=== PATIENT | female | born 1960 | race Caucasian/White ===

== ENCOUNTER → 2018-01-10 | Day surgery (SDC) | payer MEDICARE ==
[2018-01-08 11:10] LABS: BASOPHILS # (AUTO) 0.1 (0.0-0.1); BASOPHILS % 0.6 % (0.0-1.0); EOSINOPHILS # (AUTO) 0.2 (0.0-0.4); EOSINOPHILS % 1.5 % (0.0-6.0); HEMATOCRIT 50.3 % (34.2-44.1); LYMPHOCYTES # (AUTO) 2.3 (1.0-3.2); LYMPHOCYTES % 19.8 % (18.0-39.1); MEAN CORPUSCULAR HEMOGLOBIN 30.9 pg (28-32); MEAN CORPUSCULAR HGB CONC 33.8 g/dL (31-35); MEAN CORPUSCULAR VOLUME 91.5 fL (81-99); MONOCYTES # (AUTO) 0.8 (0.2-0.8); MONOCYTES % 7.2 % (4.4-11.3); NEUTROPHILS # (AUTO) 8.2 (2.1-6.9); NEUTROPHILS % 70.7 % (38.7-80.0); PLATELET COUNT 272 x10e3/uL (140-360); RED CELL DISTRIBUTION WIDTH 14.4 % (11.7-14.4)
[2018-01-08 11:30] LABS: ANION GAP 17.5 mmol/L (8-16); BLOOD UREA NITROGEN 10 mg/dL (7-26); BUN/CREATININE RATIO 13 (6-25); CALCIUM 9.8 mg/dL (8.4-10.2); CARBON DIOXIDE 25 mmol/L (22-29); CHLORIDE 98 mmol/L (98-107); CREATININE, SERUM 0.76 mg/dL (0.57-1.11); EST GLOMERULAR FILTRATION RATE > 60 ML/MIN (60-); GLUCOSE 105 mg/dL (74-118); POTASSIUM 4.5 mmol/L (3.5-5.1); SODIUM 136 mmol/L (136-145)
[~2018-01-10] MED LIST: AMITRIPTYLINE H10 MG PO; AMITRIPTYLINE H50 MG PO; AMLODIPINE BESYL5 MG PO; ASPIRIN81 MG PO; ATENOLOL50 MG PO; CYMBALTA20 MG PO; CYMBALTA30 MG; DEXAMETHASONE SOD PHOS INJ 4 MG/ML VIAL ONE; EPHEDRINE SULFATE INJ 50 MG/10 ML SYR ONE; ESCITALOPRAM OX20 MG PO; FENTANYL CITRATE/PF 100MCG/2 ML INJ ONE; FLOMAX0.4 MG PO; IOPAMIDOL 300MG/ML 50ML INFUS..BTL IV ONE; LEVOFLOXACIN 500MG/D5W 100ML 100 ML IV ONE; LEXAPRO10 MG PO; LIDOCAINE HCL 2% LOCAL INJ 5 ML SDV VIAL INJ ONE; MELOXICAM7.5 MG PO; MIDAZOLAM HCL 2 MG/2 ML VIAL ONE; MORPHINE SULFAT30 M2 PO; MYRBETRIQ25 MG; NEXIUM40 MG PO; NORCO 10-325 T1 EACH; ONDANSETRON HCL INJ 2 MG/ML VIAL ONE; PROPOFOL IV EMULSION 10 MG/ML 20 ML VIAL ONE; SEVOFLURANE INHAL SOLN 250 ML PEN BTL ONE; STOOL SOFTENER50 MG; TIZANIDINE HCL4 MG PO
[2018-01-10 13:45] VITALS: BP 125/72
--- NOTE | 2018-01-14 12:18 | Diagnostic Imaging Report ---
PROCEDURE:X-RAY ABDOMEN - KUB COMPARISON:None. INDICATIONS:PREOPERATIVE XRAY FOR KIDNEY STONE SURGERY FINDINGS: Bowel gas partially obscures visualization of the kidneys. There is an 8 mm calcification overlying the left mid kidney. There are no calcifications projected over the expected course of the ureters or bladder. There is a non-obstructed bowel-gas pattern. There is abundant stool in the colon. Status post cholecystectomy. There are no acute osseous abnormalities. Degenerative changes are present in the lower lumbar spine. The lung bases are clear. CONCLUSION: Calcification measuring 8 mm overlying the left mid kidney, likely representing stone. No calcifications overlying the expected locations of the ureters or bladder. Dictated by: SALMA RODRIGUEZ M.D. on 01/10/2018 at 10:25 Electronically approved by: SALMA RODRIGUEZ M.D. on 01/10/2018 at 10:25
--- NOTE | 2018-01-14 12:18 | Diagnostic Imaging Report ---
PROCEDURE: Frontal and lateral views of the chest. COMPARISON: Chest radiograph 10/05/17. INDICATIONS: PREOPERATIVE CHEST XRAY FOR KIDNEY STONE SURGERY FINDINGS: Lines/tubes: None. Lungs: The lungs are moderate inflated. There is no evidence of pneumonia or pulmonary edema. Pleura: There is no pleural effusion or pneumothorax. Heart and mediastinum: The cardiomediastinal silhouette is unremarkable. Bones: No acute bony abnormality. IMPRESSION: No evidence of acute intrathoracic abnormality. Dictated by: SALMA RODRIGUEZ M.D. on 01/10/2018 at 10:20 Electronically approved by: SALMA RODRIGUEZ M.D. on 01/10/2018 at 10:20
--- OUTSIDE RECORDS SUMMARY | 2018-01-30 07:55 | XMS REPORT | Clinical Summary ---
Author Author [facility] Address Unknown Phone Unavailable Care Team Providers Care Improvement Lead Name Role Phone Enrike Rivera MD PCP Allergies Active Allergy Reactions Severity Noted Date Comments Azithromycin Anaphylaxis High 12/04/2016 Penicillins 12/04/2016 Tcsiwxs-Hnl-Apv Reductase 12/04/2016 Inhibitors Current Medications Prescription Sig. Disp. Refills Start End Date Status Date atenolol (TENORMIN) 50 MG Take 50 mg by mouth Active tablet nightly. tiZANidine (ZANAFLEX) 4 Take 4 mg by mouth every Active MG tablet 6 (six) hours as needed for muscle spasms. morPHINE (MS CONTIN) 15 Take 15 mg by mouth 2 Active MG 12 hr tablet (two) times a day. amitriptyline (ELAVIL) 50 Take 50 mg by mouth Active MG tablet nightly. escitalopram (LEXAPRO) 20 Take 20 mg by mouth Active MG tablet nightly. amLODIPine (NORVASC) 10 Take 10 mg by mouth Active mg tablet nightly. HYDROcodone-acetaminophen Take 1 tablet by mouth Active (NORCO) 10-325 mg per every 12 (twelve) hours tablet as needed for moderate pain. gabapentin (NEURONTIN) Take 600 mg by mouth 4 Active 600 mg tablet (four) times a day. fluticasone-vilanterol Inhale 1 inhalations Active (BREO ELLIPTA) 100-25 nightly. mcg/dose blister with device powder for inhalation diazePAM (VALIUM) 10 MG Take 10 mg by mouth every Active tablet 6 (six) hours as needed for anxiety. esomeprazole (NexIUM) 20 Take 40 mg by mouth daily Active MG capsule before breakfast. aspirin (CHILD ASPIRIN) Chew 81 mg nightly. Active 81 mg chewable tablet acetaminophen (TYLENOL Take 2 tablets (1,000 mg 20 tablet 0 11/30/19 12/10/19 EXTRA STRENGTH) 500 MG total) by mouth every 6 18 18 tablet (six) hours as needed for moderate pain for up to 10 days. phenazopyridine Take 1 tablet (200 mg 6 tablet 0 11/30/19 12/03/19 (PYRIDIUM) 200 MG tablet total) by mouth 3 (three) 18 18 times a day for 3 days. ciprofloxacin (CIPRO) 500 Take 1 tablet (500 mg 14 tablet 0 12/01/19 12/08/19 MG tablet total) by mouth 2 (two) 18 18 times a day for 7 days. fluconazole (DIFLUCAN) Take 1 tablet (200 mg 1 tablet 0 12/01/1908/16 200 MG tablet total) by mouth once for 18 18 1 dose. Active Problems Problem Noted Date COPD exacerbation (HCC) 12/04/2016 Encounters Date Type Specialty Care Team Description 11/29/2017 Emergency Emergency Medicine Carlos Quigley, [employer] Paula catheter problem, - Aidan Dennis MD initial encounter 11/30/2017 (Primary Dx); Acute lower UTI; Candidal vaginitis after 01/09/2017 Social History Tobacco Use Types Packs/Day Years Used Date Current Every Day Smoker Cigarettes 1 Alcohol Use Drinks/Week oz/Week Comments Yes quit Sex Assigned at Date Recorded Not on file Last Filed Vital Signs Vital Sign Reading Time Taken Blood Pressure 137/66 11/30/2017 1:50 AM CDT Pulse 67 11/30/2017 7:14 AM CDT Temperature 36.6 C (97.8 F) 11/30/2017 7:14 AM CDT Respiratory Rate 16 11/30/2017 7:14 AM CDT Oxygen Saturation 97% 11/30/2017 7:14 AM CDT Inhaled Oxygen - - Concentration Weight 98.4 kg (217 lb) 11/29/2017 11:40 PM CDT Height 154.9 cm (5' 1") 11/29/2017 11:40 PM CDT Body Mass Index 41 11/29/2017 11:40 PM CDT Plan of Treatment Health Maintenance Due Date Last Done Comments CERVICAL CANCER SCREENING 1982 BREAST CANCER SCREENING 09/11/2011 COLON CANCER SCREENING 09/11/2011 SHINGRIX VACCINE (#1) 09/11/2011 INFLUENZA VACCINE 11/27/2017 Procedures Procedure Name Priority Date/Time Associated Diagnosis Comments URINALYSIS SCREEN AND Routine 11/30/2017 Results for this MICROSCOPY, WITH REFLEX 12:30 AM CDT procedure are in the TO CULTURE results section. GRAM STAIN Routine 11/30/2017 Results for this 12:30 AM CDT procedure are in the results section. URINE CULTURE Routine 11/30/2017 Results for this 12:30 AM CDT procedure are in the results section. after 01/09/2017 Results * Urinalysis screen and microscopy, with reflex to culture (11/30/2017 12:30 AM) Specimen site Clean catch [facility] DEPARTMENT OF PATHOLOGY AND GENOMIC MEDICINE Color, UA Yellow [facility] DEPARTMENT OF PATHOLOGY AND GENOMIC MEDICINE Appearance, UA Cloudy [facility] DEPARTMENT OF PATHOLOGY AND GENOMIC MEDICINE Specific gravity, UA 1.014 1.001 - 1.035 [facility] DEPARTMENT OF PATHOLOGY AND GENOMIC MEDICINE pH, UA 5.0 5.0 - 8.5 [facility] DEPARTMENT OF PATHOLOGY AND GENOMIC MEDICINE Protein, UA Negative Negative [facility] DEPARTMENT OF PATHOLOGY AND GENOMIC MEDICINE Glucose, UA 3+ (A) Negative [facility] DEPARTMENT OF PATHOLOGY AND GENOMIC MEDICINE Ketones, UA Negative Negative [facility] DEPARTMENT OF PATHOLOGY AND GENOMIC MEDICINE Bilirubin, UA Negative Negative [facility] DEPARTMENT OF PATHOLOGY AND GENOMIC MEDICINE Blood, UA Large (A) Negative [facility] DEPARTMENT OF PATHOLOGY AND GENOMIC MEDICINE Nitrite, UA Negative Negative [facility] DEPARTMENT OF PATHOLOGY AND GENOMIC MEDICINE Urobilinogen, UA <2.0 <2.0 [facility] DEPARTMENT OF PATHOLOGY AND GENOMIC MEDICINE Leukocyte esterase, UA Trace (A) Negative [facility] DEPARTMENT OF PATHOLOGY AND GENOMIC MEDICINE WBC, UA 11-20 (H) 0 - 4 /HPF [facility] DEPARTMENT OF PATHOLOGY AND GENOMIC MEDICINE RBC, UA 61-80 (H) 0 - 5 /HPF [facility] DEPARTMENT OF PATHOLOGY AND GENOMIC MEDICINE Bacteria, UA trace None seen [facility] DEPARTMENT OF PATHOLOGY AND GENOMIC MEDICINE Yeast, UA None seen [facility] DEPARTMENT OF PATHOLOGY AND GENOMIC MEDICINE Yeast with pseudohyphae, None seen [facility] DEPARTMENT [facility] PATHOLOGY AND GENOMIC MEDICINE Specimen Urine Performing Organization Address City/State/Zipcode Phone Number [facility] [address] [place] [address] PATHOLOGY AND GENOMIC MEDICINE * Gram stain (11/30/2017 12:30 AM) Gram stain result No WBC's or organisms seen. [facility] DEPARTMENT OF Comment: PATHOLOGY AND Specimen Information GENOMIC MEDICINE Specimen Source: Urine Specimen Site: Clean catch Specimen Urine Performing Organization Address City/[facility]/Zipcode Phone Number [facility] DEPARTMENT OF [address] [place] [phone] PATHOLOGY AND GENOMIC MEDICINE * Urine culture (11/30/2017 12:30 AM) Urine culture isolate No growth after 2 days. [facility]PARTMENT OF Comment: PATHOLOGY AND Specimen Information GENOMIC MEDICINE Specimen Source: Urine Specimen Site: Clean catch Specimen Urine Performing Organization Address City/[facility]/[place] Phone Number [facility] DEPARTMENT OF [address] [place] [address] PATHOLOGY AND GENOMIC MEDICINE after 01/09/2017 Insurance Payer Benefit Subscriber ID Type Phone Address Plan / Group MEDICARE MEDICARE xxxxxxxxxx Medicare [place], [place] PART A AND B [id number] [place] [address]
--- OUTSIDE RECORDS SUMMARY | 2018-01-30 07:56 | XMS REPORT | Continuity of Care Document ---
Author Author Interface Organization Interface Address Unknown Phone Unavailable Problems Problem Status Onset Date Classification Date Reported Comments Source M79.645 Active 12/06/2017 [facility] CATHETER CHECK Active 2017 [facility] UNABLE TO URINATE Active 05/2017 [facility] Other spondylosis with radiculopathy, lumbar region 07/11/2017 10/11/2017 [facility] Encounter for screening mammogram for malignant neoplasm of breast 06/18/2017 09/18/2017 [facility] M47.816 M54.16 (PT HAS AORTIC ANEURYSM Active 04/19/2017 [facility] Z12.31 Active 04/19/2017 [facility] I71.4 Active 11/01/2016 [facility] LUMBAR SPONDYLOSIS RADICULOPATHY Active 11/21/2015 [facility] COPD EXAC Active 02/18/2015 [facility] Discharge Diagnosis: Kidney stone 04/17/2014 04/20/2014 [facility] Discharge Diagnosis: Hematuria 04/17/2014 04/20/2014 [facility] BLOODY URINE Active 2013 [facility] CHEST PAIN Active 04/03/2014 [facility] AMS, ABDORMAN CT HEAD Active 04/01/2014 [facility] ALTERED MENTAL STATUS Active 04/01/2014 [facility] Discharge Diagnosis: Right sided sciatica 02/20/201410/2013 [facility] COPD EXACERBATION, HYPOXIA, DEHYDRATION, Active 02/20/2014 [facility] LEG PAIN Active 02/20/2014 [facility] Discharge Diagnosis: Sciatica 02/19/2014 02/22/2014 [facility] LEG / BACK PAIN Active 2013 [facility] SCREENING MAMMO Active 2013 [facility] AAA (<span ID="[id number]">Confirmed</span>) Res[facility] Problem [facility] Heart valve disorder Resolved Problem 11/01/2017 [facility] Herniated disc Resolved Problem 11/01/2017 [facility] HTN (<span ID="[id number]">Confirmed</span>) Active Problem 11/01/2017 [facility] Idiopathic chronic neuropathy Resolved Problem 2017 [facility] Morbid obesity Active Problem 11/01/2017 [facility] PNA (<span ID="[id number]">Confirmed</span>) Resolved Problem 11/01/2017 [facility] UTI , uncomplicated(<span ID="[id number]">Confirmed</span>) Active Problem 11/01/2017 [facility] UTI - Urinary tract infection Resolved Problem 2017 [facility] Spondylosis without myelopathy or radiculopathy, lumbar region 09/18/2017 [facility] Other intervertebral disc displacement, lumbar region 09/18/2017 [facility] Abdominal aortic aneurysm, without rupture 10/11/2017 [facility] Spinal stenosis, lumbosacral region 10/11/2017 [facility] Other intervertebral disc displacement, lumbosacral region 10/11/2017 [facility] Spondylosis without myelopathy or radiculopathy, lumbosacral region 10/11/2017 [facility] CHR AIRWAY OBSTRUCT NEC Active [facility] AMS Active [facility] CHEST PAIN NOS Active [facility] CHRONIC OBSTRUCTIVE PULMONARY DISEASE W Active [facility] UNK Active [facility] ABDOMINAL AORTIC ANEURYSM, WITHOUT RUPTU Active [facility] SPONDYLOSIS W/O MYELOPATHY OR RADICULOPA Active [facility] RADICULOPATHY, LUMBAR REGION Active [facility] ENCNTR SCREEN MAMMOGRAM FOR MALIGNANT NE Active [facility] PAIN IN LEFT FINGER(S) Active [facility] Medications Medication Details Route Status Patient Instructions Ordering Provider Order Date Source Breo Ellipta 100 mcg-25 mcg inhalation powder 1 puff, INHALATION, Daily, 0 Refill(s) Active 07/05/2017 [facility] amitriptyline 50 mg oral tablet 50 mg=1 tab, PO, Bedtime, 0 Refill(s) Active 12/2017 [facility] diphenhydrAMINE 25 mg oral tablet 25 mg=1 tab, PO, TID , 0 Refill(s) Active 2017 [facility] Omnipaque 350 100 mL, Route: IV, Drug Form: SOLN, ONCE , Start date: 11/14/16 10:06:00 CDT, Stop date: 11/14/16 10:06:00 CDTNotes: ( same as:Omnipaque 350). WASTE: F/P - Black; E - [employer]ash [employer] Inactive 11/14/2016 [facility] predniSONE 20 mg oral tablet See Special Instructions , PO, Daily, 12 day regimen: Days 1-4 - 40 mg (2 tabs) daily Days 5-8 - 20 mg (1 tab) daily Days 9-12 - 10 mg (1/2 tab) daily, X 12 day, # 12 tab, 0 Refill(s ) Active 02/21/2015 [facility] Albuterol 0.833 MG/ML / Ipratropium [place] 0.167 MG/ML Inhalant Solution [ DuoNeb] 3 ml, INHALATION, QID, # 30 ea, 0 Refill(s) Active 02/21/2015 [facility] amLODIPine 5 mg oral tablet 5 mg=1 tab, PO, Daily, # 30 tab, 0 Refill(s) Active [facility] Acetylcysteine 200 MG/ML Inhalant Solution 400 mg=2 mL , NEB, RBID, # 30 mL, 0 Refill(s) Active 02/21/2015 [facility] Solu-Medrol 40 mg, 1 mL, Route: IVP, Drug form: INJ, Q12H, Dosing Weight 101.136, kg, Start date: 02/20/15 21:00:00, Duration: 30 day , Stop date: 03/22/15 9:00:00Notes: (Same as:Solu-MEDROL, A-Methapred) No Longer Active 02/21/2015 [facility] Acetylcysteine 200 MG/ML Inhalant Solution 400 mg, 2 mL, Route: NEB, Drug Form: SOLN, Dosing Weight 101.136, kg, RBID, Start date: 16:44:00, Stop date: 03/22/15 7:00:00 No Longer Active 02/20/2015 [facility] Norvasc 5 mg, 1 tab, Route: PO, Drug form: TAB, Daily , Dosing Weight 101.136, kg, Start date: 02/20/15 16:41:00, Duration: 30 day, Stop date: 03/22/15 9:00:00Notes: (Same as: Norvasc) No Longer Active 02/20/2015 [facility] Nicotine 21 mg, 1 patch, Route: TOP, Drug form: ERFILM , Daily, Dosing Weight 101.136, kg, Start date: 02/20/15 9:00:00, Duration: 30 day, Stop date: 03/21/15 9:00:00Notes: (Same as: Habitrol) "Remove old patch before application of new patch" No Longer Active 02/20/2015 [facility] gabapentin 600 MG Oral Tablet 1,200 mg, 3 cap, Route: PO, Drug form: CAP, BID, Dosing Weight 101.136, kg, Start date: 02/19/15 20:00: 00, Duration: 30 day, Stop date: 03/21/15 9:00:00Notes: (Same as: Neurontin) No Longer Active 02/20/2015 [facility] Ambien 10 mg, 1 tab, Route: PO, Drug form: TAB, Bedtime, Dosing Weight 101.136, kg, PRN as needed for sleep, Start date: 16:51:00, Duration: 30 day, Stop date: 03/21/15 16:50:00Notes: (Same As: Ambien) No Longer Active 2014 [facility] tizanidine 4 mg, 1 tab, Route: PO, Drug form: TAB, Q8H , Dosing Weight 101.136, kg, Start date: 02/19/15 16:00:00, Duration: 30 day, Stop date: 03/21/15 8:00:00Notes: (Same As: Zanaflex) No Longer Active 02/19/2015 [facility] Levalbuterol 0.63 mg, 3 mL, Route: NEB, Drug form: SOLN, PRN, Dosing Weight 101.136, kg, PRN Respiratory Protocol, Start date: 15:49:00, Duration: 30 day, Stop date: 03/21/15 14:48:00, Substitute Allowed NoNotes: SEE RT DOCUMENTATION (Same as:Xopenex) Non-Formulary No Longer Active 02/19/2015 [facility] Neurontin 600 mg, 2 cap, Route: PO, Drug form: CAP, ONCE, Start date: 02/19/15 11:14:00, Stop date: 02/19/15 11:14:00Notes: (Same as : Neurontin) Inactive 2014 [facility] gabapentin 600 MG Oral Tablet See Instructions, 1 tab PO BID, 0 Refill(s), 2 capsof 600mgs total of 1200 po BID Active 02/19/2015 [facility] tizanidine 4 mg oral tablet 4 mg=1 tab, PO, Q8H, 0 Refill(s) Active 02/19/2015 [facility] Aspirin Enteric Coated 81 mg oral delayed release tablet 81 mg=1 tab, PO, Daily, 0 Refill(s) Active 02/19/2015 [facility] tizanidine 4 mg oral tablet 8 mg=2 tab, PO, Q8H, 0 Refill(s) Inactive 02/19/2015 [facility] gabapentin 600 MG Oral Tablet 600 mg=1 tab, PO, TID, 0 Refill(s) Inactive 2014 [facility] Omeprazole 20 mg, Route: PO, Daily, Dosing Weight 101.136, kg, Start date: 02/19/15 9:00:00, Duration: 30 day, Stop date: 9:00:00 No Longer Active [facility] Escitalopram 20 mg, 1 tab, Route: PO, Drug form: TAB, Daily, Dosing Weight 101.136, kg, Start date: 02/19/15 9:00:00, Duration: 30 day , Stop date: 03/20/15 9:00:00Notes: (Same as: Lexapro) No Longer Active 02/19/2015 [facility] Atenolol 50 mg, 1 tab, Route: PO, Drug form: TAB, Daily, Dosing Weight 101.136, kg, Start date: 02/19/15 9:00:00, Duration: 30 day , Stop date: 03/20/15 9:00:00Notes: (Same As:Tenormin) No Longer Active 02/19/2015 [facility] influenza virus vaccine, inactivated 0.5 mL, Route: IM , Drug Form: SUSP, Daily, Start date: 02/19/15 9:00:00, Duration: 1 doses or times, Stop date: 02/19/15 9:00:00Notes: (Same as: Fluzone Quadrivalent) For 3 years of age and older (0.5 mL IM) Shake well before use Inactive 02/19/2015 [facility] Morphine 15 mg, 1 tab, Route: PO, Drug form: ERTAB, Q12H, Dosing Weight 101.136, kg, Start date: 02/18/15 21:00:00, Duration: 30 day , Stop date: 03/20/15 9:00:00Notes: Do not crush (Same as:Oramorph SR, MS Contin ) No Longer Active 02/19/2015 [facility] gabapentin 600 MG Oral Tablet 600 mg, 2 cap, Route: PO , Drug form: CAP, BID, Dosing Weight 101.136, kg, Start date: 02/18/15 20:00:00 , Duration: 30 day, Stop date: 03/20/15 9:00:00Notes: (Same as: Neurontin) No Longer Active 02/19/2015 [facility] Symbicort 80/4.5 inhalation aerosol with adapter 2 inhalation, Route: INHALATION, Drug Form: AERO/A, Dosing Weight 101.136, kg, BID , Start date: 02/18/15 17:00:00, Duration: 30 day, Stop date: 03/20/15 9:00: 00Notes: (Same as: Symbicort) No Longer Active 02/18/2015 [facility] Protonix 40 mg, 1 tab, Route: PO, Drug form: ECTAB, Before Dinner, Start date: 02/18/15 16:30:00, Duration: 30 day, Stop date: 03/19 16:30:00Notes: Tablet should not be chewed or crushed. (Same as: Protonix) No Longer Active 02/18/2015 [facility] tizanidine 8 mg, 2 tab, Route: PO, Drug form: TAB, Q8H , Dosing Weight 101.136, kg, Start date: 02/18/15 16:00:00, Duration: 30 day, Stop date: 03/20/15 8:00:00Notes: (Same As: Zanaflex) No Longer Active 02/18/2015 [facility] Solu-Medrol 40 mg, 1 mL, Route: IVP, Drug form: INJ, Q8H, Dosing Weight 101.136, kg, Start date: 02/18/15 16:00:00, Duration: 30 day , Stop date: 03/20/15 8:00:00Notes: (Same as:Solu-MEDROL, A-Methapred) No Longer Active 02/18/2015 [facility] Albuterol 0.833 MG/ML / Ipratropium [place] 0.167 MG/ML Inhalant Solution [ DuoNeb] 3 mL, Route: INHALATION, Drug Form: SOLN, Dosing Weight 85.909, kg, RQ4H, Start date: 02/18/15 15:00:00, Duration: 30 day , Stop date: 03/20/15 11:00:00Notes: (Same as: Duoneb) No Longer Active 02/18/2015 [facility] Enoxaparin 40 mg, 0.4 mL, Route: SUB-Q, Drug form: INJ , [id number], Dosing Weight 101.136, kg, Consider for obese patients, Start date: 02/18/15 14:00:00, Duration: 30 day, Stop date: 03/20/15 2:00:00Notes: (Same as : Lovenox) No Longer Active [facility] Levaquin 500 mg, 100 mL, Route: IVPB, Drug form: SOLN , [id number], Dosing Weight 85.909, kg, Start date: 02/18/15 12:00:00, Duration: 30 day, Stop date: 03/19/15 12:00:00Notes: (Same as:Levaquin) No Longer Active 02/18/2015 [facility] ProAir HFA 1 - 2 puffs, PO, Q4H, PRN Wheezing / cough / shortness of breath, # 1 ea, 0 Refill(s) Active 02/18/2015 [facility] Aspirin 81 mg, PO, Daily, 0 Refill(s) No Longer Active 02/18/2015 [facility] tizanidine 4 mg oral tablet 8 mg=2 tab, PO, Q8H, # 180 tab, 0 Refill(s) No Longer Active 02/18/2015 [facility] levofloxacin 500 mg oral tablet 500 mg=1 tab, PO, Daily, this is day 7, # 10 tab, 0 Refill(s) Active 02/18/2015 [facility] Symbicort 80/4.5 inhalation aerosol with adapter 2 puff, INHALATION, BID, # 6.9 gm, 0 Refill(s) Active 02/18/2015 [facility] Acetaminophen 325 MG / Hydrocodone Bitartrate 10 MG Oral Tablet 1 tab, PO, Q12H, PRN Pain Score 1-5, 0 Refill(s) Active 02/18/2015 [facility] Atenolol 50 mg, PO, Daily, 0 Refill(s) Active 02/18/2015 [facility] Morphine 15 mg, PO, Q12H, 0 Refill(s) Active 02/18/2015 [facility] gabapentin 600 MG Oral Tablet 2 tabs, PO, BID, 0 Refill(s) No Longer Active [facility] Omeprazole 20 mg, PO, Daily, 0 Refill(s) Active 02/18/2015 [facility] escitalopram 20 mg oral tablet 20 mg=1 tab, PO, Daily , # 30 tab, 0 Refill(s) Active 02/18/2015 [facility] Acetaminophen 325 MG / Hydrocodone Bitartrate 5 MG Oral Tablet 2 tab, Route: PO, Drug Form: TAB, Dosing Weight 85.909, kg, Q4H, PRN Pain Score 7-10, Start date: 02/18/15 10:19:00, Duration: 30 day, Stop date: 10:18:00Notes: (Same as: [address]/5) Do not exceed 4gm/day of acetaminophen. No Longer Active 02/18/2015 [facility] Ondansetron 4 mg, 2 mL, Route: IVP, Drug form: INJ, Q6H, Dosing Weight 85.909, kg, PRN Nausea & Vomiting, Start date: 02/18/15 10:19 :00, Duration: 30 day, Stop date: 03/20/15 10:18:00Notes: (Same as: Purvi) * MEDICATION WASTE Product Size: 4 mg Product Wasted: ___ mg No Longer Active 02/18/2015 [facility] Levaquin 500 mg, 100 mL, Route: IVPB, Drug form: SOLN , [id number], Dosing Weight 85.909, kg, Start date: 02/18/15 10:00:00, Duration: 30 day, Stop date: 03/19/15 10:00:00Notes: (Same as:Levaquin) Inactive 02/18/2015 [facility] Tylenol 650 mg, 2 tab, Route: PO, Drug form: TAB, Q6H , Dosing Weight 85.909, kg, PRN For Temp > 100.4 F, Start date: 02/18/15 9:39:00 , Duration: 30 day, Stop date: 03/20/15 9:38:00Notes: Do not exceed 4 gm/day. ( Same as: Tylenol) No Longer Active 02/18/2015 [facility] Albuterol 0.833 MG/ML / Ipratropium [place] 0.167 MG/ML Inhalant Solution [ DuoNeb] 3 mL, Route: INHALATION, Drug Form: SOLN, Dosing Weight 85.909, kg, Q2H, PRN as needed for shortness of breath or wheezing , Start date: 02/18/15 9:38:00, Duration: 30 day, Stop date: 03/20/15 9:37: 00Notes: (Same as: Duoneb) No Longer Active 02/18/2015 [facility] busPIRone 30 mg oral tablet 30 mg, PO, BID, # 30 tab, 0 Refill(s) Active 04/14/2014 [facility] Levofloxacin 500 MG Oral Tablet [Levaquin] 500 mg=1 tab, PO, Q24H, # 4 tab, 0 Refill(s) Active 04/14/2014 [facility] cyclobenzaprine 5 mg oral tablet 5 mg=1 tab, PO, TID, as needed for muscle spasm, # 21 tab, 0 Refill(s) Active 04/14/2014 [facility] Acetaminophen 300 MG / Codeine Phosphate 30 MG Oral Tablet [Tylenol with Codeine #3] 1 tab, PO, Q4H, for pain, # 30 tab, 0 Refill(s) Inactive 04/14/2014 [facility] Protonix 40 mg, 1 tab, Route: PO, Drug form: ECTAB, Before Dinner, Start date: 04/09/14 16:30:00, Duration: 30 day, Stop date: 05/08 16:30:00Notes: Tablet should not be chewed or crushed. (Same as: Protonix) No Longer Active 04/09/2014 [facility] Pyridium 200 mg, 1 tab, Route: PO, Drug form: TAB, TID -After Meals, Dosing Weight 86.875, kg, Start date: 04/09/14 12:30:00, Duration : 2 day, Stop date: 04/11/14 8:30:00Notes: Give with meals. (Same as: Pyridium) No Longer Active 04/09/2014 [facility] Levofloxacin 750 MG Oral Tablet [Levaquin] 750 mg=1 tab, PO, Q24H, # 7 tab, 0 Refill(s) Inactive 04/08/2014 [facility] Acetaminophen 300 MG / Codeine Phosphate 30 MG Oral Tablet [Tylenol with Codeine #3] 2 tab, PO, Q6H, for pain, # 30 tab, 0 Refill(s) Inactive 04/08/2014 [facility] Atenolol 25 MG Oral Tablet 25 mg, 1 tab, Route: PO, Drug form: TAB, Daily, Dosing Weight 86.875, kg, Priority: NOW, Start date: 12/10 14:27:00, Duration: 30 day, Stop date: 05/05/14 9:00:00Notes: (Same As: Tenormin) No Longer Active 11/2013 [facility] Lactulose 40 gm, 60 mL, Route: PO, Drug Form: SYRP, Dosing Weight 86.875, kg, BID, Start date: 04/05/14 13:18:00, Duration: 30 day, Stop date: 05/05/14 9:00:00Notes: (Same as:Chronulac) No Longer Active 04/05/2014 [facility] Morphine 15 mg, 1 tab, Route: PO, Drug form: TAB, Q4H , Dosing Weight 86.875, kg, PRN Pain Score 4-6, Start date: 04/05/14 8:55:00, Duration: 30 day, Stop date: 05/05/14 8:54:00Notes: (Same as:MORPhine Sulfate) No Longer Active 04/05/2014 [facility] Protonix 40 mg, 1 tab, Route: PO, Drug form: ECTAB, Before Dinner, Start date: 04/04/14 16:30:00, Duration: 30 day, Stop date: 05/03 16:30:00Notes: Tablet should not be chewed or crushed. (Same as: Protonix) No Longer Active 04/04/2014 [facility] Ativan 1 mg, 0.5 mL, Route: IVP, Drug form: INJ, Q8H, Dosing Weight 86.875, kg, PRN Anxiety, Start date: 04/04/14 10:31:00, Duration: 30 day, Stop date: 05/04/14 10:30:00Notes: (Same as: Ativan) No Longer Active 04/04/2014 [facility] Ativan 1 mg, 0.5 mL, Route: IVP, Drug form: INJ, ONCE , Dosing Weight 86.875, kg, PRN Anxiety, Start date: 04/04/14 10:30:00Notes: ( Same as: Ativan) Inactive 04/04 [facility] Lidocaine Hydrochloride 0.05 MG/MG Transdermal Patch 1 patch, Route: TOP, Q12H, Drug form: FILM, Start date: 04/04/14 9:00:00, Duration: 30 day, Stop date: 05/03/14 21:00:00Notes: Apply only once for up to 12 hours in a 24-hour period (12 hours on and 12 hours off). (Same as: Lidoderm ) "Remove old patch before application of new patch" No Longer Active 04/04/2014 [facility] Hydrochlorothiazide 12.5 MG Oral Capsule 12.5 mg, 1 cap, Route: PO, Drug form: CAP, Daily, Dosing Weight 86.875, kg, Start date: 11/09 9:00:00, Duration: 30 day, Stop date: 05/03/14 9:00:00Notes: (Same as: Microzide) With food. No Longer Active 04/04/2014 [facility] Diltiazem 120 mg, 2 cap, Route: PO, Drug form: ERCAP, BID, Dosing Weight 86.875, kg, Start date: 04/04/14 9:00:00, Duration: 30 day, Stop date: 05/03/14 21:00:00Notes: (Same as: Cardizem SR) Before meals. DO NOT CRUSH. Give twice daily. No Longer Active 04/04/2014 [facility] Aspirin 81 MG Enteric Coated Tablet 81 mg, 1 tab, Route: PO, Drug form: ECTAB, Q24H, Dosing Weight 86.875, kg, Start date: 9:00:00, Duration: 30 day, Stop date: 05/03/14 9:00:00Notes: Do not crush or chew. (Same As: Ecotrin) No Longer Active 04/04/2014 [facility] Omeprazole 20 mg, Route: PO, Drug form: DRC, Daily, Dosing Weight 86.875, kg, Start date: 04/04/14 9:00:00, Duration: 30 day, Stop date: 05/03/14 9:00:00 No Longer Active 04/04/2014 [facility] Levofloxacin 500 mg, 2 tab, Route: PO, Drug form: TAB , Q24H, Dosing Weight 86.875, kg, Start date: 04/04/14 0:00:00, Duration: 30 day , Stop date: 05/03/14 0:00:00Notes: Do not give w/antacids, dairy pdt & minerals Take 1 hr before or 2 hr after dairy pdt (Same as:Levaquin) No Longer Active 04/04/2014 [facility] heparin, porcine 5,000 unit, 1 mL, Route: SUB-Q, Drug form: INJ, Q8H, Dosing Weight 86.875, kg, Start date: 04/04/14 0:00:00, Duration : 30 day, Stop date: 05/03/14 16:00:00Notes: porcine heparin No Longer Active 04/04/2014 [facility] Nitroglycerin 0.4 mg, 1 tab, Route: SL, Drug form: TAB , Q5Min, Dosing Weight 86.875, kg, PRN Chest Pain, Start date: 04/03/14 23:16:00 , Duration: 30 day, Stop date: 05/03/14 23:15:00Notes: (Same as:Nitroquick, Nitrostat) "Do Not Crush" Sublingual tablet No Longer Active 04/04/2014 [facility] Acetaminophen 325 MG / Oxycodone Hydrochloride 5 MG Oral Tablet [Percocet 5/325 ] 1 tab, Route: PO, Drug Form: TAB, Dosing Weight 86.875, kg, Q6H, PRN Pain Score 4-6, Start date: 04/03/14 23:15:00, Duration: 30 day, Stop date: 05/03/14 23:14:00Notes: Do not exceed 4gm/day of acetaminophen. (Same as: Percocet-5/325) No Longer Active 04/04/2014 [facility] Tylenol 650 mg, 2 tab, Route: PO, Drug form: TAB, Q6H , Dosing Weight 86.875, kg, PRN Pain Score 1-3, Start date: 04/03/14 23:15:00, Duration: 30 day, Stop date: 05/03/14 23:14:00Notes: Do not exceed 4 gm/day. ( Same as: Tylenol) No Longer Active 04/04/2014 [facility] Morphine 4 mg, 2 mL, Route: IVP, Drug form: INJ, Q4H, Dosing Weight 86.875, kg, PRN Pain Score 7-10, Start date: 04/03/14 23:14:00, Duration: 30 day, Stop date: 05/03/14 23:13:00Notes: (Same as:MORPhine Sulfate) No Longer Active 04/04/2014 [facility] cyclobenzaprine 5 mg, 0.5 tab, Route: PO, Drug form: TAB, TID, Dosing Weight 86.875, kg, PRN Spasm, Start date: 04/03/14 23:13:00, Stop date: 05/03/14 23:12:00Notes: (Same As: Flexeril) No Longer Active 04/04/2014 [facility] Morphine 4 mg, 2 mL, Route: IV, Drug form: INJ, ONCE, Dosing Weight 86.875, kg, Start date: 04/03/14 22:00:00, Stop date: 04/03/14 22: 00:00Notes: (Same as:MORPhine Sulfate) Inactive 04/04/2014 [facility] Saline Flush 0.9% 10 ml, Route: IVP, Drug Form: INJ, Dosing Weight 89.545, kg, Q12H, Start date: 04/03/14 21:00:00, Duration: 30 day , Stop date: 05/03/14 9:00:00Notes: (Same as: BD Posiflush) No Longer Active 04/04/2014 [facility] Atropine 0.5 mg, 5 mL, Route: IVP, Drug form: INJ, PRN , Dosing Weight 89.545, kg, PRN Bradycardia, Start date: 04/03/14 20:44:00, Duration: 30 day, Stop date: 05/03/14 20:43:00, HR No Longer Active 04/04/2014 [facility] Nitroglycerin 0.4 mg, Route: SL, Drug form: TAB, Q5Min , Dosing Weight 89.545, kg, PRN, Start date: 04/03/14 20:44:00, Duration: 30 day , Stop date: 05/03/14 20:43:00, Chest Pain X3 Inactive 04/04/2014 [facility] Saline Flush 0.9% 10 ml, Route: IVP, Drug Form: INJ, Dosing Weight 89.545, kg, PRN, PRN Line Flush, Start date: 04/03/14 20:40:00, Duration: 30 day, Stop date: 05/03/14 20:39:00Notes: (Same as: BD Posiflush) No Longer Active 04/04/2014 [facility] Ondansetron 4 mg, 1 tab, Route: PO, Drug form: TAB, Q8H, Dosing Weight 89.545, kg, PRN Nausea & Vomiting, Start date: 04/03/14 20:40 :00, Duration: 30 day, Stop date: 05/03/14 20:39:00Notes: (Same as: Zofran) No Longer Active 04/04/2014 [facility] Nitroglycerin 0.4 mg, 1 tab, Route: SL, Drug form: TAB , Q5Min, Dosing Weight 89.545, kg, PRN Chest Pain, Start date: 04/03/14 20:40:00 , Duration: 3 doses or times, Stop date: Limited # of timesNotes: (Same as: Nitroquick, Nitrostat) "Do Not Crush" Sublingual tablet Inactive 04/04/2014 [facility] aspirin 325 mg tablet 325 mg, 1 tab, Route: PO, Drug form: TAB, ONCE, Dosing Weight 89.545, kg, Start date: 04/03/14 20:40:00, Stop date: 04/03/14 20:40:00Notes: Take with food. Inactive 04/04/2014 [facility] Lopressor 5 mg, Route: IVP, Drug form: INJ, ONCE, Dosing Weight 89.545, kg, Priority: STAT, Start date: 04/03/14 20:19:00, Stop date: 04/03/14 20:19:00 Inactive 04/04/2014 [facility] Morphine 2 mg, Route: IVP, ONCE, Dosing Weight 89.545 , kg, Start date: 04/03/14 20:18:00, Stop date: 04/03/14 20:18:00 Inactive 04/04/2014 [facility] Nitroglycerin 0.02 MG/MG Topical Ointment 1 inch, Route: TOP, Drug Form: OINT, Dosing Weight 89.545, kg, ONCE, STAT, Start date: 04/03/14 20:17:00, Stop date: 04/03/14 20:17:00 Inactive 04/04/2014 [facility] Ondansetron 4 mg, Route: IVP, ONCE, Dosing Weight 89.545, kg, Priority: STAT, Start date: 04/03/14 18:22:00, Stop date: 04/03/14 18:22:00 Inactive 04/04/2014 [facility] Morphine 2 mg, Route: IVP, ONCE, Dosing Weight 89.545 , kg, Priority: STAT, Start date: 04/03/14 18:22:00, Stop date: 04/03/14 18:22: 00 Inactive 04/04/2014 [facility] Saline Flush 0.9% 10 mL, Route: IVP, Drug Form: INJ, Dosing Weight 89.545, kg, PRN, PRN Line Flush, Start date: 04/03/14 18:22:00, Duration: 30 day, Stop date: 05/03/14 18:21:00Notes: (Same as: Posiflush) Inactive 04/04/2014 [facility] Sodium Chloride 0.154 MEQ/ML Injectable Solution 500 mL, Infuse Over: 1 hr, Route: IV, ONCE, Priority: STAT, Dosing Weight 89.545 kg , Start date: 04/03/14 18:22:00, Duration: 1 doses or times, Stop date: 18:22:00 Inactive 2013 [facility] remove patch 1 patch, Route: TOP, Bedtime, Drug form: ERFILM, Start date: 04/02/14 21:00:00, Duration: 30 day, Stop date: 05/01/14 21: 00:00Notes: Remove patch 12 hours after application each day. Inactive 04/03/2014 [facility] Protonix 40 mg, 1 tab, Route: PO, Drug form: ECTAB, Before Dinner, Start date: 04/02/14 16:30:00, Duration: 30 day, Stop date: 05/01 16:30:00Notes: Tablet should not be chewed or crushed. (Same as: Protonix) Inactive 04/02/2014 [facility] Levaquin 500 mg, 2 tab, Route: PO, Drug form: TAB, ONCE, Dosing Weight 89.545, kg, Start date: 04/02/14 12:10:00, Stop date: 12:10:00Notes: Do not give w/antacids, dairy pdt & minerals Take 1 hr before or 2 hr after dairy pdt (Same as:Levaquin) Inactive 04/02/2014 [facility] levofloxacin 500 mg oral tablet 500 mg=1 tab, PO, Q24H , # 7 tab, 0 Refill(s) On Hold 04/02/2014 [facility] 24 HR Nicotine 0.292 MG/HR Transdermal Patch [Nicoderm C-Q] =1 patch, TOP, Daily, # 30 patch, 0 Refill(s) No Longer Active 04/02/2014 [facility] Levaquin 500 mg, 1 tab, Route: PO, Drug form: TAB, ONCE, Dosing Weight 89.545, kg, Start date: 04/02/14 11:25:00, Stop date: 11:25:00 Inactive 2013 [facility] Prednisone 40 mg, 2 tab, Route: PO, Drug form: TAB, Daily, Dosing Weight 81.818, kg, Start date: 04/02/14 9:00:00, Duration: 30 day , Stop date: 05/01/14 9:00:00Notes: Take with food. Inactive 04/02/2014 [facility] Omeprazole 20 mg, Route: PO, Drug form: DRC, Daily, Dosing Weight 81.818, kg, Start date: 04/02/14 9:00:00, Duration: 30 day, Stop date: 05/01/14 9:00:00 No Longer Active 04/02/2014 [facility] Hydrochlorothiazide 12.5 MG Oral Capsule 12.5 mg, 1 cap, Route: PO, Drug form: CAP, Daily, Dosing Weight 81.818, kg, Start date: 09/09 9:00:00, Duration: 30 day, Stop date: 05/01/14 9:00:00Notes: (Same as: Microzide) With food. Inactive 04/02/2014 [facility] gabapentin 300 MG Oral Capsule 600 mg, 2 cap, Route: PO, Drug form: CAP, TID, Dosing Weight 81.818, kg, Start date: 04/02/14 9:00:00 , Duration: 30 day, Stop date: 05/01/14 17:00:00Notes: (Same as: Neurontin) Inactive 04/02/2014 [facility] Aspirin 81 MG Enteric Coated Tablet 81 mg, 1 tab, Route: PO, Drug form: ECTAB, Daily, Dosing Weight 81.818, kg, Start date: 9:00:00, Duration: 30 day, Stop date: 05/01/14 9:00:00Notes: Do not crush or chew. (Same As: Ecotrin) Inactive 04/02/2014 [facility] Nicotine 7 mg, 1 patch, Route: TOP, Drug form: ERFILM , Daily, Dosing Weight 81.818, kg, Start date: 04/02/14 9:00:00, Duration: 30 day, Stop date: 05/01/14 9:00:00Notes: (Same as: Habitrol) "Remove old patch before application of new patch" Inactive 04/02/2014 [facility] Lidocaine Hydrochloride 0.05 MG/MG Transdermal Patch 1 patch, Route: TOP, Daily, Drug form: FILM, Start date: 04/01/14 21:00:00, Duration: 30 day, Stop date: 04/30/14 21:00:00Notes: Apply only once for up to 12 hours in a 24-hour period (12 hours on and 12 hours off). (Same as: Lidoderm ) "Remove old patch before application of new patch" No Longer Active 04/02/2014 [facility] Diltiazem 120 mg, 1 tab, Route: PO, Drug form: TAB, BID, Dosing Weight 81.818, kg, Start date: 04/01/14 21:00:00, Duration: 30 day, Stop date: 05/01/14 9:00:00Notes: (Same as: Cardizem) Before meals No Longer Active 04/02/2014 [facility] nitroglycerin 0.4 mg sublingual tablet 0.4 mg, 1 tab, Route: SL, Drug form: TAB, Q5Min, PRN Chest Pain, Start date: 04/01/14 19:23:00 , Duration: 30 day, Stop date: 05/01/14 19:22:00Notes: (Same as:Nitroquick, Nitrostat) "Do Not Crush" Sublingual tablet No Longer Active 04/02/2014 [facility] atropine 0.5 mg, 5 mL, Route: IVP, Drug form: INJ, PRN , PRN Bradycardia, Start date: 04/01/14 19:23:00, Duration: 30 day, Stop date: 05/01/14 19:22:00 No Longer Active 04/02/2014 [facility] Ondansetron 4 mg, 2 mL, Route: IVP, Drug form: INJ, Q8H, Dosing Weight 81.818, kg, PRN Nausea & Vomiting, Start date: 04/01/14 17:09 :00, Duration: 30 day, Stop date: 05/01/14 17:08:00Notes: (Same as: Zofran) No Longer Active 04/01/2014 [facility] Acetaminophen 650 mg, 2 tab, Route: PO, Drug form: TAB , Q4H, Dosing Weight 81.818, kg, PRN Pain 1-3/Temp > 100.4 F, Start date: 17:09:00, Duration: 30 day, Stop date: 05/01/14 17:08:00Notes: Do not exceed 4 gm/day. (Same as: Tylenol) No Longer Active 04/01/2014 [facility] Acetaminophen 325 MG / Hydrocodone Bitartrate 10 MG Oral Tablet [[address] 10/325] 1 tab, Route: PO, Drug Form: TAB, Dosing Weight 81.818 , kg, Q6H, PRN Breakthrough Pain, Start date: 04/01/14 17:06:00, Duration: 30 day, Stop date: 05/01/14 17:05:00Notes: Do not exceed 4gm/day of acetaminophen. (Same as: [address]/10) No Longer Active 04/01/2014 [facility] Miralax 17 gm, 1 pkt, Route: PO, Drug form: PWDR, Daily, Dosing Weight 81.818, kg, PRN Constipation, Start date: 04/01/14 17:04:00 , Stop date: 05/01/14 17:03:00Notes: Dissolve in 8 oz of water or juice. (Same as: Miralax) No Longer Active 04/01/2014 [facility] Lorazepam 0.5 mg, 1 tab, Route: PO, Drug form: TAB, Q6H, Dosing Weight 81.818, kg, PRN as needed for anxiety, Start date: 04/01/14 17:04:00, Stop date: 05/01/14 17:03:00Notes: (Same as: Ativan) No Longer Active 04/01/2014 [facility] Docusate Sodium 100 MG Oral Capsule [Colace] 100 mg, 1 cap, Route: PO, Drug form: CAP, BID, Dosing Weight 81.818, kg, PRN as needed for constipation, Start date: 04/01/14 17:03:00, Stop date: 05/01/14 17:02: 00Notes: (Same as: Colace) (Do Not Crush) No Longer Active 04/01/2014 [facility] cyclobenzaprine 5 mg, 0.5 tab, Route: PO, Drug form: TAB, TID, Dosing Weight 81.818, kg, PRN as needed for muscle spasm, Start date: 04/01/14 17:03:00, Stop date: 05/01/14 17:02:00Notes: (Same As: Flexeril) No Longer Active 04/01/2014 [facility] Aspirin 81 MG Enteric Coated Tablet 81 mg=1 tab, PO, Daily On Hold 04/01/2014 [facility] omeprazole 20 mg oral delayed release capsule 20 mg=1 cap, PO, Daily On Hold 2013 [facility] Hydrochlorothiazide 12.5 MG Oral Capsule 12.5 mg=1 cap , PO, Daily On Hold 04/01/2014 [facility] cyclobenzaprine 5 mg oral tablet 5 mg=1 tab, PO, TID, as needed for muscle spasm On Hold 04/01/2014 [facility] Acetaminophen 325 MG / Oxycodone Hydrochloride 10 MG Oral Tablet [Percocet 10/ 325] 1 tab, PO, Q4H, as needed for pain No Longer Active 04/01/2014 [facility] 24 HR Nicotine 0.583 MG/HR Transdermal Patch =1 patch , TOP, Daily No Longer Active 04/01/2014 [facility] POLYETHYLENE GLYCOL 3350 142 MG/ML Oral Solution [Miralax] 17 gm, PO, Daily, Constipation On Hold 04/01/2014 [facility] predniSONE 20 mg oral tablet 40 mg=2 tab, PO, Daily No Longer Active 04/01/2014 [facility] gabapentin 300 MG Oral Capsule 600 mg=2 cap, PO, TID On Hold 04/01/2014 [facility] fentaNYL 25 mcg/hr transdermal film, extended release 1 patch, TOP, Q72H No Longer Active 04/01/2014 [facility] Ciprofloxacin 500 mg, Route: PO, ONCE, Dosing Weight 81.818, kg, Priority: STAT, Start date: 04/01/14 15:51:00, Stop date: 04/01/14 15:51:00 Inactive 04/01/2014 [facility] aspirin 325 mg, Route: PO, Drug form: TAB, ONCE, Dosing Weight 81.818, kg, Priority: STAT, Start date: 04/01/14 13:59:00, Stop date: 04/01/14 13:59:00 Inactive 04/01/2014 [facility] Ondansetron 4 mg, Route: IVP, ONCE, Dosing Weight 81.818, kg, Priority: STAT, Start date: 04/01/14 11:45:00, Stop date: 04/01/14 11:45:00 Inactive 04/01/2014 [facility] Saline Flush 0.9% 10 mL, Route: IVP, Drug Form: INJ, Dosing Weight 81.818, kg, PRN, PRN Line Flush, Start date: 04/01/14 11:45:00, Duration: 30 day, Stop date: 05/01/14 11:44:00Notes: Same as: BD Posiflush Sterile Inactive 04/01/2014 [facility] Sodium Chloride 0.154 MEQ/ML Injectable Solution 1, 000 mL, Rate: 150 ml/hr, Infuse over: 6.7 hr, Route: IV, Dosing Weight 81.818 kg , Total Volume: 1,000, Start date: 04/01/14 11:45:00, Duration: 30 day, Stop date: 05/01/14 11:44:00 Inactive 04/01/2014 [facility] fentaNYL 25 mcg/hr transdermal film, extended release 1 patch, TOP, Q72H, # 10 patch, 0 Refill(s), given to patient Active 03/03/2014 [facility] Acetaminophen 325 MG / Oxycodone Hydrochloride 10 MG Oral Tablet [Percocet 10/ 325] 1 tab, PO, Q4H, for pain, # 90 tab, 0 Refill(s), given to patient Active 2013 [facility] 72 HR Fentanyl 0.025 MG/HR Transdermal Patch 1 patch, Route: TOP, Drug Form: ERFILM, Dosing Weight 88.636, kg, Q72H, Start date: 03/02 12:00:00, Duration: 30 day, Stop date: 03/29/14 12:00:00Notes: (Same as: Duragesic) Check for product integrity. Apply to intact skin "Remove old patch before application of new patch" No Longer Active 03/02/2014 [facility] Acetaminophen 325 MG / Oxycodone Hydrochloride 10 MG Oral Tablet [Percocet 10/ 325] 1 tab, Route: PO, Drug Form: TAB, Dosing Weight 88.636, kg, Q4H, PRN Pain Score 4-6, Start date: 03/01/14 16:39:00, Duration: 30 day, Stop date: 03/31/14 16:38:00Notes: Do not exceed 4gm/day of acetaminophen. (Same as: Percocet-10/325) No Longer Active 03/01/2014 [facility] Zoloft 75 mg, 1.5 tab, Route: PO, Drug form: TAB, Daily, Dosing Weight 88.636, kg, Start date: 02/27/14 9:00:00, Duration: 30 day , Stop date: 03/28/14 9:00:00Notes: (Same as: Zoloft) No Longer Active 02/27/2014 [facility] Protonix 40 mg, 1 tab, Route: PO, Drug form: ECTAB, Before Dinner, Dosing Weight 88.636, kg, Start date: 02/26/14 16:30:00, Duration : 30 day, Stop date: 03/27/14 16:30:00Notes: Tablet should not be chewed or crushed. (Same as: Protonix) No Longer Active 02/26/2014 [facility] Sertraline 50 MG Oral Tablet [Zoloft] 75 mg, PO, Daily , # 100 tab, 0 Refill(s) Active 02/26/2014 [facility] Docusate Sodium 100 MG Oral Capsule [Colace] 100 mg, 1 cap, Route: PO, Drug form: CAP, BID, Dosing Weight 88.636, kg, Start date: 9:00:00, Duration: 30 day, Stop date: 03/27/14 17:00:00Notes: (Same as: Colace) (Do Not Crush) No Longer Active 02/26/2014 [facility] gabapentin 300 MG Oral Capsule 300 mg, 1 cap, Route: PO, Drug form: CAP, TID, Dosing Weight 88.636, kg, Start date: 02/26/14 9:00:00 , Duration: 30 day, Stop date: 03/27/14 17:00:00Notes: (Same as: Neurontin) No Longer Active 02/26/2014 [facility] Miralax 17 gm, 1 pkt, Route: PO, Drug form: PWDR, BID , Dosing Weight 88.636, kg, Start date: 02/26/14 9:00:00, Duration: 30 day, Stop date: 03/27/14 17:00:00Notes: Dissolve in 8 oz of water or juice. (Same as : Miralax) No Longer Active [facility] Docusate Sodium 100 MG Oral Capsule [Colace] 100 mg=1 cap, PO, BID, 0 Refill(s) Active 02/26/2014 [facility] LORazepam 0.5 mg oral tablet 0.5 mg=1 tab, PO, TID, as needed for anxiety, 0 Refill(s) Active 02/26/2014 [facility] Nicotine 14 mg=1 patch, TOP, Daily, 0 Refill(s) Active 02/26/2014 [facility] Lidocaine Hydrochloride 0.05 MG/MG Transdermal Patch 1 patch, TOP, Daily, 0 Refill(s) Active 02/26/2014 [facility] Protonix 40 mg, 1 tab, Route: PO, Drug form: ECTAB, ONCE, Dosing Weight 88.636, kg, Start date: 02/25/14 19:45:00, Stop date: 19:45:00Notes: Tablet should not be chewed or crushed. (Same as: Protonix) Inactive 02/26/2014 [facility] Pneumovax 23 0.5 ml, Route: IM, Drug Form: INJ, Daily , Start date: 02/24/14 9:00:00, Duration: 1 doses or times, Stop date: 02/24/14 9:00:00Notes: (Same as: Pneumovax 23) Refrigerate Inactive 02/24/2014 [facility] Fluzone Quadrivalent [id number] 0.5 ml, Route: IM, Drug Form: SUSP, Daily, Start date: 02/24/14 9:00:00, Duration: 1 doses or times , Stop date: 02/24/14 9:00:00Notes: (Same as: Fluzone Quadrivalent) Inactive 02/24/2014 [facility] Metoprolol 1 mg, 1 mL, Route: IV, Drug form: INJ, Q5Min, Dosing Weight 88.636, kg, PRN Tachycardia, Start date: 02/23/14 16:42:00 , Duration: 30 day, Stop date: 03/25/14 15:41:00Notes: (Same as: Lopressor) Push over 2 minutes No Longer Active 02/23/2014 [facility] Ofirmev 1,000 mg, 100 mL, Route: IV, Drug form: INJ, ONCE, Dosing Weight 88.636, kg, PRN Pain, for > or=50 kg, Start date: 02/23/14 15:53:00Notes: Infuse over 15 minutes Do not exceed 4gm/day of acetaminophen No Longer Active 02/23/2014 [facility] Acetaminophen 325 MG / Hydrocodone Bitartrate 10 MG Oral Tablet [[address] 10/325] 1 tab, Route: PO, Drug Form: TAB, Dosing Weight 88.636 , kg, Q6H, PRN Pain, Start date: 02/23/14 15:53:00, Duration: 30 day, Stop date : 03/25/14 15:52:00Notes: Do not exceed 4gm/day of acetaminophen. (Same as: [address]/10) No Longer Active 02/23/2014 [facility] Naloxone 0.04 mg, 0.1 mL, Route: IVP, Drug form: INJ, Q2MIN, Dosing Weight 88.636, kg, PRN Narcotic Reversal, Start date: 02/23/14 15: 53:00, Duration: 8 doses or times, Stop date: Limited # of timesNotes: Same as Narcan No Longer Active 2013 [facility] Flumazenil 0.2 mg, 2 mL, Route: IVP, Drug form: INJ, PRN, Dosing Weight 88.636, kg, PRN Benzodiazepine Reversal, Initial dose, Start date: 02/23/14 15:53:00, Duration: 30 day, Stop date: 03/25/14 14:52:00Notes: ( Same as: Romazicon) No Longer Active 02/23/2014 [facility] Ketorolac 30 mg, Route: IVP, ONCE, Dosing Weight 88.636, kg, Start date: 02/23/14 15:53:00, Duration: 1 doses or times, Stop date : 02/23/14 15:53:00 Inactive [facility] Morphine 2 mg, 1 mL, Route: IVP, Drug form: INJ, Q5Min , Dosing Weight 88.636, kg, PRN Pain Score 4-6, Start date: 02/23/14 15:53:00, Duration: 5 doses or times, Stop date: Limited # of timesNotes: (Same as: MORPhine Sulfate) No Longer Active 02/23/2014 [facility] Hydromorphone 0.5 mg, 0.5 mL, Route: IVP, Drug form: INJ, Q5Min, Dosing Weight 88.636, kg, PRN Pain Score 7-10, Start date: 02/23/14 15:53:00, Duration: 4 doses or times, Stop date: Limited # of times No Longer Active 02/23/2014 [facility] Fentanyl 50 microgram, 1 mL, Route: IVP, Drug form: INJ, Q5Min, Dosing Weight 88.636, kg, PRN Pain Score 7-10, Start date: 02/23/14 15:53:00, Duration: 2 doses or times, Stop date: Limited # of timesNotes: (Same as: Sublimaze) Preservative free. No Longer Active 02/23/2014 [facility] Ondansetron 4 mg, 2 mL, Route: IVP, Drug form: INJ, ONCE, Dosing Weight 88.636, kg, PRN Nausea & Vomiting, Start date: 02/23/14 15: 53:00Notes: (Same as: Zofran) No Longer Active 02/23/2014 [facility] Clindamycin 600 mg, 4 mL, Route: IVPB, ONCE, Dosing Weight 88.636, kg, Start date: 02/23/14 11:45:00, Stop date: 02/23/14 11:45: 00Notes: (clindamycin 150 mg/1 ml (600 mg/4 ml VL) INJ) (Same As: Cleocin) Inactive 02/23/2014 [facility] Calcium Chloride 0.0014 MEQ/ML / Potassium Chloride 0.004 MEQ/ML / Sodium Chloride 0.103 MEQ/ML / Sodium Lactate 0.028 MEQ/ML Injectable Solution 1,000 mL, Rate: 25 ml/hr, Infuse over: 40 hr, Route: IV, Dosing Weight 88.636 kg, Total Volume: 1,000, Start date: 02/23/14 10:38:00, Duration: 30 day, Stop date: 03/25/14 10:37:00 No Longer Active 02/23/2014 [facility] remove patch 1 patch, Route: TOP, Drug form: ERFILM, Daily, Start date: 02/23/14 9:00:00, Duration: 30 day, Stop date: 03/23/14 21:00 :00Notes: Remove old patch before application of new patch. No Longer Active 02/23/2014 [facility] remove patch 1 patch, Route: TOP, Bedtime, Drug form: ERFILM, Start date: 02/22/14 21:00:00, Duration: 30 day, Stop date: 03/23/14 21: 00:00Notes: Remove patch 12 hours after application each day. No Longer Active 02/23/2014 [facility] Isosorbide Dinitrate 10 mg, 1 tab, Route: PO, Drug form: TAB, TID, Dosing Weight 88.636, kg, Start date: 02/22/14 20:00:00, Duration: 30 day, Stop date: 03/24/14 17:00:00Notes: (Same as:Isordil) Take on empty stomach/ full glass of water No Longer Active 02/23/2014 [facility] Ativan 0.5 mg, 1 tab, Route: PO, Drug form: TAB, TID, Dosing Weight 88.636, kg, PRN as needed for anxiety, Start date: 02/22/14 15:03: 00, Duration: 30 day, Stop date: 03/24/14 15:02:00Notes: (Same as: Ativan) No Longer Active 02/22/2014 [facility] Nicotine 14 mg, 1 patch, Route: TOP, Drug form: ERFILM , Daily, Dosing Weight 88.636, kg, Start date: 02/22/14 15:00:00, Duration: 30 day, Stop date: 03/24/14 9:00:00Notes: (Same as: Habitrol) "Remove old patch before application of new patch" No Longer Active 02/22/2014 [facility] meloxicam 15 mg, 2 tab, Route: PO, Drug form: TAB, Daily, Dosing Weight 88.636, kg, Start date: 02/22/14 9:00:00, Duration: 30 day , Stop date: 03/23/14 9:00:00Notes: (Same as: Mobic) No Longer Active 02/22/2014 [facility] Prednisone 40 mg, 2 tab, Route: PO, Drug form: TAB, Daily, Dosing Weight 88.636, kg, Start date: 02/22/14 9:00:00, Duration: 30 day , Stop date: 03/23/14 9:00:00Notes: Take with food. No Longer Active 02/22/2014 [facility] Lidocaine Hydrochloride 0.05 MG/MG Transdermal Patch 1 patch, Route: TOP, Daily, Drug form: FILM, Start date: 02/22/14 9:00:00, Duration: 30 day, Stop date: 03/23/14 9:00:00Notes: Apply only once for up to 12 hours in a 24-hour period (12 hours on and 12 hours off). (Same as: Lidoderm ) "Remove old patch before application of new patch" No Longer Active 02/22/2014 [facility] pneumococcal capsular polysaccharide type 1 vaccine / pneumococcal capsular polysaccharide type 10A vaccine / pneumococcal capsular polysaccharide type 11A vaccine / pneumococcal capsular polysaccharide type 12F vaccine / pneumococcal capsular polysacchar 0.5 ml, Route: IM, Drug Form: INJ , Daily, Start date: 02/22/14 9:00:00, Duration: 1 doses or times, Stop date: 9:00:00Notes: (Same as: Pneumovax 23) Refrigerate Inactive 02/22/2014 [facility] Influenza Virus Vaccine, Inactivated [id number] (H3N2)-like virus (A- [id number] [facility] [place] X-175C) strain / Influenza Virus Vaccine, Inactivated A- [id number], IVR-148 (H1N1) strain / Influenza Virus Vaccine, Inactivated, [id number] 0.5 ml, Route: IM, Drug Form: SUSP , Daily, Start date: 02/22/14 9:00:00, Duration: 1 doses or times, Stop date: 9:00:00Notes: (Same as: Fluzone Quadrivalent) Inactive 02/22/2014 [facility] Lovenox 40 mg, 0.4 mL, Route: SUB-Q, Drug form: INJ, [id number], Dosing Weight 88.636, kg, Start date: 02/21/14 19:00:00, Duration: 30 day, Stop date: 03/22/14 19:00:00Notes: (Same as: Lovenox) No Longer Active 02/22/2014 [facility] Enoxaparin 40 mg, Route: SUB-Q, Drug form: INJ, [id number], Dosing Weight 88.636, kg, Start date: 02/21/14 19:00:00, Duration: 30 day, Stop date: 03/22/14 19:00:00 Inactive 02/22/2014 [facility] Diltiazem 60mg tab===pt own med Diltiazem 60mg tab=== pt own med, 2 tab, Drug form: MISC, Route: PO, BID, Priority: Routine, 02/21/14 18:00:00, Duration: 30 day, Stop date: 03/23/14 17:00:00 No Longer Active 02/21/2014 [facility] Diltiazem 120 mg, 1 tab, Route: PO, Drug form: TAB, BID, Dosing Weight 88.636, kg, Start date: 02/21/14 17:00:00, Duration: 30 day, Stop date: 03/23/14 9:00:00Notes: (Same as: Cardizem) Before meals No Longer Active 02/21/2014 [facility] gabapentin 300 MG Oral Capsule 300 mg, 1 cap, Route: PO, Drug form: CAP, BID, Dosing Weight 88.636, kg, Start date: 02/21/14 17:00:00 , Duration: 30 day, Stop date: 03/23/14 9:00:00Notes: (Same as: Neurontin) No Longer Active 02/21/2014 [facility] Dilaudid 0.5 mg, 0.5 mL, Route: IV, Drug form: INJ, Q3H, Dosing Weight 88.636, kg, PRN Pain Score 7-10, Start date: 02/21/14 16:34: 00, Stop date: 03/23/14 16:33:00 No Longer Active 02/21/2014 [facility] Aspirin 81 MG Chewable Tablet 81 mg, 1 tab, Route: PO , Drug form: CHEWTAB, Daily, Dosing Weight 88.636, kg, Start date: 02/21/14 15: 00:00, Duration: 30 day, Stop date: 03/23/14 9:00:00Notes: Take with food. Inactive 02/21/2014 [facility] Albuterol 0.833 MG/ML / Ipratropium [place] 0.167 MG/ML Inhalant Solution [ DuoNeb] 3 mL, Route: INHALATION, Drug Form: SOLN, Dosing Weight 88.636, kg, RQ4H, Start date: 02/21/14 15:00:00, Duration: 30 day , Stop date: 03/23/14 11:00:00Notes: (Same as: Duoneb) No Longer Active 02/21/2014 [facility] Acetaminophen 325 MG / Hydrocodone Bitartrate 10 MG Oral Tablet [[address] 10/325] 1 tab, Route: PO, Drug Form: TAB, Dosing Weight 88.636 , kg, Q4H, PRN Pain Score 1-3, Start date: 02/21/14 14:02:00, Duration: 30 day, Stop date: 03/23/14 14:01:00Notes: Do not exceed 4gm/day of acetaminophen. ( Same as: [address] 325/10) No Longer Active 02/21/2014 [facility] Flexeril 5 mg, 0.5 tab, Route: PO, Drug form: TAB, BID , Dosing Weight 88.636, kg, PRN as needed for muscle spasm, Start date: 14:01:00, Stop date: 03/23/14 16:59:00Notes: (Same As: Flexeril) No Longer Active 02/21/2014 [facility] Albuterol 0.833 MG/ML / Ipratropium [place] 0.167 MG/ML Inhalant Solution 3 mL, Route: NEB, Drug Form: SOLN, Dosing Weight 88.636, kg , RQ6H, Start date: 02/21/14 14:00:00, Duration: 30 day, Stop date: 03/23/14 8: 00:00Notes: (Same as: Duoneb) Inactive 02/21/2014 [facility] Prilosec 20 mg, PO, Daily, 0 Refill(s) Active 02/21/2014 [facility] diltiazem 120 mg oral tablet 120 mg=1 tab, PO, BID, 0 Refill(s) Active 02/21/2014 [facility] Aspirin 81 MG Chewable Tablet 81 mg=1 tab, PO, Daily, tab, 0 Refill(s) Active 2013 [facility] Hydrochlorothiazide 0 Refill(s) No Longer Active 02/21/2014 [facility] Cyclobenzaprine hydrochloride 5 MG Oral Tablet [Flexeril] 5 mg=1 tab, PO, TID, 0 Refill(s) Active 02/21/2014 [facility] Acetaminophen 300 MG / Hydrocodone Bitartrate 5 MG Oral Tablet [Vicodin 5/300] 0 Refill(s) No Longer Active 02/21/2014 [facility] meloxicam 15 mg oral tablet 30 mg=2 tab, PO, Daily, 0 Refill(s) Active 02/21/2014 [facility] nitroglycerin 0.4 mg sublingual tablet 0.4 mg, 1 tab, Route: SL, Drug form: TAB, Q5Min, PRN Chest Pain, Start date: 02/21/14 10:03:00 , Duration: 30 day, Stop date: 03/23/14 9:02:00Notes: (Same as:Nitroquick, Nitrostat) "Do Not Crush" Sublingual tablet No Longer Active 02/21/2014 [facility] atropine 0.5 mg, 5 mL, Route: IVP, Drug form: INJ, PRN , PRN Bradycardia, Start date: 02/21/14 10:03:00, Duration: 30 day, Stop date: 03/23/14 9:02:00 No Longer Active 02/21/2014 [facility] NS 1,000 mL 1,000 mL, Rate: 100 ml/hr, Infuse over: 10 hr, Route: IV, Dosing Weight 88.636 kg, Total Volume: 1,000, Start date: 9:23:00, Duration: 30 day, Stop date: 03/23/14 9:22:00 No Longer Active 02/21/2014 [facility] Zofran 4 mg, 2 mL, Route: IVP, Drug form: INJ, ONCE, Dosing Weight 88.636, kg, PRN as needed for nausea/vomiting, Priority: STAT, Start date: 02/21/14 9:23:00Notes: (Same as: Zofran) No Longer Active 02/21/2014 [facility] Acetaminophen 325 MG / Hydrocodone Bitartrate 5 MG Oral Tablet [[address] 5/325] 1 tab, Route: PO, Drug Form: TAB, Dosing Weight 88.636, kg, Q6H, PRN Pain Score 1-3, STAT, Start date: 02/21/14 9:23:00, Duration: 30 day, Stop date: 03/23/14 9:22:00Notes: (Same as: [address] 325/5) Do not exceed 4gm /day of acetaminophen. No Longer Active 02/21/2014 [facility] Albuterol 0.83 MG/ML Inhalant Solution 2.49 mg, 3 mL, Route: NEB, Drug form: SOLN, RQ2H, Dosing Weight 88.636, kg, PRN Wheezing, Priority: Routine, Start date: 02/21/14 9:23:00, Duration: 30 day, Stop date: 9:22:00Notes: SEE RT DOCUMENTATION (Same as: Proventil) No Longer Active 02/21/2014 [facility] Morphine 2 mg, 1 mL, Route: IVP, Drug form: INJ, Q4H, Dosing Weight 88.636, kg, PRN Pain Score 4-6, Priority: STAT, Start date: 9:00:00, Duration: 30 day, Stop date: 03/23/14 8:59:00Notes: (Same as: MORPhine Sulfate) No Longer Active 02/21/2014 [facility] Solu-Medrol 125 mg, 2 mL, Route: IVP, Drug form: INJ, ONCE, Dosing Weight 88.636, kg, Priority: STAT, Start date: 02/21/14 8:38:00, Stop date: 02/21/14 8:38:00Notes: (Same as:Solu-MEDROL, A-Methapred) Inactive 02/21/2014 [facility] Albuterol 0.833 MG/ML / Ipratropium [place] 0.167 MG/ML Inhalant Solution 3 mL, Route: NEB, Drug Form: SOLN, Dosing Weight 88.636, kg , ONCE, STAT, Start date: 02/21/14 7:54:00, Stop date: 02/21/14 7:54:00Notes: ( Same as: Duoneb) Inactive 02/21 [facility] NS 1,000 mL 1,000 mL, Rate: 150 ml/hr, Infuse over: 6.7 hr, Route: IV, Dosing Weight 88.636 kg, Total Volume: 1,000, Start date: 7:54:00, Duration: 30 day, Stop date: 03/23/14 7:53:00 No Longer Active 02/21/2014 [facility] Levaquin 750 mg, 150 mL, Route: IVPB, Drug form: SOLN , ONCE, Dosing Weight 88.636, kg, Start date: 02/21/14 7:52:00, Stop date: 02/21 7:52:00Notes: (Same as:Levaquin) Inactive 02/21/2014 [facility] Albuterol 0.833 MG/ML / Ipratropium [place] 0.167 MG/ML Inhalant Solution 3 mL, Route: NEB, Dosing Weight 88.636, kg, ONCE, STAT, Start date: 02/21/14 5:46:00, Stop date: 02/21/14 5:46:00 Inactive 02/21/2014 [facility] Sodium Chloride 0.154 MEQ/ML Injectable Solution 1, 000 mL, 1,000 ml/hr, Infuse Over: 1 hr, Route: IV, 1,000, Drug form: INJ, ONCE, Priority: STAT, Dosing Weight 88.636 kg, Start date: 02/21/14 4:56:00, Duration : 1 doses or times, Stop date: 02/21/14 4:56:00 Inactive 02/21/2014 [facility] Sodium Chloride 0.154 MEQ/ML Injectable Solution 1, 000 mL, 1,000 ml/hr, Infuse Over: 1 hr, Route: IV, ONCE, Priority: STAT, Dosing Weight 88.636 kg, Start date: 02/21/14 4:41:00, Duration: 1 doses or times, Stop date: 02/21/14 4:41:00 Inactive 02/21/2014 [facility] Zofran 4 mg, Route: IVP, Drug form: INJ, ONCE, Dosing Weight 88.636, kg, Priority: STAT, Start date: 02/21/14 0:27:00, Stop date: 0:27:00 Inactive 2013 [facility] Valium 5 mg, Route: IVP, Drug form: INJ, ONCE, Dosing Weight 88.636, kg, Priority: STAT, Start date: 02/21/14 0:20:00, Stop date: 0:20:00 Inactive 2013 [facility] Dilaudid 2 mg, Route: IV, ONCE, Dosing Weight 88.636, kg, Start date: 02/21/14 0:20:00, Stop date: 02/21/14 0:20:00 Inactive 02/21/2014 [facility] Diazepam 5 MG Oral Tablet [Valium] 5 mg=1 tab, PO, QID , Muscle Spasms, # 12 tab, 0 Refill(s) No Longer Active 02/21/2014 [facility] {21 (Methylprednisolone 4 MG Oral Tablet [Medrol]) } Pack [Medrol Dosepak] As directed on package instructions, PO, Daily, Take with or without food, # 1 Pack, 0 Refill(s)Special Instructions: Take with or without food Active 02/21/2014 [facility] Acetaminophen 325 MG / Hydrocodone Bitartrate 10 MG Oral Tablet [[address] 10/325] 1-2 tab, PO, Q4-6H, Pain, # 15 tab, 0 Refill(s) No Longer Active 02/21/2014 [facility] Dilaudid 2 mg, 2 mL, Route: IM, Drug form: INJ, ONCE, Dosing Weight 88.636, kg, Priority: STAT, Start date: 02/20/14 21:53:00, Stop date: 02/20/14 21:53:00 Inactive 02/21/2014 [facility] Hydromorphone 2 mg, Route: IM, ONCE, Dosing Weight 88.636, kg, Start date: 02/20/14 20:00:00, Stop date: 02/20/14 20:00:00 Inactive 02/21/2014 [facility] Dexamethasone 10 mg, Route: IM, ONCE, Dosing Weight 89.091, kg, Priority: STAT, Start date: 02/19/14 7:59:00, Stop date: 02/19/14 7: 59:00 Inactive 02/19/2014 [facility] Valium 10 mg, Route: PO, ONCE, Dosing Weight 89.091, kg, Priority: STAT, Start date: 02/19/14 7:59:00, Stop date: 02/19/14 7:59:00 Inactive 02/19/2014 [facility] Allergies, Adverse Reactions, Alerts Substance Category Reaction Severity Reaction type Status Date Reported Comments Source azithromycin Assertion Drug allergy Active [facility] statins Assertion Drug allergy Active [facility] Keflex Assertion Drug allergy Active [facility] penicillins Assertion Drug allergy Active [facility] ashley Assertion Drug allergy Active [facility] Immunizations Immunization Date Given Site Status Last Updated Comments Source influenza virus vaccine, inactivated 02/19/2015 Left Deltoid completed Chilo [facility] influenza virus vaccine, inactivated 02/24/2014 Left deltoid completed Amber [facility] Results Order Name Results Value Reference Range Date Interpretation Comments Source Hand 3 views DX Hand 3 views DX Left hand 3 views: There is no fracture or dislocation. There are no other significant osseous, articular or soft tissue abnormalities. IMPRESSION: No acute radiographic abnormality of the left hand. [id number] 12/06/2017 - - Read by: Alexander Nolasco MD Dictated Date/time: 12/06/17 15:19 Electronically Signed by: Alexander Nolasco MD 12/06/17 15 :20 FINAL REPORT [facility] Chest 1view DX Chest 1view DX Clinical Indication: - sob Comparison: None FINDINGS: Single AP view of the chest is submitted for interpretation. There is mild pulmonary vascular congestion. The lungs are otherwise clear and there are no effusions. There is no visible pneumothorax. Cardiomediastinal contours are stable. No gross bony normalities are identified. IMPRESSION: 1. Mild pulmonary vascular congestion. SL: ANGÉLICA 11/29/2017 - - Read by: Ganga Samano MD Dictated Date/time: 11/29/17 15:29 Electronically Signed by: Ganga Samano MD 11/29/17 15 :29 FINAL REPORT [facility] Renal Stone CT Renal Stone CT Study: Renal Stone CT 11/28/2017 6:25 PM CDT Clinical Indication: - bilateral flank pain, unable to urinate, dark urine; Comparison: CT of 11/14/2016 TECHNIQUE: Noncontrasted helical imaging was performed from the kidneys through the symphysis as a renal stone protocol. Axial, sagittal and coronal reconstructions are available. IV contrast: None. CT imaging performed at this location utilizes radiation dose optimization techniques which include one or more of the following: -Automated exposure control -Adjustment of the mA and/or kV according to patient size -Use of iterative reconstruction technique CT radiation dose: WND=3811 mGy-cm FINDINGS: This examination is limited for the evaluation of solid organs and vascular structures due to withheld intravenous contrast -- the standard for urinary calculus assessment CT. LOWER CHEST: The lung bases are clear. SOLID ORGANS: Hepatic steatosis. Spleen and pancreas are within normal limits. Bilateral adrenal glands are normal. 8 mm left midpole intrarenal stone. There is no hydronephrosis or perinephric fat stranding bilaterally. No intraureteral stones. No stones within the urinary bladder. Cholecystectomy clips BOWEL: No bowel dilatation or bowel wall thickening. Sigmoid colon is unremarkable. Perirectal fat planes are within normal limits. Normal appearing appendix identified within right lower quadrant. PERITONEUM: No free intraperitoneal air or fluid. No stranding of the central mesentery. No peritoneal adenopathy by size criteria. RETROPERITONEUM: 3.3 cm infrarenal saccular abdominal aortic aneurysm is stable. No retroperitoneal adenopathy by size criteria. PELVIS: No pelvic mass. No pelvic free fluid. Urinary bladder is unremarkable. No pelvic adenopathy by size criteria. MUSCULOSKELETAL: No acute osseous abnormalities or destructive bony lesions. Vertebral body height are maintained. IMPRESSION: 1. Nonobstructing left nephrolithiasis 2. Stable 3.3 cm infrarenal saccular abdominal aortic aneurysm. SL: CARLOS 11/28/2017 - - Read by: Manish Gilliam MD Dictated Date/time: 11/28/17 20:02 Electronically Signed by: Manish Gilliam MD 11/28/17 20 :07 FINAL REPORT [facility] Spine lumbar wo contrast MRI Spine lumbar wo contrast MRI Patient Name: CAMILO AVENDANO : 1960; Age: 56 years y/o Female MR: [id number] Study: Spine lumbar wo contrast MRI 07/05/2017 9:01 AM [employer] Ordering Physician: Watson Noyola MD Clinical Indication: Severe low back pain since surgery 4 years back. Pain persists in bilateral legs and toes.; Comparison: None TECHNIQUE: Multiplanar T1, T2, STIR weighted noncontrast MRI of the lumbar spine is performed on the 3 Michelle magnet. FINDINGS: Transitional lumbosacral segment labeled as partially lumbarized S1 segment for the purposes of this dictation. The alignment is maintained. The vertebral bodies are normal in height. The disc heights are well-maintained. The marrow signal is unremarkable for age. The conus medullaris terminates normally at L1. Incidentally noted 3.1 cm infrarenal abdominal aortic aneurysm. Changes by levels: L5-S1: Moderate facet arthrosis and small disc bulge with moderate foraminal stenosis. No central canal or lateral recess stenosis. L4-L5: Small diffuse disc bulge and mild facet arthrosis without stenosis. L3-L4: There is no significant disc bulge or herniation. The facet joints are unremarkable. There is no stenosis. L2-L3, L1-L2 and T12-L1: Unremarkable. IMPRESSION: 1. Transitional lumbosacral segment labeled as partially lumbarized S1. 2. Moderate foraminal stenosis at L5-S1 due to facet arthrosis and a small disc bulge. There is mild mass effect on exiting nerve roots. 3. Mild degenerative changes at L4-5 without stenosis or nerve root impingement. 4. Incidentally noted 3 cm infrarenal abdominal aortic aneurysm. 07/05/2017 - - Read by: Tracee Johsnon Dictated Date/time: 07/05/17 11:26 Electronically Signed by: Tracee Johnson 07/05/17 11 :30 FINAL REPORT [facility] Breast Mammo Scrn [place] w [place] incl CAD [place] Breast Mammo Scrn [place] incl CAD [place] BILATERAL DIGITAL SCREENING MAMMOGRAM 3D/2D WITH CAD: 06/12/2017 CLINICAL: /Screen. Current study was evaluated with a Computer Aided Detection (CAD) system. COMPARISON:Comparison is made to exam dated: 11/29/2015 mammogram - [facility]. TECHNIQUE: Digital Breast Tomosynthesis was performed and utilized for Interpretation. DuXplore Version 1.3 was utilized for computer aided detection. FINDINGS: There are scattered fibroglandular densities in both breasts. There are benign calcifications in both breasts. No significant masses, calcifications, or other findings are seen in either breast. There has been no significant interval change. IMPRESSION: BENIGN RECOMMENDATION:There is no mammographic evidence of malignancy. A 1 year screening mammogram is recommended.(06/13/2018) This exam was interpreted at [id number] for [facility] [place]. Yoon Kern M.D. ap/penrad:06/13/2017 12:02:43 Job Service Consultant(s): Latanya Collins, [facility] letter sent: BI-RADS 1/2 Mammogram BI-RADS: 2 Benign 06/12/2017 - - Read by: Yoon Kern MD Dictated Date/time: 06/13/17 12:02 Electronically Signed by: Yoon Kern MD 06/13/17 12 :02 FINAL REPORT [facility] Spine lumbar wo contrast CT Spine lumbar wo contrast CT Patient Name: CAMILO AVENDANO : 1960; Age: 56 years y/o Female MR: [id number] Study: Spine lumbar wo contrast CT 06/12/2017 1:16 PM [employer]PERATOR Ordering Physician: Watson Noyola MD Clinical Indication: History of failed lumbar surgery scheduled to have another surgery.; Comparison: None TECHNIQUE: Sequential trans-axial images were obtained with a multi-detector helical CT. Coronal and sagittal reconstructions were obtained. CT Radiation Dose DLP 672 mGy-cm FINDINGS: There are 5 nonrib-bearing lumbar type vertebral bodies and a partially lumbarized S1 segment. There is a rudimentary disc at S1-S2. There is mild levoscoliosis with apex at L3. The disc heights are maintained. There is no acute fracture. The disc heights are well-maintained. Mild fusiform aneurysm of the inferior abdominal aorta is seen measuring 3.2 cm. Moderate atheromatous calcifications are seen in the aorta and its branches. L5-S1: Moderate to advanced facet arthrosis and small diffuse disc bulge. There is no spondylolisthesis. No central canal or lateral recess stenosis. There is [id number] bilateral foraminal stenosis due to facet arthrosis. L4-5: Moderate facet arthrosis and small diffuse disc bulge. No significant stenosis is seen. L3-L4: Small diffuse disc bulge and minimal facet arthrosis. No stenosis. L2-L3: mild facet arthrosis. Otherwise unremarkable. T12-L1: Unremarkable. T11-T12: Unremarkable. If there is further concern, CT myelogram or MRI of the lumbar spine may be performed for complete assessment. IMPRESSION: 1. Partially lumbarized S1 segment. 2. L5-S1: Moderate to advanced facet arthrosis without spondylolisthesis. Mild to moderate bilateral foraminal stenosis due to facet arthrosis. 3. L4-L5: Moderate facet arthrosis and small disc bulge without stenosis. 4. L3-L4 and L2-3: Mild facet arthrosis and small disc bulges without stenosis. 5. Incidentally noted 3.2 cm fusiform abdominal aortic aneurysm. SL: SUNSHINE 06/12/2017 - - Read by: Tracee Johnson Dictated Date/time: 06/13/17 07:53 Electronically Signed by: Tracee Johnson 06/13/17 07 :59 FINAL REPORT [facility] CHEM PANEL POC Creatinine 0.7 mg/dL 0.5 - 1.4 2016 [facility] CHEM PANEL eGFR 98 mL/min/ 1.73m2 11/14/2016 Result Comment: The eGFR is calculated using the CKD-EPI formula. In most young, healthy individuals the eGFR will be >90 mL/min/1.73m2. The eGFR declines with age. An eGFR of 60-89 may be normal in some populations, particularly the elderly, for whom the CKD- EPI formula has not been extensively validated. Use of the eGFR is not recommended in the following populations: Individuals with unstable creatinine concentrations, including patients and those with serious co-morbid conditions. Patients with extremes in muscle mass or diet. The data above are obtained from the National Kidney Disease Education Program ( NKDEP) which additionally recommends that when the eGFR is used in patients with extremes of body mass index for purposes of drug dosing, the eGFR should be multiplied by the estimated BMI. [facility] Abdomen/Pelvis CTA Abdomen/Pelvis CTA Patient Name: CAMILO AVENDANO : 1960; Age: 56 years y/o Female MR: [id number] Study: Abdomen/Pelvis CTA 11/14/2016 9:26 AM CDT Ordering Physician: Jonathan Bobo MD Clinical Indication: CJ - CT DLP - 2190; 100 cc omni \\T\\ 100 cc saline IV - AAA ; patient states she had an aneurysm that measured 3 cm 2 yrs ago and this is a follow up; Comparison: None CTA abdomen TECHNIQUE: Sequential trans-axial images were obtained with a multi-detector helical CT after administration of iodinated contrast for CT angiography. Coronal and sagittal reconstructions and were obtained, along with 3D post- processing imaging for exam interpretation. [100 cc of [<omnipaque ] contrast material was used for the exam. CT Radiation Dose DLP 2190 mGy-cm FINDINGS: ARTERIAL EVALUATION: Infrarenal abdominal aortic aneurysm with maximal diameter of 33 mm AP by 30 mm transverse. The infrarenal abdominal aorta above the aneurysm contains extensive eccentric atherosclerotic plaque, without significant aortic stenosis , however. The celiac artery, SMA, and ARVIND are widely patent. Bilateral renal arteries are widely patent without significant stenosis. There is mild atherosclerotic change at the aortic terminus, and within the common iliac arteries, without significant stenosis. Tortuous external iliac arteries without stenosis. Bilateral common femoral arteries are widely patent with only minimal eccentric plaque. LIMITED VENOUS EVALUATION: The mesenteric veins and portal vein are patent. The inferior vena cava and renal veins are unremarkable. ABDOMINAL SOLID ORGANS: Hepatic steatosis without focal lesion. Prior cholecystectomy. No pathologic biliary ductal dilatation. 8 mm nonobstructive left renal lower pole calyceal calculus. Spleen, pancreas, adrenal glands and kidneys are otherwise unremarkable. PERITONEUM AND RETROPERITONEUM: There is no retroperitoneal or abdominal lymphadenopathy. There is no abdominal ascites. STOMACH AND BOWEL: The noncontrast opacified stomach and loops of bowel in the abdomen are unremarkable. Normal appendix is seen. VISUALIZED LUNG BASES: Unremarkable. IMPRESSION: 3.0 x 3.3 cm infrarenal abdominal aortic aneurysm. Moderately severe diffuse infrarenal eccentric atherosclerotic plaque without significant stenosis. No significant visceral artery stenosis. Prior cholecystectomy without pathologic ductal dilatation. Hepatic steatosis. 8 mm nonobstructive left renal calculus. SL: [id number] 11/14/2016 - - Read by: Rober Martínez MD Dictated Date/time: 11/14/16 11:04 Electronically Signed by: Rober Martínez MD 11/14/16 11 :19 FINAL REPORT [facility] Digital Mammo Screening [place] Digital Mammo Screening [place] - DIGITAL MAMMO SCREENING [place] BILATERAL DIGITAL SCREENING MAMMOGRAM WITH CAD: 11/29/2015 CLINICAL: Routine. Current study was evaluated with a Computer Aided Detection (CAD) system. Comparison is made to exams dated: 07/07/2003 mammogram, 01/21/2002 mammogram, mammogram and 06/16/2013 mammogram - [facility]. Current study contains 6 films. The tissue of both breasts is almost entirely fat. There are benign calcifications in both breasts. There also is a 5 mm benign cyst with rim calcifications in the left breast in the middle depth in the upper outer quadrant. No significant masses, calcifications, or other findings are seen in either breast. IMPRESSION: BENIGN There is no mammographic evidence of malignancy. A 1 year screening mammogram is recommended. Errol Paris sns/penrad:11/30/2015 14:02:29 Job Service Consultant: Sofi Varghese, [facility] This exam was dictated and interpreted by [id number] for [facility]. letter sent: Bilateral Benign Mammogram BI-RADS: 2 Benign 11/29/2015 - - Read by: Errol Paris MD Dictated Date/time: 11/30/15 14:02 Electronically Signed by: Errol Paris MD 11/30/15 14 :02 FINAL REPORT [facility] Hip 2 views DX Hip 2 views DX RIGHT HIP RADIOGRAPH 2 VIEWS INDICATION: Chronic right hip pain COMPARISON: None FINDINGS: No fractures or dislocations are seen. The joint spaces are maintained. No osteolytic or sclerotic lesions are visualized. The regional soft tissues are unremarkable. IMPRESSION: Unremarkable radiographic appearance of the right hip. SL: 16 02/28/2015 - - Read by: Jose Dowling MD Dictated Date/time: 02/28/15 14:10 Electronically Signed by: Jose Dowling MD 02/28/15 14 :11 FINAL REPORT [facility] CHEM PANEL eGFR 64 mL/min/ 1.73m2 02/19/2015 Result Comment: The eGFR is calculated using the CKD-EPI formula. In most young, healthy individuals the eGFR will be >90 mL/min/1.73m2. The eGFR declines with age. An eGFR of 60-89 may be normal in some populations, particularly the elderly, for whom the CKD- EPI formula has not been extensively validated. Use of the eGFR is not recommended in the following populations: Individuals with unstable creatinine concentrations, including patients and those with serious co-morbid conditions. Patients with extremes in muscle mass or diet. The data above are obtained from the National Kidney Disease Education Program ( NKDEP) which additionally recommends that when the eGFR is used in patients with extremes of body mass index for purposes of drug dosing, the eGFR should be multiplied by the estimated BMI. [facility] CHEM PANEL Potassium Lvl 4.1 meq/L 3.5 - 5.1 02/19/2015 [facility] CHEM PANEL CO2 25 meq/L 24 - 32 02/19/2015 [facility] CHEM PANEL Chloride Lvl 102 meq/L 95 - 109 02/19/2015 [facility] CHEM PANEL Sodium Lvl 137 meq /L 135 - 145 02/19/2015 [facility] CHEM PANEL Creatinine Lvl 1.0 mg/dL 0.5 - 1.4 2014 [facility] CHEM PANEL Calcium Lvl 8.8 mg /dL 8.5 - 10.5 02/19/2015 [facility] CHEM PANEL AGAP 14.1 meq/L 10.0 - 20.0 02/19/2015 [facility] CHEM PANEL BUN 12 mg/dL 7 - 22 02/19/2015 [facility] CHEM PANEL Glucose Lvl 210 mg /dL 70 - 99 02/19/2015 [facility] HEMATOLOGY Monocytes # 0.2 K/ CMM 0.0 - 0.8 02/19/2015 [facility] HEMATOLOGY Lymphocytes # 1.1 K/CMM 1.0 - 5.5 02/19/2015 [facility] HEMATOLOGY Basophils 0.3 % 0.0 - 1.0 02/19/2015 [facility] HEMATOLOGY Segs-Bands # 12.1 K/CMM 1.5 - 8.1 02/19/2015 [facility] HEMATOLOGY Monocytes 1.2 % 2.0 - 12.0 02/19/2015 [facility] HEMATOLOGY Eosinophils 0.1 % 0.0 - 4.0 02/19/2015 [facility] HEMATOLOGY Lymphocytes 7.9 % 20.0 - 40.0 02/19/2015 [facility] HEMATOLOGY Segs 90.5 % 45.0 - 75.0 02/19/2015 [facility] HEMATOLOGY MPV 7.6 fL 7.4 - 10.4 02/19/2015 [facility] HEMATOLOGY RDW 14.4 % 11.5 - 14.5 02/19/2015 [facility] HEMATOLOGY Platelet 228 K/ CMM 133 - 450 02/19/2015 [facility] HEMATOLOGY MCHC 32.4 g/dL 32.0 - 36.0 02/19/2015 [facility] HEMATOLOGY WBC 13.4 K/CMM 3.7 - 10.4 02/19/2015 [facility] HEMATOLOGY Hgb 15.8 g/dL 12.0 - 16.0 02/19/2015 [facility] HEMATOLOGY MCH 31.2 pg 27.0 - 31.0 02/19/2015 [facility] HEMATOLOGY MCV 96.4 fL 80.0 - 98.0 02/19/2015 [facility] HEMATOLOGY Hct 48.7 % 36.0 - 48.0 02/19/2015 [facility] HEMATOLOGY RBC 5.05 M/CMM 4.20 - 5.40 02/19/2015 [facility] HEMATOLOGY PTT 24.3 s 22.9 - 35.8 02/18/2015 [facility] CHEM PANEL A/G Ratio 0.9 0.7 - 1.6 02/18/2015 [facility] CHEM PANEL Globulin 3.5 g/dL 2.0 - 4.0 02/18/2015 [facility] CHEM PANEL B/C Ratio 10 6 - 25 02/18/2015 [facility] CHEM PANEL AGAP 14.0 meq/L 10.0 - 20.0 02/18/2015 [facility] CHEM PANEL Chloride Lvl 104 meq/L 95 - 109 02/18/2015 [facility] CHEM PANEL Potassium Lvl 4.0 meq/L 3.5 - 5.1 02/18/2015 [facility] CHEM PANEL Sodium Lvl 142 meq /L 135 - 145 02/18/2015 [facility] CHEM PANEL eGFR 57 mL/min/ 1.73m2 02/18/2015 Result Comment: The eGFR is calculated using the CKD-EPI formula. In most young, healthy individuals the eGFR will be >90 mL/min/1.73m2. The eGFR declines with age. An eGFR of 60-89 may be normal in some populations, particularly the elderly, for whom the CKD- EPI formula has not been extensively validated. Use of the eGFR is not recommended in the following populations: Individuals with unstable creatinine concentrations, including patients and those with serious co-morbid conditions. Patients with extremes in muscle mass or diet. The data above are obtained from the National Kidney Disease Education Program ( NKDEP) which additionally recommends that when the eGFR is used in patients with extremes of body mass index for purposes of drug dosing, the eGFR should be multiplied by the estimated BMI. [facility] CHEM PANEL AST 15 unit/L 0 - 37 02/18/2015 [facility] CHEM PANEL Alk Phos 77 unit/ L 39 - 136 02/18/2015 [facility] CHEM PANEL ALT 34 unit/L 0 - 65 02/18/2015 [facility] CHEM PANEL Bili Total 0.5 mg/ dL 0.2 - 1.3 02/18/2015 [facility] CHEM PANEL Calcium Lvl 8.3 mg /dL 8.5 - 10.5 02/18/2015 [facility] CHEM PANEL Total Protein 6.7 g/dL 6.4 - 8.4 02/18/2015 [facility] CHEM PANEL Albumin Lvl 3.2 g/ dL 3.5 - 5.0 02/18/2015 [facility] CHEM PANEL Glucose Lvl 124 mg /dL 70 - 99 02/18/2015 [facility] CHEM PANEL BUN 11 mg/dL 7 - 22 02/18/2015 [facility] CHEM PANEL CO2 28 meq/L 24 - 32 02/18/2015 [facility] CHEM PANEL Creatinine Lvl 1.1 mg/dL 0.5 - 1.4 2014 [facility] HEMATOLOGY MCH 31.9 pg 27.0 - 31.0 02/18/2015 [facility] HEMATOLOGY MCHC 33.6 g/dL 32.0 - 36.0 02/18/2015 [facility] HEMATOLOGY Hct 48.7 % 36.0 - 48.0 02/18/2015 [facility] HEMATOLOGY Hgb 16.4 g/dL 12.0 - 16.0 02/18/2015 [facility] HEMATOLOGY MCV 94.9 fL 80.0 - 98.0 02/18/2015 [facility] HEMATOLOGY Platelet 234 K/ CMM 133 - 450 02/18/2015 [facility] HEMATOLOGY RDW 14.4 % 11.5 - 14.5 02/18/2015 [facility] MPV 7.6 fL 7.4 - 10.4 02/18/2015 [facility] HEMATOLOGY WBC 13.1 K/CMM 3.7 - 10.4 02/18/2015 [facility] HEMATOLOGY RBC 5.13 M/CMM 4.20 - 5.40 02/18/2015 [facility] HEMATOLOGY Basophils # 0.1 K/ CMM 0.0 - 0.2 02/18/2015 [facility] HEMATOLOGY Eosinophils # 0.2 K/CMM 0.0 - 0.5 02/18/2015 [facility] HEMATOLOGY Lymphocytes # 3.9 K/CMM 1.0 - 5.5 02/18/2015 [facility] Basophils 0.4 % 0.0 - 1.0 02/18/2015 [facility] Monocytes # 1.0 K/ CMM 0.0 - 0.8 02/18/2015 [facility] HEMATOLOGY Segs-Bands # 8.0 K /CMM 1.5 - 8.1 02/18/2015 [facility] Lymphocytes 30.0 % 20.0 - 40.0 02/18/2015 [facility] Monocytes 7.3 % 2.0 - 12.0 02/18/2015 [facility] HEMATOLOGY Segs 61.1 % 45.0 - 75.0 02/18/2015 [facility] Eosinophils 1.2 % 0.0 - 4.0 02/18/2015 [facility] Chest 2 views DX Chest 2 views DX Examination: Chest x-ray, 2 views History: Shortness of Breath Comparison: 04/03/2014 Findings: The lungs are clear and without focal consolidation. The cardiomediastinal silhouette is within normal limits. No pleural effusion or pneumothorax is seen. The osseous structures are without focal abnormality. IMPRESSION: No acute cardiopulmonary disease. SL: 16 02/18/2015 - - Read by: Colin Sutherland MD Dictated Date/time: 02/18/15 13:11 Electronically Signed by: Colin Sutherland MD 02/18/15 13 :11 FINAL REPORT [facility] URINE AND STOOL UA Sq Epi None Seen 04/17/2014 [facility] URINE AND STOOL UA Color Red 04/17/2014 [facility] URINE AND STOOL UA Urobilinogen <=1.0 mg/dL 0.1 - 1.0 [facility] URINE AND STOOL UA Spec Grav 1.029 <=1.030 04/17/2014 [facility] URINE AND STOOL UA Turbidity Marked *ABN* (04/17/14 2:41 AM) Clear [facility] URINE AND STOOL UA Munday Yeast Many /HPF None Seen /HPF [facility] URINE AND STOOL UA Mucus Few /LPF None Seen /LPF 2013 [facility] URINE AND STOOL UA RBC null 0 - 2 04/17/2014 [facility] URINE AND STOOL UA Nitrite Negative (04/17/14 2:41 AM) Negative 04/17/2014 [facility] URINE AND STOOL UA Blood Large *ABN* (04/17/14 2:41 AM) Negative 04/17/2014 [facility] URINE AND STOOL UA WBC 20 / HPF 0 - 5 04/17/2014 [facility] URINE AND STOOL UA Leuk Est Negative (04/17/14 2:41 AM) Negative 04/17/2014 [facility] URINE AND STOOL UA pH 5.0 5.0 - 8.0 04/17/2014 [facility] URINE AND STOOL UA Glucose Negative mg/dL Negative mg/dL 04/17/2014 [facility] URINE AND STOOL UA Protein 100 mg/dL Negative mg/dL [facility] URINE AND STOOL UA Bili Negative *NA* (04/17/14 2:41 AM) Negative 04/17/2014 [facility] URINE AND STOOL UA Ketones Trace mg/dL Negative mg/dL 04/17/2014 [facility] URINE CHEM U Preg Negative (04/17/14 2:41 AM) Negative 04/17/2014 [facility] Abdomen AP view Abdomen AP view Abdomen one view: Exam reason: Acute abdominal pain. 6 x 9 mm calculus is noted at the left kidney inferior pole similar to the previous exam, 04/08/2014. Surgical clips right upper quadrant status post cholecystectomy. Vascular calcification abdomen and pelvis. Retained fecal material is noted scattered throughout the colon. No small bowel dilatation is noted. SL:12 04/17/2014 - - Read by: Kevin Causey MD Dictated Date/time: 04/17/14 05:40 Electronically Signed by: Kevin Causey MD 04/17/14 05 :42 FINAL REPORT [facility] Platelet 279 K/ CMM 133 - 450 04/12/2014 [facility] MPV 7.4 fL 7.4 - 10.4 04/12/2014 [facility] MCHC 34.6 g/dL 32.0 - 36.0 04/12/2014 [facility] RDW 13.4 % 11.5 - 14.5 04/12/2014 [facility] HEMATOLOGY Hct 41.1 % 36.0 - 48.0 04/12/2014 [facility] Hgb 14.2 g/dL 12.0 - 16.0 04/12/2014 [facility] HEMATOLOGY MCV 93.4 fL 80.0 - 98.0 04/12/2014 [facility] MCH 32.3 pg 27.0 - 31.0 04/12/2014 [facility] RBC 4.40 M/CMM 4.20 - 5.40 04/12/2014 [facility] WBC 7.8 K/CMM 3.7 - 10.4 04/12/2014 [facility] HEMATOLOGY Eosinophils # 0.1 K/CMM 0.0 - 0.5 04/12/2014 [facility] HEMATOLOGY Lymphocytes 25.4 % 20.0 - 40.0 04/12/2014 [facility] HEMATOLOGY Segs 62.4 % 45.0 - 75.0 04/12/2014 [facility] Lymphocytes # 2.0 K/CMM 1.0 - 5.5 04/12/2014 [facility] HEMATOLOGY Monocytes # 0.8 K/ CMM 0.0 - 0.8 04/12/2014 [facility] HEMATOLOGY Monocytes 10.3 % 2.0 - 12.0 04/12/2014 [facility] HEMATOLOGY Eosinophils 1.5 % 0.0 - 4.0 04/12/2014 [facility] HEMATOLOGY Basophils 0.4 % 0.0 - 1.0 04/12/2014 [facility] HEMATOLOGY Segs-Bands # 4.8 K /CMM 1.5 - 8.1 04/12/2014 [facility] URINE AND STOOL UA Urobilinogen <=1.0 mg/dL 0.1 - 1.0 [facility] URINE AND STOOL UA Sq Epi Moderate /LPF Few /LPF 04/09 [facility] URINE AND STOOL UA WBC 3 / HPF 0 - 5 04/09/2014 [facility] URINE AND STOOL UA Mucus Few /LPF None Seen /LPF 2013 [facility] URINE AND STOOL UA RBC null 0 - 2 04/09/2014 [facility] URINE AND STOOL UA Ketones Negative mg/dL Negative mg/dL 04/09/2014 [facility] URINE AND STOOL UA Bili Negative *NA* (04/09/14 12:50 PM) Negative 04/09/2014 [facility] URINE AND STOOL UA Glucose Negative mg/dL Negative mg/dL 04/09/2014 [facility] URINE AND STOOL UA Blood Large *ABN* (04/09/14 12:50 PM) Negative 04/09/2014 [facility] URINE AND STOOL UA Nitrite Negative (04/09/14 12:50 PM) Negative 04/09/2014 [facility] URINE AND STOOL UA Leuk Est Negative (04/09/14 12:50 PM) Negative 04/09/2014 [facility] URINE AND STOOL UA Spec Grav 1.018 <=1.030 04/09/2014 [facility] URINE AND STOOL UA Color Yellow *NA* (04/09/14 12:50 PM) Yellow 04/09/2014 [facility] URINE AND STOOL UA Turbidity Marked *ABN* (04/09/14 12:50 PM) Clear 04/09/2014 [facility] URINE AND STOOL UA pH 6.0 5.0 - 8.0 04/09/2014 [facility] URINE AND STOOL UA Protein Negative mg/dL Negative mg/dL 04/09/2014 [facility] Retroperitoneal limited US Retroperitoneal limited US HISTORY: Kidney stones. Renal ultrasound exam. Comparison 04/01/2014 CT abdomen Right kidney 11.9 x 4.8 x 6.4 cm and left kidney 9.6 x 5.5 x 5.6 cm. Right kidney appears normal. Left kidney demonstrates a 7 mm nonobstructive calyceal calculus in the mid to upper pole region. No hydronephrosis. Visualized urinary bladder is not remarkable. IMPRESSION: Nonobstructive left renal 7 mm calculus. No acute findings otherwise. SL:13 04/08/2014 - - Read by: Rober Martínez MD Dictated Date/time: 04/09/14 07:48 Electronically Signed by: Rober Martínez MD 04/09/14 07 :49 FINAL REPORT [facility] Abdomen AP view Abdomen AP view KUB: The exam is slightly limited by motion. The small calculus in the upper pole the left kidney seen on the CT of 04/01/2014 is faintly visible. No other definite urinary tract calculus is seen. The abdominal gas pattern is within normal limits. There is no visible pneumoperitoneum. Surgical clips in the gallbladder region are noted. There are degenerative changes in the lower lumbar spine. SL:13 04/08/2014 - - Read by: Alexander Nolasco MD Dictated Date/time: 04/09/14 07:53 Electronically Signed by: Alexander Nolasco MD 04/09/14 07 :54 FINAL REPORT [facility] CHEM PANEL eGFR 74 mL/min/ 1.73m2 04/07/2014 1Result Comment: The eGFR is calculated using the CKD-EPI formula. In most young, healthy individuals the eGFR will be >90 mL/min/1.73m2. The eGFR declines with age. An eGFR of 60-89 may be normal in some populations, particularly the elderly, for whom the CKD- EPI formula has not been extensively validated. Use of the eGFR is not recommended in the following populations: Individuals with unstable creatinine concentrations, including patients and those with serious co-morbid conditions. Patients with extremes in muscle mass or diet. The data above are obtained from the National Kidney Disease Education Program ( NKDEP) which additionally recommends that when the eGFR is used in patients with extremes of body mass index for purposes of drug dosing, the eGFR should be multiplied by the estimated BMI. [facility] CHEM PANEL BUN 20 mg/dL 7 - 22 04/07/2014 [facility] CHEM PANEL Creatinine Lvl 0.9 mg/dL 0.5 - 1.4 2013 [facility] CHEM PANEL Glucose Lvl 97 mg/ dL 70 - 99 04/07/2014 3Interpretive Data: Adult reference range values reflect the clinical guidelines of the [employer]. [facility] CHEM PANEL Sodium Lvl 139 meq /L 135 - 145 04/07/2014 [facility] CHEM PANEL Chloride Lvl 101 meq/L 95 - 109 04/07/2014 [facility] CHEM PANEL Potassium Lvl 3.6 meq/L 3.5 - 5.1 04/07/2014 [facility] CHEM PANEL CO2 31 meq/L 24 - 32 04/07/2014 [facility] CHEM PANEL Calcium Lvl 8.9 mg /dL 8.5 - 10.5 04/07/2014 [facility] CHEM PANEL AGAP 10.6 meq/L 10.0 - 20.0 04/07/2014 [facility] HEMATOLOGY Eosinophils # 0.1 K/CMM 0.0 - 0.5 04/07/2014 [facility] HEMATOLOGY Monocytes # 0.8 K/ CMM 0.0 - 0.8 04/07/2014 [facility] HEMATOLOGY Segs 62.4 % 45.0 - 75.0 04/07/2014 [facility] HEMATOLOGY Lymphocytes 25.1 % 20.0 - 40.0 04/07/2014 [facility] HEMATOLOGY Monocytes 10.5 % 2.0 - 12.0 04/07/2014 [facility] HEMATOLOGY Basophils 0.4 % 0.0 - 1.0 04/07/2014 [facility] HEMATOLOGY Segs-Bands # 4.6 K /CMM 1.5 - 8.1 04/07/2014 [facility] HEMATOLOGY Eosinophils 1.6 % 0.0 - 4.0 04/07/2014 [facility] HEMATOLOGY Lymphocytes # 1.9 K/CMM 1.0 - 5.5 04/07/2014 [facility] HEMATOLOGY MCV 94.2 fL 80.0 - 98.0 04/07/2014 [facility] HEMATOLOGY Hct 41.0 % 36.0 - 48.0 04/07/2014 [facility] HEMATOLOGY RDW 13.9 % 11.5 - 14.5 04/07/2014 [facility] HEMATOLOGY WBC 7.4 K/CMM 3.7 - 10.4 04/07/2014 [facility] HEMATOLOGY Hgb 14.3 g/dL 12.0 - 16.0 04/07/2014 [facility] HEMATOLOGY RBC 4.36 M/CMM 4.20 - 5.40 04/07/2014 [facility] HEMATOLOGY MCH 32.8 pg 27.0 - 31.0 04/07/2014 [facility] HEMATOLOGY MCHC 34.8 g/dL 32.0 - 36.0 04/07/2014 [facility] HEMATOLOGY MPV 7.5 fL 7.4 - 10.4 04/07/2014 [facility] HEMATOLOGY Platelet 216 K/ CMM 133 - 450 04/07/2014 [facility] HEMATOLOGY MCH 32.7 pg 27.0 - 31.0 04/06/2014 [facility] HEMATOLOGY MCHC 34.7 g/dL 32.0 - 36.0 04/06/2014 [facility] HEMATOLOGY RDW 13.8 % 11.5 - 14.5 04/06/2014 [facility] HEMATOLOGY WBC 6.4 K/CMM 3.7 - 10.4 04/06/2014 [facility] HEMATOLOGY Hgb 14.4 g/dL 12.0 - 16.0 04/06/2014 [facility] HEMATOLOGY RBC 4.42 M/CMM 4.20 - 5.40 04/06/2014 [facility] HEMATOLOGY MPV 7.2 fL 7.4 - 10.4 04/06/2014 [facility] HEMATOLOGY Platelet 240 K/ CMM 133 - 450 04/06/2014 [facility] HEMATOLOGY MCV 94.0 fL 80.0 - 98.0 04/06/2014 [facility] HEMATOLOGY Hct 41.5 % 36.0 - 48.0 04/06/2014 [facility] HEMATOLOGY Monocytes # 0.6 K/ CMM 0.0 - 0.8 04/06/2014 [facility] HEMATOLOGY Lymphocytes # 1.5 K/CMM 1.0 - 5.5 04/06/2014 [facility] HEMATOLOGY Eosinophils # 0.1 K/CMM 0.0 - 0.5 04/06/2014 [facility] HEMATOLOGY Segs-Bands # 4.1 K /CMM 1.5 - 8.1 04/06/2014 [facility] HEMATOLOGY Basophils 0.8 % 0.0 - 1.0 04/06/2014 [facility] HEMATOLOGY Basophils # 0.1 K/ CMM 0.0 - 0.2 04/06/2014 [facility] HEMATOLOGY Lymphocytes 24.2 % 20.0 - 40.0 04/06/2014 [facility] Eosinophils 1.4 % 0.0 - 4.0 04/06/2014 [facility] HEMATOLOGY Segs 64.0 % 45.0 - 75.0 04/06/2014 [facility] Monocytes 9.6 % 2.0 - 12.0 04/06/2014 [facility] URINE AND STOOL UA Urobilinogen <=1.0 mg/dL 0.1 - 1.0 [facility] URINE AND STOOL UA Turbidity Marked *ABN* (04/06/14 11:20 AM) Clear [facility] URINE AND STOOL UA Protein 100 mg/dL Negative mg/dL 12/2013 [facility] URINE AND STOOL UA pH 6.0 5.0 - 8.0 04/06/2014 [facility] URINE AND STOOL UA Nitrite Negative (04/06/14 11:20 AM) Negative 04/06/2014 [facility] URINE AND STOOL UA Blood Large *ABN* (04/06/14 11:20 AM) Negative 04/06/2014 [facility] URINE AND STOOL UA Color Yellow *NA* (04/06/14 11:20 AM) Yellow 04/06/2014 [facility] URINE AND STOOL UA Spec Grav 1.026 <=1.030 04/06/2014 [facility] URINE AND STOOL UA Glucose Negative mg/dL Negative mg/dL 04/06/2014 [facility] URINE AND STOOL UA Bili Negative *NA* (04/06/14 11:20 AM) Negative 04/06/2014 [facility] URINE AND STOOL UA Ketones Negative mg/dL Negative mg/dL 04/06/2014 [facility] URINE AND STOOL UA Sq Epi Many /LPF Few /LPF 2013 [facility] URINE AND STOOL UA Leuk Est Negative (04/06/14 11:20 AM) Negative 04/06/2014 [facility] URINE AND STOOL UA Mucus Many /LPF None Seen /LPF 12/2013 [facility] URINE AND STOOL UA RBC 116 / HPF 0 - 2 04/06/2014 [facility] URINE AND STOOL UA Amorph Kika Few /HPF None Seen /HPF 04/06/2014 [facility] Cardiac SPECT multi studies NM Cardiac SPECT multi studies NM PROCEDURE: Stress MYOCARDIAL PERFUSION SCAN with Lexiscan INDICATION: Chest pain PROTOCOL: The patient underwent Lexiscan study using one day protocol. 0.5 mg of Lexiscan was injected over 1 minute. Please see cardiology report for EKG and physiologic response to the pharmacologic stress test. The patient received 10 mCi of 99mTc Sestamibi for the resting images, and 32 mCi of 99mTc Sestamibi for the stress images. Gated SPECT images were obtained after stress injection. FINDINGS: Images obtained after stress and rest injection of tracer show normal tracer distribution in the LV myocardium with no evidence of reversible ischemia. LV size appears normal. Gated images obtained at stress injection show normal LV wall motion and thickening. The QGS LVEF IS 65%. IMPRESSION: Normal perfusion study. Normal resting LV function. Reading Location: [facility] [place] 04/06/2014 - - Read by: Ynes Back MD Dictated Date/time: 04/06/14 13:54 Electronically Signed by: Ynes Back MD 04/06/14 13 :55 FINAL REPORT [facility] CARDIAC ENZYMES Total CK 24 unit/L 12 - 191 04/04/2014 [facility] CARDIAC ENZYMES Troponin-I null 0.00 - 0.40 04/04/2014 [facility] THYROID PANEL TSH 2.660 uIU/ mL 0.360 - 3.740 04/04/2014 [facility] CARDIAC ENZYMES Troponin-I null 0.00 - 0.40 04/04/2014 [facility] CARDIAC ENZYMES Total CK 24 unit/L 12 - 04/04/2014 [facility] CARDIAC ENZYMES Troponin-I null 0.00 - 0.40 04/03/2014 [facility] CARDIAC ENZYMES CK MB Index null 0.0 - 2.5 04/03/2014 [facility] CARDIAC ENZYMES CK MB null 0.5 - 3.6 04/03/2014 [facility] CARDIAC ENZYMES Total CK 37 unit/L 04/03/2014 [facility] ELECTROLYTES Chloride Lvl 103 meq/L 95 - 109 2013 [facility] ELECTROLYTES Calcium Lvl 9.8 mg/dL 8.5 - 10.5 04/03/2014 [facility] ELECTROLYTES Sodium Lvl 139 meq/L 135 - 145 04/03/2014 [facility] ELECTROLYTES Potassium Lvl 4.1 meq/L 3.5 - 5.1 2013 [facility] ELECTROLYTES eGFR 65 mL/min/ 1.73m2 04/03/2014 2Result Comment: The eGFR is calculated using the CKD-EPI formula. In most young, healthy individuals the eGFR will be >90 mL/min/1.73m2. The eGFR declines with age. An eGFR of 60-89 may be normal in some populations, particularly the elderly, for whom the CKD- EPI formula has not been extensively validated. Use of the eGFR is not recommended in the following populations: Individuals with unstable creatinine concentrations, including patients and those with serious co-morbid conditions. Patients with extremes in muscle mass or diet. The data above are obtained from the National Kidney Disease Education Program ( NKDEP) which additionally recommends that when the eGFR is used in patients with extremes of body mass index for purposes of drug dosing, the eGFR should be multiplied by the estimated BMI. [facility] ELECTROLYTES Bili Total 1.0 mg/dL 0.2 - 1.3 04/03/2014 [facility] ELECTROLYTES Alk Phos 64 unit /L 39 - 136 04/03/2014 [facility] ELECTROLYTES AST 15 unit/L 0 - 37 04/03/2014 [facility] ELECTROLYTES B/C Ratio 21 6 - 25 04/03/2014 [facility] ELECTROLYTES AGAP 11.1 meq/L 10.0 - 20.0 04/03/2014 [facility] ELECTROLYTES A/G Ratio 1.0 0.7 - 1.6 04/03/2014 [facility] ELECTROLYTES Globulin 3.8 g/ dL 2.0 - 4.0 04/03/2014 [facility] ELECTROLYTES BUN 21 mg/dL 7 - 22 04/03/2014 [facility] ELECTROLYTES Glucose Lvl 106 mg/dL 70 - 99 04/03/2014 4Interpretive Data: Adult reference range values reflect the clinical guidelines of the [employer]. [facility] ELECTROLYTES Creatinine Lvl 1.0 mg/dL 0.5 - 1.4 2013 [facility] ELECTROLYTES ALT 39 unit/L 0 - 65 04/03/2014 [facility] ELECTROLYTES Albumin Lvl 3.9 g/dL 3.5 - 5.0 04/03/2014 [facility] ELECTROLYTES Total Protein 7.7 g/dL 6.4 - 8.4 2013 [facility] ELECTROLYTES CO2 29 meq/L 24 - 32 04/03/2014 [facility] HEMATOLOGY PTT 25.8 s 22.9 - 35.8 04/03/2014 5Interpretive Data: Heparin Therapeutic Range: 57 - 92 Seconds [facility] Chest 1view Chest 1view PORTABLE CHEST 04/03/2014 AT 1740 HOURS. INDICATION: Chest pain. COMPARISON: Chest 04/01/2014. The cardiac silhouette is top normal in size. The lungs are well expanded and appear clear. No vascular congestion or pleural effusion is seen. IMPRESSION: No acute abnormality or change. SL: 12 04/03/2014 - - Read by: Raman Bailey MD Dictated Date/time: 04/03/14 17:51 Electronically Signed by: Raman Bailey MD 04/03/14 17 :51 FINAL REPORT [facility] CHEM PANEL Ammonia 22.0 umol/ L <=45.0 uMol/L 04/02/2014 [facility] THYROID PANEL T4 Free 1.32 ng /dL 0.76 - 1.46 04/02/2014 [facility] THYROID PANEL TSH 0.351 uIU/ mL 0.360 - 3.740 04/02/2014 [facility] CHEM PANEL Magnesium Lvl 2.2 mg/dL 1.8 - 2.4 04/02/2014 [facility] CHEM PANEL Phosphorus 3.8 mg/ dL 2.5 - 4.5 04/02/2014 [facility] ELECTROLYTES AGAP 12.9 meq/L 10.0 - 20.0 04/02/2014 [facility] ELECTROLYTES eGFR 74 mL/min/ 1.73m2 04/02/2014 1Result Comment: The eGFR is calculated using the CKD-EPI formula. In most young, healthy individuals the eGFR will be >90 mL/min/1.73m2. The eGFR declines with age. An eGFR of 60-89 may be normal in some populations, particularly the elderly, for whom the CKD- EPI formula has not been extensively validated. Use of the eGFR is not recommended in the following populations: Individuals with unstable creatinine concentrations, including patients and those with serious co-morbid conditions. Patients with extremes in muscle mass or diet. The data above are obtained from the National Kidney Disease Education Program ( NKDEP) which additionally recommends that when the eGFR is used in patients with extremes of body mass index for purposes of drug dosing, the eGFR should be multiplied by the estimated BMI. [facility] ELECTROLYTES Creatinine Lvl 0.9 mg/dL 0.5 - 1.4 2013 [facility] ELECTROLYTES BUN 14 mg/dL 7 - 22 04/02/2014 [facility] ELECTROLYTES Calcium Lvl 8.5 mg/dL 8.5 - 10.5 04/02/2014 [facility] ELECTROLYTES CO2 28 meq/L 24 - 32 04/02/2014 [facility] ELECTROLYTES Glucose Lvl 110 mg/dL 70 - 99 04/02/2014 3Interpretive Data: Adult reference range values reflect the clinical guidelines of the [employer]. [facility] ELECTROLYTES Potassium Lvl 3.9 meq/L 3.5 - 5.1 2013 [facility] ELECTROLYTES Sodium Lvl 141 meq/L 135 - 145 04/02/2014 [facility] ELECTROLYTES Chloride Lvl 104 meq/L 95 - 109 2013 [facility] HEMATOLOGY MPV 7.0 fL 7.4 - 10.4 04/02/2014 [facility] HEMATOLOGY Hct 45.9 % 36.0 - 48.0 04/02/2014 [facility] Hgb 15.7 g/dL 12.0 - 16.0 04/02/2014 [facility] RBC 4.87 M/CMM 4.20 - 5.40 04/02/2014 [facility] WBC 9.3 K/CMM 3.7 - 10.4 04/02/2014 [facility] MCV 94.1 fL 80.0 - 98.0 04/02/2014 [facility] MCH 32.2 pg 27.0 - 31.0 04/02/2014 [facility] Platelet 248 K/ CMM 133 - 450 04/02/2014 [facility] RDW 14.3 % 11.5 - 14.5 04/02/2014 [facility] MCHC 34.2 g/dL 32.0 - 36.0 04/02/2014 [facility] Monocytes # 0.8 K/ CMM 0.0 - 0.8 04/02/2014 [facility] Lymphocytes # 1.5 K/CMM 1.0 - 5.5 04/02/2014 [facility] Segs-Bands # 6.9 K /CMM 1.5 - 8.1 04/02/2014 [facility] Eosinophils 1.0 % 0.0 - 4.0 04/02/2014 [facility] Basophils 0.4 % 0.0 - 1.0 04/02/2014 [facility] Monocytes 8.7 % 2.0 - 12.0 04/02/2014 [facility] Eosinophils # 0.1 K/CMM 0.0 - 0.5 04/02/2014 [facility] Segs 74.2 % 45.0 - 75.0 04/02/2014 [facility] Lymphocytes 15.7 % 20.0 - 40.0 04/02/2014 [facility] Brain w/wo contrast MRI Brain w/wo contrast MRI EXAM: MRI BRAIN WITHOUT AND WITH CONTRAST DATE: Apr 02, 2014 04:10:00 AM INDICATION: Confusion TECHNIQUE: Multiplanar, multisequence MR imaging of the brain was obtained. COMPARISON: CT Brain dated 04/01/2014. DISCUSSION: No foci of abnormal enhancement, restricted diffusion are seen within the brain parenchyma or extra-axial spaces. Right frontal white matter focal encephalomalacia is seen. Periventricular white matter , pontine, and cerebral white matter T2 hyperintense foci represent chronic microangiopathic ischemic changes. There is no intracranial hemorrhage, extra-axial collection, or mass. The ventricular system is normal in size and configuration. The cortical sulci are within normal limits. The larger intracranial vascular flow voids are preserved. No abnormality of the skull base or calvarium is present. The visualized paranasal sinuses, mastoid air cells, and orbits are within normal limits. IMPRESSION: 1. No acute infarct. 2. No abnormal intracranial enhancement or enhancing masses seen. 3. Moderate chronic microangiopathic ischemic changes. 4. Focal cystic encephalomalacia in the right frontal lobe. SL: 14 04/02/2014 - - Read by: Effie Nolan MD Dictated Date/time: 04/02/14 04:50 Electronically Signed by: Effie Nolan MD 04/02/14 05 :01 FINAL REPORT [facility] CARDIAC ENZYMES CK MB Index null 0.0 - 2.5 04/01/2014 [facility] CARDIAC ENZYMES Total CK 35 unit/L 12 - 191 04/01/2014 [facility] CARDIAC ENZYMES Troponin-I null 0.00 - 0.40 04/01/2014 [facility] CARDIAC ENZYMES CK MB null 0.5 - 3.6 04/01/2014 [facility] CHEM PANEL eGFR 74 mL/min/ 1.73m2 04/01/2014 2Result Comment: The eGFR is calculated using the CKD-EPI formula. In most young, healthy individuals the eGFR will be >90 mL/min/1.73m2. The eGFR declines with age. An eGFR of 60-89 may be normal in some populations, particularly the elderly, for whom the CKD- EPI formula has not been extensively validated. Use of the eGFR is not recommended in the following populations: Individuals with unstable creatinine concentrations, including patients and those with serious co-morbid conditions. Patients with extremes in muscle mass or diet. The data above are obtained from the National Kidney Disease Education Program ( [employer]DEP) which additionally recommends that when the eGFR is used in patients with extremes of body mass index for purposes of drug dosing, the eGFR should be multiplied by the estimated BMI. [facility] CHEM PANEL CO2 29 meq/L 24 - 32 04/01/2014 [facility] CHEM PANEL Creatinine Lvl 0.9 mg/dL 0.5 - 1.4 2013 [facility] CHEM PANEL Glucose Lvl 107 mg /dL 70 - 99 04/01/2014 4Interpretive Data: Adult reference range values reflect the clinical guidelines of the [place] [employer]. [facility] CHEM PANEL BUN 14 mg/dL 7 - 22 04/01/2014 [facility] CHEM PANEL ALT 39 unit/L 0 - 65 04/01/2014 [facility] CHEM PANEL AST 14 unit/L 0 - 37 04/01/2014 [facility] CHEM PANEL Total Protein 7.1 g/dL 6.4 - 8.4 04/01/2014 [facility] CHEM PANEL Albumin Lvl 3.8 g/ dL 3.5 - 5.0 04/01/2014 [facility] CHEM PANEL Alk Phos 66 unit/ L 39 - 136 04/01/2014 [facility] CHEM PANEL Bili Total 0.9 mg/ dL 0.2 - 1.3 04/01/2014 [facility] CHEM PANEL Globulin 3.3 g/dL 2.0 - 4.0 04/01/2014 [facility] CHEM PANEL B/C Ratio 16 6 - 25 04/01/2014 [facility] CHEM PANEL AGAP 12.9 meq/L 10.0 - 20.0 04/01/2014 [facility] CHEM PANEL A/G Ratio 1.2 0.7 - 1.6 04/01/2014 [facility] CHEM PANEL Calcium Lvl 9.2 mg /dL 8.5 - 10.5 04/01/2014 [facility] CHEM PANEL Potassium Lvl 3.9 meq/L 3.5 - 5.1 04/01/2014 [facility] CHEM PANEL Chloride Lvl 100 meq/L 95 - 109 04/01/2014 [facility] CHEM PANEL Sodium Lvl 138 meq /L 135 - 145 04/01/2014 [facility] CHEM PANEL Ammonia 16.0 umol/ L <=45.0 uMol/L 04/01/2014 [facility] HEMATOLOGY Segs 73.5 % 45.0 - 75.0 04/01/2014 [facility] HEMATOLOGY Lymphocytes 16.4 % 20.0 - 40.0 04/01/2014 [facility] HEMATOLOGY Eosinophils 0.6 % 0.0 - 4.0 04/01/2014 [facility] HEMATOLOGY Basophils 0.6 % 0.0 - 1.0 04/01/2014 [facility] HEMATOLOGY Segs-Bands # 6.4 K /CMM 1.5 - 8.1 04/01/2014 [facility] HEMATOLOGY Lymphocytes # 1.4 K/CMM 1.0 - 5.5 04/01/2014 [facility] HEMATOLOGY Monocytes 8.9 % 2.0 - 12.0 04/01/2014 [facility] HEMATOLOGY Monocytes # 0.8 K/ CMM 0.0 - 0.8 04/01/2014 [facility] HEMATOLOGY Eosinophils # 0.1 K/CMM 0.0 - 0.5 04/01/2014 [facility] HEMATOLOGY MPV 7.0 fL 7.4 - 10.4 04/01/2014 [facility] Platelet 248 K/ CMM 133 - 450 04/01/2014 [facility] MCHC 33.7 g/dL 32.0 - 36.0 04/01/2014 [facility] RDW 14.2 % 11.5 - 14.5 04/01/2014 [facility] WBC 8.8 K/CMM 3.7 - 10.4 04/01/2014 [facility] RBC 4.88 M/CMM 4.20 - 5.40 04/01/2014 [facility] Hgb 15.5 g/dL 12.0 - 16.0 04/01/2014 [facility] Hct 46.0 % 36.0 - 48.0 04/01/2014 [facility] MCV 94.3 fL 80.0 - 98.0 04/01/2014 [facility] MCH 31.8 pg 27.0 - 31.0 04/01/2014 [facility] DRUG SCREEN U Cocaine Scr Negative *NA* (04/01/14 1:20 PM) Negative 04/01/2014 [facility] DRUG SCREEN U Benzodia Scr Negative *NA* (04/01/14 1:20 PM) Negative 04/01/2014 [facility] DRUG SCREEN U Samara Scr Negative *NA* (04/01/14 1:20 PM) Negative 04/01/2014 [facility] DRUG SCREEN U Amph Scr Negative *NA* (04/01/14 1:20 PM) Negative 04/01/2014 [facility] DRUG SCREEN U Opiate Scr Positive *ABN* (04/01/14 1:20 PM) Negative 04/01/2014 [facility] DRUG SCREEN U Cannab Scr Negative *NA* (04/01/14 1:20 PM) Negative 04/01/2014 [facility] DRUG SCREEN UDS Note See Note 5 (04/01/14 1:20 PM) 2013 5Interpretive Data: Drugs reported as positive have not been confirmed by a second method and should be used for medical purposes only. To order confirmation, contact laboratory. note: Below are cut-off concentrations for all urine drugs of abuse performed in the laboratory. Some drugs listed in the table may not be included in this panel. Description Cut-off concentration Amphetamine 1000 ng/mL Barbiturates 200 ng/mL Benzodiazepines 300 ng/mL Cocaine metabolites 300 ng/mL Opiates 300 ng/mL Phencyclidine 25 ng/mL Propoxyphene 300 ng/mL Marijuana metabolites 50 ng/mL Methadone 300 ng/mL Urine alcohol 20 mg/dL [facility] DRUG SCREEN U Phencyc Scr Negative *NA* (04/01/14 1:20 PM) Negative 04/01/2014 [facility] URINE AND STOOL UA Urobilinogen <=1.0 mg/dL 0.1 - 1.0 [facility] URINE AND STOOL UA Leuk Est Negative (04/01/14 1:20 PM) Negative 04/01/2014 [facility] URINE AND STOOL UA Nitrite Negative (04/01/14 1:20 PM) Negative 04/01/2014 [facility] URINE AND STOOL UA WBC 17 / HPF 0 - 5 04/01/2014 [facility] URINE AND STOOL UA Glucose Negative mg/dL Negative mg/dL 04/01/2014 [facility] URINE AND STOOL UA Blood Large *ABN* (04/01/14 1:20 PM) Negative 04/01/2014 [facility] URINE AND STOOL UA Bili Negative *NA* (04/01/14 1:20 PM) Negative 04/01/2014 [facility] URINE AND STOOL UA Protein 30 mg/dL Negative mg/dL 07/2013 [facility] URINE AND STOOL UA pH 7.0 5.0 - 8.0 04/01/2014 [facility] URINE AND STOOL UA Ketones Negative mg/dL Negative mg/dL 04/01/2014 [facility] URINE AND STOOL UA Sq Epi Moderate /LPF Few /LPF 04/01 [facility] URINE AND STOOL UA RBC null 0 - 2 04/01/2014 [facility] URINE AND STOOL UA Mucus Few /LPF None Seen /LPF 2013 [facility] URINE AND STOOL UA Turbidity Marked *ABN* (04/01/14 1:20 PM) Clear 07/2013 [facility] URINE AND STOOL UA Color Yellow *NA* (04/01/14 1:20 PM) Yellow [facility] URINE AND STOOL UA Spec Grav 1.023 <=1.030 04/01/2014 [facility] Abdomen/Pelvis wo IV contrast CT Abdomen/Pelvis wo IV contrast CT CT Abdomen without Contrast, CT Pelvis without Contrast: TECHNIQUE: Contiguous transaxial images of the abdomen and pelvis were performed from the lung bases to the superior pubic rami without IV or oral contrast. COMPARISON: 02/21/2014 CLINICAL HX: Abdomen pain CT ABDOMEN: Lower Chest: The lung bases are clear. GI Tract: There is no evidence for free fluid or free air in the abdomen. Tract: 6 mm nonobstructing calyceal calculus, upper pole of left kidney. No obstructing ureteric calculi. No hydronephrosis. No significant retroperitoneal lymphadenopathy is noted. Abdominal Viscera: Discounting the limitation of lack of IV contrast, no gross abnormality is visualized in the spleen, pancreas or either adrenal gland. Status post cholecystectomy. Mild hepatomegaly. Vasculature: Focal ectasia of infrarenal abdominal aorta with maximum caliber at 2.7 cm. Moderate to fairly extensive atherosclerotic disease is present in the abdominal aorta. Bone and Soft tissues: No significant bony abnormality is noted. CT PELVIS: The bladder demonstrates normal morphology. Uterus is nonvisualized indicating hysterectomy. No gross adnexal mass is noted. No free fluid is present in the pelvis. IMPRESSION: 6 mm nonobstructing calyceal calculus upper pole of left kidney. No obstructing ureteric calculi. No hydronephrosis noted on either side. No significant acute abnormality is evident. No significant interval change from previous CT of 02/21/2014. SL:13 04/01/2014 - - Read by: Ron Ware MD Dictated Date/time: 04/01/14 16:14 Electronically Signed by: Ron Ware MD 04/01/14 16 :25 FINAL REPORT [facility] Brain wo contrast CT Brain wo contrast CT CRANIAL CT (without contrast) HISTORY: Altered level of consciousness. TECHNIQUE: Helical CT images were obtained from the foramen magnum to the vertex without the use of intravenous contrast. The examination was performed from the emergency department. There are no prior studies available for comparison. FINDINGS: There is normal appearance of the ventricular system and extraventricular CSF spaces. There is a 10 mm vague hypodensity in the right anterior parietal deep white matter region best seen on image 15 of series 4 probably representing a prior ischemic insult. This is seen only on one view. There is no significant mass effect or edema. Comparison with prior studies, if available, would be helpful. If there are no prior studies available, and if felt to be clinically indicated , a nonemergent outpatient MRI of the brain is suggested. There is no evidence of mass, midline shift, hemorrhage, extra-axial fluid collection, acute infarction, or other focal abnormal attenuation within the brain parenchyma. There are moderate atherosclerotic calcifications involving the carotid siphons. The calvarium is intact. The visualized sinuses and mastoids are clear. Note is made of kaylie bullosa on the left. (aeration of the middle turbinate). CONCLUSION: 1. No evidence of an acute intracranial process. 2. 10 mm vague hypodensity in the right anterior parietal deep white matter, probable prior area of ischemia or other insult. Comparison with any prior studies, if available, would be helpful. If these are not available, and felt to be clinically indicated, an MRI the brain is suggested. 3. No other abnormalities are seen. Coding: Brain wo contrast CT CPT Code: 55647 SL: 13 Tam Negron M.D. 04/01/2014 - - Read by: Tam Negron MD Dictated Date/time: 04/01/14 12:57 Electronically Signed by: Tam Negron MD 04/01/14 13 :02 FINAL REPORT [facility] Chest [facility] Chest 1view PORTABLE CHEST (chest 1 view) HISTORY: Chest pain Comparison is made to 02/21/2014. FINDINGS: The lungs are clear. There is mild cardiomegaly. There is no overt failure. There are no pleural effusions. The regional skeleton is unremarkable. CONCLUSION: 1. No active disease. 2. Mild cardiomegaly. Coding: Chest 1view CPT code: 09345 SL: 13 Tam Negron M.D. 04/01/2014 - - Read by: Tam Negron MD Dictated Date/time: 04/01/14 12:56 Electronically Signed by: Tam Negron MD 04/01/14 12 :57 FINAL REPORT [facility] HEMATOLOGY MCV 95.0 fL 80.0 - 98.0 02/28/2014 [facility] Hct 40.4 % 36.0 - 48.0 02/28/2014 [facility] RBC 4.25 M/CMM 4.20 - 5.40 02/28/2014 [facility] Hgb 13.7 g/dL 12.0 - 16.0 02/28/2014 [facility] WBC 11.0 K/CMM 3.7 - 10.4 02/28/2014 [facility] MPV 7.3 fL 7.4 - 10.4 02/28/2014 [facility] Platelet 267 K/ CMM 133 - 450 02/28/2014 [facility] RDW 13.2 % 11.5 - 14.5 02/28/2014 [facility] MCHC 33.9 g/dL 32.0 - 36.0 02/28/2014 [facility] MCH 32.2 pg 27.0 - 31.0 02/28/2014 [facility] Basophils # 0.1 K/ CMM 0.0 - 0.2 02/28/2014 [facility] Monocytes # 0.9 K/ CMM 0.0 - 0.8 02/28/2014 [facility] Eosinophils # 0.1 K/CMM 0.0 - 0.5 02/28/2014 [facility] Lymphocytes # 3.0 K/CMM 1.0 - 5.5 02/28/2014 [facility] Segs 63.7 % 45.0 - 75.0 02/28/2014 [facility] Monocytes 8.3 % 2.0 - 12.0 02/28/2014 [facility] Segs-Bands # 7.0 K /CMM 1.5 - 8.1 02/28/2014 [facility] Lymphocytes 26.9 % 20.0 - 40.0 02/28/2014 [facility] Basophils 0.5 % 0.0 - 1.0 02/28/2014 [facility] Eosinophils 0.6 % 0.0 - 4.0 02/28/2014 [facility] CHEM PANEL eGFR 100 mL/min/ 1.73m2 02/26/2014 1Result Comment: The eGFR is calculated using the CKD-EPI formula. In most young, healthy individuals the eGFR will be >90 mL/min/1.73m2. The eGFR declines with age. An eGFR of 60-89 may be normal in some populations, particularly the elderly, for whom the CKD- EPI formula has not been extensively validated. Use of the eGFR is not recommended in the following populations: Individuals with unstable creatinine concentrations, including patients and those with serious co-morbid conditions. Patients with extremes in muscle mass or diet. The data above are obtained from the National Kidney Disease Education Program ( NKDEP) which additionally recommends that when the eGFR is used in patients with extremes of body mass index for purposes of drug dosing, the eGFR should be multiplied by the estimated BMI. [facility] CHEM PANEL Glucose Lvl 94 mg/ dL 70 - 99 02/26/2014 4Interpretive Data: Adult reference range values reflect the clinical guidelines of the [place] [employer]. [facility] CHEM PANEL Creatinine Lvl 0.7 mg/dL 0.5 - 1.4 2013 [facility] CHEM PANEL BUN 11 mg/dL 7 - 22 02/26/2014 [facility] CHEM PANEL Sodium Lvl 139 meq /L 135 - 145 02/26/2014 [facility] CHEM PANEL Potassium Lvl 4.0 meq/L 3.5 - 5.1 02/26/2014 [facility] CHEM PANEL Chloride Lvl 104 meq/L 95 - 109 02/26/2014 [facility] CHEM PANEL CO2 29 meq/L 24 - 32 02/26/2014 [facility] CHEM PANEL Calcium Lvl 8.6 mg /dL 8.5 - 10.5 02/26/2014 [facility] CHEM PANEL AGAP 10.0 meq/L 10.0 - 20.0 02/26/2014 [facility] HEMATOLOGY Monocytes # 0.9 K/ CMM 0.0 - 0.8 02/26/2014 [facility] HEMATOLOGY Lymphocytes # 1.7 K/CMM 1.0 - 5.5 02/26/2014 [facility] HEMATOLOGY Eosinophils # 0.1 K/CMM 0.0 - 0.5 02/26/2014 [facility] HEMATOLOGY Eosinophils 0.7 % 0.0 - 4.0 02/26/2014 [facility] HEMATOLOGY Monocytes 8.8 % 2.0 - 12.0 02/26/2014 [facility] HEMATOLOGY Basophils 0.3 % 0.0 - 1.0 02/26/2014 [facility] HEMATOLOGY Segs-Bands # 8.0 K /CMM 1.5 - 8.1 02/26/2014 [facility] HEMATOLOGY Segs 74.6 % 45.0 - 75.0 02/26/2014 [facility] HEMATOLOGY Lymphocytes 15.6 % 20.0 - 40.0 02/26/2014 [facility] HEMATOLOGY RDW 13.2 % 11.5 - 14.5 02/26/2014 [facility] MPV 7.9 fL 7.4 - 10.4 02/26/2014 [facility] HEMATOLOGY Platelet 226 K/ CMM 133 - 450 02/26/2014 [facility] MCH 31.8 pg 27.0 - 31.0 02/26/2014 [facility] Hct 38.0 % 36.0 - 48.0 02/26/2014 [facility] MCHC 33.3 g/dL 32.0 - 36.0 02/26/2014 [facility] MCV 95.4 fL 80.0 - 98.0 02/26/2014 [facility] Hgb 12.7 g/dL 12.0 - 16.0 02/26/2014 [facility] WBC 10.8 K/CMM 3.7 - 10.4 02/26/2014 [facility] RBC 3.98 M/CMM 4.20 - 5.40 02/26/2014 [facility] CHEM PANEL eGFR 100 mL/min/ 1.73m2 02/22/2014 2Result Comment: The eGFR is calculated using the CKD-EPI formula. In most young, healthy individuals the eGFR will be >90 mL/min/1.73m2. The eGFR declines with age. An eGFR of 60-89 may be normal in some populations, particularly the elderly, for whom the CKD- EPI formula has not been extensively validated. Use of the eGFR is not recommended in the following populations: Individuals with unstable creatinine concentrations, including patients and those with serious co-morbid conditions. Patients with extremes in muscle mass or diet. The data above are obtained from the National Kidney Disease Education Program ( NKDEP) which additionally recommends that when the eGFR is used in patients with extremes of body mass index for purposes of drug dosing, the eGFR should be multiplied by the estimated BMI. [facility] CHEM PANEL Creatinine Lvl 0.7 mg/dL 0.5 - 1.4 2013 [facility] PTT 29.9 s 22.9 - 35.8 02/22/2014 7Interpretive Data: Heparin Therapeutic Range: 57 - 92 Seconds [facility] Platelet 274 K/ CMM 133 - 450 02/22/2014 [facility] Spine lumbar wo contrast MRI Spine lumbar wo contrast MRI PROCEDURE: Spine lumbar wo contrast MRI REASON FOR EXAM: See Clinic Indication CLINICAL INDICATION: Pain with radiculopathy COMPARISON: CT thorax/abdomen/pelvis dated 02/21/2014 FINDINGS: Vertebral body heights are maintained. No fracture is seen. Bone marrow signal is normal. No spondylolisthesis. There is moderate degenerative disc desiccation and mild disc space narrowing L5 /S1 with relatively large right foraminal disc extrusion. Hypertrophic facet arthrosis is noted in the lower lumbar spine. T12-L1: No canal stenosis. No neural foraminal narrowing. L1-L2: No canal stenosis. No neural foraminal narrowing. L2-L3: No canal stenosis. No neural foraminal narrowing. L3-L4: No canal stenosis. No neural foraminal narrowing. L4-L5: Mild hypertrophic facet arthrosis. No canal stenosis. No neural foraminal narrowing. L5-S1: Mild diffuse disc bulge with superimposed right foraminal disc extrusion measuring 8 x 14 mm in axial cross-section and 9 mm craniocaudad dimension which partially fills the right neural foramen. Moderate hypertrophic facet arthrosis. No canal stenosis. No left neural foraminal narrowing. Severe right neural foraminal narrowing. Visualized portion of the kidneys unremarkable. The visualized aorta is normal in caliber. IMPRESSION: L5/S1 diffuse disc bulge with superimposed moderate to large right foraminal disc extrusion causing severe right neural foraminal narrowing. SL: 17 02/21/2014 - - Read by: Moisés Martini MD Dictated Date/time: 02/22/14 08:01 Electronically Signed by: Moisés Martini MD 02/22/14 08 :17 FINAL REPORT [facility] CHEM PANEL Lactic Acid Lvl 0.8 mMol/L 0.5 - 2.2 2013 [facility] URINE AND STOOL UA Spec Grav >=1.050 *ABN* (02/21/14 8:07 AM) <=1.030 02/21/2014 [facility] URINE AND STOOL UA Urobilinogen <=1.0 mg/dL 0.1 - 1.0 [facility] URINE AND STOOL UA WBC 1 / HPF 0 - 5 02/21/2014 [facility] URINE AND STOOL UA RBC 15 / HPF 0 - 2 02/21/2014 [facility] URINE AND STOOL UA Mucus Few /LPF None Seen /LPF 2013 [facility] URINE AND STOOL UA Sq Epi Few /LPF Few /LPF 2013 [facility] URINE AND STOOL UA Nitrite Negative (02/21/14 8:07 AM) Negative 02/21/2014 [facility] URINE AND STOOL UA Leuk Est Negative (02/21/14 8:07 AM) Negative 02/21/2014 [facility] URINE AND STOOL UA Blood Small *ABN* (02/21/14 8:07 AM) Negative 02/21/2014 [facility] URINE AND STOOL UA Ketones Negative mg/dL Negative mg/dL 02/21/2014 [facility] URINE AND STOOL UA Bili Negative *NA* (02/21/14 8:07 AM) Negative 02/21/2014 [facility] URINE AND STOOL UA Glucose Negative mg/dL Negative mg/dL 02/21/2014 [facility] URINE AND STOOL UA Protein Negative mg/dL Negative mg/dL 02/21/2014 [facility] URINE AND STOOL UA pH 5.0 5.0 - 8.0 02/21/2014 [facility] URINE AND STOOL UA Turbidity Clear (02/21/14 8:07 AM) Clear [facility] URINE AND STOOL UA Color Yellow *NA* (02/21/14 8:07 AM) Yellow 02/21/2014 [facility] Chest/Abdomen/Pelvis w IV contrast CT Chest/Abdomen/ Pelvis w IV contrast CT CT SCAN OF THE CHEST, ABDOMEN, AND PELVIS WITH CONTRAST: DISCUSSION: No oral contrast given per request of the referring physician. No older studies available for comparison. CT SCAN OF THE CHEST: Axial images through the chest are obtained during IV contrast administration. Dependent changes in the lungs. No hilar or mediastinal adenopathy or pleural or pericardial effusions. Patent airways. The heart is enlarged. Normal configuration of the aorta. No aortic aneurysm or dissection. No filling defects are seen in the pulmonary arteries to suggest emboli. hypertrophic changes in the spine CT SCAN OF THE ABDOMEN: Axial images through the abdomen are obtained during IV contrast administration. Previous cholecystectomy. Focal cortical scarring in the lower pole of the left kidney. The liver is mildly enlarged. No abnormalities identified in the spleen , biliary system, pancreas, or adrenal glands. No adenopathy or abnormal fluid collections. Aortoiliac and visceral arterial calcifications. The infrarenal abdominal aorta measures 2.7 cm in maximal diameter. No bowel abnormalities. Degenerative changes in the spine. CT SCAN OF THE PELVIS: Axial images through the pelvis are obtained following IV contrast administration. No adenopathy or abnormal fluid collections. Absent uterus. The bladder base lies at the level of the lower synthesis pubis suggesting some degree of pelvic floor relaxation. Normal appendix. No bowel abnormalities. Degenerative changes in the lumbosacral spine. Large right lateral asymmetrical disc protrusion at the L5-S1 level. IMPRESSION: 1. No CT evidence for pulmonary block. 2. Cardiomegaly. 3. Mild hepatomegaly. 4. Status post cholecystectomy. 5. 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 6. Findings suggesting large right lateral L5-S1 disc herniation. SL: 14 02/21/2014 - - Read by: Colin Epps MD Dictated Date/time: 02/21/14 08:03 Electronically Signed by: Colin Epps MD 02/21/14 08 :17 FINAL REPORT [facility] CARDIAC ENZYMES BNP 25 pg/mL <=100 pg/mL 02/21/2014 6Interpretive Data: Elevated results are in line with increasing severity of congestive heart failure. Minor elevations between 100 and 300 may be seen with Myocardial Ischemia, Sodium retaining drugs, and compensated/treated heart failure. [facility] CARDIAC ENZYMES Troponin-I null 0.00 - 0.40 02/21/2014 [facility] CARDIAC ENZYMES CK MB 0.7 ng/ mL 0.5 - 3.6 02/21/2014 [facility] CARDIAC ENZYMES Total CK 92 unit/L 12 - 191 02/21/2014 [facility] CARDIAC ENZYMES CK MB Index 0.8 0.0 - 2.5 02/21/2014 [facility] CHEM PANEL Lipase Lvl 67 unit /L 73 - 393 02/21/2014 [facility] CHEM PANEL B/C Ratio 22 6 - 25 02/21/2014 [facility] CHEM PANEL AGAP 12.9 meq/L 10.0 - 20.0 02/21/2014 [facility] CHEM PANEL Globulin 4.1 g/dL 2.0 - 4.0 02/21/2014 [facility] CHEM PANEL A/G Ratio 1.0 0.7 - 1.6 02/21/2014 [facility] CHEM PANEL eGFR 74 mL/min/ 1.73m2 02/21/2014 3Result Comment: The eGFR is calculated using the CKD-EPI formula. In most young, healthy individuals the eGFR will be >90 mL/min/1.73m2. The eGFR declines with age. An eGFR of 60-89 may be normal in some populations, particularly the elderly, for whom the CKD- EPI formula has not been extensively validated. Use of the eGFR is not recommended in the following populations: Individuals with unstable creatinine concentrations, including patients and those with serious co-morbid conditions. Patients with extremes in muscle mass or diet. The data above are obtained from the National Kidney Disease Education Program ( NKDEP) which additionally recommends that when the eGFR is used in patients with extremes of body mass index for purposes of drug dosing, the eGFR should be multiplied by the estimated BMI. [facility] CHEM PANEL Calcium Lvl 9.1 mg /dL 8.5 - 10.5 02/21/2014 [facility] CHEM PANEL Albumin Lvl 3.9 g/ dL 3.5 - 5.0 02/21/2014 [facility] CHEM PANEL CO2 27 meq/L 24 - 32 02/21/2014 [facility] CHEM PANEL Chloride Lvl 104 meq/L 95 - 109 02/21/2014 [facility] CHEM PANEL Potassium Lvl 3.9 meq/L 3.5 - 5.1 02/21/2014 [facility] CHEM PANEL Creatinine Lvl 0.9 mg/dL 0.5 - 1.4 2013 [facility] CHEM PANEL BUN 20 mg/dL 7 - 22 02/21/2014 [facility] CHEM PANEL Glucose Lvl 97 mg/ dL 70 - 99 02/21/2014 5Interpretive Data: Adult reference range values reflect the clinical guidelines of the [place] [employer]. [facility] CHEM PANEL Sodium Lvl 140 meq /L 135 - 145 02/21/2014 [facility] CHEM PANEL AST 52 unit/L 0 - 37 02/21/2014 [facility] CHEM PANEL Total Protein 8.0 g/dL 6.4 - 8.4 02/21/2014 [facility] CHEM PANEL Alk Phos 94 unit/ L 39 - 136 02/21/2014 [facility] CHEM PANEL ALT 54 unit/L 0 - 65 02/21/2014 [facility] CHEM PANEL Bili Total 0.7 mg/ dL 0.2 - 1.3 02/21/2014 [facility] HEMATOLOGY Eosinophils # 0.1 K/CMM 0.0 - 0.5 02/21/2014 [facility] HEMATOLOGY Monocytes # 1.3 K/ CMM 0.0 - 0.8 02/21/2014 [facility] HEMATOLOGY Lymphocytes # 3.3 K/CMM 1.0 - 5.5 02/21/2014 [facility] HEMATOLOGY Monocytes 9.6 % 2.0 - 12.0 02/21/2014 [facility] HEMATOLOGY Lymphocytes 24.4 % 20.0 - 40.0 02/21/2014 [facility] HEMATOLOGY Segs 65.4 % 45.0 - 75.0 02/21/2014 [facility] Segs-Bands # 8.9 K /CMM 1.5 - 8.1 02/21/2014 [facility] Basophils 0.2 % 0.0 - 1.0 02/21/2014 [facility] Eosinophils 0.4 % 0.0 - 4.0 02/21/2014 [facility] MCV 94.0 fL 80.0 - 98.0 02/21/2014 [facility] MCH 31.4 pg 27.0 - 31.0 02/21/2014 [facility] Hct 49.6 % 36.0 - 48.0 02/21/2014 [facility] RBC 5.27 M/CMM 4.20 - 5.40 02/21/2014 [facility] Hgb 16.5 g/dL 12.0 - 16.0 02/21/2014 [facility] WBC 13.7 K/CMM 3.7 - 10.4 02/21/2014 [facility] MPV 7.6 fL 7.4 - 10.4 02/21/2014 [facility] MCHC 33.4 g/dL 32.0 - 36.0 02/21/2014 [facility] RDW 13.9 % 11.5 - 14.5 02/21/2014 [facility] Chest 2 views Chest 2 views NAME: CAMILO AVENDANO : 1960 SEX: F Ordering Physician: Quan Villarreal Chest 2 views : Feb 21, 2014 05:06:00 AM. CLINICAL INDICATION: Abnormal chest sounds. Comparison Examination: None. FINDINGS: Overpenetration limits evaluation of the frontal view. Enlarged cardiac silhouette. Mediastinal structures are unremarkable. No focal infiltrate identified within the lungs, no edema, no pleural effusions and no pneumothorax. SL: 14 02/21/2014 - - Read by: Mario Black MD Dictated Date/time: 02/21/14 05:06 Electronically Signed by: Mario Black MD 02/21/14 05 :07 FINAL REPORT [facility] Digital Mammo Screening [place] Digital Mammo Screening [place] - DIGITAL MAMMO SCREENING [place] BILATERAL DIGITAL SCREENING MAMMOGRAM WITH CAD: 06/16/2013 CLINICAL: Routine. Current study was evaluated with a Computer Aided Detection (CAD) system. Comparison is made to exams dated: 08/22/2011 mammogram - [facility], 07/07/2003 and 01/21/2002 mammogram. The tissue of both breasts is almost entirely fat. There are benign calcifications in both breasts. No significant masses, calcifications, or other findings are seen in either breast. There has been no significant interval change. IMPRESSION: BENIGN There is no mammographic evidence of malignancy. A screening mammogram in one year is recommended. Elva jackt/penrad:06/17/2013 11:34:13 Job Service Consultant: Breanna Dias, [facility] This exam was dictated and interpreted by [id number] at [facility] , 13. letter sent: Normal exam Mammogram BI-RADS: 2 Benign 06/16/2013 - - Read by: Elva Mazariegos Dictated Date/time: 06/17/13 11:34 Electronically Signed by: Elva Mazariegos MD 06/17/13 11 :34 FINAL REPORT [facility] Vital Signs Vital Sign Value Date Comments Source Systolic (mm Hg) 137 2017 [facility] Diastolic (mm Hg) 82 2017 [facility] Height 154.94 cm 08/20/2017 [facility] Heart Rate 83 08/20/2017 [facility] Weight 103.182 08/20/2017 [facility] BMI Calculated 42.98 2017 [facility] Systolic (mm Hg) 145 2017 [facility] Diastolic (mm Hg) 71 2017 [facility] Systolic (mm Hg) 142 2017 [facility] Diastolic (mm Hg) 72 2017 [facility] Respitory Rate 20 2017 [facility] Systolic (mm Hg) 128 2017 [facility] Diastolic (mm Hg) 78 2017 [facility] Respitory Rate 16 2017 [facility] Respitory Rate 16 2017 [facility] Heart Rate 75 07/05/2017 [facility] Temperature Oral (F) 98.0 F 07/05/2017 [facility] Height 154.94 cm 07/05/2017 [facility] Weight 100.909 07/05/2017 [facility] BMI Calculated 42.03 2017 [facility] Systolic (mm Hg) 154 2014 [facility] Diastolic (mm Hg) 95 2014 [facility] Respitory Rate 18 2014 [facility] Temperature Oral (F) 98.7 F 02/21/2015 [facility] Heart Rate 91 02/21/2015 [facility] Temperature Oral (F) 98.5 F 02/21/2015 [facility] Systolic (mm Hg) 147 2014 [facility] Diastolic (mm Hg) 82 2014 [facility] Heart Rate 76 02/21/2015 [facility] Respitory Rate 18 2014 [facility] Respitory Rate 14 2014 [facility] Temperature Oral (F) 98.3 F 02/21/2015 [facility] Systolic (mm Hg) 131 2014 [facility] Diastolic (mm Hg) 75 2014 [facility] Heart Rate 85 02/21/2015 [facility] BMI Calculated 42.13 2014 [facility] Weight 101.136 02/18/2015 [facility] Height 154.94 cm 02/18/2015 [facility] Temperature Oral (F) 99.0 F 04/17/2014 [facility] Heart Rate 90 04/17/2014 [facility] Respitory Rate 20 2013 [facility] Diastolic (mm Hg) 75 2013 [facility] Systolic (mm Hg) 136 2013 [facility] Respitory Rate 20 2013 [facility] Heart Rate 101 04/17/2014 [facility] Diastolic (mm Hg) 80 2013 [facility] Systolic (mm Hg) 137 2013 [facility] Respitory Rate 20 2013 [facility] Diastolic (mm Hg) 84 2013 [facility] Heart Rate 122 04/17/2014 [facility] Systolic (mm Hg) 135 2013 [facility] Temperature Oral (F) 99.1 F 04/17/2014 [facility] Weight 85.909 04/17/2014 [facility] Systolic (mm Hg) 126 2013 [facility] Temperature Oral (F) 98.4 F 04/14/2014 [facility] Heart Rate 76 04/14/2014 [facility] Respitory Rate 18 2013 [facility] Diastolic (mm Hg) 82 2013 [facility] Diastolic (mm Hg) 79 2013 [facility] Systolic (mm Hg) 131 2013 [facility] Temperature Oral (F) 98.3 F 04/14/2014 [facility] Respitory Rate 18 2013 [facility] Heart Rate 88 04/14/2014 [facility] Heart Rate 83 04/14/2014 [facility] Diastolic (mm Hg) 66 2013 [facility] Temperature Oral (F) 98.2 F 04/14/2014 [facility] Systolic (mm Hg) 117 2013 [facility] Respitory Rate 18 2013 [facility] Height 154.94 cm 04/04/2014 [facility] Weight 86.875 04/04/2014 [facility] BMI Calculated 36.19 2013 [facility] Height 154.94 cm 04/04/2014 [facility] Weight 89.545 04/03/2014 [facility] BMI Calculated 37.3 2013 [facility] Height 154.94 cm 04/03/2014 [facility] Diastolic (mm Hg) 72 2013 [facility] Systolic (mm Hg) 128 2013 [facility] Respitory Rate 18 2013 [facility] Heart Rate 109 04/02/2014 [facility] Temperature Oral (F) 98.3 F 04/02/2014 [facility] Diastolic (mm Hg) 81 2013 [facility] Systolic (mm Hg) 122 2013 [facility] Respitory Rate 18 2013 [facility] Heart Rate 110 04/02/2014 [facility] Temperature Oral (F) 99.2 F 04/02/2014 [facility] Height 154.94 cm 04/02/2014 [facility] Weight 89.545 04/02/2014 [facility] BMI Calculated 37.3 2013 [facility] Diastolic (mm Hg) 88 2013 [facility] Systolic (mm Hg) 132 2013 [facility] Respitory Rate 100 2013 [facility] Heart Rate 122 04/02/2014 [facility] Temperature Oral (F) 98.4 F 04/02/2014 [facility] Weight 81.818 04/01/2014 [facility] BMI Calculated 30.02 2013 [facility] Height 165.1 cm 04/01/2014 [facility] Heart Rate 94 03/03/2014 [facility] Temperature Oral (F) 98.3 F 03/03/2014 [facility] Diastolic (mm Hg) 84 2013 [facility] Respitory Rate 16 2013 [facility] Systolic (mm Hg) 144 2013 [facility] Respitory Rate 18 2013 [facility] Diastolic (mm Hg) 100 2013 [facility] Systolic (mm Hg) 150 2013 [facility] Heart Rate 96 03/03/2014 [facility] Respitory Rate 18 2013 [facility] Temperature Oral (F) 98.1 F 03/03/2014 [facility] Systolic (mm Hg) 164 2013 [facility] Diastolic (mm Hg) 90 2013 [facility] Heart Rate 100 03/03/2014 [facility] Temperature Oral (F) 98.7 F 03/03/2014 [facility] Height 154.94 cm 02/20/2014 [facility] BMI Calculated 36.92 2013 [facility] Weight 88.636 02/20/2014 [facility] Diastolic (mm Hg) 83 2013 [facility] Systolic (mm Hg) 154 2013 [facility] Heart Rate 87 02/19/2014 [facility] Temperature Oral (F) 97.5 F 02/19/2014 [facility] Weight 89.091 02/19/2014 [facility] Height 154.94 cm 02/19/2014 [facility] BMI Calculated 37.11 2013 [facility] Temperature Oral (F) 97.8 F 02/19/2014 [facility] Diastolic (mm Hg) 108 2013 [facility] Systolic (mm Hg) 172 2013 [facility] Respitory Rate 18 2013 [facility] Heart Rate 100 02/19/2014 [facility] Encounters Location Location Details Encounter Type Encounter Number Reason For Visit Attending Provider ADM Date DC Date Status Source [facility] Outpatient [id number] SCREENING MAMMO SANCHEZ RODRÍGUEZ 06/16/2013 Active [facility] Outpatient [id number] Sanchez Rodríguez 06/16/2013 06/17/2013 [facility] [id number] Jaxon Ingram 02/19/2014 02/19/2014 [facility] Inpatient [id number] Adnan Miguel 02/20/2014 03/03/2014 [facility] OBS Observation Patient [id number] Adnan Miguel 04/01/2014 04/02/2014 [facility] Inpatient [id number] Harvinder Aleman 04/03/2014 04/14/2014 [facility] [id number] Alphonso Elkins 04/17/2014 [facility] Inpatient [id number] Adnan Miguel 02/18/2015 02/21/2015 [facility] Outpatient [id number] Heber Carcamo 02/28/2015 03/01/2015 [facility] Outpatient [id number] Wendy Fiore 201511/30/2015 [facility] Outpatient [id number] Jonathan Alvarezqib 11/14/2016 [facility]/15/[facility] [id number] 03/26/2017 03/28/2017 [facility] [id number] [facility] 04/16/2017 [facility] [id number] [facility] 04/16/2017 04/17/2017 [facility] Outpatient [id number] Adnan Miguel 06/12/2017 06/13/2017 [facility] Outpatient [id number] [facility] 07/05/2017 07/05/2017 [facility] Phone Message [id number] 07/23/2017 07/25/2017 [facility] Phone Message [id number] 07/25/2017 07/27/2017 [facility] Outpatient [id number] [facility] 08/20/2017 [facility] [id number] [facility] 08/20/2017 08/21/2017 [facility] Procedures Procedure Code Date Perfomer Comments Source Hysterectomy [id number] [facility] Cholecystectomy [id number] [facility] Excision of disc for intervertebral herniated disc, nucleus pulposus [id number] [facility] Cholecystectomy [id number] [facility] Excision of disc for intervertebral herniated disc, nucleus pulposus [id number] [facility] Hysterectomy [id number] [facility]
--- OUTSIDE RECORDS SUMMARY | 2018-01-30 07:57 | XMS REPORT | Summary of Care ---
Author Organization Unknown Address Unknown Phone Unavailable Encounter HQ Rogelio(LUPE) [id number] Date(s): 04/01/14 - 04/02/14 [facility] [address] [place], [place] [id number] [place] [address] Discharge Disposition: Home Physician Attending: Mynor Rivera MD Physician Admitting: Mynor Rivera MD Reason for Visit AMS, ABDORMAN CT HEAD Vital Signs 1 2 3 Most recent to oldest [Reference Range]: 154.94 cm (04/02/14 2:42 AM) 165.1 cm (04/01/14 10:24 AM) Height 98.3 DegF (04/02/14 11:49 AM) 99.2 DegF *HI* (04/02/14 8:00 AM) 98.4 DegF (04/01/14 11:28 PM) Temperature Oral [96.4-99.1 DegF] 128 mmHg (04/02/14 11:49 AM) 122 mmHg (04/02/14 8:00 AM) 132 mmHg (04/02/14 12:05 AM) Systolic Blood Pressure [90-140 mmHg] 72 mmHg (04/02/14 11:49 AM) 81 mmHg (04/02/14 8:00 AM) 88 mmHg (04/02/14 12:05 AM) Diastolic Blood Pressure [60-90 mmHg] 18 BRMIN (04/02/14 11:49 AM) 18 BRMIN (04/02/14 8:00 AM) 100 BRMIN *HI* (04/02/14 12:05 AM) Respiratory Rate [14-20 BRMIN] 109 bpm *HI* (04/02/14 11:49 AM) 110 bpm *HI* (04/02/14 8:00 AM) 122 bpm *HI* (04/01/14 11:28 PM) Peripheral Pulse Rate [60-100 bpm] 89.545 kg (04/02/14 2:42 AM) 81.818 kg (04/01/14 10:24 AM) Weight 37.3 m2 (04/02/14 2:42 AM) 30.02 m2 (04/01/14 10:24 AM) Body Mass Index Problem List Condition Effective Dates Status Health Status Informant AAA (abdominal Resolved aortic aneurysm)(Confirmed) COPD(Confirmed) Resolved Herniated Resolved disc(Confirmed) HTN Active (hypertension)(Confi rmed) PNA Resolved (pneumonia)(Confirme d) UTI (urinary tract Active infection), uncomplicated(Confir med) UTI - Urinary tract Resolved infection(Confirmed) Allergies, Adverse Reactions, Alerts Substance Reaction Severity Status azithromycin Active ashley Active Keflex Active penicillins Active statins Active Medications acetaminophen 650 mg, 2 tab, Route: PO, Drug form: TAB, Q4H, Dosing Weight 81.818, kg, PRN Pain 1-3/Temp > 100.4 F, Start date: 04/01/14 17:09:00, Duration: 30 day, Stop date: 05/01/14 17:08:00 Notes: Do not exceed 4 gm/day. (Same as: Tylenol) Start Date: 04/01/14 Stop Date: 04/02/14 Status: Discontinued aspirin 325 mg, Route: PO, Drug form: TAB, ONCE, Dosing Weight 81.818, kg, Priority: STAT, Start date: 04/01/14 13:59:00, Stop date: 04/01/14 13:59:00 Start Date: 04/01/14 Stop Date: 04/01/14 Status: Completed aspirin 81 mg tablet, enteric coated 81 mg=1 tab, PO, Daily Start Date: 04/01/14 Status: Suspended aspirin 81 mg tablet, enteric coated 81 mg, 1 tab, Route: PO, Drug form: ECTAB, Daily, Dosing Weight 81.818, kg, Start date: 04/02/14 9:00:00, Duration: 30 day, Stop date: 05/01/14 9:00:00 Notes: Do not crush or chew.(Same As: Ecotrin) Start Date: 04/02/14 Stop Date: 04/02/14 Status: Discontinued atropine 0.5 mg, 5 mL, Route: IVP, Drug form: INJ, PRN, PRN Bradycardia, Start date: 08/10 19:23:00, Duration: 30 day, Stop date: 05/01/14 19:22:00 Start Date: 04/01/14 Stop Date: 04/02/14 Status: Discontinued ciprofloxacin 500 mg, Route: PO, ONCE, Dosing Weight 81.818, kg, Priority: STAT, Start date: 04/01/14 15:51:00, Stop date: 04/01/14 15:51:00 Start Date: 04/01/14 Stop Date: 04/01/14 Status: Completed Colace 100 mg oral capsule 100 mg, 1 cap, Route: PO, Drug form: CAP, BID, Dosing Weight 81.818, kg, PRN as needed for constipation, Start date: 04/01/14 17:03:00, Stop date: 05/01/14 17: 02:00 Notes: (Same as: Colace) (Do Not Crush) Start Date: 04/01/14 Stop Date: 04/02/14 Status: Discontinued cyclobenzaprine 5 mg, 0.5 tab, Route: PO, Drug form: TAB, TID, Dosing Weight 81.818, kg, PRN as needed for muscle spasm, Start date: 04/01/14 17:03:00, Stop date: 05/01/14 17: 02:00 Notes: (Same As: Flexeril) Start Date: 04/01/14 Stop Date: 04/02/14 Status: Discontinued cyclobenzaprine 5 mg oral tablet 5 mg=1 tab, PO, TID, as needed for muscle spasm Start Date: 04/01/14 Status: Suspended diltiazem 120 mg, 1 tab, Route: PO, Drug form: TAB, BID, Dosing Weight 81.818, kg, Start date: 04/01/14 21:00:00, Duration: 30 day, Stop date: 05/01/14 9:00:00 Notes: (Same as: Cardizem) Before meals Start Date: 04/01/14 Stop Date: 04/02/14 Status: Discontinued fentaNYL 25 mcg/hr transdermal film, extended release 1 patch, TOP, Q72H Start Date: 04/01/14 Stop Date: 04/02/14 Status: Discontinued gabapentin 300 mg oral capsule 600 mg=2 cap, PO, TID Start Date: 04/01/14 Status: Suspended gabapentin 300 mg oral capsule 600 mg, 2 cap, Route: PO, Drug form: CAP, TID, Dosing Weight 81.818, kg, Start date: 04/02/14 9:00:00, Duration: 30 day, Stop date: 05/01/14 17:00:00 Notes: (Same as: Neurontin) Start Date: 04/02/14 Stop Date: 04/02/14 Status: Discontinued hydrochlorothiazide 12.5 mg oral capsule 12.5 mg, 1 cap, Route: PO, Drug form: CAP, Daily, Dosing Weight 81.818, kg, Start date: 04/02/14 9:00:00, Duration: 30 day, Stop date: 05/01/14 9:00:00 Notes: (Same as: Microzide) With food. Start Date: 04/02/14 Stop Date: 04/02/14 Status: Discontinued hydrochlorothiazide 12.5 mg oral capsule 12.5 mg=1 cap, PO, Daily Start Date: 04/01/14 Status: Suspended Levaquin 500 mg, 1 tab, Route: PO, Drug form: TAB, ONCE, Dosing Weight 89.545, kg, Start date: 04/02/14 11:25:00, Stop date: 04/02/14 11:25:00 Start Date: 04/02/14 Stop Date: 04/02/14 Status: Ordered Levaquin 500 mg, 2 tab, Route: PO, Drug form: TAB, ONCE, Dosing Weight 89.545, kg, Start date: 04/02/14 12:10:00, Stop date: 04/02/14 12:10:00 Notes: Do not give w/antacids, dairy pdt & minerals Take 1 hr before or 2 hr after dairy pdt (Same as:Levaquin) Start Date: 04/02/14 Stop Date: 04/02/14 Status: Completed levofloxacin 500 mg oral tablet 500 mg=1 tab, PO, Q24H, # 7 tab, 0 Refill(s) Start Date: 04/02/14 Stop Date: 04/09/14 Status: Suspended lidocaine topical patch (5% film) 1 patch, Route: TOP, Daily, Drug form: FILM, Start date: 04/01/14 21:00:00, Duration: 30 day, Stop date: 04/30/14 21:00:00 Notes: Apply only once for up to 12 hours in [id number] period (12 hours on and 12 hours off).(Same as: Lidoderm)"Remove old patch before application of new patch" Start Date: 04/01/14 Stop Date: 04/02/14 Status: Discontinued LORazepam 0.5 mg, 1 tab, Route: PO, Drug form: TAB, Q6H, Dosing Weight 81.818, kg, PRN as needed for anxiety, Start date: 04/01/14 17:04:00, Stop date: 05/01/14 17:03:00 Notes: (Same as: Ativan) Start Date: 04/01/14 Stop Date: 04/02/14 Status: Discontinued MiraLax 17 gm, 1 pkt, Route: PO, Drug form: PWDR, Daily, Dosing Weight 81.818, kg, PRN Constipation, Start date: 04/01/14 17:04:00, Stop date: 05/01/14 17:03:00 Notes: Dissolve in 8 oz of water or juice.(Same as: Miralax) Start Date: 04/01/14 Stop Date: 04/02/14 Status: Discontinued MiraLax oral powder for reconstitution 17 gm, PO, Daily, Constipation Start Date: 04/01/14 Status: Suspended Nicoderm C-Q Clear 7 mg/24 hr transdermal film, extended release =1 patch, TOP, Daily, # 30 patch, 0 Refill(s) Start Date: 04/02/14 Stop Date: 04/03/14 Status: Completed nicotine 7 mg, 1 patch, Route: TOP, Drug form: ERFILM, Daily, Dosing Weight 81.818, kg, Start date: 04/02/14 9:00:00, Duration: 30 day, Stop date: 05/01/14 9:00:00 Notes: (Same as: Habitrol)"Remove old patch before application of new patch" Start Date: 04/02/14 Stop Date: 04/02/14 Status: Discontinued nicotine 14 mg/24 hr transdermal film, extended release =1 patch, TOP, Daily Start Date: 04/01/14 Stop Date: 04/02/14 Status: Discontinued nitroglycerin 0.4 mg sublingual tablet 0.4 mg, 1 tab, Route: SL, Drug form: TAB, Q5Min, PRN Chest Pain, Start date: 08/10 19:23:00, Duration: 30 day, Stop date: 05/01/14 19:22:00 Notes: (Same as:Nitroquick, Nitrostat)"Do Not Crush" Sublingual tablet Start Date: 04/01/14 Stop Date: 04/02/14 Status: Discontinued [place] 10/325 oral tablet 1 tab, Route: PO, Drug Form: TAB, Dosing Weight 81.818, kg, Q6H, PRN Breakthrough Pain, Start date: 04/01/14 17:06:00, Duration: 30 day, Stop date: 05/01/14 17:05:00 Notes: Do not exceed 4gm/day of acetaminophen. (Same as: [place] 325/10) Start Date: 04/01/14 Stop Date: 04/02/14 Status: Discontinued omeprazole 20 mg, Route: PO, Drug form: DRC, Daily, Dosing Weight 81.818, kg, Start date: 04/02/14 9:00:00, Duration: 30 day, Stop date: 05/01/14 9:00:00 Start Date: 04/02/14 Stop Date: 04/01/14 Status: Deleted omeprazole 20 mg oral delayed release capsule 20 mg=1 cap, PO, Daily Start Date: 04/01/14 Status: Suspended ondansetron 4 mg, Route: IVP, ONCE, Dosing Weight 81.818, kg, Priority: STAT, Start date: 11:45:00, Stop date: 04/01/14 11:45:00 Start Date: 04/01/14 Stop Date: 04/01/14 Status: Completed ondansetron 4 mg, 2 mL, Route: IVP, Drug form: INJ, Q8H, Dosing Weight 81.818, kg, PRN Nausea & Vomiting, Start date: 04/01/14 17:09:00, Duration: 30 day, Stop date: 05/01/14 17:08:00 Notes: (Same as: Zofran) Start Date: 04/01/14 Stop Date: 04/02/14 Status: Discontinued Percocet 10/325 oral tablet 1 tab, PO, Q4H, as needed for pain Start Date: 04/01/14 Stop Date: 04/02/14 Status: Discontinued predniSONE 40 mg, 2 tab, Route: PO, Drug form: TAB, Daily, Dosing Weight 81.818, kg, Start date: 04/02/14 9:00:00, Duration: 30 day, Stop date: 05/01/14 9:00:00 Notes: Take with food. Start Date: 04/02/14 Stop Date: 04/02/14 Status: Discontinued predniSONE 20 mg oral tablet 40 mg=2 tab, PO, Daily Start Date: 04/01/14 Stop Date: 04/03/14 Status: Discontinued Protonix 40 mg, 1 tab, Route: PO, Drug form: ECTAB, Before Dinner, Start date: 04/02/14 16:30:00, Duration: 30 day, Stop date: 05/01/14 16:30:00 Notes: Tablet should not be chewed or crushed.(Same as: Protonix) Start Date: 04/02/14 Stop Date: 04/02/14 Status: Canceled remove patch 1 patch, Route: TOP, Bedtime, Drug form: ERFILM, Start date: 04/02/14 21:00:00, Duration: 30 day, Stop date: 05/01/14 21:00:00 Notes: Remove patch 12 hours after application each day. Start Date: 04/02/14 Stop Date: 04/02/14 Status: Canceled Saline Flush 0.9% 10 mL, Route: IVP, Drug Form: INJ, Dosing Weight 81.818, kg, PRN, PRN Line Flush , Start date: 04/01/14 11:45:00, Duration: 30 day, Stop date: 05/01/14 11:44:00 Notes: Same as: BD Posiflush Sterile Start Date: 04/01/14 Stop Date: 04/01/14 Status: Discontinued Sodium Chloride 0.9% IV 1,000 mL 1,000 mL, Rate: 150 ml/hr, Infuse over: 6.7 hr, Route: IV, Dosing Weight 81.818 kg, Total Volume: 1,000, Start date: 04/01/14 11:45:00, Duration: 30 day, Stop date: 05/01/14 11:44:00 Start Date: 04/01/14 Stop Date: 04/01/14 Status: Discontinued Results ELECTROLYTES Most recent to 1 2 oldest [Reference Range]: Sodium Lvl [135-145 141 mEq/L 138 mEq/L mEq/L] (04/02/14 4:16 AM) (04/01/14 1:40 PM) Potassium Lvl 3.9 mEq/L 3.9 mEq/L [3.5-5.1 mEq/L] (04/02/14 4:16 AM) (04/01/14 1:40 PM) Chloride Lvl [95-109 104 mEq/L 100 mEq/L mEq/L] (04/02/14 4:16 AM) (04/01/14 1:40 PM) CO2 [24-32 mEq/L] 28 mEq/L 29 mEq/L (04/02/14 4:16 AM) (04/01/14 1:40 PM) AGAP [10.0-20.0 12.9 mEq/L 12.9 mEq/L mEq/L] (04/02/14 4:16 AM) (04/01/14 1:40 PM) CHEM PANEL Most recent to 1 2 oldest [Reference Range]: Creatinine Lvl 0.9 mg/dL 0.9 mg/dL [0.5-1.4 mg/dL] (04/02/14 4:16 AM) (04/01/14 1:40 PM) eGFR 74 mL/min/1.73m2 1 74 mL/min/1.73m2 2 *NA* *NA* (04/02/14 4:16 AM) (04/01/14 1:40 PM) BUN [7-22 mg/dL] 14 mg/dL 14 mg/dL (04/02/14 4:16 AM) (04/01/14 1:40 PM) B/C Ratio [6-25] 16 (04/01/14 1:40 PM) Glucose Lvl [70-99 110 mg/dL 3 107 mg/dL 4 mg/dL] *HI* *HI* (04/02/14 4:16 AM) (04/01/14 1:40 PM) Total Protein 7.1 g/dL [6.4-8.4 g/dL] (04/01/14 1:40 PM) Albumin Lvl [3.5-5.0 3.8 g/dL g/dL] (04/01/14 1:40 PM) Globulin [2.0-4.0 3.3 g/dL g/dL] (04/01/14 1:40 PM) A/G Ratio [0.7-1.6] 1.2 (04/01/14 1:40 PM) Calcium Lvl 8.5 mg/dL 9.2 mg/dL [8.5-10.5 mg/dL] (04/02/14 4:16 AM) (04/01/14 1:40 PM) Phosphorus [2.5-4.5 3.8 mg/dL mg/dL] (04/02/14 4:16 AM) Magnesium Lvl 2.2 mg/dL [1.8-2.4 mg/dL] (04/02/14 4:16 AM) ALT [0-65 unit/L] 39 unit/L (04/01/14 1:40 PM) AST [0-37 unit/L] 14 unit/L (04/01/14 1:40 PM) Alk Phos [39-136 66 unit/L unit/L] (04/01/14 1:40 PM) Bili Total [0.2-1.3 0.9 mg/dL mg/dL] (04/01/14 1:40 PM) Ammonia [<=45.0 22.0 uMol/L 16.0 uMol/L uMol/L] (04/02/14 10:14 AM) (04/01/14 1:40 PM) 1Result Comment: The eGFR is calculated using the CKD-EPI formula. In most young , healthy individuals the eGFR will be >90 mL/min/1.73m2. The eGFR declines with age. An eGFR of 60-89 may be normal in some populations, particularly the elderly, for whom the CKD-EPI formula has not been extensively validated. Use [...] should be multiplied by the estimated BMI. 2Result Comment: The eGFR is calculated using the CKD-EPI formula. In most young , healthy individuals the eGFR will be >90 mL/min/1.73m2. The eGFR declines with age. An eGFR of 60-89 may be normal in some populations, particularly the elderly, for whom the CKD-EPI formula has not been extensively validated. Use [...] should be multiplied by the estimated BMI. 3Interpretive Data: Adult reference range values reflect the clinical guidelines of the [place] [employer]. 4Interpretive Data: Adult reference range values reflect the clinical guidelines of the [place]. CARDIAC ENZYMES Most recent to [Reference Range]: Total CK [12-191 35 unit/L unit/L] (04/01/14 1:40 PM) CK MB [0.5-3.6 <0.5 ng/mL ng/mL] (04/01/14 1:40 PM) CK MB Index <1.4 [0.0-2.5] (04/01/14 1:40 PM) Troponin-I <0.02 ng/mL [0.00-0.40 ng/mL] (04/01/14 1:40 PM) THYROID PANEL Most recent to [Reference Range]: T4 Free [0.76-1.46 1.32 ng/dL ng/dL] (04/02/14 10:14 AM) TSH [0.360-3.740 0.351 uIU/mL uIU/mL] *LOW* (04/02/14 10:14 AM) DRUG SCREEN Most recent to 1 2 oldest [Reference Range]: U Amph Scr Negative [Negative] *NA* (04/01/14 1:20 PM) U Samara Scr Negative [Negative] *NA* (04/01/14 1:20 PM) U Benzodia Scr Negative [Negative] *NA* (04/01/14 1:20 PM) U Cocaine Scr Negative [Negative] *NA* (04/01/14 1:20 PM) U Opiate Scr Positive [Negative] *ABN* (04/01/14 1:20 PM) U Phencyc Scr Negative [Negative] *NA* (04/01/14 1:20 PM) U Cannab Scr Negative [Negative] *NA* (04/01/14 1:20 PM) UDS Note See Note 5 (04/01/14 1:20 PM) 5Interpretive Data: Drugs reported as positive have [...] Methadone 300 ng/mL Urine alcohol 20 mg/dL TOXICOLOGY Most recent to 1 2 oldest [Reference Range]: Acetaminoph Lvl <2 [10-20] (04/01/14 1:40 PM) URINE AND STOOL Most recent to 1 2 oldest [Reference Range]: UA Turbidity [Clear] Marked *ABN* (04/01/14 1:20 PM) UA Color [Yellow] Yellow *NA* (04/01/14 1:20 PM) UA pH [5.0-8.0] 7.0 (04/01/14 1:20 PM) UA Spec Grav 1.023 [<=1.030] (04/01/14 1:20 PM) UA Glucose [Negative Negative mg/dL mg/dL] *NA* (04/01/14 1:20 PM) UA Blood [Negative] Large *ABN* (04/01/14 1:20 PM) UA Ketones [Negative Negative mg/dL mg/dL] *NA* (04/01/14 1:20 PM) UA Protein [Negative 30 mg/dL mg/dL] *ABN* (04/01/14 1:20 PM) UA Urobilinogen <=1.0 mg/dL [0.1-1.0 mg/dL] *NA* (04/01/14 1:20 PM) UA Bili [Negative] Negative *NA* (04/01/14 1:20 PM) UA Leuk Est Negative [Negative] (04/01/14 1:20 PM) UA Nitrite Negative [Negative] (04/01/14 1:20 PM) UA WBC [0-5 /HPF] 17 /HPF *HI* (04/01/14 1:20 PM) UA RBC [0-2 /HPF] >182 /HPF *HI* (04/01/14 1:20 PM) UA Sq Epi [Few /LPF] Moderate /LPF *ABN* (04/01/14 1:20 PM) UA Mucus [None Seen Few /LPF /LPF] *NA* (04/01/14 1:20 PM) HEMATOLOGY Most recent to 1 2 oldest [Reference Range]: WBC [3.7-10.4 K/CMM] 9.3 K/CMM 8.8 K/CMM (04/02/14 4:16 AM) (04/01/14 1:40 PM) RBC [4.20-5.40 4.87 M/CMM 4.88 M/CMM M/CMM] (04/02/14 4:16 AM) (04/01/14 1:40 PM) Hgb [12.0-16.0 g/dL] 15.7 g/dL 15.5 g/dL (04/02/14 4:16 AM) (04/01/14 1:40 PM) Hct [36.0-48.0 %] 45.9 % 46.0 % (04/02/14 4:16 AM) (04/01/14 1:40 PM) MCV [80.0-98.0 fL] 94.1 fL 94.3 fL (04/02/14 4:16 AM) (04/01/14 1:40 PM) MCH [27.0-31.0 pg] 32.2 pg 31.8 pg *HI* *HI* (04/02/14 4:16 AM) (04/01/14 1:40 PM) MCHC [32.0-36.0 34.2 g/dL 33.7 g/dL g/dL] (04/02/14 4:16 AM) (04/01/14 1:40 PM) RDW [11.5-14.5 %] 14.3 % 14.2 % (04/02/14 4:16 AM) (04/01/14 1:40 PM) Platelet [133-450 248 K/CMM 248 K/CMM K/CMM] (04/02/14 4:16 AM) (04/01/14 1:40 PM) MPV [7.4-10.4 fL] 7.0 fL 7.0 fL *LOW* *LOW* (04/02/14 4:16 AM) (04/01/14 1:40 PM) Segs [45.0-75.0 %] 74.2 % 73.5 % (04/02/14 4:16 AM) (04/01/14 1:40 PM) Lymphocytes 15.7 % 16.4 % [20.0-40.0 %] *LOW* *LOW* (04/02/14 4:16 AM) (04/01/14 1:40 PM) Monocytes [2.0-12.0 8.7 % 8.9 % %] (04/02/14 4:16 AM) (04/01/14 1:40 PM) Eosinophils [0.0-4.0 1.0 % 0.6 % %] (04/02/14 4:16 AM) (04/01/14 1:40 PM) Basophils [0.0-1.0 0.4 % 0.6 % %] (04/02/14 4:16 AM) (04/01/14 1:40 PM) Segs-Bands # 6.9 K/CMM 6.4 K/CMM [1.5-8.1 K/CMM] (04/02/14 4:16 AM) (04/01/14 1:40 PM) Lymphocytes # 1.5 K/CMM 1.4 K/CMM [1.0-5.5 K/CMM] (04/02/14 4:16 AM) (04/01/14 1:40 PM) Monocytes # [0.0-0.8 0.8 K/CMM 0.8 K/CMM K/CMM] (04/02/14 4:16 AM) (04/01/14 1:40 PM) Eosinophils # 0.1 K/CMM 0.1 K/CMM [0.0-0.5 K/CMM] (04/02/14 4:16 AM) (04/01/14 1:40 PM) Medications Administered During Your Visit No data available for this section Immunizations Vaccine Date Refusal Reason influenza virus vaccine, inactivated 02/24/14 Procedures Procedure Type Body Site Date of Procedure Related Diagnosis Excision of disc for intervertebral herniated disc, nucleus pulposus Social History Social History Type Response Substance Abuse Use: None Alcohol Use: Past, Type: Beer, Type: Wine, Type: Liquor, Frequency: Daily Smoking Status Cigarette Smoking Last 365 Days Yes, Reg Smoking Cessation Counseling Yes, Current every day smoker, Type: Cigarettes, Lives with someone who smokes
--- OUTSIDE RECORDS SUMMARY | 2018-01-30 07:57 | XMS REPORT | Summary of Care ---
Author Organization Unknown Address Unknown Phone Unavailable Encounter HQ Rogelio(LUPE) [id number] Date(s): 04/03/14 - 04/14/14 [facility] [id number] [place], [place] [id number] [place] [address] Discharge Disposition: Home Physician Attending: Harvinder Aleman MD Physician Admitting: Harvinder Aleman MD Reason for Visit CHEST PAIN Vital Signs 1 2 3 Most recent to oldest [Reference Range]: 154.94 cm (04/03/14 8:49 PM) 154.94 cm (04/03/14 8:45 PM) 154.94 cm (04/03/14 4:59 PM) Height 98.4 DegF (04/14/14 3:34 PM) 98.3 DegF (04/14/14 12:12 PM) 98.2 DegF (04/14/14 7:50 AM) Temperature Oral [96.4-99.1 DegF] 126 mmHg (04/14/14 3:34 PM) 131 mmHg (04/14/14 12:12 PM) 117 mmHg (04/14/14 7:50 AM) Systolic Blood Pressure [90-140 mmHg] 82 mmHg (04/14/14 3:34 PM) 79 mmHg (04/14/14 12:12 PM) 66 mmHg (04/14/14 7:50 AM) Diastolic Blood Pressure [60-90 mmHg] 18 BRMIN (04/14/14 3:34 PM) 18 BRMIN (04/14/14 12:12 PM) 18 BRMIN (04/14/14 7:50 AM) Respiratory Rate [14-20 BRMIN] 76 bpm (04/14/14 3:34 PM) 88 bpm (04/14/14 12:12 PM) 83 bpm (04/14/14 7:50 AM) Peripheral Pulse Rate [60-100 bpm] 86.875 kg (04/03/14 8:49 PM) 89.545 kg (04/03/14 4:59 PM) Weight 36.19 m2 (04/03/14 8:49 PM) 37.3 m2 (04/03/14 4:59 PM) Body Mass Index Problem List Condition Effective Dates Status Health Status Informant AAA (abdominal Resolved aortic aneurysm)(Confirmed) COPD(Confirmed) Resolved Herniated Resolved disc(Confirmed) HTN Active (hypertension)(Confi rmed) PNA Resolved (pneumonia)(Confirme d) UTI (urinary tract Active infection), uncomplicated(Confir med) UTI - Urinary tract Resolved infection(Confirmed) Allergies, Adverse Reactions, Alerts Substance Reaction Severity Status azithromycin Active ashley Active Keflex Active penicillins Active statins Active Medications aspirin 325 mg tablet 325 mg, 1 tab, Route: PO, Drug form: TAB, ONCE, Dosing Weight 89.545, kg, Start date: 04/03/14 20:40:00, Stop date: 04/03/14 20:40:00 Notes: Take with food. Start Date: 04/03/14 Stop Date: 04/03/14 Status: Completed aspirin 81 mg tablet, enteric coated 81 mg, 1 tab, Route: PO, Drug form: ECTAB, Q24H, Dosing Weight 86.875, kg, Start date: 04/04/14 9:00:00, Duration: 30 day, Stop date: 05/03/14 9:00:00 Notes: Do not crush or chew.(Same As: Ecotrin) Start Date: 04/04/14 Stop Date: 04/14/14 Status: Discontinued atenolol 25 mg oral tablet 25 mg, 1 tab, Route: PO, Drug form: TAB, Daily, Dosing Weight 86.875, kg, Priority: NOW, Start date: 04/05/14 14:27:00, Duration: 30 day, Stop date: 05/05 9:00:00 Notes: (Same As:Tenormin) Start Date: 04/05/14 Stop Date: 04/14/14 Status: Discontinued Ativan 1 mg, 0.5 mL, Route: IVP, Drug form: INJ, Q8H, Dosing Weight 86.875, kg, PRN Anxiety, Start date: 04/04/14 10:31:00, Duration: 30 day, Stop date: 05/04/14 10 :30:00 Notes: (Same as: Ativan) Start Date: 04/04/14 Stop Date: 04/14/14 Status: Discontinued Ativan 1 mg, 0.5 mL, Route: IVP, Drug form: INJ, ONCE, Dosing Weight 86.875, kg, PRN Anxiety, Start date: 04/04/14 10:30:00 Notes: (Same as: Ativan) Start Date: 04/04/14 Stop Date: 04/04/14 Status: Completed atropine 0.5 mg, 5 mL, Route: IVP, Drug form: INJ, PRN, Dosing Weight 89.545, kg, PRN Bradycardia, Start date: 04/03/14 20:44:00, Duration: 30 day, Stop date: 20:43:00, HR <40 Start Date: 04/03/14 Stop Date: 04/14/14 Status: Discontinued busPIRone 30 mg oral tablet 30 mg, PO, BID, # 30 tab, 0 Refill(s) Start Date: 04/14/14 Status: Ordered cyclobenzaprine 5 mg, 0.5 tab, Route: PO, Drug form: TAB, TID, Dosing Weight 86.875, kg, PRN Spasm, Start date: 04/03/14 23:13:00, Stop date: 05/03/14 23:12:00 Notes: (Same As: Flexeril) Start Date: 04/03/14 Stop Date: 04/14/14 Status: Discontinued cyclobenzaprine 5 mg oral tablet 5 mg=1 tab, PO, TID, as needed for muscle spasm, # 21 tab, 0 Refill(s) Start Date: 04/14/14 Status: Ordered diltiazem 120 mg, 2 cap, Route: PO, Drug form: ERCAP, BID, Dosing Weight 86.875, kg, Start date: 04/04/14 9:00:00, Duration: 30 day, Stop date: 05/03/14 21:00:00 Notes: (Same as: Cardizem SR) Before meals. DO NOT CRUSH. Give twice daily. Start Date: 04/04/14 Stop Date: 04/14/14 Status: Discontinued heparin 5,000 unit, 1 mL, Route: SUB-Q, Drug form: INJ, Q8H, Dosing Weight 86.875, kg, Start date: 04/04/14 0:00:00, Duration: 30 day, Stop date: 05/03/14 16:00:00 Notes: porcine heparin Start Date: 04/04/14 Stop Date: 04/06/14 Status: Discontinued hydrochlorothiazide 12.5 mg oral capsule 12.5 mg, 1 cap, Route: PO, Drug form: CAP, Daily, Dosing Weight 86.875, kg, Start date: 04/04/14 9:00:00, Duration: 30 day, Stop date: 05/03/14 9:00:00 Notes: (Same as: Microzide) With food. Start Date: 04/04/14 Stop Date: 04/14/14 Status: Discontinued lactulose 40 gm, 60 mL, Route: PO, Drug Form: SYRP, Dosing Weight 86.875, kg, BID, Start date: 04/05/14 13:18:00, Duration: 30 day, Stop date: 05/05/14 9:00:00 Notes: (Same as:Chronulac) Start Date: 04/05/14 Stop Date: 04/14/14 Status: Discontinued Levaquin 500 mg oral tablet 500 mg=1 tab, PO, Q24H, # 4 tab, 0 Refill(s) Start Date: 04/14/14 Stop Date: 04/18/14 Status: Ordered Levaquin 750 mg oral tablet 750 mg=1 tab, PO, Q24H, # 7 tab, 0 Refill(s) Start Date: 04/08/14 Stop Date: 04/08/14 Status: Discontinued levofloxacin 500 mg, 2 tab, Route: PO, Drug form: TAB, Q24H, Dosing Weight 86.875, kg, Start date: 04/04/14 0:00:00, Duration: 30 day, Stop date: 05/03/14 0:00:00 Notes: Do not give w/antacids, dairy pdt & minerals Take 1 hr before or 2 hr after dairy pdt (Same as:Levaquin) Start Date: 04/04/14 Stop Date: 04/14/14 Status: Discontinued lidocaine topical patch (5% film) 1 patch, Route: TOP, Q12H, Drug form: FILM, Start date: 04/04/14 9:00:00, Duration: 30 day, Stop date: 05/03/14 21:00:00 Notes: Apply only once for up to 12 hours in [id number] period (12 hours on and 12 hours off).(Same as: Lidoderm)"Remove old patch before application of new patch" Start Date: 04/04/14 Stop Date: 04/14/14 Status: Discontinued Lopressor 5 mg, Route: IVP, Drug form: INJ, ONCE, Dosing Weight 89.545, kg, Priority: STAT , Start date: 04/03/14 20:19:00, Stop date: 04/03/14 20:19:00 Start Date: 04/03/14 Stop Date: 04/03/14 Status: Completed morphine Sulfate 15 mg, 1 tab, Route: PO, Drug form: TAB, Q4H, Dosing Weight 86.875, kg, PRN Pain Score 4-6, Start date: 04/05/14 8:55:00, Duration: 30 day, Stop date: 05/05 8:54:00 Notes: (Same as:MORPhine Sulfate) Start Date: 04/05/14 Stop Date: 04/14/14 Status: Discontinued morphine Sulfate 2 mg, Route: IVP, ONCE, Dosing Weight 89.545, kg, Start date: 04/03/14 20:18:00 , Stop date: 04/03/14 20:18:00 Start Date: 04/03/14 Stop Date: 04/03/14 Status: Completed morphine Sulfate 4 mg, 2 mL, Route: IVP, Drug form: INJ, Q4H, Dosing Weight 86.875, kg, PRN Pain Score 7-10, Start date: 04/03/14 23:14:00, Duration: 30 day, Stop date: 23:13:00 Notes: (Same as:MORPhine Sulfate) Start Date: 04/03/14 Stop Date: 04/14/14 Status: Discontinued morphine Sulfate 4 mg, 2 mL, Route: IV, Drug form: INJ, ONCE, Dosing Weight 86.875, kg, Start date: 04/03/14 22:00:00, Stop date: 04/03/14 22:00:00 Notes: (Same as:MORPhine Sulfate) Start Date: 04/03/14 Stop Date: 04/03/14 Status: Completed morphine Sulfate 2 mg, Route: IVP, ONCE, Dosing Weight 89.545, kg, Priority: STAT, Start date: 18:22:00, Stop date: 04/03/14 18:22:00 Start Date: 04/03/14 Stop Date: 04/03/14 Status: Completed nitroglycerin 0.4 mg, Route: SL, Drug form: TAB, Q5Min, Dosing Weight 89.545, kg, PRN, Start date: 04/03/14 20:44:00, Duration: 30 day, Stop date: 05/03/14 20:43:00, Chest Pain X3 Start Date: 04/03/14 Stop Date: 04/03/14 Status: Deleted nitroglycerin 2% ointment 1 inch, Route: TOP, Drug Form: OINT, Dosing Weight 89.545, kg, ONCE, STAT, Start date: 04/03/14 20:17:00, Stop date: 04/03/14 20:17:00 Start Date: 04/03/14 Stop Date: 04/03/14 Status: Completed nitroglycerin SL Tab 0.4 mg, 1 tab, Route: SL, Drug form: TAB, Q5Min, Dosing Weight 86.875, kg, PRN Chest Pain, Start date: 04/03/14 23:16:00, Duration: 30 day, Stop date: 23:15:00 Notes: (Same as:Nitroquick, Nitrostat)"Do Not Crush" Sublingual tablet Start Date: 04/03/14 Stop Date: 04/14/14 Status: Discontinued nitroglycerin SL Tab 0.4 mg, 1 tab, Route: SL, Drug form: TAB, Q5Min, Dosing Weight 89.545, kg, PRN Chest Pain, Start date: 04/03/14 20:40:00, Duration: 3 doses or times, Stop date : Limited # of times Notes: (Same as:Nitroquick, Nitrostat)"Do Not Crush" Sublingual tablet Start Date: 04/03/14 Stop Date: 04/03/14 Status: Completed omeprazole 20 mg, Route: PO, Drug form: DRC, Daily, Dosing Weight 86.875, kg, Start date: 04/04/14 9:00:00, Duration: 30 day, Stop date: 05/03/14 9:00:00 Start Date: 04/04/14 Stop Date: 04/03/14 Status: Deleted ondansetron 4 mg, 1 tab, Route: PO, Drug form: TAB, Q8H, Dosing Weight 89.545, kg, PRN Nausea & Vomiting, Start date: 04/03/14 20:40:00, Duration: 30 day, Stop date: 05/03/14 20:39:00 Notes: (Same as: Zofran) Start Date: 04/03/14 Stop Date: 04/14/14 Status: Discontinued ondansetron 4 mg, Route: IVP, ONCE, Dosing Weight 89.545, kg, Priority: STAT, Start date: 18:22:00, Stop date: 04/03/14 18:22:00 Start Date: 04/03/14 Stop Date: 04/03/14 Status: Completed Percocet 5/325 oral tablet 1 tab, Route: PO, Drug Form: TAB, Dosing Weight 86.875, kg, Q6H, PRN Pain Score 4-6, Start date: 04/03/14 23:15:00, Duration: 30 day, Stop date: 05/03/14 23:14: 00 Notes: Do not exceed 4gm/day of acetaminophen. (Same as: Percocet-5/325) Start Date: 04/03/14 Stop Date: 04/05/14 Status: Discontinued Protonix 40 mg, 1 tab, Route: PO, Drug form: ECTAB, Before Dinner, Start date: 04/04/14 16:30:00, Duration: 30 day, Stop date: 05/03/14 16:30:00 Notes: Tablet should not be chewed or crushed.(Same as: Protonix) Start Date: 04/04/14 Stop Date: 04/09/14 Status: Discontinued Protonix 40 mg, 1 tab, Route: PO, Drug form: ECTAB, Before Dinner, Start date: 04/09/14 16:30:00, Duration: 30 day, Stop date: 05/08/14 16:30:00 Notes: Tablet should not be chewed or crushed.(Same as: Protonix) Start Date: 04/09/14 Stop Date: 04/14/14 Status: Discontinued Protonix 40 mg, 1 tab, Route: PO, Drug form: ECTAB, BID-Before Meals, Start date: 16:30:00, Duration: 30 day, Stop date: 05/09/14 7:30:00 Notes: Tablet should not be chewed or crushed.(Same as: Protonix) Start Date: 04/09/14 Stop Date: 04/09/14 Status: Canceled Pyridium 200 mg, 1 tab, Route: PO, Drug form: TAB, TID-After Meals, Dosing Weight 86.875 , kg, Start date: 04/09/14 12:30:00, Duration: 2 day, Stop date: 04/11/14 8:30: 00 Notes: Give with meals.(Same as: Pyridium) Start Date: 04/09/14 Stop Date: 04/11/14 Status: Completed Saline Flush 0.9% 10 ml, Route: IVP, Drug Form: INJ, Dosing Weight 89.545, kg, Q12H, Start date: 04/03/14 21:00:00, Duration: 30 day, Stop date: 05/03/14 9:00:00 Notes: (Same as: BD Posiflush) Start Date: 04/03/14 Stop Date: 04/14/14 Status: Discontinued Saline Flush 0.9% 10 ml, Route: IVP, Drug Form: INJ, Dosing Weight 89.545, kg, PRN, PRN Line Flush , Start date: 04/03/14 20:40:00, Duration: 30 day, Stop date: 05/03/14 20:39:00 Notes: (Same as: BD Posiflush) Start Date: 04/03/14 Stop Date: 04/14/14 Status: Discontinued Saline Flush 0.9% 10 mL, Route: IVP, Drug Form: INJ, Dosing Weight 89.545, kg, PRN, PRN Line Flush , Start date: 04/03/14 18:22:00, Duration: 30 day, Stop date: 05/03/14 18:21:00 Notes: (Same as: BD Posiflush) Start Date: 04/03/14 Stop Date: 04/03/14 Status: Discontinued Sodium Chloride 0.9% IV (Sodium Chloride 0.9% (Bolus) IV) 500 mL, Infuse Over: 1 hr, Route: IV, ONCE, Priority: STAT, Dosing Weight 89.545 kg, Start date: 04/03/14 18:22:00, Duration: 1 doses or times, Stop date : 04/03/14 18:22:00 Start Date: 04/03/14 Stop Date: 04/03/14 Status: Completed Tylenol 650 mg, 2 tab, Route: PO, Drug form: TAB, Q6H, Dosing Weight 86.875, kg, PRN Pain Score 1-3, Start date: 04/03/14 23:15:00, Duration: 30 day, Stop date: 09/10 23:14:00 Notes: Do not exceed 4 gm/day. (Same as: Tylenol) Start Date: 04/03/14 Stop Date: 04/14/14 Status: Discontinued Tylenol with Codeine #3 oral tablet 2 tab, PO, Q6H, for pain, # 30 tab, 0 Refill(s) Start Date: 04/08/14 Stop Date: 04/08/14 Status: Discontinued Tylenol with Codeine #3 oral tablet 1 tab, PO, Q4H, for pain, # 30 tab, 0 Refill(s) Start Date: 04/14/14 Stop Date: 04/14/14 Status: Discontinued Results ELECTROLYTES 1 2 3 Most recent to oldest [Reference Range]: 139 mEq/L (04/07/14 3:00 AM) 139 mEq/L (04/03/14 5:30 PM) Sodium Lvl [135-145 mEq/L] 3.6 mEq/L (04/07/14 3:00 AM) 4.1 mEq/L (04/03/14 5:30 PM) Potassium Lvl [3.5-5.1 mEq/L] 101 mEq/L (04/07/14 3:00 AM) 103 mEq/L (04/03/14 5:30 PM) Chloride Lvl [95-109 mEq/L] 31 mEq/L (04/07/14 3:00 AM) 29 mEq/L (04/03/14 5:30 PM) CO2 [24-32 mEq/L] 10.6 mEq/L (04/07/14 3:00 AM) 11.1 mEq/L (04/03/14 5:30 PM) AGAP [10.0-20.0 mEq/L] CHEM PANEL 1 2 3 Most recent to oldest [Reference Range]: 0.9 mg/dL (04/07/14 3:00 AM) 1.0 mg/dL (04/03/14 5:30 PM) Creatinine Lvl [0.5-1.4 mg/dL] 74 mL/min/1.73m2 1 *NA* (04/07/14 3:00 AM) 65 mL/min/1.73m2 2 *NA* (04/03/14 5:30 PM) eGFR 20 mg/dL (04/07/14 3:00 AM) 21 mg/dL (04/03/14 5:30 PM) BUN [7-22 mg/dL] 21 (04/03/14 5:30 PM) B/C Ratio [6-25] 97 mg/dL 3 (04/07/14 3:00 AM) 106 mg/dL 4 *HI* (04/03/14 5:30 PM) Glucose Lvl [70-99 mg/dL] 7.7 g/dL (04/03/14 5:30 PM) Total Protein [6.4-8.4 g/dL] 3.9 g/dL (04/03/14 5:30 PM) Albumin Lvl [3.5-5.0 g/dL] 3.8 g/dL (04/03/14 5:30 PM) Globulin [2.0-4.0 g/dL] 1.0 (04/03/14 5:30 PM) A/G Ratio [0.7-1.6] 8.9 mg/dL (04/07/14 3:00 AM) 9.8 mg/dL (04/03/14 5:30 PM) Calcium Lvl [8.5-10.5 mg/dL] 39 unit/L (04/03/14 5:30 PM) ALT [0-65 unit/L] 15 unit/L (04/03/14 5:30 PM) AST [0-37 unit/L] 64 unit/L (04/03/14 5:30 PM) Alk Phos [39-136 unit/L] 1.0 mg/dL (04/03/14 5:30 PM) Bili Total [0.2-1.3 mg/dL] 1Result Comment: The eGFR is calculated using [...] values reflect the clinical guidelines of the [place] [employer]. 4Interpretive Data: Adult reference range values reflect the clinical guidelines of the [place] [employer]. CARDIAC ENZYMES 1 2 3 Most recent to oldest [Reference Range]: 24 unit/L (04/04/14 5:51 AM) 24 unit/L (04/04/14 12:12 AM) 37 unit/L (04/03/14 5:30 PM) Total CK [12-191 unit/L] <0.5 ng/mL (04/03/14 5:30 PM) CK MB [0.5-3.6 ng/mL] <1.4 (04/03/14 5:30 PM) CK MB Index [0.0-2.5] <0.02 ng/mL (04/04/14 5:51 AM) <0.02 ng/mL (04/04/14 12:12 AM) <0.02 ng/mL (04/03/14 5:30 PM) Troponin-I [0.00-0.40 ng/mL] THYROID PANEL 1 2 3 Most recent to oldest [Reference Range]: 2.660 uIU/mL (04/04/14 5:51 AM) TSH [0.360-3.740 uIU/mL] URINE AND STOOL 1 2 3 Most recent to oldest [Reference Range]: Marked *ABN* (04/09/14 12:50 PM) Marked *ABN* (04/06/14 11:20 AM) UA Turbidity [Clear] Yellow *NA* (04/09/14 12:50 PM) Yellow *NA* (04/06/14 11:20 AM) UA Color [Yellow] 6.0 (04/09/14 12:50 PM) 6.0 (04/06/14 11:20 AM) UA pH [5.0-8.0] 1.018 (04/09/14 12:50 PM) 1.026 (04/06/14 11:20 AM) UA Spec Grav [<=1.030] Negative mg/dL *NA* (04/09/14 12:50 PM) Negative mg/dL *NA* (04/06/14 11:20 AM) UA Glucose [Negative mg/dL] Large *ABN* (04/09/14 12:50 PM) Large *ABN* (04/06/14 11:20 AM) UA Blood [Negative] Negative mg/dL *NA* (04/09/14 12:50 PM) Negative mg/dL *NA* (04/06/14 11:20 AM) UA Ketones [Negative mg/dL] Negative mg/dL (04/09/14 12:50 PM) 100 mg/dL *ABN* (04/06/14 11:20 AM) UA Protein [Negative mg/dL] <=1.0 mg/dL *NA* (04/09/14 12:50 PM) <=1.0 mg/dL *NA* (04/06/14 11:20 AM) UA Urobilinogen [0.1-1.0 mg/dL] Negative *NA* (04/09/14 12:50 PM) Negative *NA* (04/06/14 11:20 AM) UA Bili [Negative] Negative (04/09/14 12:50 PM) Negative (04/06/14 11:20 AM) UA Leuk Est [Negative] Negative (04/09/14 12:50 PM) Negative (04/06/14 11:20 AM) UA Nitrite [Negative] 3 /HPF (04/09/14 12:50 PM) UA WBC [0-5 /HPF] >182 /HPF *HI* (04/09/14 12:50 PM) 116 /HPF *HI* (04/06/14 11:20 AM) UA RBC [0-2 /HPF] Moderate /LPF *ABN* (04/09/14 12:50 PM) Many /LPF *ABN* (04/06/14 11:20 AM) UA Sq Epi [Few /LPF] Few /HPF *NA* (04/06/14 11:20 AM) UA Amorph Kika [None Seen /HPF] Few /LPF *NA* (04/09/14 12:50 PM) Many /LPF *ABN* (04/06/14 11:20 AM) UA Mucus [None Seen /LPF] HEMATOLOGY 1 2 3 Most recent to oldest [Reference Range]: 7.8 K/CMM (04/12/14 4:29 AM) 7.4 K/CMM (04/07/14 3:00 AM) 6.4 K/CMM (04/06/14 4:26 PM) WBC [3.7-10.4 K/CMM] 4.40 M/CMM (04/12/14 4:29 AM) 4.36 M/CMM (04/07/14 3:00 AM) 4.42 M/CMM (04/06/14 4:26 PM) RBC [4.20-5.40 M/CMM] 14.2 g/dL (04/12/14 4:29 AM) 14.3 g/dL (04/07/14 3:00 AM) 14.4 g/dL (04/06/14 4:26 PM) Hgb [12.0-16.0 g/dL] 41.1 % (04/12/14 4:29 AM) 41.0 % (04/07/14 3:00 AM) 41.5 % (04/06/14 4:26 PM) Hct [36.0-48.0 %] 93.4 fL (04/12/14 4:29 AM) 94.2 fL (04/07/14 3:00 AM) 94.0 fL (04/06/14 4:26 PM) MCV [80.0-98.0 fL] 32.3 pg *HI* (04/12/14 4:29 AM) 32.8 pg *HI* (04/07/14 3:00 AM) 32.7 pg *HI* (04/06/14 4:26 PM) MCH [27.0-31.0 pg] 34.6 g/dL (04/12/14 4:29 AM) 34.8 g/dL (04/07/14 3:00 AM) 34.7 g/dL (04/06/14 4:26 PM) MCHC [32.0-36.0 g/dL] 13.4 % (04/12/14 4:29 AM) 13.9 % (04/07/14 3:00 AM) 13.8 % (04/06/14 4:26 PM) RDW [11.5-14.5 %] 279 K/CMM (04/12/14 4:29 AM) 216 K/CMM (04/07/14 3:00 AM) 240 K/CMM (04/06/14 4:26 PM) Platelet [133-450 K/CMM] 7.4 fL (04/12/14 4:29 AM) 7.5 fL (04/07/14 3:00 AM) 7.2 fL *LOW* (04/06/14 4:26 PM) MPV [7.4-10.4 fL] 62.4 % (04/12/14 4:29 AM) 62.4 % (04/07/14 3:00 AM) 64.0 % (04/06/14 4:26 PM) Segs [45.0-75.0 %] 25.4 % (04/12/14 4:29 AM) 25.1 % (04/07/14 3:00 AM) 24.2 % (04/06/14 4:26 PM) Lymphocytes [20.0-40.0 %] 10.3 % (04/12/14 4:29 AM) 10.5 % (04/07/14 3:00 AM) 9.6 % (04/06/14 4:26 PM) Monocytes [2.0-12.0 %] 1.5 % (04/12/14 4:29 AM) 1.6 % (04/07/14 3:00 AM) 1.4 % (04/06/14 4:26 PM) Eosinophils [0.0-4.0 %] 0.4 % (04/12/14 4:29 AM) 0.4 % (04/07/14 3:00 AM) 0.8 % (04/06/14 4:26 PM) Basophils [0.0-1.0 %] 4.8 K/CMM (04/12/14 4:29 AM) 4.6 K/CMM (04/07/14 3:00 AM) 4.1 K/CMM (04/06/14 4:26 PM) Segs-Bands # [1.5-8.1 K/CMM] 2.0 K/CMM (04/12/14 4:29 AM) 1.9 K/CMM (04/07/14 3:00 AM) 1.5 K/CMM (04/06/14 4:26 PM) Lymphocytes # [1.0-5.5 K/CMM] 0.8 K/CMM (04/12/14 4:29 AM) 0.8 K/CMM (04/07/14 3:00 AM) 0.6 K/CMM (04/06/14 4:26 PM) Monocytes # [0.0-0.8 K/CMM] 0.1 K/CMM (04/12/14 4:29 AM) 0.1 K/CMM (04/07/14 3:00 AM) 0.1 K/CMM (04/06/14 4:26 PM) Eosinophils # [0.0-0.5 K/CMM] 0.1 K/CMM (04/06/14 4:26 PM) Basophils # [0.0-0.2 K/CMM] 25.8 seconds 5 (04/03/14 5:30 PM) PTT [22.9-35.8 seconds] 5Interpretive Data: Heparin Therapeutic Range: 57 - 92 Seconds Medications Administered During Your Visit No data available for this section Immunizations Vaccine Date Refusal Reason influenza virus vaccine, inactivated 02/24/14 Social History Social History Type Response Substance Abuse Use: None Alcohol Use: Past, Type: Beer, Type: Wine, Type: Liquor, Frequency: Daily Smoking Status Cigarette Smoking Last 365 Days Yes, Reg Smoking Cessation Counseling Yes, Current every day smoker, Type: Cigarettes, Lives with someone who smokes Assessment and Plan Extracted from: Title: Clinical Document Author: Sylwia Hooks NP Date: 04/13/14 Internal Medicine Progress Note [facility] SUBJECTIVE pt seen and examined; no acute events; OBJECTIVE VitalsTmp(F)[id number] 04/13 11:[id number]------ 04/13 09:33----[id number]------ 04/13 07:[id number]------ 04/13 04:[id number]--- 04/13 00:[id number]--- 24 Hr Tmax: 99.0F (37.22c) at 04/12 16:00Vital Signs are the last 5 in the past 48 hours. Labs (Last four charted values) WBC 7.8(APR 12)7.4(APR 07)6.4(APR 06)H 10.9(APR 03) Hgb 14.2(APR 12)14.3(APR 07)14.4(APR 06)H 16.5(APR 03) Hct 41.1(APR 12)41.0(APR 07)41.5(APR 06)47.9(APR 03) Plt 279(APR 12)216(APR 07)240(APR 06)290(APR 03) Na 139(APR 07)139(APR 03) K 3.6(APR 07)4.1(APR 03) CO2 31(APR 07)29(APR 03) Cl 101(APR 07)103(APR 03) Cr 0.9(APR 07)1.0(APR 03) BUN 20(APR 07)21(APR 03) Glucose Random 97(APR 07)H 106(APR 03) Ca 8.9(APR 07)9.8(APR 03) PTT 25.8(APR 03) Troponin <0.02(APR 04)<0.02(APR 04)<0.02(APR 03) CK MB <0.5(APR 03) Total CK 24(APR 04)24(APR 04)37(APR 03) Scheduled Meds (9): 04/04/14 aspirin (aspirin 81 mg tablet, enteric coated) 81 mg PO Q24H 04/05/14 atenolol (atenolol 25 mg oral tablet) 25 mg PO Daily 04/04/14 diltiazem 120 mg PO BID 04/04/14 hydrochlorothiazide (hydrochlorothiazide 12.5 mg oral capsule) 12.5 mg PO Daily 04/05/14 lactulose 40 gm PO BID 04/04/14 levofloxacin 500 mg PO Q24H 04/04/14 lidocaine topical (lidocaine topical patch (5% film)) 1 patch TOP Q12H 04/09/14 pantoprazole (Protonix) 40 mg PO Before Dinner 04/03/14 sodium chloride (Saline Flush 0.9%) 10 ml IVP Q12H PRN Meds (9): 04/04/14 LORazepam (Ativan) 1 mg IVP Q8H 04/03/14 acetaminophen (Tylenol) 650 mg PO Q6H 04/03/14 atropine 0.5 mg IVP PRN 04/03/14 cyclobenzaprine 5 mg PO TID 04/03/14 morphine Sulfate 4 mg IVP Q4H 04/05/14 morphine Sulfate 15 mg PO Q4H 04/03/14 nitroglycerin (nitroglycerin SL Tab) 0.4 mg SL Q5Min 04/03/14 ondansetron 4 mg PO Q8H 04/03/14 sodium chloride (Saline Flush 0.9%) 10 ml IVP PRN One Time Meds: None Continuous Infusions: None PHYSICAL EXAM Gen: Pt resting comfortably, NAD HEENT: PERRLA, normocephalic, atraumatic, trachea at midline, no JVD Chest: RRR, no M/R/G, BBSCTA, no rhonchi wheezes or rales Abd: Bowel sounds present in 4 quads, soft, ND, NTTP, obese, no cva tenderness Ext: No cyanosis or edema Skin: No rash noted, skin warm & dry Neuro: AOx3, CN II-XII grossly intact ASSESSMENT & PLAN 1. opiate withdrawal- improved 2. chest pain-resolved 3. tachycardia- resolved 4. hematuria- resolved 5. anxiety- improved continue pt/ot awaiting snf approval; pt stable will continue to provide supportive care; continue po abx; will closely monitor pt; discussed dc plan with pt Extracted from: Title: Clinical Document Author: Viktor Gibson MD Date: 04/03/14 History and Physical Attending: Belem Martinez MDPhone: Service: Internal Medicine Code status: Full Code [Ordered] Reason for Admission: CHEST PAIN Working DRG: None Documented Isolation: None Documented Consulting Physicians: Gerry Holden MDOffice: MSO: [id number]: Cardiology CC: chest pain HPI: This is a 53 yo w/ below PMHx who p/w several hour h/o CP. Was in bed when it started. Pain is retrosternal w/ no radiation but also has different pain in L shoulder which has been going on for longer time. CP described as a "punch". Pt has not gotten up out of bed since the pain started so she is not sure if exertion makes any difference. Pain initially was continuous and then became intermittent, lasting minutes. Took norco before dayanna CP actually started and she thinks it made the pain worse. Received SL nitro in ER which helped very little with the pain. She is not sure if eating makes a difference because she has not eaten much over the past day. Has had tremors in R hand as well as feeling hot and cold for the past past few days, has had changes in the pain medications recently. Pt has been yawning a lot but states that she has been tired. Has been on pain meds since 02/22. Has had foul smelling BMs and soft stools for past 3 days. No recent abx. N/V x 3 times (NB/NB). Had gross hematuria recently, but resolved, no polyuria or dysuria. Denies SOB. Has chronic numbness in R toes but denies new numbness/tingling or weakness. Was dx w/ UTI was supposed to start levofloxacin but just got the bottle from pharmacy today. Was admitted for AMS and lethargy likely 2/2 opioid-induced neurotoxicity. On she had L5-S1 R sided diskectomy. PMHx: TIA mitral valve prolapse abdominal aortic aneurysm COPD HTN HLD PSHx: Hysterectomy Cholecystectomy Lumbar spine surgery FHx: mother and father - DM SHx: Smoked 1PPD for 40yrs quit in 01/2014 Ocassional EtOH Denies illicit drugs. Meds: Reviewed home meds. Medication List Active Medications Ordered aspirin: 81 mg, 1 tab, PO, Daily. atropine: 0.5 mg, 5 mL, IVP, PRN, PRN: Bradycardia. cyclobenzaprine: 5 mg, 1 tab, PO, TID, PRN: as needed for muscle spasm. diltiazem: 120 mg, 1 tab, PO, BID. docusate: 100 mg, 1 cap, PO, BID, PRN: as needed for constipation. gabapentin: 600 mg, 2 cap, PO, TID. hydrochlorothiazide: 12.5 mg, 1 cap, PO, Daily. levofloxacin: 500 mg, 1 tab, PO, Q24H, 7 tab. levofloxacin: 500 mg, 1 tab, PO, ONCE. lidocaine topical: 0.5 patch, TOP, Q12H, to right foot. morphine Sulfate: 4 mg, 2 mL, IV, ONCE. omeprazole: 20 mg, 1 cap, PO, Daily. ondansetron: 4 mg, 1 tab, PO, Q8H, PRN: Nausea & Vomiting. polyethylene glycol 3350: 17 gm, PO, Daily, PRN: Constipation. sodium chloride: 10 ml, IVP, Q12H. sodium chloride: 10 ml, IVP, PRN, PRN: Line Flush. Medications Inactivated in the Last 72 Hours acetaminophen: 650 mg, 2 tab, PO, Q4H, PRN: Pain 1-3/Temp > 100.4 F. acetaminophen-hydrocodone: 1 tab, PO, Q6H, PRN: Breakthrough Pain. acetaminophen-hydrocodone: 1 tab, PYXIS, ONCE. acetaminophen-oxycodone: 1 tab, PO, Q4H, 90 tab, PRN: for pain. acetaminophen-oxycodone: 1 tab, PO, Q4H, PRN: as needed for pain. aspirin: 81 mg, 1 tab, PO, Daily, tab. aspirin: 325 mg, PO, ONCE. aspirin: 324 mg, 4 tab, PYXIS, ONCE. aspirin: 81 mg, 1 tab, PO, Daily. aspirin: 325 mg, 1 tab, PO, ONCE. atropine: 0.5 mg, 5 mL, IVP, PRN, PRN: Bradycardia. ciprofloxacin: 500 mg, PO, ONCE. ciprofloxacin: 500 mg, 1 tab, PYXIS, ONCE. cyclobenzaprine: 5 mg, 1 tab, PO, TID. cyclobenzaprine: 5 mg, 0.5 tab, PO, TID, PRN: as needed for muscle spasm. diltiazem: 120 mg, 1 tab, PO, BID. docusate: 100 mg, 1 cap, PO, BID, PRN: as needed for constipation. fentaNYL: 1 patch, TOP, Q72H, 10 patch. fentaNYL: 1 patch, TOP, Q72H. gabapentin: 600 mg, 2 cap, PO, TID. gadodiamide: 5,740 mg, 20 mL, PYXIS, ONCE. hydrochlorothiazide: 12.5 mg, 1 cap, PO, Daily. levofloxacin: 500 mg, 2 tab, PO, ONCE. lidocaine topical: 1 patch, TOP, Daily. LORazepam: 0.5 mg, 1 tab, PO, Q6H, PRN: as needed for anxiety. LORazepam: 0.5 mg, 1 tab, PO, Q6H, PRN: as needed for anxiety. meloxicam: 15 mg, 1 tab, PO, Daily. methylPREDNISolone: As directed on package instructions, PO, Daily, Take with or without food, 1 Pack. metoprolol: 5 mg, IVP, ONCE. metoprolol: 5 mg, 5 mL, PYXIS, ONCE. morphine Sulfate: 2 mg, IVP, ONCE. morphine Sulfate: 4 mg, 2 mL, PYXIS, ONCE. morphine Sulfate: 2 mg, IVP, ONCE. morphine Sulfate: 2 mg, 1 mL, PYXIS, ONCE. nicotine: 14 mg, 1 patch, TOP, Daily. nicotine: 1 patch, TOP, Daily. nicotine: 7 mg, 1 patch, TOP, Daily. nicotine: 1 patch, TOP, Daily, 30 patch. nitroglycerin: 0.4 mg, 1 tab, SL, Q5Min, PRN: Chest Pain. nitroglycerin: 1 inch, TOP, ONCE. nitroglycerin: 1 inch, PYXIS, ONCE. nitroglycerin: 0.4 mg, 1 tab, SL, Q5Min, PRN: Chest Pain. nitroglycerin: 0.4 mg, SL, Q5Min, PRN: Chest Pain X3. omeprazole: 20 mg, PO, Daily. omeprazole: 20 mg, PO, Daily. ondansetron: 4 mg, IVP, ONCE. ondansetron: 4 mg, 2 mL, PYXIS, ONCE. ondansetron: 4 mg, 2 mL, IVP, Q8H, PRN: Nausea & Vomiting. ondansetron: 4 mg, 2 mL, PYXIS, ONCE. ondansetron: 4 mg, IVP, ONCE. ondansetron: 4 mg, 2 mL, PYXIS, ONCE. pantoprazole: 40 mg, 1 tab, PO, Before Dinner. polyethylene glycol 3350: 17 gm, 1 pkt, PO, Daily, PRN: Constipation. predniSONE: 40 mg, 2 tab, PO, Daily. predniSONE: 40 mg, 2 tab, PO, Daily. remove patch: 1 patch, TOP, Bedtime. sertraline: 75 mg, PO, Daily, 100 tab. sodium chloride: 10 mL, IVP, PRN, PRN: Line Flush. sodium chloride: 10 mL, IVP, PRN, PRN: Line Flush. Sodium Chloride 0.9% IV: 1,000 mL, PYXIS, ONCE. Sodium Chloride 0.9% IV: 500 mL, IV, ONCE. Sodium Chloride 0.9% IV: 500 mL, PYXIS, ONCE. Sodium Chloride 0.9% IV 1,000 mL: 150 ml/hr, IV, Stop: 05/01/14 11:44:00. Allergies: ahsley, Keflex, penicillins, azithromycin, statins ROS: See HPI. All other systems reviewed by myself are negative unless noted above. Physical Exam: VitalsTmp(F)[id number] 04/03 21:55----[id number]-------- 04/03 21:50----[id number]/72-------- 04/03 21:43----[id number]-------- 04/03 21:37----[id number]/84-------- 04/03 20:[id number]/8718------ 24 Hr Tmax: 99.0F (37.22c) at 04/03 16:59Vital Signs are the last 5 in the past 48 hours. General: NAD, nontoxic appearing HEENT: NCAT, PERRL, MMM, no JVD Cardiovascular: RRR, S1S2 Respiratory: CTAB Abdomen: +BS, NT/ND Extremities: no b/l LE edema Skin: no rashes Neurologic: comprehension and speech intact, CN III-XII grossly intact, sensations intact and symmetric to light touch in all extremities except diminished in R foot and especially toes Musculoskeletal: able to move all extremities Labs: 24hr Labs 04/03 1730 Sodium Akh471 Potassium Lvl4.1 Chloride Wbz778 CO229 AGAP11.1 Glucose Swm249 H Creatinine Lvl1.0 BUN21 B/C Ratio21 Total Protein7.7 Albumin Lvl3.9 Globulin3.8 A/G Ratio1.0 Calcium Lvl9.8 ALT39 AST15 Alk Phos64 Bili Total1.0 eGFR65 Total CK37 Troponin-I<0.02 CK MB<0.5 CK MB Index<1.4 WBC10.9 H RBC5.06 Hgb16.5 H Hct47.9 MCV94.6 MCH32.6 H MCHC34.4 RDW14.1 Rkrontdw314 MPV7.2 L Segs68.4 Monocytes9.1 Vaaxgzcveek80.7 Eosinophils0.5 Basophils0.3 Segs-Bands #7.5 Lymphocytes #2.4 Monocytes #1.0 H Eosinophils #0.1 PTT25.8 Micro: none Imaging: CXR: No acute abnormality or change. EKG: NSR, no ST-T wave changes Assessment and Plan: 53 yo p/w CP and admitted for ACS r/o and pain management optimization. I do not think the pain is anginal but must rule out ACS. Could be GERD, musculoskeletal or even anxiety as well. # ACS r/o: EKG ok, cardiac enzymes q6h, on telemetry, c/w aspirin, morphine and percocet prn # back pain/ opiate withdrawal: getting pain meds prn; will check TSH given her tremors and hot/cold intolerance; pain managment consult in AM; c/w lidocaine patch; zofran prn # HTN: c/w home meds # UTI: was dx prior to admission, will c/w her levofloxacin as prescribed Prophylaxis: subQ heparin, PPI Diet: heart healthy Viktor Gibson [employer]
--- OUTSIDE RECORDS SUMMARY | 2018-01-30 07:57 | XMS REPORT | Summary of Care ---
Author Author [facility] Organization [facility] Address Unknown Phone Unavailable Encounter BOY Mercado(LUPE) [id number] Date(s): 11/14/16 - 11/14/16 [facility] [address] [place] [address]- Discharge Disposition: Home or Self Care Attending Physician: Jonathan Bobo MD Referring Physician: Jonathan Bobo MD Vital Signs No data available for this section Problem List Condition Effective Dates Status Health Status Informant AAA (abdominal Resolved aortic aneurysm)(Confirmed) COPD(Confirmed) Resolved Heart valve Resolved disorder(Confirmed) Herniated Resolved disc(Confirmed) HTN Active (hypertension)(Confi rmed) Idiopathic chronic Resolved neuropathy(Confirmed ) Morbid Active obesity(Confirmed) PNA Resolved (pneumonia)(Confirme d) UTI (urinary tract Active infection), uncomplicated(Confir med) UTI - Urinary tract Resolved infection(Confirmed) Allergies, Adverse Reactions, Alerts Substance Reaction Severity Status azithromycin Active ashley Active Keflex Active penicillins Active statins Active Medications Omnipaque 350 100 mL, Route: IV, Drug Form: SOLN, ONCE, Start date: 11/14/16 10:06:00 CDT, Stop date: 11/14/16 10:06:00 CDT Notes: (same as:Omnipaque 350).WASTE: F/P - Black; E - Municipal Trash Bin Start Date: 11/14/16 Stop Date: 11/14/16 Status: Completed Results CHEM PANEL Most recent to 1 oldest [Reference Range]: eGFR 98 mL/min/1.73m2 1 *NA* (11/14/16 9:38 AM) POC Creatinine 0.7 mg/dL [0.5-1.4 mg/dL] (11/14/16 9:38 AM) 1Result Comment: The eGFR is calculated using [...] should be multiplied by the estimated BMI. Immunizations Given and Recorded Vaccine Date Status Refusal Reason influenza virus vaccine, inactivated 02/19/15 Given influenza virus vaccine, inactivated 02/24/14 Given Procedures Procedure Date Related Diagnosis Body Site Cholecystectomy Excision of disc for intervertebral herniated disc, nucleus pulposus Hysterectomy Social History Social History Type Response Substance Abuse Use: None. Alcohol Past, Type Beer, Wine, Liquor. Frequency: Daily. Last use: quit 20 yeas ago. Smoking Status Current every day smoker; Type: Cigarettes; Tobacco use per day: 1; Total pack years: 40; Stopped at age: 53; Lives with someone who smokes; Cigarette Smoking Last 365 Days Yes; Reg Smoking Cessation Counseling Yes Assessment and Plan No data available for this section
--- OUTSIDE RECORDS SUMMARY | 2018-01-30 07:57 | XMS REPORT | Summary of Care ---
Author Organization Unknown Address Unknown Phone Unavailable Encounter HQ Rogelio(LUPE) [id number] Date(s): 02/19/14 - 02/19/14 [facility] [address] [place], [place] [id number] [place] [address] Discharge Diagnosis: Sciatica Discharge Disposition: Home Physician Attending: Jaxon Ingram MD Reason for Visit LEG / BACK PAIN Vital Signs Most recent to 1 2 oldest [Reference Range]: Height 154.94 cm (02/19/14 6:23 AM) Temperature Oral 97.5 DegF 97.8 DegF [96.4-99.1 DegF] (02/19/14 9:13 AM) (02/19/14 6:23 AM) Systolic Blood 154 mmHg 172 mmHg Pressure [90-140 *HI* *HI* mmHg] (02/19/14 9:13 AM) (02/19/14 6:23 AM) Diastolic Blood 83 mmHg 108 mmHg Pressure [60-90 (02/19/14 9:13 AM) *HI* mmHg] (02/19/14 6:23 AM) Respiratory Rate 18 BRMIN [14-20 BRMIN] (02/19/14 6:23 AM) Peripheral Pulse 87 bpm 100 bpm Rate [60-100 bpm] (02/19/14 9:13 AM) (02/19/14 6:23 AM) Weight 89.091 kg (02/19/14 6:23 AM) Body Mass Index 37.11 m2 (02/19/14 6:23 AM) Problem List Condition Effective Dates Status Health Status Informant HTN Resolved (hypertension)(Confi rmed) Allergies, Adverse Reactions, Alerts Substance Reaction Severity Status azithromycin Active statins Active Medications dexamethasone 10 mg, Route: IM, ONCE, Dosing Weight 89.091, kg, Priority: STAT, Start date: 7:59:00, Stop date: 02/19/14 7:59:00 Start Date: 02/19/14 Stop Date: 02/19/14 Status: Completed hydromorphone 2 mg, Route: IM, ONCE, Dosing Weight 88.636, kg, Start date: 02/20/14 20:00:00, Stop date: 02/20/14 20:00:00 Start Date: 02/20/14 Stop Date: 02/20/14 Status: Discontinued Valium 10 mg, Route: PO, ONCE, Dosing Weight 89.091, kg, Priority: STAT, Start date: 7:59:00, Stop date: 02/19/14 7:59:00 Start Date: 02/19/14 Stop Date: 02/19/14 Status: Completed Medications Administered During Your Visit No data available for this section Immunizations No data available for this section Procedures Procedure Type Body Site Date of Procedure Related Diagnosis Hysterectomy Social History Social History Type Response Smoking Status Current every day smoker, Type: Cigarettes, Lives with someone who smokes, Cigarette Smoking Last 365 Days Yes, Reg Smoking Cessation Counseling No
--- OUTSIDE RECORDS SUMMARY | 2018-01-30 07:57 | XMS REPORT | Summary of Care ---
Author Author [facility] Organization [facility] Address Unknown Phone Unavailable Encounter BOY Mercado(FIN) [id number] Date(s): 02/28/15 - 02/28/15 [facility] [address] [place] [address]- Discharge Disposition: Home Attending Physician: Heber Carcamo MD Vital Signs No data available for this section Problem List Condition Effective Dates Status Health Status Informant AAA (abdominal Resolved aortic aneurysm)(Confirmed) COPD(Confirmed) Resolved Heart valve Resolved disorder(Confirmed) Herniated Resolved disc(Confirmed) HTN Active (hypertension)(Confi rmed) Idiopathic chronic Resolved neuropathy(Confirmed ) PNA Resolved (pneumonia)(Confirme d) UTI (urinary tract Active infection), uncomplicated(Confir med) UTI - Urinary tract Resolved infection(Confirmed) Allergies, Adverse Reactions, Alerts Substance Reaction Severity Status azithromycin Active ashley Active Keflex Active penicillins Active statins Active Medications No data available for this section Results No data available for this section Immunizations Vaccine Date Refusal Reason influenza virus vaccine, inactivated 02/19/15 influenza virus vaccine, inactivated 02/24/14 Procedures Procedure Date Related Diagnosis Body Site [...]
--- OUTSIDE RECORDS SUMMARY | 2018-01-30 07:57 | XMS REPORT | Summary of Care ---
Author Organization Unknown Address Unknown Phone Unavailable Encounter Dates Location Diagnoses Discharge Providers Disposition 06/16/2013 [facility] 06/16/2013 [address] [place], [place] [id number] [place] [address] Reason for Visit SCREENING MAMMO Problem List No data available for this section Allergies, Adverse Reactions, Alerts No data available for this section Medications No data available for this section Medications Administered During Your Visit No data available for this section Immunizations No data available for this section
--- OUTSIDE RECORDS SUMMARY | 2018-01-30 07:57 | XMS REPORT | Summary of Care ---
Author Author [facility] Organization [facility] Address Unknown Phone Unavailable Encounter BOY Mercado(FIN) [id number] Date(s): 02/18/15 - 02/21/15 [facility] [id number] [place] [address]- Discharge Disposition: Home Attending Physician: Mynor Rivera MD Admitting Physician: Mynor Rivera MD Vital Signs 1 2 3 Most recent to oldest [Reference Range]: 154.94 cm (02/18/15 10:27 AM) Height 98.7 DegF (02/21/15 12:00 PM) 98.5 DegF (02/21/15 8:00 AM) 98.3 DegF (02/21/15 4:20 AM) Temperature Oral [96.4-99.1 DegF] 154/95 mmHg *HI* (02/21/15 12:00 PM) 147/82 mmHg *HI* (02/21/15 8:00 AM) 131/75 mmHg (02/21/15 4:20 AM) Blood Pressure [90-140/60-90 mmHg] 18 BRMIN (02/21/15 12:00 PM) 18 BRMIN (02/21/15 8:00 AM) 14 BRMIN (02/21/15 7:12 AM) Respiratory Rate [14-20 BRMIN] 91 bpm (02/21/15 12:00 PM) 76 bpm (02/21/15 8:00 AM) 85 bpm (02/21/15 4:20 AM) Peripheral Pulse Rate [60-100 bpm] 101.136 kg (02/18/15 10:27 AM) Weight 42.13 m2 (02/18/15 10:27 AM) Body Mass Index Problem List Condition [...] Keflex Active penicillins Active statins Active Medications acetaminophen-hydrocodone 325 mg-10 mg oral tablet 1 tab, PO, Q12H, PRN Pain Score 1-5, 0 Refill(s) Start Date: 02/18/15 Status: Ordered acetaminophen-hydrocodone 325 mg-5 mg oral tablet 2 tab, Route: PO, Drug Form: TAB, Dosing Weight 85.909, kg, Q4H, PRN Pain Score 7-10, Start date: 02/18/15 10:19:00, Duration: 30 day, Stop date: 03/20/15 10:18 :00 Notes: (Same as: [place] 325/5) Do not exceed 4gm/day of acetaminophen. Start Date: 02/18/15 Stop Date: 02/21/15 Status: Discontinued acetylcysteine 20% inhalation solution 400 mg, 2 mL, Route: NEB, Drug Form: SOLN, Dosing Weight 101.136, kg, RBID, Start date: 02/20/15 16:44:00, Stop date: 03/22/15 7:00:00 Start Date: 02/20/15 Stop Date: 02/21/15 Status: Discontinued acetylcysteine 20% inhalation solution 400 mg=2 mL, NEB, RBID, # 30 mL, 0 Refill(s) Start Date: 02/21/15 Status: Ordered Ambien 10 mg, 1 tab, Route: PO, Drug form: TAB, Bedtime, Dosing Weight 101.136, kg, PRN as needed for sleep, Start date: 02/19/15 16:51:00, Duration: 30 day, Stop date: 03/21/15 16:50:00 Notes: (Same As: Ambien) Start Date: 02/19/15 Stop Date: 02/21/15 Status: Discontinued amLODIPine 5 mg oral tablet 5 mg=1 tab, PO, Daily, # 30 tab, 0 Refill(s) Start Date: 02/21/15 Stop Date: 03/23/15 Status: Ordered aspirin 81 mg, PO, Daily, 0 Refill(s) Start Date: 02/18/15 Stop Date: 02/21/15 Status: Discontinued Aspirin Enteric Coated 81 mg oral delayed release tablet 81 mg=1 tab, PO, Daily, 0 Refill(s) Start Date: 02/19/15 Status: Ordered atenolol 50 mg, 1 tab, Route: PO, Drug form: TAB, Daily, Dosing Weight 101.136, kg, Start date: 02/19/15 9:00:00, Duration: 30 day, Stop date: 03/20/15 9:00:00 Notes: (Same As:Tenormin) Start Date: 02/19/15 Stop Date: 02/21/15 Status: Discontinued atenolol 50 mg, PO, Daily, 0 Refill(s) Start Date: 02/18/15 Status: Ordered DuoNeb inhalation solution 3 mL, Route: INHALATION, Drug Form: SOLN, Dosing Weight 85.909, kg, RQ4H, Start date: 02/18/15 15:00:00, Duration: 30 day, Stop date: 03/20/15 11:00:00 Notes: (Same as: Duoneb) Start Date: 02/18/15 Stop Date: 02/19/15 Status: Discontinued DuoNeb inhalation solution 3 ml, INHALATION, QID, # 30 ea, 0 Refill(s) Start Date: 02/21/15 Status: Ordered DuoNeb inhalation solution 3 mL, Route: INHALATION, Drug Form: SOLN, Dosing Weight 85.909, kg, Q2H, PRN as needed for shortness of breath or wheezing, Start date: 02/18/15 9:38:00, Duration: 30 day, Stop date: 03/20/15 9:37:00 Notes: (Same as: Duoneb) Start Date: 02/18/15 Stop Date: 02/19/15 Status: Discontinued enoxaparin 40 mg, 0.4 mL, Route: SUB-Q, Drug form: INJ, [id number], Dosing Weight 101.136, kg , Consider for obese patients, Start date: 02/18/15 14:00:00, Duration: 30 day, Stop date: 03/20/15 2:00:00 Notes: (Same as: Lovenox) Start Date: 02/18/15 Stop Date: 02/21/15 Status: Discontinued escitalopram 20 mg, 1 tab, Route: PO, Drug form: TAB, Daily, Dosing Weight 101.136, kg, Start date: 02/19/15 9:00:00, Duration: 30 day, Stop date: 03/20/15 9:00:00 Notes: (Same as: Lexapro) Start Date: 02/19/15 Stop Date: 02/21/15 Status: Discontinued escitalopram 20 mg oral tablet 20 mg=1 tab, PO, Daily, # 30 tab, 0 Refill(s) Start Date: 02/18/15 Status: Ordered gabapentin 1,200 mg, 3 cap, Route: PO, Drug form: CAP, BID, Dosing Weight 101.136, kg, Start date: 02/19/15 20:00:00, Duration: 30 day, Stop date: 03/21/15 9:00:00 Notes: (Same as: Neurontin) Start Date: 02/19/15 Stop Date: 02/21/15 Status: Discontinued gabapentin 600 mg oral tablet See Instructions, 1 tab PO BID, 0 Refill(s), 2 capsof 600mgs total of 1200 po BID Start Date: 02/19/15 Status: Ordered gabapentin 600 mg oral tablet 600 mg, 2 cap, Route: PO, Drug form: CAP, BID, Dosing Weight 101.136, kg, Start date: 02/18/15 20:00:00, Duration: 30 day, Stop date: 03/20/15 9:00:00 Notes: (Same as: Neurontin) Start Date: 02/18/15 Stop Date: 02/19/15 Status: Discontinued gabapentin 600 mg oral tablet 2 tabs, PO, BID, 0 Refill(s) Start Date: 02/18/15 Stop Date: 02/19/15 Status: Discontinued gabapentin 600 mg oral tablet 600 mg=1 tab, PO, TID, 0 Refill(s) Start Date: 02/19/15 Stop Date: 02/19/15 Status: Discontinued influenza virus vaccine, inactivated 0.5 mL, Route: IM, Drug Form: SUSP, Daily, Start date: 02/19/15 9:00:00, Duration: 1 doses or times, Stop date: 02/19/15 9:00:00 Notes: (Same as: Fluzone Quadrivalent)For 3 years of age and older (0.5 mL IM) Shake well before use Start Date: 02/19/15 Stop Date: 02/19/15 Status: Completed levalbuterol 0.63 mg, 3 mL, Route: NEB, Drug form: SOLN, PRN, Dosing Weight 101.136, kg, PRN Respiratory Protocol, Start date: 02/19/15 15:49:00, Duration: 30 day, Stop date : 03/21/15 14:48:00, Substitute Allowed No Notes: SEE RT DOCUMENTATION (Same as:Xopenex)Non-Formulary Start Date: 02/19/15 Stop Date: 02/21/15 Status: Discontinued Levaquin 500 mg, 100 mL, Route: IVPB, Drug form: SOLN, [id number], Dosing Weight 85.909, kg , Start date: 02/18/15 12:00:00, Duration: 30 day, Stop date: 03/19/15 12:00:00 Notes: (Same as:Levaquin) Start Date: 02/18/15 Stop Date: 02/21/15 Status: Discontinued Levaquin 500 mg, 100 mL, Route: IVPB, Drug form: SOLN, [id number], Dosing Weight 85.909, kg , Start date: 02/18/15 10:00:00, Duration: 30 day, Stop date: 03/19/15 10:00:00 Notes: (Same as:Levaquin) Start Date: 02/18/15 Stop Date: 02/18/15 Status: Deleted levofloxacin 500 mg oral tablet 500 mg=1 tab, PO, Daily, this is day 7, # 10 tab, 0 Refill(s) Start Date: 02/18/15 Stop Date: 02/28/15 Status: Ordered morphine Sulfate 15 mg, 1 tab, Route: PO, Drug form: ERTAB, Q12H, Dosing Weight 101.136, kg, Start date: 02/18/15 21:00:00, Duration: 30 day, Stop date: 03/20/15 9:00:00 Notes: Do not crush (Same as:Oramorph SR, MS Contin) Start Date: 02/18/15 Stop Date: 02/21/15 Status: Discontinued morphine Sulfate 15 mg, PO, Q12H, 0 Refill(s) Start Date: 02/18/15 Status: Ordered morphine Sulfate 0 Refill(s) Start Date: 02/18/15 Stop Date: 02/18/15 Status: Discontinued Neurontin 600 mg, 2 cap, Route: PO, Drug form: CAP, ONCE, Start date: 02/19/15 11:14:00, Stop date: 02/19/15 11:14:00 Notes: (Same as: Neurontin) Start Date: 02/19/15 Stop Date: 02/19/15 Status: Completed nicotine 21 mg, 1 patch, Route: TOP, Drug form: ERFILM, Daily, Dosing Weight 101.136, kg , Start date: 02/20/15 9:00:00, Duration: 30 day, Stop date: 03/21/15 9:00:00 Notes: (Same as: Habitrol)"Remove old patch before application of new patch" Start Date: 02/20/15 Stop Date: 02/21/15 Status: Discontinued Norvasc 5 mg, 1 tab, Route: PO, Drug form: TAB, Daily, Dosing Weight 101.136, kg, Start date: 02/20/15 16:41:00, Duration: 30 day, Stop date: 03/22/15 9:00:00 Notes: (Same as: Norvasc) Start Date: 02/20/15 Stop Date: 02/21/15 Status: Discontinued omeprazole 20 mg, Route: PO, Daily, Dosing Weight 101.136, kg, Start date: 02/19/15 9:00:00 , Duration: 30 day, Stop date: 03/20/15 9:00:00 Start Date: 02/19/15 Stop Date: 02/18/15 Status: Deleted omeprazole 20 mg, PO, Daily, 0 Refill(s) Start Date: 02/18/15 Status: Ordered ondansetron 4 mg, 2 mL, Route: IVP, Drug form: INJ, Q6H, Dosing Weight 85.909, kg, PRN Nausea & Vomiting, Start date: 02/18/15 10:19:00, Duration: 30 day, Stop date: 03/20/15 10:18:00 Notes: (Same as: Purvi) MEDICATION WASTE Product Size: 4 mgProduct Wasted: ___ mg Start Date: 02/18/15 Stop Date: 02/21/15 Status: Discontinued predniSONE 20 mg oral tablet See Special Instructions, PO, Daily, 12 day regimen: Days 1-4 - 40 mg (2 tabs) daily Days 5-8 - 20 mg (1 tab) daily Days 9-12 - 10 mg (1/2 tab) daily, X 12 day, # 12 tab, 0 Refill(s) Start Date: 02/21/15 Stop Date: 03/05/15 Status: Ordered ProAir HFA 1 - 2 puffs, PO, Q4H, PRN Wheezing / cough / shortness of breath, # 1 ea, 0 Refill(s) Start Date: 02/18/15 Stop Date: 03/15/15 Status: Ordered Protonix 40 mg, 1 tab, Route: PO, Drug form: ECTAB, Before Dinner, Start date: 02/18/15 16:30:00, Duration: 30 day, Stop date: 03/19/15 16:30:00 Notes: Tablet should not be chewed or crushed.(Same as: Protonix) Start Date: 02/18/15 Stop Date: 02/21/15 Status: Discontinued Solu-MEDROL 40 mg, 1 mL, Route: IVP, Drug form: INJ, Q8H, Dosing Weight 101.136, kg, Start date: 02/18/15 16:00:00, Duration: 30 day, Stop date: 03/20/15 8:00:00 Notes: (Same as:Solu-MEDROL, A-Methapred) Start Date: 02/18/15 Stop Date: 02/20/15 Status: Discontinued Solu-MEDROL 40 mg, 1 mL, Route: IVP, Drug form: INJ, Q12H, Dosing Weight 101.136, kg, Start date: 02/20/15 21:00:00, Duration: 30 day, Stop date: 03/22/15 9:00:00 Notes: (Same as:Solu-MEDROL, A-Methapred) Start Date: 02/20/15 Stop Date: 02/21/15 Status: Discontinued Symbicort 80/4.5 inhalation aerosol with adapter 2 puff, INHALATION, BID, # 6.9 gm, 0 Refill(s) Start Date: 02/18/15 Status: Ordered Symbicort 80/4.5 inhalation aerosol with adapter 2 inhalation, Route: INHALATION, Drug Form: AERO/A, Dosing Weight 101.136, kg, BID, Start date: 02/18/15 17:00:00, Duration: 30 day, Stop date: 03/20/15 9:00: 00 Notes: (Same as: Symbicort) Start Date: 02/18/15 Stop Date: 02/21/15 Status: Discontinued tizanidine 8 mg, 2 tab, Route: PO, Drug form: TAB, Q8H, Dosing Weight 101.136, kg, Start date: 02/18/15 16:00:00, Duration: 30 day, Stop date: 03/20/15 8:00:00 Notes: (Same As: Zanaflex) Start Date: 02/18/15 Stop Date: 02/19/15 Status: Discontinued tizanidine 4 mg, 1 tab, Route: PO, Drug form: TAB, Q8H, Dosing Weight 101.136, kg, Start date: 02/19/15 16:00:00, Duration: 30 day, Stop date: 03/21/15 8:00:00 Notes: (Same As: Zanaflex) Start Date: 02/19/15 Stop Date: 02/21/15 Status: Discontinued tizanidine 4 mg oral tablet 4 mg=1 tab, PO, Q8H, 0 Refill(s) Start Date: 02/19/15 Status: Ordered tizanidine 4 mg oral tablet 8 mg=2 tab, PO, Q8H, # 180 tab, 0 Refill(s) Start Date: 02/18/15 Stop Date: 02/19/15 Status: Discontinued tizanidine 4 mg oral tablet 8 mg=2 tab, PO, Q8H, 0 Refill(s) Start Date: 02/19/15 Stop Date: 02/19/15 Status: Discontinued Tylenol 650 mg, 2 tab, Route: PO, Drug form: TAB, Q6H, Dosing Weight 85.909, kg, PRN For Temp > 100.4 F, Start date: 02/18/15 9:39:00, Duration: 30 day, Stop date: 03/20/15 9:38:00 Notes: Do not exceed 4 gm/day. (Same as: Tylenol) Start Date: 02/18/15 Stop Date: 02/21/15 Status: Discontinued Results ELECTROLYTES Most recent to 1 2 oldest [Reference Range]: Sodium Lvl [135-145 137 mEq/L 142 mEq/L mEq/L] (02/19/15:15 AM) (02/18/15 12:30 PM) Potassium Lvl 4.1 mEq/L 4.0 mEq/L [3.5-5.1 mEq/L] (02/19/15 9:15 AM) (02/18/15 12:30 PM) Chloride Lvl [95-109 102 mEq/L 104 mEq/L mEq/L] (02/19/15 9:15 AM) (02/18/15 12:30 PM) CO2 [24-32 mEq/L] 25 mEq/L 28 mEq/L (02/19/15:15 AM) (02/18/15 12:30 PM) AGAP [10.0-20.0 14.1 mEq/L 14.0 mEq/L mEq/L] (02/19/15 9:15 AM) (02/18/15 12:30 PM) CHEM PANEL Most recent to 1 2 oldest [Reference Range]: Creatinine Lvl 1.0 mg/dL 1.1 mg/dL [0.5-1.4 mg/dL] (02/19/15 9:15 AM) (02/18/15 12:30 PM) eGFR 64 mL/min/1.73m2 1 57 mL/min/1.73m2 2 *NA* *NA* (02/19/15 9:15 AM) (02/18/15 12:30 PM) BUN [7-22 mg/dL] 12 mg/dL 11 mg/dL (02/19/15 9:15 AM) (02/18/15 12:30 PM) B/C Ratio [6-25] 10 (02/18/15 12:30 PM) Glucose Lvl [70-99 210 mg/dL 124 mg/dL mg/dL] *HI* *HI* (02/19/15 9:15 AM) (02/18/15 12:30 PM) Total Protein 6.7 g/dL [6.4-8.4 g/dL] (02/18/15 12:30 PM) Albumin Lvl [3.5-5.0 3.2 g/dL g/dL] *LOW* (02/18/15 1230 PM) Globulin [2.0-4.0 3.5 g/dL g/dL] (02/18/15 12:30 PM) A/G Ratio [0.7-1.6] 0.9 (02/18/15 12:30 PM) Calcium Lvl 8.8 mg/dL 8.3 mg/dL [8.5-10.5 mg/dL] (02/19/15 9:15 AM) *LOW* (02/18/1530 PM) ALT [0-65 unit/L] 34 unit/L (02/18/15 12:30 PM) AST [0-37 unit/L] 15 unit/L (02/18/15 12:30 PM) Alk Phos [39-136 77 unit/L unit/L] (02/18/15 12:30 PM) Bili Total [0.2-1.3 0.5 mg/dL mg/dL] (02/18/15 12:30 PM) 1Result Comment: The eGFR is calculated [...] should be multiplied by the estimated BMI. HEMATOLOGY Most recent to 1 2 oldest [Reference Range]: WBC [3.7-10.4 K/CMM] 13.4 K/CMM 13.1 K/CMM *HI* *HI* (02/19/15:15 AM) (02/18/15 12:30 PM) RBC [4.20-5.40 5.05 M/CMM 5.13 M/CMM M/CMM] (02/19/15:15 AM) (02/18/15 12:30 PM) Hgb [12.0-16.0 g/dL] 15.8 g/dL 16.4 g/dL (02/19/15:15 AM) *HI* (02/18/15 12:30 PM) Hct [36.0-48.0 %] 48.7 % 48.7 % *HI* *HI* (02/19/15:15 AM) (02/18/15 12:30 PM) MCV [80.0-98.0 fL] 96.4 fL 94.9 fL (02/19/15:15 AM) (02/18/15 12:30 PM) MCH [27.0-31.0 pg] 31.2 pg 31.9 pg *HI* *HI* (02/19/15:15 AM) (02/18/15 12:30 PM) MCHC [32.0-36.0 32.4 g/dL 33.6 g/dL g/dL] (02/19/15:15 AM) (02/18/15 12:30 PM) RDW [11.5-14.5 %] 14.4 % 14.4 % (02/19/15:15 AM) (02/18/15 12:30 PM) Platelet [133-450 228 K/CMM 234 K/CMM K/CMM] (02/19/15 9:15 AM) (02/18/15 12:30 PM) MPV [7.4-10.4 fL] 7.6 fL 7.6 fL (02/19/15 9:15 AM) (02/18/15 12:30 PM) Segs [45.0-75.0 %] 90.5 % 61.1 % *HI* (02/18/15 12:30 PM) (02/19/15 9:15 AM) Lymphocytes 7.9 % 30.0 % [20.0-40.0 %] *LOW* (02/18/15 12:30 PM) (02/19/15 9:15 AM) Monocytes [2.0-12.0 1.2 % 7.3 % %] *LOW* (02/18/15 12:30 PM) (02/19/15 9:15 AM) Eosinophils [0.0-4.0 0.1 % 1.2 % %] (02/19/15 9:15 AM) (02/18/15 12:30 PM) Basophils [0.0-1.0 0.3 % 0.4 % %] (02/19/15 9:15 AM) (02/18/15 12:30 PM) Segs-Bands # 12.1 K/CMM 8.0 K/CMM [1.5-8.1 K/CMM] *HI* (02/18/15 12:30 PM) (02/19/15 9:15 AM) Lymphocytes # 1.1 K/CMM 3.9 K/CMM [1.0-5.5 K/CMM] (02/19/15 9:15 AM) (02/18/15 12:30 PM) Monocytes # [0.0-0.8 0.2 K/CMM 1.0 K/CMM K/CMM] (02/19/15 9:15 AM) *HI* (02/18/15 12:30 PM) Eosinophils # 0.2 K/CMM [0.0-0.5 K/CMM] (02/18/15 12:30 PM) Basophils # [0.0-0.2 0.1 K/CMM K/CMM] (02/18/15 12:30 PM) PTT [22.9-35.8 24.3 seconds seconds] (02/18/15 1:59 PM) Immunizations Vaccine Date Refusal Reason influenza virus [...] Smoking Cessation Counseling Yes Assessment and Plan Extracted from: Title: Clinical Document Author: Micki Hsu Date: [facility] Internal Medicine Progress Note [facility] SUBJECTIVE No acute events. Pt denies FLETCHER, dizziness, dysphagia, neck stiffness, CP, SOB, hemoptysis, N/V/D/C, hematemesis, hematochezia, hematuria, dysuria, skin rash. Pt feeling ok, denies SOB. Asking for nebulizer at home. OBJECTIVE Vital Signs (last 24 hrs) Last Charted Temp Oral98.7 DegF (FEB 21 12:00) Heart Rate [id number] bpm (FEB 21 12:00) Resp Rate 18 BRMIN (FEB 21 12:00) SBPH 154mmHg (FEB 21 12:00) DBPH 95mmHg (FEB 21 12:00) Labs (Last four charted values) WBC H 13.4(FEB 19)H 13.1(FEB 18) Hgb 15.8(FEB 19)H 16.4(FEB 18) Hct H 48.7(FEB 19)H 48.7(FEB 18) Plt 228(FEB 19)234(FEB 18) Na 137(FEB 19)142(FEB 18) K 4.1(FEB 19)4.0(FEB 18) CO2 25(FEB 19)28(FEB 18) Cl 102(FEB 19)104(FEB 18) Cr 1.0(FEB 19)1.1(FEB 18) BUN 12(FEB 19)11(FEB 18) Glucose Random H 210(FEB 19)H 124(FEB 18) Ca 8.8(FEB 19)L 8.3(FEB 18) PTT 24.3(FEB 18) Medications (18) Active Scheduled Meds (13): 02/20/15 acetylcysteine (acetylcysteine 20% inhalation solution) 400 mg NEB RBID 02/20/15 amLODIPine (Norvasc) 5 mg PO Daily 02/19/15 atenolol 50 mg PO Daily 02/18/15 budesonide-formoterol (Symbicort 80/4.5 inhalation aerosol with adapter) 2 inhalation INHALATION BID 02/18/15 enoxaparin 40 mg SUB-Q [id number] 02/19/15 escitalopram 20 mg PO Daily 02/19/15 gabapentin 1,200 mg PO BID 02/18/15 levofloxacin (Levaquin) 500 mg IVPB [id number] 100 ml/hr 02/20/15 methylPREDNISolone (Solu-MEDROL) 40 mg IVP Q12H 02/18/15 morphine Sulfate 15 mg PO Q12H 02/20/15 nicotine 21 mg TOP Daily 02/18/15 pantoprazole (Protonix) 40 mg PO Before Dinner 02/19/15 tizanidine 4 mg PO Q8H Unscheduled Meds: None PRN Meds (5): 02/18/15 acetaminophen-hydrocodone (acetaminophen-hydrocodone 325 mg-5 mg oral tablet) 2 tab PO Q4H 02/18/15 acetaminophen (Tylenol) 650 mg PO Q6H 02/19/15 levalbuterol 0.63 mg NEB PRN 02/18/15 ondansetron 4 mg IVP Q6H 02/19/15 zolpidem (Ambien) 10 mg PO Bedtime One Time Meds: None Continuous Infusions: None Physical Exam Gen: Pt resting comfortably, A&Ox3, NAD HEENT: PERRLA, EOMI, normocephalic, atraumatic, no thyromegaly, no neck stiffness Chest: RRR, no M/R/G, CTAB, no rhonchi wheezes or rales Abd: Bowel sounds present in 4 quads, soft, ND, NTTP Ext: No cyanosis or edema Skin: No rash noted ASSESSMENT & PLAN 1. Acute COPD 2. HTN 3. Chronic pain 4. Current tobacco use 5. Morbid obesity, BMI 42 Pt doing well, lungs clear. Will order nebulizer for home use
--- OUTSIDE RECORDS SUMMARY | 2018-01-30 07:57 | XMS REPORT | Summary of Care ---
Author Organization Unknown Address Unknown Phone Unavailable Encounter BOY Mercado(LUPE) [id number] Date(s): 02/20/14 - 03/03/14 [facility] [id number] [address], [place] [id number] [place] [address] Discharge Diagnosis: Right sided sciatica Discharge Disposition: Home Physician Attending: Mynor Rivera MD Physician Admitting: Mynor Rivera MD Reason for Visit COPD EXACERBATION, HYPOXIA, DEHYDRATION, PERSISTENT Vital Signs 1 2 3 Most recent to oldest [Reference Range]: 154.94 cm (02/20/14 4:51 PM) Height 98.3 DegF (03/03/14 8:00 AM) 98.1 DegF (03/03/14 5:00 AM) 98.7 DegF (03/03/14 12:00 AM) Temperature Oral [96.4-99.1 DegF] 144 mmHg *HI* (03/03/14 8:00 AM) 150 mmHg *HI* (03/03/14 7:00 AM) 164 mmHg *HI* (03/03/14 5:00 AM) Systolic Blood Pressure [90-140 mmHg] 84 mmHg (03/03/14 8:00 AM) 100 mmHg *HI* (03/03/14 7:00 AM) 90 mmHg (03/03/14 5:00 AM) Diastolic Blood Pressure [60-90 mmHg] 16 BRMIN (03/03/14 8:00 AM) 18 BRMIN (03/03/14 7:26 AM) 18 BRMIN (03/03/14 5:00 AM) Respiratory Rate [14-20 BRMIN] 94 bpm (03/03/14 8:00 AM) 96 bpm (03/03/14 5:00 AM) 100 bpm (03/03/14 12:00 AM) Peripheral Pulse Rate [60-100 bpm] 88.636 kg (02/20/14 4:51 PM) Weight 36.92 m2 (02/20/14 4:51 PM) Body Mass Index Problem List Condition Effective Dates Status Health Status Informant HTN Active (hypertension)(Confi rmed) Allergies, Adverse Reactions, Alerts Substance Reaction Severity Status azithromycin Active Keflex Active penicillins Active statins Active Medications albuterol 0.083% inhalation solution 2.49 mg, 3 mL, Route: NEB, Drug form: SOLN, RQ2H, Dosing Weight 88.636, kg, PRN Wheezing, Priority: Routine, Start date: 02/21/14 9:23:00, Duration: 30 day, Stop date: 03/23/14 9:22:00 Notes: SEE RT DOCUMENTATION (Same as: Arline) Start Date: 02/21/14 Stop Date: 03/03/14 Status: Discontinued albuterol-ipratropium 2.5-0.5 mg inhalation solution 3 mL, Route: NEB, Drug Form: SOLN, Dosing Weight 88.636, kg, ONCE, STAT, Start date: 02/21/14 7:54:00, Stop date: 02/21/14 7:54:00 Notes: (Same as: Josette) Start Date: 02/21/14 Stop Date: 02/21/14 Status: Completed albuterol-ipratropium 2.5-0.5 mg inhalation solution 3 mL, Route: NEB, Dosing Weight 88.636, kg, ONCE, STAT, Start date: 02/21/14 5: 46:00, Stop date: 02/21/14 5:46:00 Start Date: 02/21/14 Stop Date: 02/21/14 Status: Completed albuterol-ipratropium 2.5-0.5 mg inhalation solution 3 mL, Route: NEB, Drug Form: SOLN, Dosing Weight 88.636, kg, RQ6H, Start date: 02/21/14 14:00:00, Duration: 30 day, Stop date: 03/23/14 8:00:00 Notes: (Same as: Josette) Start Date: 02/21/14 Stop Date: 02/21/14 Status: Discontinued aspirin 81 mg tablet, chewable 81 mg=1 tab, PO, Daily, tab, 0 Refill(s) Start Date: 02/21/14 Status: Ordered aspirin 81 mg tablet, chewable 81 mg, 1 tab, Route: PO, Drug form: CHEWTAB, Daily, Dosing Weight 88.636, kg, Start date: 02/21/14 15:00:00, Duration: 30 day, Stop date: 03/23/14 9:00:00 Notes: Take with food. Start Date: 02/21/14 Stop Date: 02/21/14 Status: Discontinued Ativan 0.5 mg, 1 tab, Route: PO, Drug form: TAB, TID, Dosing Weight 88.636, kg, PRN as needed for anxiety, Start date: 02/22/14 15:03:00, Duration: 30 day, Stop date: 03/24/14 15:02:00 Notes: (Same as: Ativan) Start Date: 02/22/14 Stop Date: 03/03/14 Status: Discontinued atropine 0.5 mg, 5 mL, Route: IVP, Drug form: INJ, PRN, PRN Bradycardia, Start date: 10:03:00, Duration: 30 day, Stop date: 03/23/14 9:02:00 Start Date: 02/21/14 Stop Date: 03/03/14 Status: Discontinued clindamycin + Sodium Chloride 0.9% IV 100 mL 600 mg, 4 mL, Route: IVPB, ONCE, Dosing Weight 88.636, kg, Start date: 02/23/14 11:45:00, Stop date: 02/23/14 11:45:00 Notes: (clindamycin 150 mg/1 ml (600 mg/4 ml VL) INJ) (Same As: Cleocin) Start Date: 02/23/14 Stop Date: 02/23/14 Status: Completed Colace 100 mg oral capsule 100 mg=1 cap, PO, BID, 0 Refill(s) Start Date: 02/26/14 Status: Ordered Colace 100 mg oral capsule 100 mg, 1 cap, Route: PO, Drug form: CAP, BID, Dosing Weight 88.636, kg, Start date: 02/26/14 9:00:00, Duration: 30 day, Stop date: 03/27/14 17:00:00 Notes: (Same as: Colace) (Do Not Crush) Start Date: 02/26/14 Stop Date: 03/03/14 Status: Discontinued Dilaudid 0.5 mg, 0.5 mL, Route: IV, Drug form: INJ, Q3H, Dosing Weight 88.636, kg, PRN Pain Score 7-10, Start date: 02/21/14 16:34:00, Stop date: 03/23/14 16:33:00 Start Date: 02/21/14 Stop Date: 03/03/14 Status: Discontinued Dilaudid 2 mg, Route: IV, ONCE, Dosing Weight 88.636, kg, Start date: 02/21/14 0:20:00, Stop date: 02/21/14 0:20:00 Start Date: 02/21/14 Stop Date: 02/21/14 Status: Completed Dilaudid 2 mg, 2 mL, Route: IM, Drug form: INJ, ONCE, Dosing Weight 88.636, kg, Priority : STAT, Start date: 02/20/14 21:53:00, Stop date: 02/20/14 21:53:00 Start Date: 02/20/14 Stop Date: 02/20/14 Status: Completed diltiazem 120 mg, 1 tab, Route: PO, Drug form: TAB, BID, Dosing Weight 88.636, kg, Start date: 02/21/14 17:00:00, Duration: 30 day, Stop date: 03/23/14 9:00:00 Notes: (Same as: Cardizem) Before meals Start Date: 02/21/14 Stop Date: 03/03/14 Status: Discontinued diltiazem 120 mg oral tablet 120 mg=1 tab, PO, BID, 0 Refill(s) Start Date: 02/21/14 Status: Ordered Diltiazem 60mg tab===pt own med Diltiazem 60mg tab===pt own med, 2 tab, Drug form: MISC, Route: PO, BID, Priority: Routine, 02/21/14 18:00:00, Duration: 30 day, Stop date: 03/23/14 17: 00:00 Start Date: 02/21/14 Stop Date: 02/22/14 Status: Discontinued DuoNeb inhalation solution 3 mL, Route: INHALATION, Drug Form: SOLN, Dosing Weight 88.636, kg, RQ4H, Start date: 02/21/14 15:00:00, Duration: 30 day, Stop date: 03/23/14 11:00:00 Notes: (Same as: Duoneb) Start Date: 02/21/14 Stop Date: 03/03/14 Status: Discontinued enoxaparin 40 mg, Route: SUB-Q, Drug form: INJ, [id number], Dosing Weight 88.636, kg, Start date: 02/21/14 19:00:00, Duration: 30 day, Stop date: 03/22/14 19:00:00 Start Date: 02/21/14 Stop Date: 02/21/14 Status: Deleted fentaNYL 50 microgram, 1 mL, Route: IVP, Drug form: INJ, Q5Min, Dosing Weight 88.636, kg , PRN Pain Score 7-10, Start date: 02/23/14 15:53:00, Duration: 2 doses or times , Stop date: Limited # of times Notes: (Same as: Sublimaze) Preservative free. Start Date: 02/23/14 Stop Date: 02/24/14 Status: Discontinued fentaNYL 25 mcg/hr transdermal film, extended release 1 patch, TOP, Q72H, # 10 patch, 0 Refill(s), given to patient Start Date: 03/03/14 Status: Ordered fentaNYL patch 25 mcg/hr 1 patch, Route: TOP, Drug Form: ERFILM, Dosing Weight 88.636, kg, Q72H, Start date: 03/02/14 12:00:00, Duration: 30 day, Stop date: 03/29/14 12:00:00 Notes: (Same as: Duragesic)Check for product integrity. Apply to intact skin "Remove old patch before application of new patch" Start Date: 03/02/14 Stop Date: 03/03/14 Status: Discontinued Flexeril 5 mg, 0.5 tab, Route: PO, Drug form: TAB, BID, Dosing Weight 88.636, kg, PRN as needed for muscle spasm, Start date: 02/21/14 14:01:00, Stop date: 03/23/14 16: 59:00 Notes: (Same As: Flexeril) Start Date: 02/21/14 Stop Date: 03/03/14 Status: Discontinued Flexeril 5 mg oral tablet 5 mg=1 tab, PO, TID, 0 Refill(s) Start Date: 02/21/14 Status: Ordered flumazenil 0.2 mg, 2 mL, Route: IVP, Drug form: INJ, PRN, Dosing Weight 88.636, kg, PRN Benzodiazepine Reversal, Initial dose, Start date: 02/23/14 15:53:00, Duration: 30 day, Stop date: 03/25/14 14:52:00 Notes: (Same as: Romazicon) Start Date: 02/23/14 Stop Date: 02/24/14 Status: Discontinued Fluzone Quadrivalent [id number] 0.5 ml, Route: IM, Drug Form: SUSP, Daily, Start date: 02/24/14 9:00:00, Duration: 1 doses or times, Stop date: 02/24/14 9:00:00 Notes: (Same as: Fluzone Quadrivalent) Start Date: 02/24/14 Stop Date: 02/24/14 Status: Completed gabapentin 300 mg oral capsule 300 mg, 1 cap, Route: PO, Drug form: CAP, TID, Dosing Weight 88.636, kg, Start date: 02/26/14 9:00:00, Duration: 30 day, Stop date: 03/27/14 17:00:00 Notes: (Same as: Neurontin) Start Date: 02/26/14 Stop Date: 03/03/14 Status: Discontinued gabapentin 300 mg oral capsule 300 mg, 1 cap, Route: PO, Drug form: CAP, BID, Dosing Weight 88.636, kg, Start date: 02/21/14 17:00:00, Duration: 30 day, Stop date: 03/23/14 9:00:00 Notes: (Same as: Neurontin) Start Date: 02/21/14 Stop Date: 02/25/14 Status: Discontinued hydrochlorothiazide 0 Refill(s) Start Date: 02/21/14 Stop Date: 03/03/14 Status: Discontinued hydromorphone 0.5 mg, 0.5 mL, Route: IVP, Drug form: INJ, Q5Min, Dosing Weight 88.636, kg, PRN Pain Score 7-10, Start date: 02/23/14 15:53:00, Duration: 4 doses or times, Stop date: Limited # of times Start Date: 02/23/14 Stop Date: 02/24/14 Status: Discontinued influenza virus vaccine, inactivated 0.5 ml, Route: IM, Drug Form: SUSP, Daily, Start date: 02/22/14 9:00:00, Duration: 1 doses or times, Stop date: 02/22/14 9:00:00 Notes: (Same as: Fluzone Quadrivalent) Start Date: 02/22/14 Stop Date: 02/22/14 Status: Completed isosorbide dinitrate 10 mg, 1 tab, Route: PO, Drug form: TAB, TID, Dosing Weight 88.636, kg, Start date: 02/22/14 20:00:00, Duration: 30 day, Stop date: 03/24/14 17:00:00 Notes: (Same as:Isordil) Take on empty stomach/ full glass of water Start Date: 02/22/14 Stop Date: 03/03/14 Status: Discontinued ketorolac 30 mg, Route: IVP, ONCE, Dosing Weight 88.636, kg, Start date: 02/23/14 15:53:00 , Duration: 1 doses or times, Stop date: 02/23/14 15:53:00 Start Date: 02/23/14 Stop Date: 02/23/14 Status: Completed Lactated Ringers Injection IV 1,000 mL 1,000 mL, Rate: 25 ml/hr, Infuse over: 40 hr, Route: IV, Dosing Weight 88.636 kg , Total Volume: 1,000, Start date: 02/23/14 10:38:00, Duration: 30 day, Stop date: 03/25/14 10:37:00 Start Date: 02/23/14 Stop Date: 02/24/14 Status: Discontinued Levaquin 750 mg, 150 mL, Route: IVPB, Drug form: SOLN, ONCE, Dosing Weight 88.636, kg, Start date: 02/21/14 7:52:00, Stop date: 02/21/14 7:52:00 Notes: (Same as:Levaquin) Start Date: 02/21/14 Stop Date: 02/21/14 Status: Completed lidocaine topical patch (5% film) 1 patch, TOP, Daily, 0 Refill(s) Start Date: 02/26/14 Status: Ordered lidocaine topical patch (5% film) 1 patch, Route: TOP, Daily, Drug form: FILM, Start date: 02/22/14 9:00:00, Duration: 30 day, Stop date: 03/23/14 9:00:00 Notes: Apply only once for up to 12 hours in [id number] period (12 hours on and 12 hours off).(Same as: Lidoderm)"Remove old patch before application of new patch" Start Date: 02/22/14 Stop Date: 03/03/14 Status: Discontinued LORazepam 0.5 mg oral tablet 0.5 mg=1 tab, PO, TID, as needed for anxiety, 0 Refill(s) Start Date: 02/26/14 Status: Ordered Lovenox 40 mg, 0.4 mL, Route: SUB-Q, Drug form: INJ, [id number], Dosing Weight 88.636, kg , Start date: 02/21/14 19:00:00, Duration: 30 day, Stop date: 03/22/14 19:00:00 Notes: (Same as: Lovenox) Start Date: 02/21/14 Stop Date: 03/03/14 Status: Discontinued Medrol Dosepak 4 mg Tablet As directed on package instructions, PO, Daily, Take with or without food, # 1 Pack, 0 Refill(s) Special Instructions: Take with or without food Start Date: 02/20/14 Stop Date: 02/26/14 Status: Ordered meloxicam 15 mg, 2 tab, Route: PO, Drug form: TAB, Daily, Dosing Weight 88.636, kg, Start date: 02/22/14 9:00:00, Duration: 30 day, Stop date: 03/23/14 9:00:00 Notes: (Same as: Mobic) Start Date: 02/22/14 Stop Date: 03/03/14 Status: Discontinued meloxicam 15 mg oral tablet 30 mg=2 tab, PO, Daily, 0 Refill(s) Start Date: 02/21/14 Status: Ordered metoprolol 5 mg/5 ml INJ 1 mg, 1 mL, Route: IV, Drug form: INJ, Q5Min, Dosing Weight 88.636, kg, PRN Tachycardia, Start date: 02/23/14 16:42:00, Duration: 30 day, Stop date: 15:41:00 Notes: (Same as: Lopressor)Push over 2 minutes Start Date: 02/23/14 Stop Date: 03/03/14 Status: Discontinued MiraLax 17 gm, 1 pkt, Route: PO, Drug form: PWDR, BID, Dosing Weight 88.636, kg, Start date: 02/26/14 9:00:00, Duration: 30 day, Stop date: 03/27/14 17:00:00 Notes: Dissolve in 8 oz of water or juice.(Same as: Miralax) Start Date: 02/26/14 Stop Date: 03/03/14 Status: Discontinued morphine Sulfate 2 mg, 1 mL, Route: IVP, Drug form: INJ, Q4H, Dosing Weight 88.636, kg, PRN Pain Score 4-6, Priority: STAT, Start date: 02/21/14 9:00:00, Duration: 30 day, Stop date: 03/23/14 8:59:00 Notes: (Same as:MORPhine Sulfate) Start Date: 02/21/14 Stop Date: 03/01/14 Status: Discontinued morphine Sulfate 2 mg, 1 mL, Route: IVP, Drug form: INJ, Q5Min, Dosing Weight 88.636, kg, PRN Pain Score 4-6, Start date: 02/23/14 15:53:00, Duration: 5 doses or times, Stop date: Limited # of times Notes: (Same as:MORPhine Sulfate) Start Date: 02/23/14 Stop Date: 02/24/14 Status: Discontinued naloxone 0.04 mg, 0.1 mL, Route: IVP, Drug form: INJ, Q2MIN, Dosing Weight 88.636, kg, PRN Narcotic Reversal, Start date: 02/23/14 15:53:00, Duration: 8 doses or times , Stop date: Limited # of times Notes: Same as Narcan Start Date: 02/23/14 Stop Date: 02/24/14 Status: Discontinued nicotine 14 mg=1 patch, TOP, Daily, 0 Refill(s) Start Date: 02/26/14 Status: Ordered nicotine 14 mg, 1 patch, Route: TOP, Drug form: ERFILM, Daily, Dosing Weight 88.636, kg, Start date: 02/22/14 15:00:00, Duration: 30 day, Stop date: 03/24/14 9:00:00 Notes: (Same as: Habitrol)"Remove old patch before application of new patch" Start Date: 02/22/14 Stop Date: 03/03/14 Status: Discontinued nitroglycerin 0.4 mg sublingual tablet 0.4 mg, 1 tab, Route: SL, Drug form: TAB, Q5Min, PRN Chest Pain, Start date: 10:03:00, Duration: 30 day, Stop date: 03/23/14 9:02:00 Notes: (Same as:Nitroquick, Nitrostat)"Do Not Crush" Sublingual tablet Start Date: 02/21/14 Stop Date: 03/03/14 Status: Discontinued Humboldt 10/325 oral tablet 1 tab, Route: PO, Drug Form: TAB, Dosing Weight 88.636, kg, Q4H, PRN Pain Score 1-3, Start date: 02/21/14 14:02:00, Duration: 30 day, Stop date: 03/23/14 14:01: 00 Notes: Do not exceed 4gm/day of acetaminophen. (Same as: Humboldt 325/10) Start Date: 02/21/14 Stop Date: 03/01/14 Status: Discontinued Humboldt 10/325 oral tablet 1-2 tab, PO, Q4-6H, Pain, # 15 tab, 0 Refill(s) Start Date: 02/20/14 Stop Date: 03/01/14 Status: Discontinued [place]oldt 10/325 oral tablet 1 tab, Route: PO, Drug Form: TAB, Dosing Weight 88.636, kg, Q6H, PRN Pain, Start date: 02/23/14 15:53:00, Duration: 30 day, Stop date: 03/25/14 15:52:00 Notes: Do not exceed 4gm/day of acetaminophen. (Same as: Humboldt 325/10) Start Date: 02/23/14 Stop Date: 02/24/14 Status: Discontinued Humboldt 5/325 oral tablet 1 tab, Route: PO, Drug Form: TAB, Dosing Weight 88.636, kg, Q6H, PRN Pain Score 1-3, STAT, Start date: 02/21/14 9:23:00, Duration: 30 day, Stop date: 03/23/14 9 :22:00 Notes: (Same as: Humboldt 325/5) Do not exceed 4gm/day of acetaminophen. Start Date: 02/21/14 Stop Date: 03/03/14 Status: Discontinued NS (Bolus) IV 1,000 mL, 1,000 ml/hr, Infuse Over: 1 hr, Route: IV, 1,000, Drug form: INJ, ONCE , Priority: STAT, Dosing Weight 88.636 kg, Start date: 02/21/14 4:56:00, Duration: 1 doses or times, Stop date: 02/21/14 4:56:00 Start Date: 02/21/14 Stop Date: 02/21/14 Status: Completed NS (Bolus) IV 1,000 mL, 1,000 ml/hr, Infuse Over: 1 hr, Route: IV, ONCE, Priority: STAT, Dosing Weight 88.636 kg, Start date: 02/21/14 4:41:00, Duration: 1 doses or times, Stop date: 02/21/14 4:41:00 Start Date: 02/21/14 Stop Date: 02/21/14 Status: Completed NS 1,000 mL 1,000 mL, Rate: 100 ml/hr, Infuse over: 10 hr, Route: IV, Dosing Weight 88.636 kg, Total Volume: 1,000, Start date: 02/21/14 9:23:00, Duration: 30 day, Stop date: 03/23/14 9:22:00 Start Date: 02/21/14 Stop Date: 02/22/14 Status: Discontinued NS 1,000 mL 1,000 mL, Rate: 150 ml/hr, Infuse over: 6.7 hr, Route: IV, Dosing Weight 88.636 kg, Total Volume: 1,000, Start date: 02/21/14 7:54:00, Duration: 30 day, Stop date: 03/23/14 7:53:00 Start Date: 02/21/14 Stop Date: 02/22/14 Status: Discontinued Ofirmev 1,000 mg, 100 mL, Route: IV, Drug form: INJ, ONCE, Dosing Weight 88.636, kg, PRN Pain, for > or=50 kg, Start date: 02/23/14 15:53:00 Notes: Infuse over 15 minutes Do not exceed 4gm/day of acetaminophen Start Date: 02/23/14 Stop Date: 02/24/14 Status: Discontinued ondansetron 4 mg, 2 mL, Route: IVP, Drug form: INJ, ONCE, Dosing Weight 88.636, kg, PRN Nausea & Vomiting, Start date: 02/23/14 15:53:00 Notes: (Same as: Purvi) Start Date: 02/23/14 Stop Date: 02/24/14 Status: Discontinued Percocet 10/325 oral tablet 1 tab, PO, Q4H, for pain, # 90 tab, 0 Refill(s), given to patient Start Date: 03/03/14 Status: Ordered Percocet 10/325 oral tablet 1 tab, Route: PO, Drug Form: TAB, Dosing Weight 88.636, kg, Q4H, PRN Pain Score 4-6, Start date: 03/01/14 16:39:00, Duration: 30 day, Stop date: 03/31/14 16:38: 00 Notes: Do not exceed 4gm/day of acetaminophen. (Same as: Percocet-10/325) Start Date: 03/01/14 Stop Date: 03/03/14 Status: Discontinued pneumococcal 23-valent vaccine 0.5 ml, Route: IM, Drug Form: INJ, Daily, Start date: 02/22/14 9:00:00, Duration : 1 doses or times, Stop date: 02/22/14 9:00:00 Notes: (Same as: Pneumovax 23) Refrigerate Start Date: 02/22/14 Stop Date: 02/22/14 Status: Completed Pneumovax 23 0.5 ml, Route: IM, Drug Form: INJ, Daily, Start date: 02/24/14 9:00:00, Duration : 1 doses or times, Stop date: 02/24/14 9:00:00 Notes: (Same as: Pneumovax 23) Refrigerate Start Date: 02/24/14 Stop Date: 02/24/14 Status: Completed predniSONE 40 mg, 2 tab, Route: PO, Drug form: TAB, Daily, Dosing Weight 88.636, kg, Start date: 02/22/14 9:00:00, Duration: 30 day, Stop date: 03/23/14 9:00:00 Notes: Take with food. Start Date: 02/22/14 Stop Date: 03/03/14 Status: Discontinued Prilosec 20 mg, PO, Daily, 0 Refill(s) Start Date: 02/21/14 Status: Ordered Protonix 40 mg, 1 tab, Route: PO, Drug form: ECTAB, ONCE, Dosing Weight 88.636, kg, Start date: 02/25/14 19:45:00, Stop date: 02/25/14 19:45:00 Notes: Tablet should not be chewed or crushed.(Same as: Protonix) Start Date: 02/25/14 Stop Date: 02/25/14 Status: Completed Protonix 40 mg, 1 tab, Route: PO, Drug form: ECTAB, Before Dinner, Dosing Weight 88.636, kg, Start date: 02/26/14 16:30:00, Duration: 30 day, Stop date: 03/27/14 16:30: 00 Notes: Tablet should not be chewed or crushed.(Same as: Protonix) Start Date: 02/26/14 Stop Date: 03/03/14 Status: Discontinued remove patch 1 patch, Route: TOP, Bedtime, Drug form: ERFILM, Start date: 02/22/14 21:00:00, Duration: 30 day, Stop date: 03/23/14 21:00:00 Notes: Remove patch 12 hours after application each day. Start Date: 02/22/14 Stop Date: 03/03/14 Status: Discontinued remove patch 1 patch, Route: TOP, Drug form: ERFILM, Daily, Start date: 02/23/14 9:00:00, Duration: 30 day, Stop date: 03/23/14 21:00:00 Notes: Remove old patch before application of new patch. Start Date: 02/23/14 Stop Date: 03/03/14 Status: Discontinued Solu-MEDROL 125 mg, 2 mL, Route: IVP, Drug form: INJ, ONCE, Dosing Weight 88.636, kg, Priority: STAT, Start date: 02/21/14 8:38:00, Stop date: 02/21/14 8:38:00 Notes: (Same as:Solu-MEDROL, A-Methapred) Start Date: 02/21/14 Stop Date: 02/21/14 Status: Completed Valium 5 mg, Route: IVP, Drug form: INJ, ONCE, Dosing Weight 88.636, kg, Priority: STAT , Start date: 02/21/14 0:20:00, Stop date: 02/21/14 0:20:00 Start Date: 02/21/14 Stop Date: 02/21/14 Status: Completed Valium 5 mg oral tablet 5 mg=1 tab, PO, QID, Muscle Spasms, # 12 tab, 0 Refill(s) Start Date: 02/20/14 Stop Date: 02/26/14 Status: Discontinued Vicodin 5 mg-300 mg oral tablet 0 Refill(s) Start Date: 02/21/14 Stop Date: 03/03/14 Status: Discontinued Zofran 4 mg, 2 mL, Route: IVP, Drug form: INJ, ONCE, Dosing Weight 88.636, kg, PRN as needed for nausea/vomiting, Priority: STAT, Start date: 02/21/14 9:23:00 Notes: (Same as: Zofran) Start Date: 02/21/14 Stop Date: 03/03/14 Status: Discontinued Zofran 4 mg, Route: IVP, Drug form: INJ, ONCE, Dosing Weight 88.636, kg, Priority: STAT , Start date: 02/21/14 0:27:00, Stop date: 02/21/14 0:27:00 Start Date: 02/21/14 Stop Date: 02/21/14 Status: Completed Zoloft 75 mg, 1.5 tab, Route: PO, Drug form: TAB, Daily, Dosing Weight 88.636, kg, Start date: 02/27/14 9:00:00, Duration: 30 day, Stop date: 03/28/14 9:00:00 Notes: (Same as: Zoloft) Start Date: 02/27/14 Stop Date: 03/03/14 Status: Discontinued Zoloft 50 mg oral tablet 75 mg, PO, Daily, # 100 tab, 0 Refill(s) Start Date: 02/26/14 Stop Date: 03/28/14 Status: Ordered Results ELECTROLYTES 1 2 3 Most recent to oldest [Reference Range]: 139 mEq/L (02/26/14 5:01 AM) 140 mEq/L (02/21/14 2:00 AM) Sodium Lvl [135-145 mEq/L] 4.0 mEq/L (02/26/14 5:01 AM) 3.9 mEq/L (02/21/14 2:00 AM) Potassium Lvl [3.5-5.1 mEq/L] 104 mEq/L (02/26/14 5: AM) 104 mEq/L (02/21/14 2:00 AM) Chloride Lvl [95-109 mEq/L] 29 mEq/L (02/26/14 5: AM) 27 mEq/L (02/21/14 2:00 AM) CO2 [24-32 mEq/L] 10.0 mEq/L (02/26/14 5: AM) 12.9 mEq/L (02/21/14 2:00 AM) AGAP [10.0-20.0 mEq/L] CHEM PANEL 1 2 3 Most recent to oldest [Reference Range]: 0.7 mg/dL (02/26/14 5:01 AM) 0.7 mg/dL (02/21/14 7:26 PM) 0.9 mg/dL (02/21/14 2:00 AM) Creatinine Lvl [0.5-1.4 mg/dL] 100 mL/min/1.73m2 1 *NA* (02/26/14 5:01 AM) 100 mL/min/1.73m2 2 *NA* (02/21/14 7:26 PM) 74 mL/min/1.73m2 3 *NA* (02/21/14 2:00 AM) eGFR 11 mg/dL (02/26/14 5:01 AM) 20 mg/dL (02/21/14 2:00 AM) BUN [7-22 mg/dL] 22 (02/21/14 2:00 AM) B/C Ratio [6-25] 94 mg/dL 4 (02/26/14 5:01 AM) 97 mg/dL 5 (02/21/14 2:00 AM) Glucose Lvl [70-99 mg/dL] 8.0 g/dL (02/21/14 2:00 AM) Total Protein [6.4-8.4 g/dL] 3.9 g/dL (02/21/14 2:00 AM) Albumin Lvl [3.5-5.0 g/dL] 4.1 g/dL *HI* (02/21/14 2:00 AM) Globulin [2.0-4.0 g/dL] 1.0 (02/21/14 2:00 AM) A/G Ratio [0.7-1.6] 8.6 mg/dL (02/26/14 5:01 AM) 9.1 mg/dL (02/21/14 2:00 AM) Calcium Lvl [8.5-10.5 mg/dL] 54 unit/L (02/21/14 2:00 AM) ALT [0-65 unit/L] 52 unit/L *HI* (02/21/14 2:00 AM) AST [0-37 unit/L] 94 unit/L (02/21/14 2:00 AM) Alk Phos [39-136 unit/L] 0.7 mg/dL (02/21/14 2:00 AM) Bili Total [0.2-1.3 mg/dL] 67 unit/L *LOW* (02/21/14 2:00 AM) Lipase Lvl [73-393 unit/L] 0.8 mMol/L (02/21/14 8:47 AM) Lactic Acid Lvl [0.5-2.2 mMol/L] 1Result Comment: The eGFR is calculated using [...] should be multiplied by the estimated BMI. 3Result Comment: The eGFR is calculated using [...] should be multiplied by the estimated BMI. 4Interpretive Data: Adult reference range values reflect the clinical guidelines of the [place] [employer]. 5Interpretive Data: Adult reference range values reflect the clinical guidelines of the [place] [employer]. CARDIAC ENZYMES 1 2 3 Most recent to oldest [Reference Range]: 92 unit/L (02/21/14 2:00 AM) Total CK [12-191 unit/L] 0.7 ng/mL (02/21/14 2:00 AM) CK MB [0.5-3.6 ng/mL] 0.8 (02/21/14 2:00 AM) CK MB Index [0.0-2.5] <0.02 ng/mL (02/21/14 2:00 AM) Troponin-I [0.00-0.40 ng/mL] 25 pg/mL 6 (02/21/14 2:00 AM) BNP [<=100 pg/mL] 6Interpretive Data: Elevated results are in line with increasing severity of congestive heart failure. Minor elevations between 100 and 300 may be seen with Myocardial Ischemia, Sodium retaining drugs, and compensated/treated heart failure. URINE AND STOOL 1 2 3 Most recent to oldest [Reference Range]: Clear (02/21/14 8:07 AM) UA Turbidity [Clear] Yellow *NA* (02/21/14 8:07 AM) UA Color [Yellow] 5.0 (02/21/14 8:07 AM) UA pH [5.0-8.0] >=1.050 *ABN* (02/21/14 8:07 AM) UA Spec Grav [<=1.030] Negative mg/dL *NA* (02/21/14 8:07 AM) UA Glucose [Negative mg/dL] Small *ABN* (02/21/14 8:07 AM) UA Blood [Negative] Negative mg/dL *NA* (02/21/14 8:07 AM) UA Ketones [Negative mg/dL] Negative mg/dL (02/21/14 8:07 AM) UA Protein [Negative mg/dL] <=1.0 mg/dL *NA* (02/21/14 8:07 AM) UA Urobilinogen [0.1-1.0 mg/dL] Negative *NA* (02/21/14 8:07 AM) UA Bili [Negative] Negative (02/21/14 8:07 AM) UA Leuk Est [Negative] Negative (02/21/14 8:07 AM) UA Nitrite [Negative] 1 /HPF (02/21/14 8:07 AM) UA WBC [0-5 /HPF] 15 /HPF *HI* (02/21/14 8:07 AM) UA RBC [0-2 /HPF] Few /LPF *NA* (02/21/14 8:07 AM) UA Sq Epi [Few /LPF] Few /LPF *NA* (02/21/14 8:07 AM) UA Mucus [None Seen /LPF] HEMATOLOGY 1 2 3 Most recent to oldest [Reference Range]: 11.0 K/CMM *HI* (02/28/14 4:31 AM) 10.8 K/CMM *HI* (02/26/14 5:01 AM) 13.7 K/CMM *HI* (02/21/14 2:00 AM) WBC [3.7-10.4 K/CMM] 4.25 M/CMM (02/28/14 4:31 AM) 3.98 M/CMM *LOW* (02/26/14 5:01 AM) 5.27 M/CMM (02/21/14 2:00 AM) RBC [4.20-5.40 M/CMM] 13.7 g/dL (02/28/14 4:31 AM) 12.7 g/dL (02/26/14 5:01 AM) 16.5 g/dL *HI* (02/21/14 2:00 AM) Hgb [12.0-16.0 g/dL] 40.4 % (02/28/14 4:31 AM) 38.0 % (02/26/14 5:01 AM) 49.6 % *HI* (02/21/14 2:00 AM) Hct [36.0-48.0 %] 95.0 fL (02/28/14 4:31 AM) 95.4 fL (02/26/14 5:01 AM) 94.0 fL (02/21/14 2:00 AM) MCV [80.0-98.0 fL] 32.2 pg *HI* (02/28/14 4:31 AM) 31.8 pg *HI* (02/26/14 5:01 AM) 31.4 pg *HI* (02/21/14 2:00 AM) MCH [27.0-31.0 pg] 33.9 g/dL (02/28/14 4:31 AM) 33.3 g/dL (02/26/14 5:01 AM) 33.4 g/dL (02/21/14 2:00 AM) MCHC [32.0-36.0 g/dL] 13.2 % (02/28/14 4:31 AM) 13.2 % (02/26/14 5:01 AM) 13.9 % (02/21/14 2:00 AM) RDW [11.5-14.5 %] 267 K/CMM (02/28/14 4:31 AM) 226 K/CMM (02/26/14 5:01 AM) 274 K/CMM (02/21/14 7:26 PM) Platelet [133-450 K/CMM] 7.3 fL *LOW* (02/28/14 4:31 AM) 7.9 fL (02/26/14 5:01 AM) 7.6 fL (02/21/14 2:00 AM) MPV [7.4-10.4 fL] 63.7 % (02/28/14 4:31 AM) 74.6 % (02/26/14 5:01 AM) 65.4 % (02/21/14 2:00 AM) Segs [45.0-75.0 %] 26.9 % (02/28/14 4:31 AM) 15.6 % *LOW* (02/26/14 5:01 AM) 24.4 % (02/21/14 2:00 AM) Lymphocytes [20.0-40.0 %] 8.3 % (02/28/14 4:31 AM) 8.8 % (02/26/14 5:01 AM) 9.6 % (02/21/14 2:00 AM) Monocytes [2.0-12.0 %] 0.6 % (02/28/14 4:31 AM) 0.7 % (02/26/14 5:01 AM) 0.4 % (02/21/14 2:00 AM) Eosinophils [0.0-4.0 %] 0.5 % (02/28/14 4:31 AM) 0.3 % (02/26/14 5:01 AM) 0.2 % (02/21/14 2:00 AM) Basophils [0.0-1.0 %] 7.0 K/CMM (02/28/14 4:31 AM) 8.0 K/CMM (02/26/14 5:01 AM) 8.9 K/CMM *HI* (02/21/14 2:00 AM) Segs-Bands # [1.5-8.1 K/CMM] 3.0 K/CMM (02/28/14 4:31 AM) 1.7 K/CMM (02/26/14 5:01 AM) 3.3 K/CMM (02/21/14 2:00 AM) Lymphocytes # [1.0-5.5 K/CMM] 0.9 K/CMM *HI* (02/28/14 4:31 AM) 0.9 K/CMM *HI* (02/26/14 5:01 AM) 1.3 K/CMM *HI* (02/21/14 2:00 AM) Monocytes # [0.0-0.8 K/CMM] 0.1 K/CMM (02/28/14 4:31 AM) 0.1 K/CMM (02/26/14 5:01 AM) 0.1 K/CMM (02/21/14 2:00 AM) Eosinophils # [0.0-0.5 K/CMM] 0.1 K/CMM (02/28/14 4:31 AM) Basophils # [0.0-0.2 K/CMM] 29.9 seconds 7 (02/21/14 7:26 PM) PTT [22.9-35.8 seconds] 7Interpretive Data: Heparin Therapeutic Range: 57 - 92 Seconds Medications Administered During Your Visit No data available for this section Immunizations Vaccine Date Refusal Reason influenza virus vaccine, inactivated 02/24/14 Procedures Procedure Type Body Site Date of Procedure Related Diagnosis Cholecystectomy Social History Social History Type Response Smoking Status Current every day smoker, Type: Cigarettes, Lives with someone who smokes, Cigarette Smoking Last 365 Days Yes, Reg Smoking Cessation Counseling No Assessment and Plan Extracted from: Title: Clinical Document Author: Yair Witt MD Date: 03/03/14 Progress Note - Daily [facility] Completed: Feb, 08:31 by Yair Witt MD RM: 204 - 1D, SE [id number], [id number] (: 1960) F Attending: Mynor Rivera MDPhone: Service: Internal Medicine Reason for Admission: COPD EXACERBATION, HYPOXIA, DEHYDRATION, PERSISTENT Working DRG: Medical back problems w/o [facility] Code status: None Specified=FULL CODECurrent diet: Isolation: None Documented Allergies: Keflex, penicillins, azithromycin, statins SUBJECTIVE Patient doing okay. No events. OBJECTIVE (no lab data in past 24 hours) Paula still necessary (Yes/No): Line still necessary (Yes/No): VitalsTmp(F)[id number] 03/03 08:[id number]------ 03/03 07:00-------150/100-------- 03/03 05:[id number]--- 03/03 00:[id number]--- 03/02 20:[id number]--- 24 Hr Tmax: 99.0F (37.22c) at 03/02 15:21Vital Signs are the last 5 in the past 48 hours. DateWt(kg)Wt(lb)Ht(cm)Ht(in)Method 02/20 (initial) 88.64 195.00Estimated 54.94 61.00Stated I&ORecordInOutBal 02/424hr Tot 2 0 2 02/324hr Tot 4 0 4 Medications (25) Active Scheduled Meds (16): 02/21/14 albuterol-ipratropium (DuoNeb inhalation solution) 3 mL INHALATION RQ4H 02/21/14 diltiazem 120 mg PO BID 02/26/14 docusate (Colace 100 mg oral capsule) 100 mg PO BID 02/21/14 enoxaparin (Lovenox) 40 mg SUB-Q [id number] 03/02/14 fentaNYL (fentaNYL patch 25 mcg/hr) 1 patch TOP Q72H 02/26/14 gabapentin (gabapentin 300 mg oral capsule) 300 mg PO TID 02/22/14 isosorbide dinitrate 10 mg PO TID 02/22/14 lidocaine topical (lidocaine topical patch (5% film)) 1 patch TOP Daily 02/22/14 meloxicam 15 mg PO Daily 02/22/14 nicotine 14 mg TOP Daily 02/26/14 pantoprazole (Protonix) 40 mg PO Before Dinner 02/26/14 polyethylene glycol 3350 (MiraLax) 17 gm PO BID 02/22/14 predniSONE 40 mg PO Daily 02/22/14 remove patch 1 patch TOP Bedtime 02/23/14 remove patch 1 patch TOP Daily 02/27/14 sertraline (Zoloft) 75 mg PO Daily Unscheduled Meds: None PRN Meds (9): 02/22/14 LORazepam (Ativan) 0.5 mg PO TID 02/21/14 acetaminophen-hydrocodone ([place] 5/325 oral tablet) 1 tab PO Q6H 03/01/14 acetaminophen-oxycodone (Percocet 10/325 oral tablet) 1 tab PO Q4H 02/21/14 albuterol (albuterol 0.083% inhalation solution) 2.49 mg NEB RQ2H 02/21/14 atropine 0.5 mg IVP PRN 02/21/14 cyclobenzaprine (Flexeril) 5 mg PO BID 02/21/14 hydromorphone (Dilaudid) 0.5 mg IV Q3H 02/23/14 metoprolol (metoprolol 5 mg/5 ml INJ) 1 mg IV Q5Min 02/21/14 nitroglycerin (nitroglycerin 0.4 mg sublingual tablet) 0.4 mg SL Q5Min One Time Meds: None Continuous Infusions: None ASSESSMENT & EXAM Incision C/D/I Sitting up in bed, NAD Neuro exam unchanged PLAN & TREATMENT D/c to SNF today F/u in 2 weeks DIAGNOSES & PROBLEMS Ready 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
--- OUTSIDE RECORDS SUMMARY | 2018-01-30 07:57 | XMS REPORT | Summary of Care ---
Author Organization Unknown Address Unknown Phone Unavailable Encounter HQ Rogelio(LUPE) [id number] Date(s): 04/17/14 - 04/17/14 [facility] [address] [address] [place], [place] [id number] [place] [address] Discharge Diagnosis: Kidney stone Discharge Diagnosis: Hematuria Discharge Disposition: Home Physician Attending: Alphonso Elkins MD Reason for Visit BLOODY URINE Vital Signs 1 2 3 Most recent to oldest [Reference Range]: 99.0 DegF (04/17/14 5:28 AM) 99.1 DegF (04/17/14 2:32 AM) Temperature Oral [96.4-99.1 DegF] 136 mmHg (04/17/14 5:28 AM) 137 mmHg (04/17/14 3:54 AM) 135 mmHg (04/17/14 2:32 AM) Systolic Blood Pressure [90-140 mmHg] 75 mmHg (04/17/14 5:28 AM) 80 mmHg (04/17/14 3:54 AM) 84 mmHg (04/17/14 2:32 AM) Diastolic Blood Pressure [60-90 mmHg] 20 BRMIN (04/17/14 5:28 AM) 20 BRMIN (04/17/14 3:54 AM) 20 BRMIN (04/17/14 2:32 AM) Respiratory Rate [14-20 BRMIN] 90 bpm (04/17/14 5:28 AM) 101 bpm *HI* (04/17/14 3:54 AM) 122 bpm *HI* (04/17/14 2:32 AM) Peripheral Pulse Rate [60-100 bpm] 85.909 kg (04/17/14 2:32 AM) Weight Problem List Condition Effective Dates Status Health [...] No data available for this section Results URINE CHEM Most recent to 1 oldest [Reference Range]: U Preg [Negative] Negative (04/17/14 2:41 AM) URINE AND STOOL Most recent to 1 oldest [Reference Range]: UA Turbidity [Clear] Marked *ABN* (04/17/14 2:41 AM) UA Color Red *NA* (04/17/14 2:41 AM) UA pH [5.0-8.0] 5.0 (04/17/14 2:41 AM) UA Spec Grav 1.029 [<=1.030] (04/17/14 2:41 AM) UA Glucose [Negative Negative mg/dL mg/dL] *NA* (04/17/14 2:41 AM) UA Blood [Negative] Large *ABN* (04/17/14 2:41 AM) UA Ketones [Negative Trace mg/dL mg/dL] *ABN* (04/17/14 2:41 AM) UA Protein [Negative 100 mg/dL mg/dL] *ABN* (04/17/14 2:41 AM) UA Urobilinogen <=1.0 mg/dL [0.1-1.0 mg/dL] *NA* (04/17/14 2:41 AM) UA Bili [Negative] Negative *NA* (04/17/14 2:41 AM) UA Leuk Est Negative [Negative] (04/17/14 2:41 AM) UA Nitrite Negative [Negative] (04/17/14 2:41 AM) UA WBC [0-5 /HPF] 20 /HPF *HI* (04/17/14 2:41 AM) UA RBC [0-2 /HPF] >182 /HPF *HI* (04/17/14 2:41 AM) UA Sq Epi None Seen *NA* (04/17/14 2:41 AM) UA Mucus [None Seen Few /LPF /LPF] *NA* (04/17/14 2:41 AM) UA [place] Yeast [None Many /HPF Seen /HPF] *ABN* (04/17/14 2:41 AM) Medications Administered During Your Visit No data available for this section Immunizations Vaccine Date Refusal Reason influenza virus vaccine, inactivated 02/24/14 Social History Social History Type Response Substance Abuse Use: None Alcohol Use: Past, Type: Beer, Type: Wine, Type: Liquor, Frequency: Daily Smoking Status Current every day smoker, Type: Cigarettes, Lives with someone who smokes, Cigarette Smoking Last 365 Days Yes, Reg Smoking Cessation Counseling Yes
--- OUTSIDE RECORDS SUMMARY | 2018-01-30 07:57 | XMS REPORT | Summary of Care ---
Author Author [facility] Organization [facility] Address Unknown Phone Unavailable Encounter BOY Mercado(FIN) [id number] Date(s): 03/26/17 - 03/27/17 [facility] [address], [address] [place] [phone] Vital Signs No data available for this [...] Adverse Reactions, Alerts Substance Reaction Severity Status penicillins Active azithromycin Active Keflex Active ashley Active statins Active Medications No data available for this section Results No data available for this section Immunizations Given and Recorded Vaccine Date Status [...] Status Current every day smoker; Type: Cigarettes; Lives with someone who smokes; Cigarette Smoking Last 365 Days Yes; Reg Smoking Cessation Counseling Yes; Tobacco use per day: 1; Total pack years: 40; Stopped at age: 53; Assessment and Plan No data available for this section
--- OUTSIDE RECORDS SUMMARY | 2018-01-30 07:58 | XMS REPORT | Summary of Care ---
Author Author [facility] Organization [facility] Address Unknown Phone Unavailable Encounter BOY Mercado(LUPE) [id number] Date(s): 04/16/17 - 04/16/17 [facility] [address], [address] [place] [phone] Discharge Disposition: Home or Self Care Attending Physician: Watson Noyola MD Referring Physician: Watson Noyola MD Vital Signs No data available for [...]
--- OUTSIDE RECORDS SUMMARY | 2018-01-30 07:58 | XMS REPORT | Summary of Care ---
Author Author [facility] Organization [facility] Address Unknown Phone Unavailable Encounter BOY Mercado(LUPE) [id number] Date(s): 11/29/15 - 11/29/15 [facility] [address] [place] [address]- Discharge Disposition: Home or Self Care Attending Physician: Mynor Rivera MD Referring Physician: Wendy Fiore NP Vital Signs No data available for this [...]
--- OUTSIDE RECORDS SUMMARY | 2018-01-30 07:58 | XMS REPORT | Summary of Care ---
Author Author [facility] Organization [facility] Address Unknown Phone Unavailable Encounter BOY Mercado(LUPE) [id number] Date(s): 08/20/17 - 08/20/17 [facility] [address] [place], [address] [phone] Discharge Disposition: Home or Self Care Attending Physician: Watson Noyola MD Referring Physician: Watson Noyola MD Vital Signs Most recent to 1 oldest [Reference Range]: Height 154.94 cm (08/20/17 1:16 PM) Blood Pressure 137/82 mmHg [90-140/60-90 mmHg] (08/20/17 1:16 PM) Peripheral Pulse 83 bpm Rate [60-100 bpm] (08/20/17 1:16 PM) Weight 103.182 kg (08/20/17 1:16 PM) Body Mass Index 42.98 m2 (08/20/17 1:16 PM) Problem List Condition Effective Dates Status Health [...] Procedures Procedure Date Related Diagnosis Body Site Status Cholecystectomy Completed Excision of disc for intervertebral herniated Completed disc, nucleus pulposus Hysterectomy Completed Social History Social History Type Response Substance Abuse Use: None. Alcohol Past, Type Beer, Wine, Liquor. Frequency: Daily. Last use: quit 20 yeas ago. Smoking Status Current every day smoker; Type: Cigarettes; Lives with someone who smokes; Exposure to Tobacco Smoke self; Cigarette Smoking Last 365 Days Yes; Reg Smoking Cessation Counseling No; Tobacco use per day: 1; Total pack years: 40; Stopped at age: 53; Other Tobacco Frequency 1 pk/day; entered on: 07/05/17 Assessment and Plan No data available for this section
--- OUTSIDE RECORDS SUMMARY | 2018-01-30 07:58 | XMS REPORT | Summary of Care ---
Author Author [facility] Organization [facility] Address Unknown Phone Unavailable Encounter BOY Mercado(LUPE) [id number] Date(s): 06/12/17 - 06/12/17 [facility] [address] [place] [address]- Encounter Diagnosis Encounter for screening mammogram for malignant neoplasm of breast (Final) - Spondylosis without myelopathy or radiculopathy, lumbar region (Final) - Other intervertebral disc displacement, lumbar region (Final) - Abdominal aortic aneurysm, without rupture (Final) - Discharge Disposition: Home or Self Care Attending Physician: Watson Noyola MD Referring Physician: Mynor Rivera MD Vital Signs No data available for [...]
--- OUTSIDE RECORDS SUMMARY | 2018-01-30 07:58 | XMS REPORT | Summary of Care ---
Author Author [facility] Organization [facility] Address Unknown Phone Unavailable Encounter BOY Mercado(LUPE) [id number] Date(s): 07/05/17 - 07/05/17 [facility] [address] [place] [address]- Encounter Diagnosis Other spondylosis with radiculopathy, lumbar region (Final) - 07/10/17 Spinal stenosis, lumbosacral region (Final) - Other intervertebral disc displacement, lumbosacral region (Final) - Abdominal aortic aneurysm, without rupture (Final) - Spondylosis without myelopathy or radiculopathy, lumbosacral region (Final) - Discharge Disposition: Home or Self Care Attending Physician: Watson Noyola MD Referring Physician: Watson Noyola MD Vital Signs 1 2 3 Most recent to oldest [Reference Range]: 154.94 cm (07/05/17 8:15 AM) Height 98.0 DegF (07/05/17 8:16 AM) Temperature Oral [96.4-99.1 DegF] 145/71 mmHg *HI* (07/05/17 11:30 AM) 142/72 mmHg *HI* (07/05/17 10:55 AM) 128/78 mmHg (07/05/17 10:30 AM) Blood Pressure [90-140/60-90 mmHg] 20 BRMIN (07/05/17 10:30 AM) 16 BRMIN (07/05/17 10:15 AM) 16 BRMIN (07/05/17 9:22 AM) Respiratory Rate [14-20 BRMIN] 75 bpm (07/05/17 8:16 AM) Peripheral Pulse Rate [60-100 bpm] 100.909 kg (07/05/17 8:15 AM) Weight 42.03 m2 (07/05/17 8:15 AM) Body Mass Index Problem List Condition [...] Keflex Active ashley Active statins Active Medications amitriptyline 50 mg oral tablet 50 mg=1 tab, PO, Bedtime, 0 Refill(s) Start Date: 07/05/17 Status: Ordered Breo Ellipta 100 mcg-25 mcg inhalation powder 1 puff, INHALATION, Daily, 0 Refill(s) Start Date: 07/05/17 Status: Ordered diphenhydrAMINE 25 mg oral tablet 25 mg=1 tab, PO, TID, 0 Refill(s) Start Date: 07/05/17 Status: Ordered Results No data available for this section [...]
--- OUTSIDE RECORDS SUMMARY | 2018-01-30 07:58 | XMS REPORT | Summary of Care ---
Author Author [facility] Organization [facility] Address Unknown Phone Unavailable Encounter BOY Mercado(FIN) [id number] Date(s): 07/25/17 - 07/26/17 [facility] [address] [employer] [facility], [address] [phone] Vital Signs No data available for this [...]
--- OUTSIDE RECORDS SUMMARY | 2018-01-30 07:58 | XMS REPORT | Summary of Care ---
Author Author [facility] Organization [facility] Address Unknown Phone Unavailable Encounter BOY Mercado(FIN) [id number] Date(s): 07/23/17 - 07/24/17 [facility] Neurosurgery [facility] [address] [address] [facility], [address] [phone] Vital Signs No data available for this [...]
--- NOTE | 2018-03-10 07:41 | Operative Report ---
DATE OF PROCEDURE: January 10, 2018 PREOPERATIVE DIAGNOSES: 1. Left nephrolithiasis. 2. Hematuria. 3. Urinary tract infections. POSTOPERATIVE DIAGNOSES: 1. Left nephrolithiasis. 2. Hematuria. 3. Urinary tract infections. 4. Mixed-type urinary incontinence. 5. Grade 1 cystocele. 6. Grade 3 rectocele. 7. Urethral hypermobility. 8. Atrophic (senile) vaginitis. OPERATIONS PERFORMED: Note these are staged procedures as part of a multistage, multistep process of managing the patient's urolithiasis. 1. Left-sided extracorporeal shock wave lithotripsy (separate staged procedure for managing the patient's left nephrolithiasis). 2. Cystourethroscopy with bilateral ureteral catheterization and retrograde ureteropyelography (separate procedure performed for the hematuria and urinary tract infections). 3. Interpretation of retrograde ureteropyelography. 4. Supervision of fluoroscopy, no radiologist present. 5. Pelvic examination under anesthesia. ANESTHESIA: General. COMPLICATIONS: None. CLINICAL SUMMARY: Alannah Hornre is a 57-year-old woman with an 8 mm left mid ureteral stone. She is brought for the above procedures. She is aware of the risks of bleeding, infection, injury to adjacent structures, need for additional procedures, and elected to proceed. OPERATIVE PROCEDURE IN DETAIL: Informed consent was verified. Alannah Horner was properly identified, taken to the operating room, and placed on the lithotripsy table in a supine position. Anesthesia was uneventfully begun. The patient's left nephrolithiasis was localized with biplanar fluoroscopy. Total of 3000 shocks were delivered with some degree of fragmentation noted. The patient was carefully and gently repositioned in dorsal lithotomy position with all pressure points well padded. Her genitalia were prepared and draped in usual sterile fashion. The 22.5-St Lucian cystoscope sheath with the obturator in place was atraumatically inserted into the patient's urethra and the bladder was drained. Panendoscopy of the urinary bladder revealed no suspicious mucosal lesions, no tumors, no stones, and no diverticula. Normally positioned and configured ureteral orifices were identified. Ureteral catheter was used to cannulate each ureter, and retrograde ureteral pyelograms were performed. Interpretation of retrograde ureteropyelography: Contrast was instilled in retrograde fashion bilaterally. On the right side, there were no tumors, no stones, no diverticula, no hydronephrosis. Left side exhibited a normal ureter without any significant hydronephrosis present. There were multiple filling defects located where the stone was fragmented as well as due to blood clots from that procedure. Unobstructed drainage was observed bilaterally fluoroscopically. The patient's bladder was then drained. The cystoscope was withdrawn. Pelvic examination under anesthesia revealed a grade 1 cystocele with urethral hypermobility, a grade 3 rectocele. There was atrophic (senile) vaginitis. No abnormal palpable pelvic masses could be appreciated. There were no obvious mucosal lesions. Patient was then uneventfully reversed from anesthesia and taken to recovery room in stable condition. Explicit postop instructions were given. Will follow the patient up in the office. Job#: [id number]
== END | disposition home or self-care (01) ==
LOC: OR 08:05
PROVIDERS: ATTEND Urology
DX: N20.0 Calculus of kidney (principal); N39.0 Urinary tract infection, site not specified; N39.46 Mixed incontinence; N31.9 Neuromuscular dysfunction of bladder, unspecified; N81.10 Cystocele, unspecified; N81.6 Rectocele; N36.41 Hypermobility of urethra; N95.2 Postmenopausal atrophic vaginitis; F41.9 Anxiety disorder, unspecified; M54.2 Cervicalgia; G62.9 Polyneuropathy, unspecified; J44.9 Chronic obstructive pulmonary disease, unspecified; K21.9 Gastro-esophageal reflux disease without esophagitis; G47.33 Obstructive sleep apnea (adult) (pediatric); I10 Essential (primary) hypertension; I71.4 Abdominal aortic aneurysm, without rupture; E66.01 Morbid (severe) obesity due to excess calories; F17.210 Nicotine dependence, cigarettes, uncomplicated; Z01.810 Encounter for preprocedural cardiovascular examination; Z01.812 Encounter for preprocedural laboratory examination; Z88.0 Allergy status to penicillin; Z88.8 Allergy status to other drugs, medicaments and biological substances; Z91.018 Allergy to other foods; Z79.82 Long term (current) use of aspirin; Z68.42 Body mass index [BMI] 45.0-49.9, adult; Z87.01 Personal history of pneumonia (recurrent); Z86.73 Personal history of transient ischemic attack (TIA), and cerebral infarction without residual deficits
CPT/HCPCS: 36415; 50590; 71046; 74018; 80048; 85025; 93005; C1758; J1100; J1956; J2001; J2250; J2405; Q9967

== ENCOUNTER 2018-01-20 08:16 | Inpatient (IN) | payer MEDICARE ==
[~2018-01-20] VITALS: Ht 180.3 cm; Wt 96.2 kg
[~2018-01-20 08:16] MED LIST changes: -AMITRIPTYLINE H50 MG PO; -CYMBALTA30 MG; -DEXAMETHASONE SOD PHOS INJ 4 MG/ML VIAL ONE; -EPHEDRINE SULFATE INJ 50 MG/10 ML SYR ONE; -ESCITALOPRAM OX20 MG PO; -FENTANYL CITRATE/PF 100MCG/2 ML INJ ONE; -FLOMAX0.4 MG PO; -IOPAMIDOL 300MG/ML 50ML INFUS..BTL IV ONE; -LEVOFLOXACIN 500MG/D5W 100ML 100 ML IV ONE; -LIDOCAINE HCL 2% LOCAL INJ 5 ML SDV VIAL INJ ONE; -MELOXICAM7.5 MG PO; -MIDAZOLAM HCL 2 MG/2 ML VIAL ONE; -ONDANSETRON HCL INJ 2 MG/ML VIAL ONE; -PROPOFOL IV EMULSION 10 MG/ML 20 ML VIAL ONE; -SEVOFLURANE INHAL SOLN 250 ML PEN BTL ONE
[2018-01-20] MEDS ORDERED: MORPHINE SULFATE INJ 4 MG/ML INJ IV ONE (10:30)
[2018-01-20 10:36] LABS: BILIRUBIN,URINE NEGATIVE (NEGATIVE); CLARITY,URINE SL CLOUDY (CLEAR); COLOR,URINE YELLOW (YELLOW); KETONES,URINE NEGATIVE (NEGATIVE); LEUKOCYTE ESTERASE ,URINE NEGATIVE (NEGATIVE); NITRITE,URINE NEGATIVE (NEGATIVE); PROTEIN,URINE DIPSTICK TRACE (NEGATIVE); URINE UROBILINOGEN 0.2 mg/dL (0.2 - 1)
[2018-01-20 10:46] LABS: BASOPHILS # (AUTO) 0.1 (0.0-0.1); BASOPHILS % 0.6 % (0.0-1.0); EOSINOPHILS # (AUTO) 0.2 (0.0-0.4); EOSINOPHILS % 2.2 % (0.0-6.0); HEMATOCRIT 48.2 % (34.2-44.1); HEMOGLOBIN 16.4 g/dL (12.0-16.0); LYMPHOCYTES # (AUTO) 3.3 (1.0-3.2); LYMPHOCYTES % 31.1 % (18.0-39.1); MEAN CORPUSCULAR HEMOGLOBIN 30.7 pg (28-32); MEAN CORPUSCULAR VOLUME 90.3 fL (81-99); MONOCYTES # (AUTO) 0.8 (0.2-0.8); MONOCYTES % 7.7 % (4.4-11.3); NEUTROPHILS # (AUTO) 6.2 (2.1-6.9); NEUTROPHILS % 58.2 % (38.7-80.0); PLATELET COUNT 258 x10e3/uL (140-360); RED BLOOD COUNT 5.34 x10e6/uL (3.6-5.1); RED CELL DISTRIBUTION WIDTH 14.5 % (11.7-14.4)
[2018-01-20 10:58] LABS: BACTERIA,URINE FEW /HPF; EPITHELIAL CELLS,URINE FEW /LPF; RBC,URINE 21-50 /HPF (0-5)
[2018-01-20 11:03] LABS: ALBUMIN 3.6 g/dL (3.5-5.0); ALBUMIN/GLOBULIN RATIO 0.9 (0.8-2.0); ANION GAP 16.1 mmol/L (8-16); CALCIUM 9.5 mg/dL (8.4-10.2); CREATININE, SERUM 1.03 mg/dL (0.57-1.11); POTASSIUM 4.1 mmol/L (3.5-5.1)
[2018-01-20] MEDS ORDERED: LIDOCAINE JELLY 2% 10ML URO-JET TOP ONE (11:30)
--- NOTE | 2018-01-20 11:33 | Diagnostic Imaging Report ---
EXAMINATION: CT of the abdomen and pelvis without contrast. TECHNIQUE: Spiral CT images of the abdomen and pelvis were performed from the lung bases to the lesser trochanters. No intravenous contrast was given per renal stone protocol. Coronal and sagittal reformatted images were obtained. COMPARISON: None. CLINICAL HISTORY:Lower back pain, reports history of lithotripsy 10 days prior DISCUSSION: ABSENCE OF INTRAVENOUS CONTRAST DECREASES SENSITIVITY FOR DETECTION OF FOCAL LESIONS AND VASCULAR PATHOLOGY. ABDOMEN/PELVIS: LOWER THORAX: Unremarkable. HEPATOBILIARY:No focal hepatic lesion or intrahepatic biliary ductal dilatation. The gallbladder has been removed. SPLEEN: No splenomegaly. PANCREAS: No focal masses or ductal dilatation. ADRENALS: No nodules. KIDNEYS/URETERS:5 mm and adjacent punctate calculi in the left lower pole collecting system. Mild left hydronephrosis and hydroureter with 2 adjacent 3-4 mm stone fragments in the distal ureter (series 3 image 141) additional 3 mm calcification at the ureterovesical junction (series 3 image 147). No right-sided hydronephrosis. No right renal, ureteral, or bladder calculi. PELVIC ORGANS/BLADDER: The urinary bladder is collapsed around a Paula catheter. The uterus is not identified and has presumably been removed. No adnexal mass. PERITONEUM/RETROPERITONEUM: No free air or fluid. LYMPH NODES: No pelvic sidewall, retroperitoneal, or mesenteric lymphadenopathy. VESSELS: There is atherosclerotic calcification of the abdominal aorta, major branch vessels, and iliac arterial system. Fusiform aneurysmal dilatation of the infrarenal abdominal aorta to a maximum of 3.2 cm. Otherwise limited evaluation in the absence of intravenous contrast. GI TRACT: The large bowel shows no distention or wall thickening. The sigmoid colon and rectum are collapsed and poorly evaluated. The appendix is normal. Prominence of the gastric rugal folds as a consequence of underdistention. No small bowel dilatation to suggest obstruction. BONES AND SOFT TISSUES: Calcified soft tissue injection granulomata in the subcutaneous fat of the right gluteal region. No osseous destructive lesion. Mild multilevel degenerative facet arthropathy of the lumbar spine. IMPRESSION: Mild left hydroureteronephrosis secondary to small (3-4 mm) calculi at the ureterovesical junction and within the distal ureter. Additional nonobstructing calculi in the left lower pole collecting system measuring up to 5 mm. Fusiform infrarenal abdominal aortic aneurysm measuring 3.2 cm in greatest diameter. Signed by: Dr. Alexander Handy M.D. on 01/20/2018 11:27 AM
[2018-01-20] MEDS ORDERED: ONDANSETRON HCL INJ 2 MG/ML VIAL IV PRN (14:00)
[2018-01-20] MEDS ORDERED: MORPHINE SULFATE 2 MG/ML SYR IV PRN (14:00)
[2018-01-20] MEDS: SODIUM CHLORIDE 0.9% 1000ML 1,000 ML IV SCH ×2 (14:27→21:55)
[2018-01-20] MEDS: HYDROMORPHONE 2MG/ML 2 MG/ML ML IV PRN ×3 (14:29→21:46)
[2018-01-20] MEDS: CEFTRIAXONE SOD 1 GM VIAL IV SCH (14:32)
[2018-01-20 16:42] VITALS: BP 145/67
[2018-01-20] MEDS ORDERED: ESCITALOPRAM OX20 MG PO (17:28)
[2018-01-20] MEDS ORDERED: FLOMAX0.4 MG PO (17:28)
[2018-01-20] MEDS ORDERED: AMITRIPTYLINE H50 MG PO (17:28)
[2018-01-20] MEDS ORDERED: CYMBALTA30 MG (17:31)
[2018-01-20] MEDS ORDERED: MELOXICAM7.5 MG PO (17:31)
[2018-01-20 17:50] VITALS: BP 145/67
[2018-01-20 20:08] VITALS: BP 108/65
[2018-01-20 22:04] VITALS: BP 108/65
[2018-01-21] VITALS (7 sets, daily range): BP systolic 125–153; BP diastolic 56–77
[2018-01-21] MEDS: CEFTRIAXONE SOD 1 GM VIAL IV SCH ×2 (01:59→14:36)
[2018-01-21] MEDS: SODIUM CHLORIDE 0.9% 1000ML 1,000 ML IV SCH ×2 (05:24→14:00)
[2018-01-21 05:39] LABS: BASOPHILS % 0.5 % (0.0-1.0); EOSINOPHILS # (AUTO) 0.2 (0.0-0.4); HEMATOCRIT 45.9 % (34.2-44.1); HEMOGLOBIN 15.2 g/dL (12.0-16.0); LYMPHOCYTES # (AUTO) 1.6 (1.0-3.2); MEAN CORPUSCULAR HEMOGLOBIN 30.6 pg (28-32); MEAN CORPUSCULAR HGB CONC 33.1 g/dL (31-35); MEAN CORPUSCULAR VOLUME 92.4 fL (81-99); MONOCYTES # (AUTO) 0.5 (0.2-0.8); MONOCYTES % 6.6 % (4.4-11.3); NEUTROPHILS # (AUTO) 5.3 (2.1-6.9); NEUTROPHILS % 68.8 % (38.7-80.0); PLATELET COUNT 236 x10e3/uL (140-360); RED BLOOD COUNT 4.97 x10e6/uL (3.6-5.1); RED CELL DISTRIBUTION WIDTH 14.3 % (11.7-14.4)
[2018-01-21 05:59] LABS: ANION GAP 12.4 mmol/L (8-16); BLOOD UREA NITROGEN 8 mg/dL (7-26); BUN/CREATININE RATIO 11 (6-25); CALCIUM 8.4 mg/dL (8.4-10.2); CARBON DIOXIDE 26 mmol/L (22-29); CHLORIDE 106 mmol/L (98-107); EST GLOMERULAR FILTRATION RATE > 60 ML/MIN (60-); GLUCOSE 106 mg/dL (74-118); POTASSIUM 4.4 mmol/L (3.5-5.1); SODIUM 140 mmol/L (136-145)
[2018-01-21] MEDS: HYDROMORPHONE 2MG/ML 2 MG/ML ML IV PRN ×4 (09:15→22:23)
[2018-01-21] MEDS ORDERED: HYDROCODONE/APAP 10MG-325MG TAB PO PRN (12:30)
[2018-01-21] MEDS ORDERED: MELOXICAM 7.5 MG TAB PO PRN (12:30)
[2018-01-21] MEDS ORDERED: MORPHINE SULFATE 30 MG TAB ER PO SCH (12:30)
[2018-01-21] MEDS ORDERED: TIZANIDINE HCL 4 MG TAB PO PRN (12:30)
[2018-01-21] MEDS: AMLODIPINE BESYLATE 5 MG TAB PO SCH (13:00)
[2018-01-21] MEDS: ATENOLOL 50 MG TAB PO SCH (13:00)
[2018-01-21] MEDS: ESCITALOPRAM OXALATE 10 MG TAB PO SCH (14:00)
[2018-01-21] MEDS: TAMSULOSIN HCL 0.4 MG CAP PO SCH (14:00)
[2018-01-21] MEDS: PANTOPRAZOLE SOD 40 MG TABEC PO SCH (14:00)
[2018-01-21] MEDS: ASPIRIN 81 MG CHEW TAB PO SCH (14:00)
[2018-01-21] MEDS: DULOXETINE HCL 30 MG DELAYED RELEASE PO SCH (14:00)
[2018-01-21] MEDS: AMITRIPTYLINE HCL 25 MG TAB PO SCH (20:09)
[2018-01-21] MEDS: MORPHINE SULFATE 15MG TAB CR PO SCH (20:09)
[2018-01-22] VITALS (7 sets, daily range): BP systolic 143–154; BP diastolic 67–84
[2018-01-22] MEDS: SODIUM CHLORIDE 0.9% 1000ML 1,000 ML IV SCH ×2 (01:12→14:19)
[2018-01-22] MEDS: HYDROMORPHONE 2MG/ML 2 MG/ML ML IV PRN ×4 (01:39→23:01)
[2018-01-22] MEDS: CEFTRIAXONE SOD 1 GM VIAL IV SCH ×2 (03:04→14:19)
[2018-01-22] MEDS: MORPHINE SULFATE 15MG TAB CR PO SCH ×2 (08:17→21:00)
[2018-01-22] MEDS: ATENOLOL 50 MG TAB PO SCH (08:17)
[2018-01-22] MEDS: DULOXETINE HCL 30 MG DELAYED RELEASE PO SCH (08:17)
[2018-01-22] MEDS: TAMSULOSIN HCL 0.4 MG CAP PO SCH (08:17)
[2018-01-22] MEDS: ASPIRIN 81 MG CHEW TAB PO SCH (08:17)
[2018-01-22] MEDS: ESCITALOPRAM OXALATE 10 MG TAB PO SCH (08:17)
[2018-01-22] MEDS: AMLODIPINE BESYLATE 5 MG TAB PO SCH (08:17)
[2018-01-22] MEDS: PANTOPRAZOLE SOD 40 MG TABEC PO SCH (08:17)
[2018-01-22] MEDS ORDERED: NON-FORMULARY MEDICATION (Escitalopram Oxalate 20 MG) PO SCH (09:00)
[2018-01-22] MEDS ORDERED: NON-FORMULARY MEDICATION (Amitriptyline Hcl 50 MG) PO SCH (09:00)
[2018-01-22] MEDS ORDERED: MAGNESIUM HYDROXIDE 30 ML UDC PO PRN (09:15)
[2018-01-22] MEDS: MORPHINE SULFATE INJ 4 MG/ML INJ IV PRN ×2 (09:21→21:18)
[2018-01-22] MEDS: SENNOSIDES 8.6 MG TAB PO SCH ×2 (09:22→16:31)
[2018-01-22] MEDS: AMITRIPTYLINE HCL 25 MG TAB PO SCH (21:00)
[2018-01-23] VITALS: BP 135/74
[2018-01-23] MEDS: CEFTRIAXONE SOD 1 GM VIAL IV SCH (02:13)
[2018-01-23] MEDS: HYDROMORPHONE 2MG/ML 2 MG/ML ML IV PRN ×2 (02:25→06:24)
[2018-01-23 04:00] VITALS: BP 141/69
[2018-01-23] MEDS: SODIUM CHLORIDE 0.9% 1000ML 1,000 ML IV SCH (04:53)
[2018-01-23] MEDS: PANTOPRAZOLE SOD 40 MG TABEC PO SCH (07:30)
[2018-01-23 07:42] VITALS: BP 130/73
[2018-01-23] MEDS: DULOXETINE HCL 30 MG DELAYED RELEASE PO SCH (09:00)
[2018-01-23] MEDS: TAMSULOSIN HCL 0.4 MG CAP PO SCH (09:00)
[2018-01-23] MEDS: MORPHINE SULFATE 15MG TAB CR PO SCH (09:00)
[2018-01-23] MEDS: SENNOSIDES 8.6 MG TAB PO SCH (09:00)
[2018-01-23] MEDS: ESCITALOPRAM OXALATE 10 MG TAB PO SCH (09:00)
[2018-01-23] MEDS: AMLODIPINE BESYLATE 5 MG TAB PO SCH (09:00)
[2018-01-23] MEDS: ATENOLOL 50 MG TAB PO SCH (09:00)
--- NOTE | 2018-01-23 09:31 | Discharge Summary ---
FINAL DIAGNOSES 1. Left flank pain associated with hydronephrosis associated with obstructive kidney stone. 2. Status post recent stone management with lithotripsy. 3. Left renal colic, resolved. SUMMARY: A 57-year-old female came in on January 20, 2018, for significant left flank pain. The patient had left hydronephrosis secondary to multiple stone obstruction after lithotripsy. The patient received pain management. She is doing much better now. She did receive IV fluids. Repeat lab work showing significant improvement. Hematuria has resolved. The patient passed 2 stones yesterday. Patient is stable. She will go home today. Follow up with Dr. Darius Chin as an outpatient. Patient is stable and will resume home medications. Discharge home today. Job#: [id number] ANNAMARIE
[2018-01-23 09:35] VITALS: BP 130/73
[2018-01-23 11:14] VITALS: BP 147/80
== END 2018-01-23 11:20 | disposition home or self-care (01) | DRG 694 ==
LOC: ER 08:16 → ERHOLD 13:54 → MED/SURG3 16:08 → OBSVTOIN 01-22 09:03
PROVIDERS: ADMIT Internal Medicine; ATTEND Internal Medicine
DX: N13.2 Hydronephrosis with renal and ureteral calculous obstruction (principal); J44.9 Chronic obstructive pulmonary disease, unspecified; K21.9 Gastro-esophageal reflux disease without esophagitis; M19.90 Unspecified osteoarthritis, unspecified site; F32.9 Major depressive disorder, single episode, unspecified; I10 Essential (primary) hypertension; I71.4 Abdominal aortic aneurysm, without rupture; F17.200 Nicotine dependence, unspecified, uncomplicated; Z79.82 Long term (current) use of aspirin; Z88.1 Allergy status to other antibiotic agents; Z88.0 Allergy status to penicillin; Z88.8 Allergy status to other drugs, medicaments and biological substances
CPT/HCPCS: 36415; 51700; 74176; 80048; 80053; 81001; 85025; 87086; 88300; 99284; G0378; J0696; J2270; J2405; J7030

== ENCOUNTER → 2018-07-04 | Day surgery (SDC) | payer MEDICARE ==
[2018-07-01 14:12] LABS: BASOPHILS # (AUTO) 0.1 (0.0-0.1); BASOPHILS % 0.6 % (0.0-1.0); EOSINOPHILS # (AUTO) 0.3 (0.0-0.4); HEMATOCRIT 47.7 % (34.2-44.1); LYMPHOCYTES # (AUTO) 3.8 (1.0-3.2); LYMPHOCYTES % 35.8 % (18.0-39.1); MEAN CORPUSCULAR HEMOGLOBIN 31.3 pg (28-32); MEAN CORPUSCULAR HGB CONC 33.5 g/dL (31-35); MEAN CORPUSCULAR VOLUME 93.2 fL (81-99); MONOCYTES # (AUTO) 0.7 (0.2-0.8); MONOCYTES % 6.9 % (4.4-11.3); NEUTROPHILS # (AUTO) 5.7 (2.1-6.9); NEUTROPHILS % 53.4 % (38.7-80.0); PLATELET COUNT 275 x10e3/uL (140-360); RED BLOOD COUNT 5.12 x10e6/uL (3.6-5.1); RED CELL DISTRIBUTION WIDTH 13.3 % (11.7-14.4)
[~2018-07-04] MED LIST changes: +AMITRIPTYLINE H50 MG PO; +BREO ELLIPTA INH; +BUPIVACAINE 0.5%/EPI 30 ML SDV INJ ONE; +CLINDAMYCIN 300 MG IV ONE; +CYMBALTA30 MG; +DETROL LA4 MG PO; +DEXAMETHASONE SOD PHOS INJ 4 MG/ML VIAL ONE; +ESCITALOPRAM OX20 MG PO; +ESMOLOL HCL 100MG/10ML 10 MG/ML VIAL ONE; +FENTANYL CITRATE/PF 100MCG/2 ML INJ ONE; +FLOMAX0.4 MG PO; +GENTAMICIN 80MG/NS 100 ML 200 ML IV ONE; +LIDOCAINE 2% /EPINEPHRINE 20 ML SDV INJ ONE; +LIDOCAINE HCL 2% LOCAL INJ 5 ML SDV VIAL INJ ONE; +MELOXICAM7.5 MG PO; +MIDAZOLAM HCL 2 MG/2 ML VIAL ONE; +ONDANSETRON HCL INJ 2MG/ML 2ML 2 MG/ML VIAL ONE; +PROPOFOL IV EMULSION 10 MG/ML 20 ML VIAL ONE; +ROCURONIUM BROMIDE 10 MG/ML 5ML VIAL ONE; +SEVOFLURANE INHAL SOLN 250 ML PEN BTL ONE; +SUCCINYLCHOLINE 200 MG/10 ML SYR ONE; +VENTOLIN HFA18 GM INH
--- OUTSIDE RECORDS SUMMARY | 2018-07-04 10:32 | XMS REPORT | Clinical Summary ---
Author Author [facility] Organization [facility] Address Unknown Phone Unavailable Care Team Providers Care Public Health Advisor Name Role Phone Mynor Rivera MD PCP Allergies Comments Active Allergy Reactions Severity Noted Date Azithromycin Anaphylaxis High 12/04/2016 Penicillins 12/04/2016 [id number]-Cbu Reductase 12/04/2016 Inhibitors Medications End Date Status Medication Sig Dispensed Refills Start Date Active atenolol (TENORMIN) 50 MG Take 50 mg by 0 tablet mouth nightly. Active tiZANidine (ZANAFLEX) 4 Take 4 mg by 0 MG tablet mouth every 6 (six) hours as needed for muscle spasms. Active morPHINE (MS CONTIN) 15 Take 15 mg by 0 MG 12 hr tablet mouth 2 (two) times a day. Active amitriptyline (ELAVIL) 50 Take 50 mg by 0 MG tablet mouth nightly. Active escitalopram (LEXAPRO) 20 Take 20 mg by 0 MG tablet mouth nightly. Active amLODIPine (NORVASC) 10 Take 10 mg by 0 mg tablet mouth nightly. Active HYDROcodone-acetaminophen Take 1 tablet 0 (NORCO) 10-325 mg per by mouth tablet every 12 (twelve) hours as needed for moderate pain. Active gabapentin (NEURONTIN) Take 600 mg 0 600 mg tablet by mouth 4 (four) times a day. Active fluticasone-vilanterol Inhale 1 0 (BREO ELLIPTA) 100-25 inhalations mcg/dose blister with nightly. device powder for inhalation Active diazePAM (VALIUM) 10 MG Take 10 mg by 0 tablet mouth every 6 (six) hours as needed for anxiety. Active esomeprazole (NexIUM) 20 Take 40 mg by 0 MG capsule mouth daily before breakfast. Active aspirin (CHILD ASPIRIN) Chew 81 mg 0 81 mg chewable tablet nightly. 12/09/2017 acetaminophen (TYLENOL Take 2 20 tablet 0 EXTRA STRENGTH) 500 MG tablets 8 tablet (1,000 mg total) by mouth every 6 (six) hours as needed for moderate pain for up to 10 days. 12/02/2017 phenazopyridine Take 1 tablet 6 tablet 0 (PYRIDIUM) 200 MG tablet (200 mg 8 total) by mouth 3 (three) times a day for 3 days. 12/07/2017 ciprofloxacin (CIPRO) 500 Take 1 tablet 14 tablet 0 MG tablet (500 mg 8 total) by mouth 2 (two) times a day for 7 days. 11/30/2017 fluconazole (DIFLUCAN) Take 1 tablet 1 tablet 0 200 MG tablet (200 mg 8 total) by mouth once for 1 dose. Active Problems Problem Noted Date COPD exacerbation 12/04/2016 Encounters Care Team Description Date Type Specialty Carlos Quigley, Aidan Moraes MD Paula catheter problem, initial encounter (Primary Dx); Acute lower UTI; Candidal vaginitis 11/29/2017 Emergency Emergency Medicine - 11/30/2017 after 07/03/2017 Social History Date Tobacco Use Types Packs/Day Years Used Current Every Day Smoker Cigarettes 1 Alcohol Use Drinks/Week oz/Week Comments Yes quit Sex Assigned at Date Recorded Not on file Industry Job Start Date Occupation Not on file Not on file Not on file Travel End Travel History Travel Start No recent travel history available. Last Filed Vital Signs Time Taken Vital Sign Reading 11/30/2017 1:50 AM CDT Blood Pressure 137/66 11/30/2017 7:14 AM CDT Pulse 67 11/30/2017 7:14 AM CDT Temperature 36.6 C (97.8 F) 11/30/2017 7:14 AM CDT Respiratory Rate 16 11/30/2017 7:14 AM CDT Oxygen Saturation 97% - Inhaled Oxygen - Concentration 11/29/2017 11:40 PM CDT Weight 98.4 kg (217 lb) 11/29/2017 11:40 PM CDT Height 154.9 cm (5' 1") 11/29/2017 11:40 PM CDT Body Mass Index 41 Plan of Treatment Health Maintenance Due Date Last Done Comments CERVICAL CANCER SCREENING 1982 BREAST CANCER SCREENING 09/11/2011 COLON CANCER SCREENING 09/11/2011 SHINGLES VACCINES (#1) 09/11/2011 INFLUENZA VACCINE 11/27/2017 Procedures Comments Procedure Name Priority Date/Time Associated Diagnosis URINALYSIS SCREEN AND Routine 11/30/2017 MICROSCOPY, WITH REFLEX 12:30 AM CDT TO CULTURE GRAM STAIN Routine 11/30/2017 12:30 AM CDT URINE CULTURE Routine 11/30/2017 12:30 AM CDT after 07/03/2017 Results * Urinalysis screen and microscopy, with reflex to culture (11/30/2017 12:30 AM CDT) Specimen site Clean catch [facility] DEPARTMENT OF PATHOLOGY AND GENOMIC MEDICINE Color, UA Yellow [facility] DEPARTMENT OF PATHOLOGY AND GENOMIC MEDICINE Appearance, UA Cloudy [facility] DEPARTMENT OF PATHOLOGY AND GENOMIC MEDICINE Specific gravity, UA 1.014 1.001 - 1.035 [facility] DEPARTMENT OF PATHOLOGY AND GENOMIC MEDICINE pH, UA 5.0 5.0 - 8.5 [facility] DEPARTMENT OF PATHOLOGY AND GENOMIC MEDICINE Protein, UA Negative Negative [facility] DEPARTMENT OF PATHOLOGY AND GENOMIC MEDICINE Glucose, UA 3+ (A) Negative [facility] DEPARTMENT OF PATHOLOGY AND GENOMIC MEDICINE Ketones, UA Negative Negative [facility] DEPARTMENT OF PATHOLOGY AND GENOMIC MEDICINE Bilirubin, UA Negative Negative [facility] DEPARTMENT OF PATHOLOGY AND GENOMIC MEDICINE Blood, UA Large (A) Negative [facility] DEPARTMENT OF PATHOLOGY AND GENOMIC MEDICINE Nitrite, UA Negative Negative [facility] DEPARTMENT OF PATHOLOGY AND GENOMIC MEDICINE Urobilinogen, UA <2.0 <2.0 [facility] DEPARTMENT OF PATHOLOGY AND GENOMIC MEDICINE Leukocyte esterase, UA Trace (A) Negative [facility] DEPARTMENT OF PATHOLOGY AND GENOMIC MEDICINE WBC, UA 11-20 (H) 0 - 4 /HPF [facility] DEPARTMENT OF PATHOLOGY AND GENOMIC MEDICINE RBC, UA 61-80 (H) 0 - 5 /HPF [facility] DEPARTMENT OF PATHOLOGY AND GENOMIC MEDICINE Bacteria, UA trace None seen [facility] DEPARTMENT OF PATHOLOGY AND GENOMIC MEDICINE Yeast, UA None seen [facility] DEPARTMENT OF PATHOLOGY AND GENOMIC MEDICINE Yeast with pseudohyphae, None seen [facility] DEPARTMENT [facility] PATHOLOGY AND GENOMIC MEDICINE Specimen Urine Performing Organization Address City/State/Zipcode Phone Number [facility] [address] [place] [address] PATHOLOGY AND GENOMIC MEDICINE * Gram stain (11/30/2017 12:30 AM CDT) Gram stain result No WBC's or organisms seen. [facility] DEPARTMENT OF Comment: PATHOLOGY AND Specimen Information GENOMIC MEDICINE Specimen Source: Urine Specimen Site: Clean catch Specimen Urine Performing Organization Address City/State/Zipcode Phone Number [facility] DEPARTMENT OF [address] [place] [phone] PATHOLOGY AND GENOMIC MEDICINE * Urine culture (11/30/2017 12:30 AM CDT) Urine culture isolate No growth after 2 days. [facility] DEPARTMENT OF Comment: PATHOLOGY AND Specimen Information GENOMIC MEDICINE Specimen Source: Urine Specimen Site: Clean catch Specimen Urine Performing Organization Address City/[facility]/Zipcode Phone Number [facility] DEPARTMENT OF [address] [place] [phone] PATHOLOGY AND GENOMIC MEDICINE after 07/03/2017 Insurance Payer Benefit Subscriber ID Type Phone Address Plan / Group MEDICARE MEDICARE xxxxxxxxxx Medicare [place], [place] PART A AND B (Home) [place] [address] Advance Directives Patient has advance care planning documents on file. For more information, vinicio benson contact: Titus [address] [place] [address]
--- OUTSIDE RECORDS SUMMARY | 2018-07-04 10:35 | XMS REPORT | Continuity of Care Document ---
Author Author [facility] Interface Address Unknown Phone Unavailable Problems Problem Status Onset Date Classification Date Reported Comments Source DX: I71.4=ABDOMINAL AORTIC ANEURYSM, WIT Active 03/14/2018 [facility] Pain in left finger 12/14/2017 06/25/2018 [facility] M79.645 Active 12/06/2017 [facility] Retention of urine, unspecified 12/05/2017 06/18/2018 [facility] COPD exacerbation 11/29/2017 06/18/2018 [facility] Retention of urine 11/29/2017 06/18/2018 [facility] CATHETER CHECK Active 11/29/2017 [facility] Acute urinary retention 11/28/2017 06/17/2018 [facility] UNABLE TO URINATE Active 11/28/2017 [facility] Other spondylosis with radiculopathy, lumbar region 07/11/2017 05/29/2018 [facility] Encounter for screening mammogram for malignant neoplasm of breast 06/18/2017 09/18/2017 [facility] M47.816 M54.16 (PT HAS AORTIC ANEURYSM Active 04/19/2017 [facility] Z12.31 Active 04/19/2017 [facility] I71.4 Active 11/01/2016 [facility] LUMBAR SPONDYLOSIS RADICULOPATHY Active 11/21/2015 [facility] COPD EXAC Active 02/18/2015 [facility] Discharge Diagnosis: Kidney stone 04/17/2014 04/20/2014 [facility] Discharge Diagnosis: Hematuria 04/17/2014 04/20/2014 [facility] BLOODY URINE Active 04/17/2014 [facility] CHEST PAIN Active 04/03/2014 [facility] AMS, ABDORMAN CT HEAD Active 04/01/2014 [facility] ALTERED MENTAL STATUS Active 04/01/2014 [facility] Discharge Diagnosis: Right sided sciatica 02/20/2014 03/05/2014 [facility] COPD EXACERBATION, HYPOXIA, DEHYDRATION, Active 02/20/2014 [facility] LEG PAIN Active 02/20/2014 [facility] Discharge Diagnosis: Sciatica 02/19/2014 02/22/2014 [facility] LEG / BACK PAIN Active 02/19/2014 [facility] SCREENING MAMMO Active 06/11/2013 [facility] HTN (<span ID="[id number]">Confirmed</span>) [facility] (<span ID="[id number]">Confirmed</span>) [facility] 06/25/2018 [facility] Heart valve disorder Resolved Problem 06/25/2018 [facility] Herniated disc Resolved Problem 06/25/2018 [facility] Idiopathic chronic neuropathy Resolved Problem [facility] PNA (<span ID="[id number]">Confirmed</span>) Resolved Problem [facility]/25[facility] UTI , uncomplicated(<span ID="[id number]">Confirmed</span>) Active Problem [facility]/25[facility] - Urinary tract infection Resolved Problem 06/25/2018 [facility] Morbid obesity Active Problem 06/25/2018 [facility] Spondylosis without myelopathy or radiculopathy, lumbar region 09/18/2017 [facility] Other intervertebral disc displacement, lumbar region 09/18/2017 [facility] Abdominal aortic aneurysm, without rupture 06/17/2018 [facility] Spinal stenosis, lumbosacral region 05/29/2018 [facility] Other intervertebral disc displacement, lumbosacral region 05/29/2018 [facility] Spondylosis without myelopathy or radiculopathy, lumbosacral region 05/29/2018 [facility] Chronic obstructive pulmonary disease with exacerbation 06/18/2018 [facility] Hypoxemia 06/18/2018 [facility] Chronic pulmonary edema 06/18/2018 [facility] Essential hypertension 06/18/2018 [facility] Morbid obesity due to excess calories 06/18/2018 [facility] Personal history of nicotine dependence 06/18/2018 [facility] Gross hematuria 06/17/2018 [facility] Calculus of kidney 06/17/2018 [facility] Unspecified urinary incontinence 06/17/2018 [facility] Chronic obstructive pulmonary disease, unspecified 06/17/2018 [facility] Nicotine dependence, cigarettes, uncomplicated 06/17/2018 [facility] Hereditary and idiopathic neuropathy, unspecified 06/17/2018 [facility] Body mass index 40.0-44.9, adult 06/17/2018 [facility] shelter use of aspirin 06/17/2018 [facility] shelter use of inhaled steroids 06/17/2018 [facility] Other lobsterman drug therapy 06/17/2018 [facility] shelter use of opiate analgesic 06/17/2018 [facility] CHR AIRWAY OBSTRUCT NEC Active [facility] AMS Active [facility] CHEST PAIN NOS Active [facility] CHRONIC OBSTRUCTIVE PULMONARY DISEASE W Active [facility] UNK Active [facility] ABDOMINAL AORTIC ANEURYSM, WITHOUT RUPTU Active [facility] SPONDYLOSIS W/O MYELOPATHY OR RADICULOPA Active [facility] RADICULOPATHY, LUMBAR REGION Active [facility] ENCNTR SCREEN MAMMOGRAM FOR MALIGNANT NE Active [facility] PAIN IN LEFT FINGER(S) Active [facility] Medications Medication Details Route Status Patient Instructions Ordering Provider Order Date Source Amitriptyline Hcl 10 Mg Tablet, Unknown Dose Oral Daily Active 01/20/2018 [facility] Docusate Sodium (Stool Softener) 50 Mg Capsule, Unknown Dose Active 01/20/2018 [facility] Duloxetine Hcl (Cymbalta) 20 Mg Capcr, Unknown Dose Oral Daily Active 01/20/2018 [facility] Escitalopram Oxalate (Lexapro) 10 Mg Tablet, Unknown Dose Oral Daily Active 01/20/2018 [facility] Mirabegron (Myrbetriq) 25 Mg Tab.er.24h, Unknown Dose Active 01/20/2018 [facility] Prednisone 50 MG Oral Tablet 50 mg=1 tab, PO, Daily, X 7 day, # 7 tab, 0 Refill(s) No Longer Active 11/30/2017 [facility] Fentanyl 25 microgram, 0.5 mL, Route: IVP, Drug form: INJ, ONCE, Dosing Weight 98.636, kg, Priority: STAT, Start date: 11/29/17 17:09:00 CDT, Stop date: 11/29/17 17:09:00 CDTNotes: (Same as: Sublimaze) Preservative free. Inactive 11/29/2017 [facility] Lasix 40 mg, 4 mL, Route: IVP, Drug form: INJ, ONCE, Dosing Weight 98.636, kg, Priority: STAT, Start date: 11/29/17 15:53:00 CDT, Stop date: 11/29/17 15:53:00 CDTNotes: (Same as: Lasix) MEDICATION WASTE Product Size: 40 mg Product Wasted: ___ mg Inactive 11/29/2017 [facility] Solu-Medrol 125 mg, 2 mL, Route: IVP, Drug form: INJ, ONCE, Dosing Weight 98.636, kg, Priority: STAT, Start date: 11/29/17 15:27:00 CDT, Stop date: 11/29/17 15:27:00 CDTNotes: (Same as:Solu-MEDROL, A-Methapred) Inactive 11/29/2017 [facility] Albuterol 0.833 MG/ML / Ipratropium [place] 0.167 MG/ML Inhalant Solution 3 mL, Route: NEB, Dosing Weight 98.636, kg, ONCE, STAT, Start date: 11/29/17 14:14:00 CDT, Stop date: 11/29/17 14:14:00 CDT Inactive 11/29/2017 [facility] Saline Flush 0.9% 10 mL, Route: IVP, Drug Form: INJ, Dosing Weight 98.636, kg, PRN, PRN Line Flush, Start date: 11/29/17 14:13:00 CDT, Duration: 30 day, Stop date: 12/29/17 14:12:00 CDTNotes: (Same as: BD Posiflush) Inactive 11/29/2017 [facility] Albuterol 0.833 MG/ML / Ipratropium [place] 0.167 MG/ML Inhalant Solution [DuoNeb] 3 ml, Route: NEB, Drug Form: SOLN, Dosing Weight 98.636, kg, ONCE, PRN Respiratory Pathway, Start date: 11/28/17 23:09:00 CDT No Longer Active 11/29/2017 [facility] Sodium Chloride 0.9% (Bolus) IV 1,000 mL, 1,000 ml/hr, Infuse Over: 1 hr, Route: IV, 1,000, Drug form: INJ, ONCE, Priority: STAT, Dosing Weight 98.636 kg, Start date: 11/28/17 22:15:00 CDT, Stop date: 11/28/17 22:15:00 CDT Inactive 11/29/2017 [facility] Saline Flush 0.9% 10 mL, Route: IVP, Drug Form: INJ, Dosing Weight 103.182, kg, PRN, PRN Line Flush, Start date: 11/28/17 18:25:00 CDT, Duration: 30 day, Stop date: 12/28/17 18:24:00 CDTNotes: (Same as: BD Posiflush) No Longer Active 11/28/2017 [facility] Breo Ellipta 100 mcg-25 mcg inhalation powder 1 puff, INHALATION, Daily, 0 Refill(s) Active 07/05/2017 [facility] amitriptyline 50 mg oral tablet 50 mg=1 tab, PO, Bedtime, 0 Refill(s) Active 07/05/2017 [facility] diphenhydrAMINE 25 mg oral tablet 25 mg=1 tab, PO, TID, 0 Refill(s) Active 07/05/2017 [facility] Omnipaque 350 100 mL, Route: IV, Drug Form: SOLN, ONCE, Start date: 11/14/16 10:06:00 CDT, Stop date: 11/14/16 10:06:00 CDTNotes: (same as:Omnipaque 350). WASTE: F/P - Black; E - [employer] Inactive 11/14/2016 [facility] predniSONE 20 mg oral tablet See Special Instructions, PO, Daily, 12 day regimen: Days 1-4 - 40 mg (2 tabs) daily Days 5-8 - 20 mg (1 tab) daily Days 9-12 - 10 mg (1/2 tab) daily, X 12 day, # 12 tab, 0 Refill(s) Active 02/21/2015 [facility] Albuterol 0.833 MG/ML / Ipratropium [place] 0.167 MG/ML Inhalant Solution [DuoNeb] 3 ml, INHALATION, QID, # 30 ea, 0 Refill(s) Active 02/21/2015 [facility] amLODIPine 5 mg oral tablet 5 mg=1 tab, PO, Daily, # 30 tab, 0 Refill(s) Active 02/21/2015 [facility] Acetylcysteine 200 MG/ML Inhalant Solution 400 mg=2 mL, NEB, RBID, # 30 mL, 0 Refill(s) Active 02/21/2015 [facility] Solu-Medrol 40 mg, 1 mL, Route: IVP, Drug form: INJ, Q12H, Dosing Weight 101.136, kg, Start date: 02/20/15 21:00:00, Duration: 30 day, Stop date: 03/22/15 9:00:00Notes: (Same as:Solu-MEDROL, A-Methapred) No Longer Active 02/21/2015 [facility] Acetylcysteine 200 MG/ML Inhalant Solution 400 mg, 2 mL, Route: NEB, Drug Form: SOLN, Dosing Weight 101.136, kg, RBID, Start date: 02/20/15 16:44:00, Stop date: 03/22/15 7:00:00 No Longer Active 02/20/2015 [facility] Norvasc 5 mg, 1 tab, Route: PO, Drug form: TAB, Daily, Dosing Weight 101.136, kg, Start date: 02/20/15 16:41:00, Duration: 30 day, Stop date: 03/22/15 9:00:00Notes: (Same as: Norvasc) No Longer Active 02/20/2015 [facility] Nicotine 21 mg, 1 patch, Route: TOP, Drug form: ERFILM, Daily, Dosing Weight 101.136, kg, Start date: 02/20/15 9:00:00, Duration: 30 day, Stop date: 03/21/15 9:00:00Notes: (Same as: Habitrol) "Remove old patch before application of new patch" No Longer Active 02/20/2015 [facility] gabapentin 600 MG Oral Tablet 1,200 mg, 3 cap, Route: PO, Drug form: CAP, BID, Dosing Weight 101.136, kg, Start date: 02/19/15 20:00:00, Duration: 30 day, Stop date: 03/21/15 9:00:00Notes: (Same as: Neurontin) No Longer Active 02/20/2015 [facility] Ambien 10 mg, 1 tab, Route: PO, Drug form: TAB, Bedtime, Dosing Weight 101.136, kg, PRN as needed for sleep, Start date: 02/19/15 16:51:00, Duration: 30 day, Stop date: 03/21/15 16:50:00Notes: (Same As: Ambien) No Longer Active 02/19/2015 [facility] tizanidine 4 mg, 1 tab, Route: PO, Drug form: TAB, Q8H, Dosing Weight 101.136, kg, Start date: 02/19/15 16:00:00, Duration: 30 day, Stop date: 03/21/15 8:00:00Notes: (Same As: Zanaflex) No Longer Active 02/19/2015 [facility] Levalbuterol 0.63 mg, 3 mL, Route: NEB, Drug form: SOLN, PRN, Dosing Weight 101.136, kg, PRN Respiratory Protocol, Start date: 02/19/15 15:49:00, Duration: 30 day, Stop date: 03/21/15 14:48:00, Substitute Allowed No Notes: SEE RT DOCUMENTATION (Same as:Xopenex) Non-Formulary No Longer Active 02/19/2015 [facility] Neurontin 600 mg, 2 cap, Route: PO, Drug form: CAP, ONCE, Start date: 02/19/15 11:14:00, Stop date: 02/19/15 11:14:00Notes: (Same as: Neurontin) Inactive 02/19/2015 [facility] gabapentin 600 MG Oral Tablet See Instructions, 1 tab PO BID, 0 Refill(s), 2 capsof 600mgs total of 1200 po BID Active 02/19/2015 [facility] tizanidine 4 mg oral tablet 4 mg=1 tab, PO, Q8H, 0 Refill(s) Active 02/19/2015 [facility] Aspirin Enteric Coated 81 mg oral delayed release tablet 81 mg=1 tab, PO, Daily, 0 Refill(s) Active 02/19/2015 [facility] tizanidine 4 mg oral tablet 8 mg=2 tab, PO, Q8H, 0 Refill(s) Inactive 02/19/2015 [facility] gabapentin 600 MG Oral Tablet 600 mg=1 tab, PO, TID, 0 Refill(s) Inactive 02/19/2015 [facility] Omeprazole 20 mg, Route: PO, Daily, Dosing Weight 101.136, kg, Start date: 02/19/15 9:00:00, Duration: 30 day, Stop date: 03/20/15 9:00:00 No Longer Active 02/19/2015 [facility] Escitalopram 20 mg, 1 tab, Route: PO, Drug form: TAB, Daily, Dosing Weight 101.136, kg, Start date: 02/19/15 9:00:00, Duration: 30 day, Stop date: 03/20/15 9:00:00Notes: (Same as: Lexapro) No Longer Active 02/19/2015 [facility] Atenolol 50 mg, 1 tab, Route: PO, Drug form: TAB, Daily, Dosing Weight 101.136, kg, Start date: 02/19/15 9:00:00, Duration: 30 day, Stop date: 03/20/15 9:00:00Notes: (Same As:Tenormin) No Longer Active 02/19/2015 [facility] influenza virus vaccine, inactivated 0.5 mL, Route: IM, Drug Form: SUSP, Daily, Start date: 02/19/15 9:00:00, Duration: 1 doses or times, Stop date: 02/19/15 9:00:00Notes: (Same as: Fluzone Quadrivalent) For 3 years of age and older (0.5 mL IM) Shake well before use Inactive 02/19/2015 [facility] Morphine 15 mg, 1 tab, Route: PO, Drug form: ERTAB, Q12H, Dosing Weight 101.136, kg, Start date: 02/18/15 21:00:00, Duration: 30 day, Stop date: 03/20/15 9:00:00Notes: Do not crush (Same as:Oramorph SR, MS Contin) No Longer Active 02/19/2015 [facility] gabapentin 600 MG Oral Tablet 600 mg, 2 cap, Route: PO, Drug form: CAP, BID, Dosing Weight 101.136, kg, Start date: 02/18/15 20:00:00, Duration: 30 day, Stop date: 03/20/15 9:00:00Notes: (Same as: Neurontin) No Longer Active 02/19/2015 [facility] Symbicort 80/4.5 inhalation aerosol with adapter 2 inhalation, Route: INHALATION, Drug Form: AERO/A, Dosing Weight 101.136, kg, BID, Start date: 02/18/15 17:00:00, Duration: 30 day, Stop date: 03/20/15 9:00:00Notes: (Same as: Symbicort) No Longer Active 02/18/2015 [facility] Protonix 40 mg, 1 tab, Route: PO, Drug form: ECTAB, Before Dinner, Start date: 02/18/15 16:30:00, Duration: 30 day, Stop date: 03/19/15 16:30:00Notes: Tablet should not be chewed or crushed. (Same as: Protonix) No Longer Active 02/18/2015 [facility] tizanidine 8 mg, 2 tab, Route: PO, Drug form: TAB, Q8H, Dosing Weight 101.136, kg, Start date: 02/18/15 16:00:00, Duration: 30 day, Stop date: 03/20/15 8:00:00Notes: (Same As: Zanaflex) No Longer Active 02/18/2015 [facility] Solu-Medrol 40 mg, 1 mL, Route: IVP, Drug form: INJ, Q8H, Dosing Weight 101.136, kg, Start date: 02/18/15 16:00:00, Duration: 30 day, Stop date: 03/20/15 8:00:00Notes: (Same as:Solu-MEDROL, A-Methapred) No Longer Active 02/18/2015 [facility] Albuterol 0.833 MG/ML / Ipratropium [place] 0.167 MG/ML Inhalant Solution [DuoNeb] 3 mL, Route: INHALATION, Drug Form: SOLN, Dosing Weight 85.909, kg, RQ4H, Start date: 02/18/15 15:00:00, Duration: 30 day, Stop date: 03/20/15 11:00:00Notes: (Same as: Duoneb) No Longer Active 02/18/2015 [facility] Enoxaparin 40 mg, 0.4 mL, Route: SUB-Q, Drug form: INJ, [id number], Dosing Weight 101.136, kg, Consider for obese patients, Start date: 02/18/15 14:00:00, Duration: 30 day, Stop date: 03/20/15 2:00:00Notes: (Same as: Lovenox) No Longer Active 02/18/2015 [facility] Levaquin 500 mg, 100 mL, Route: IVPB, Drug form: SOLN, [id number], Dosing Weight 85.909, kg, Start date: 02/18/15 12:00:00, Duration: 30 day, Stop date: 03/19/15 12:00:00Notes: (Same as:Levaquin) No Longer Active 02/18/2015 [facility] ProAir HFA 1 - 2 puffs, PO, Q4H, PRN Wheezing / cough / shortness of breath, # 1 ea, 0 Refill(s) Active 02/18/2015 [facility] Aspirin 81 mg, PO, Daily, 0 Refill(s) No Longer Active 02/18/2015 [facility] tizanidine 4 mg oral tablet 8 mg=2 tab, PO, Q8H, # 180 tab, 0 Refill(s) No Longer Active 02/18/2015 [facility] levofloxacin 500 mg oral tablet 500 mg=1 tab, PO, Daily, this is day 7, # 10 tab, 0 Refill(s) Active 02/18/2015 [facility] Symbicort 80/4.5 inhalation aerosol with adapter 2 puff, INHALATION, BID, # 6.9 gm, 0 Refill(s) Active 02/18/2015 [facility] Acetaminophen 325 MG / Hydrocodone Bitartrate 10 MG Oral Tablet 1 tab, PO, Q12H, PRN Pain Score 1-5, 0 Refill(s) Active 02/18/2015 [facility] Atenolol 50 mg, PO, Daily, 0 Refill(s) Active 02/18/2015 [facility] Morphine 15 mg, PO, Q12H, 0 Refill(s) Active 02/18/2015 [facility] gabapentin 600 MG Oral Tablet 2 tabs, PO, BID, 0 Refill(s) No Longer Active 02/18/2015 [facility] Omeprazole 20 mg, PO, Daily, 0 Refill(s) Active 02/18/2015 [facility] escitalopram 20 mg oral tablet 20 mg=1 tab, PO, Daily, # 30 tab, 0 Refill(s) Active 02/18/2015 [facility] Acetaminophen 325 MG / Hydrocodone Bitartrate 5 MG Oral Tablet 2 tab, Route: PO, Drug Form: TAB, Dosing Weight 85.909, kg, Q4H, PRN Pain Score 7-10, Start date: 02/18/15 10:19:00, Duration: 30 day, Stop date: 03/20/15 10:18:00Notes: (Same as: [place] 325/5) Do not exceed 4gm/day of acetaminophen. No Longer Active 02/18/2015 [facility] Ondansetron 4 mg, 2 mL, Route: IVP, Drug form: INJ, Q6H, Dosing Weight 85.909, kg, PRN Nausea & Vomiting, Start date: 02/18/15 10:19:00, Duration: 30 day, Stop date: 03/20/15 10:18:00Notes: (Same as: Purvi) MEDICATION WASTE Product Size: 4 mg Product Wasted: ___ mg No Longer Active 02/18/2015 [facility] Levaquin 500 mg, 100 mL, Route: IVPB, Drug form: SOLN, [id number], Dosing Weight 85.909, kg, Start date: 02/18/15 10:00:00, Duration: 30 day, Stop date: 03/19/15 10:00:00Notes: (Same as:Levaquin) Inactive 02/18/2015 [facility] Tylenol 650 mg, 2 tab, Route: PO, Drug form: TAB, Q6H, Dosing Weight 85.909, kg, PRN For Temp > 100.4 F, Start date: 02/18/15 9:39:00, Duration: 30 day, Stop date: 03/20/15 9:38:00Notes: Do not exceed 4 gm/day. (Same as: Tylenol) No Longer Active 02/18/2015 [facility] Albuterol 0.833 MG/ML / Ipratropium [place] 0.167 MG/ML Inhalant Solution [DuoNeb] 3 mL, Route: INHALATION, Drug Form: SOLN, Dosing Weight 85.909, kg, Q2H, PRN as needed for shortness of breath or wheezing, Start date: 02/18/15 9:38:00, Duration: 30 day, Stop date: 03/20/15 9:37:00Notes: (Same as: Duoneb) No Longer Active 02/18/2015 [facility] busPIRone 30 mg oral tablet 30 mg, PO, BID, # 30 tab, 0 Refill(s) Active 04/14/2014 [facility] Levofloxacin 500 MG Oral Tablet [Levaquin] 500 mg=1 tab, PO, Q24H, # 4 tab, 0 Refill(s) Active 04/14/2014 [facility] cyclobenzaprine 5 mg oral tablet 5 mg=1 tab, PO, TID, as needed for muscle spasm, # 21 tab, 0 Refill(s) Active 04/14/2014 [facility] Acetaminophen 300 MG / Codeine Phosphate 30 MG Oral Tablet [Tylenol with Codeine #3] 1 tab, PO, Q4H, for pain, # 30 tab, 0 Refill(s) Inactive 04/14/2014 [facility] Protonix 40 mg, 1 tab, Route: PO, Drug form: ECTAB, Before Dinner, Start date: 04/09/14 16:30:00, Duration: 30 day, Stop date: 05/08/14 16:30:00Notes: Tablet should not be chewed or crushed. (Same as: Protonix) No Longer Active 04/09/2014 [facility] Pyridium 200 mg, 1 tab, Route: PO, Drug form: TAB, TID- After Meals, Dosing Weight 86.875, kg, Start date: 04/09/14 12:30:00, Duration: 2 day, Stop date: 04/11/14 8:30:00Notes: Give with meals. (Same as: Pyridium) No Longer Active 04/09/2014 [facility] Levofloxacin 750 MG Oral Tablet [Levaquin] 750 mg=1 tab, PO, Q24H, # 7 tab, 0 Refill(s) Inactive 04/08/2014 [facility] Acetaminophen 300 MG / Codeine Phosphate 30 MG Oral Tablet [Tylenol with Codeine #3] 2 tab, PO, Q6H, for pain, # 30 tab, 0 Refill(s) Inactive 04/08/2014 [facility] Atenolol 25 MG Oral Tablet 25 mg, 1 tab, Route: PO, Drug form: TAB, Daily, Dosing Weight 86.875, kg, Priority: NOW, Start date: 04/05/14 14:27:00, Duration: 30 day, Stop date: 05/05/14 9:00:00Notes: (Same As:Tenormin) No Longer Active 04/05/2014 [facility] Lactulose 40 gm, 60 mL, Route: PO, Drug Form: SYRP, Dosing Weight 86.875, kg, BID, Start date: 04/05/14 13:18:00, Duration: 30 day, Stop date: 05/05/14 9:00:00Notes: (Same as:Chronulac) No Longer Active 04/05/2014 [facility] Morphine 15 mg, 1 tab, Route: PO, Drug form: TAB, Q4H, Dosing Weight 86.875, kg, PRN Pain Score 4-6, Start date: 04/05/14 8:55:00, Duration: 30 day, Stop date: 05/05/14 8:54:00Notes: (Same as:MORPhine Sulfate) No Longer Active 04/05/2014 [facility] Protonix 40 mg, 1 tab, Route: PO, Drug form: ECTAB, Before Dinner, Start date: 04/04/14 16:30:00, Duration: 30 day, Stop date: 05/03/14 16:30:00Notes: Tablet should not be chewed or crushed. (Same as: Protonix) No Longer Active 04/04/2014 [facility] Ativan 1 mg, 0.5 mL, Route: IVP, Drug form: INJ, Q8H, Dosing Weight 86.875, kg, PRN Anxiety, Start date: 04/04/14 10:31:00, Duration: 30 day, Stop date: 05/04/14 10:30:00Notes: (Same as: Ativan) No Longer Active 04/04/2014 [facility] Ativan 1 mg, 0.5 mL, Route: IVP, Drug form: INJ, ONCE, Dosing Weight 86.875, kg, PRN Anxiety, Start date: 04/04/14 10:30:00Notes: (Same as: Ativan) Inactive 04/04/2014 [facility] Lidocaine Hydrochloride 0.05 MG/MG Transdermal Patch 1 patch, Route: TOP, Q12H, Drug form: FILM, Start date: 04/04/14 9:00:00, Duration: 30 day, Stop date: 05/03/14 21:00:00Notes: Apply only once for up to 12 hours in a 24-hour period (12 hours on and 12 hours off). (Same as: Lidoderm) "Remove old patch before application of new patch" No Longer Active 04/04/2014 [facility] Hydrochlorothiazide 12.5 MG Oral Capsule 12.5 mg, 1 cap, Route: PO, Drug form: CAP, Daily, Dosing Weight 86.875, kg, Start date: 04/04/14 9:00:00, Duration: 30 day, Stop date: 05/03/14 9:00:00Notes: (Same as: Microzide) With food. No Longer Active 04/04/2014 [facility] Diltiazem 120 mg, 2 cap, Route: PO, Drug form: ERCAP, BID, Dosing Weight 86.875, kg, Start date: 04/04/14 9:00:00, Duration: 30 day, Stop date: 05/03/14 21:00:00Notes: (Same as: Cardizem SR) Before meals. DO NOT CRUSH. Give twice daily. No Longer Active 04/04/2014 [facility] Aspirin 81 MG Enteric Coated Tablet 81 mg, 1 tab, Route: PO, Drug form: ECTAB, Q24H, Dosing Weight 86.875, kg, Start date: 04/04/14 9:00:00, Duration: 30 day, Stop date: 05/03/14 9:00:00Notes: Do not crush or chew. (Same As: Ecotrin) No Longer Active 04/04/2014 [facility] Omeprazole 20 mg, Route: PO, Drug form: DRC, Daily, Dosing Weight 86.875, kg, Start date: 04/04/14 9:00:00, Duration: 30 day, Stop date: 05/03/14 9:00:00 No Longer Active 04/04/2014 [facility] Levofloxacin 500 mg, 2 tab, Route: PO, Drug form: TAB, Q24H, Dosing Weight 86.875, kg, Start date: 04/04/14 0:00:00, Duration: 30 day, Stop date: 05/03/14 0:00:00Notes: Do not give w/antacids, dairy pdt & minerals Take 1 hr before or 2 hr after dairy pdt (Same as:Levaquin) No Longer Active 04/04/2014 [facility] heparin, porcine 5,000 unit, 1 mL, Route: SUB-Q, Drug form: INJ, Q8H, Dosing Weight 86.875, kg, Start date: 04/04/14 0:00:00, Duration: 30 day, Stop date: 05/03/14 16:00:00Notes: porcine heparin No Longer Active 04/04/2014 [facility] Nitroglycerin 0.4 mg, 1 tab, Route: SL, Drug form: TAB, Q5Min, Dosing Weight 86.875, kg, PRN Chest Pain, Start date: 04/03/14 23:16:00, Duration: 30 day, Stop date: 05/03/14 23:15:00Notes: (Same as:Nitroquick, Nitros tat) "Do Not Crush" Sublingual tablet No Longer Active 04/04/2014 [facility] Acetaminophen 325 MG / Oxycodone Hydrochloride 5 MG Oral Tablet [Percocet 5/325] 1 tab, Route: PO, Drug Form: TAB, Dosing Weight 86.875, kg, Q6H, PRN Pain Score 4-6, Start date: 04/03/14 23:15:00, Duration: 30 day, Stop date: 05/03/14 23:14:00Notes: Do not exceed 4gm/day of acetaminophen. (Same as: Percocet-5/325) No Longer Active 04/04/2014 [facility] Tylenol 650 mg, 2 tab, Route: PO, Drug form: TAB, Q6H, Dosing Weight 86.875, kg, PRN Pain Score 1-3, Start date: 04/03/14 23:15:00, Duration: 30 day, Stop date: 05/03/14 23:14:00Notes: Do not exceed 4 gm/day. (Same as: Tylenol) No Longer Active 04/04/2014 [facility] Morphine 4 mg, 2 mL, Route: IVP, Drug form: INJ, Q4H, Dosing Weight 86.875, kg, PRN Pain Score 7-10, Start date: 04/03/14 23:14:00, Duration: 30 day, Stop date: 05/03/14 23:13:00Notes: (Same as:MORPhine Sulfate) No Longer Active 04/04/2014 [facility] cyclobenzaprine 5 mg, 0.5 tab, Route: PO, Drug form: TAB, TID, Dosing Weight 86.875, kg, PRN Spasm, Start date: 04/03/14 23:13:00, Stop date: 05/03/14 23:12:00Notes: (Same As: Flexeril) No Longer Active 04/04/2014 [facility] Morphine 4 mg, 2 mL, Route: IV, Drug form: INJ, ONCE, Dosing Weight 86.875, kg, Start date: 04/03/14 22:00:00, Stop date: 04/03/14 22:00:00Notes: (Same as:MORPhine Sulfate) Inactive 04/04/2014 [facility] Saline Flush 0.9% 10 ml, Route: IVP, Drug Form: INJ, Dosing Weight 89.545, kg, Q12H, Start date: 04/03/14 21:00:00, Duration: 30 day, Stop date: 05/03/14 9:00:00Notes: (Same as: BD Posiflush) No Longer Active 04/04/2014 [facility] Atropine 0.5 mg, 5 mL, Route: IVP, Drug form: INJ, PRN, Dosing Weight 89.545, kg, PRN Bradycardia, Start date: 04/03/14 20:44:00, Duration: 30 day, Stop date: 05/03/14 20:43:00, HR No Longer Active 04/04/2014 [facility] Nitroglycerin 0.4 mg, Route: SL, Drug form: TAB, Q5Min, Dosing Weight 89.545, kg, PRN, Start date: 04/03/14 20:44:00, Duration: 30 day, Stop date: 05/03/14 20:43:00, Chest Pain X3 Inactive 04/04/2014 [facility] Saline Flush 0.9% 10 ml, Route: IVP, Drug Form: INJ, Dosing Weight 89.545, kg, PRN, PRN Line Flush, Start date: 04/03/14 20:40:00, Duration: 30 day, Stop date: 05/03/14 20:39:00Notes: (Same as: BD Posiflush) No Longer Active 04/04/2014 [facility] Ondansetron 4 mg, 1 tab, Route: PO, Drug form: TAB, Q8H, Dosing Weight 89.545, kg, PRN Nausea & Vomiting, Start date: 04/03/14 20:40:00, Duration: 30 day, Stop date: 05/03/14 20:39:00Notes: (Same as: Zofran) No Longer Active 04/04/2014 [facility] Nitroglycerin 0.4 mg, 1 tab, Route: SL, Drug form: TAB, Q5Min, Dosing Weight 89.545, kg, PRN Chest Pain, Start date: 04/03/14 20:40:00, Duration: 3 doses or times, Stop date: Limited # of timesNotes: (Same as:Nitroqu ick, Nitrostat) "Do Not Crush" Sublingual tablet Inactive 04/04/2014 [facility] aspirin 325 mg tablet 325 mg, 1 tab, Route: PO, Drug form: TAB, ONCE, Dosing Weight 89.545, kg, Start date: 04/03/14 20:40:00, Stop date: 04/03/14 20:40:00Notes: Take with food. Inactive 04/04/2014 [facility] Lopressor 5 mg, Route: IVP, Drug form: INJ, ONCE, Dosing Weight 89.545, kg, Priority: STAT, Start date: 04/03/14 20:19:00, Stop date: 04/03/14 20:19:00 Inactive 04/04/2014 [facility] Morphine 2 mg, Route: IVP, ONCE, Dosing Weight 89.545, kg, Start date: 04/03/14 20:18:00, Stop date: 04/03/14 20:18:00 Inactive 04/04/2014 [facility] Nitroglycerin 0.02 MG/MG Topical Ointment 1 inch, Route: TOP, Drug Form: OINT, Dosing Weight 89.545, kg, ONCE, STAT, Start date: 04/03/14 20:17:00, Stop date: 04/03/14 20:17:00 Inactive 04/04/2014 [facility] Ondansetron 4 mg, Route: IVP, ONCE, Dosing Weight 89.545, kg, Priority: STAT, Start date: 04/03/14 18:22:00, Stop date: 04/03/14 18:22:00 Inactive 04/04/2014 [facility] Morphine 2 mg, Route: IVP, ONCE, Dosing Weight 89.545, kg, Priority: STAT, Start date: 04/03/14 18:22:00, Stop date: 04/03/14 18:22:00 Inactive 04/04/2014 [facility] Saline Flush 0.9% 10 mL, Route: IVP, Drug Form: INJ, Dosing Weight 89.545, kg, PRN, PRN Line Flush, Start date: 04/03/14 18:22:00, Duration: 30 day, Stop date: 05/03/14 18:21:00Notes: (Same as: BD Posiflush) Inactive 04/04/2014 [facility] Sodium Chloride 0.154 MEQ/ML Injectable Solution 500 mL, Infuse Over: 1 hr, Route: IV, ONCE, Priority: STAT, Dosing Weight 89.545 kg, Start date: 04/03/14 18:22:00, Duration: 1 doses or times, Stop date: 04/03/14 18:22:00 Inactive 04/04/2014 [facility] remove patch 1 patch, Route: TOP, Bedtime, Drug form: ERFILM, Start date: 04/02/14 21:00:00, Duration: 30 day, Stop date: 05/01/14 21:00:00Notes: Remove patch 12 hours after application each day. Inactive 04/03/2014 [facility] Protonix 40 mg, 1 tab, Route: PO, Drug form: ECTAB, Before Dinner, Start date: 04/02/14 16:30:00, Duration: 30 day, Stop date: 05/01/14 16:30:00Notes: Tablet should not be chewed or crushed. (Same as: Protonix) Inactive 04/02/2014 [facility] Levaquin 500 mg, 2 tab, Route: PO, Drug form: TAB, ONCE, Dosing Weight 89.545, kg, Start date: 04/02/14 12:10:00, Stop date: 04/02/14 12:10:00Notes: Do not give w/antacids, dairy pdt & minerals Take 1 hr before or 2 hr after dairy pdt (Same as:Levaquin) Inactive 04/02/2014 [facility] levofloxacin 500 mg oral tablet 500 mg=1 tab, PO, Q24H, # 7 tab, 0 Refill(s) On Hold 04/02/2014 [facility] 24 HR Nicotine 0.292 MG/HR Transdermal Patch [Nicoderm C-Q] =1 patch, TOP, Daily, # 30 patch, 0 Refill(s) No Longer Active 04/02/2014 [facility] Levaquin 500 mg, 1 tab, Route: PO, Drug form: TAB, ONCE, Dosing Weight 89.545, kg, Start date: 04/02/14 11:25:00, Stop date: 04/02/14 11:25:00 Inactive 04/02/2014 [facility] Prednisone 40 mg, 2 tab, Route: PO, Drug form: TAB, Daily, Dosing Weight 81.818, kg, Start date: 04/02/14 9:00:00, Duration: 30 day, Stop date: 05/01/14 9:00:00Notes: Take with food. Inactive 04/02/2014 [facility] Omeprazole 20 mg, Route: PO, Drug form: DRC, Daily, Dosing Weight 81.818, kg, Start date: 04/02/14 9:00:00, Duration: 30 day, Stop date: 05/01/14 9:00:00 No Longer Active 04/02/2014 [facility] Hydrochlorothiazide 12.5 MG Oral Capsule 12.5 mg, 1 cap, Route: PO, Drug form: CAP, Daily, Dosing Weight 81.818, kg, Start date: 04/02/14 9:00:00, Duration: 30 day, Stop date: 05/01/14 9:00:00Notes: (Same as: Microzide) With food. Inactive 04/02/2014 [facility] gabapentin 300 MG Oral Capsule 600 mg, 2 cap, Route: PO, Drug form: CAP, TID, Dosing Weight 81.818, kg, Start date: 04/02/14 9:00:00, Duration: 30 day, Stop date: 05/01/14 17:00:00Notes: (Same as: Neurontin) Inactive 04/02/2014 [facility] Aspirin 81 MG Enteric Coated Tablet 81 mg, 1 tab, Route: PO, Drug form: ECTAB, Daily, Dosing Weight 81.818, kg, Start date: 04/02/14 9:00:00, Duration: 30 day, Stop date: 05/01/14 9:00:00Notes: Do not crush or chew. (Same As: Ecotrin) Inactive 04/02/2014 [facility] Nicotine 7 mg, 1 patch, Route: TOP, Drug form: ERFILM, Daily, Dosing Weight 81.818, kg, Start date: 04/02/14 9:00:00, Duration: 30 day, Stop date: 05/01/14 9:00:00Notes: (Same as: Habitrol) "Remove old patch before application of new patch" Inactive 04/02/2014 [facility] Lidocaine Hydrochloride 0.05 MG/MG Transdermal Patch 1 patch, Route: TOP, Daily, Drug form: FILM, Start date: 04/01/14 21:00:00, Duration: 30 day, Stop date: 04/30/14 21:00:00Notes: Apply only once for up to 12 hours in a 24-hour period (12 hours on and 12 hours off). (Same as: Lidoderm) "Remove old patch before application of new patch" No Longer Active 04/02/2014 [facility] Diltiazem 120 mg, 1 tab, Route: PO, Drug form: TAB, BID, Dosing Weight 81.818, kg, Start date: 04/01/14 21:00:00, Duration: 30 day, Stop date: 05/01/14 9:00:00Notes: (Same as: Cardizem) Before meals No Longer Active 04/02/2014 [facility] nitroglycerin 0.4 mg sublingual tablet 0.4 mg, 1 tab, Route: SL, Drug form: TAB, Q5Min, PRN Chest Pain, Start date: 04/01/14 19:23:00, Duration: 30 day, Stop date: 05/01/14 19:22:00Notes: (Same as:Nitroquick, Nitrostat) "Do Not Crush" Sublingual tablet No Longer Active 04/02/2014 [facility] atropine 0.5 mg, 5 mL, Route: IVP, Drug form: INJ, PRN, PRN Bradycardia, Start date: 04/01/14 19:23:00, Duration: 30 day, Stop date: 05/01/14 19:22:00 No Longer Active 04/02/2014 [facility] Ondansetron 4 mg, 2 mL, Route: IVP, Drug form: INJ, Q8H, Dosing Weight 81.818, kg, PRN Nausea & Vomiting, Start date: 04/01/14 17:09:00, Duration: 30 day, Stop date: 05/01/14 17:08:00Notes: (Same as: Zofran) No Longer Active 04/01/2014 [facility] Acetaminophen 650 mg, 2 tab, Route: PO, Drug form: TAB, Q4H, Dosing Weight 81.818, kg, PRN Pain 1-3/Temp > 100.4 F, Start date: 04/01/14 17:09:00, Duration: 30 day, Stop date: 05/01/14 17:08:00Notes: Do not exceed 4 gm/day. (Same as: Tylenol) No Longer Active 04/01/2014 [facility] Acetaminophen 325 MG / Hydrocodone Bitartrate 10 MG Oral Tablet [Gr[place]bury 10/325] 1 tab, Route: PO, Drug Form: TAB, Dosing Weight 81.818, kg, Q6H, PRN Breakthrough Pain, Start date: 04/01/14 17:06:00, Duration: 30 day, Stop date: 05/01/14 17:05:00Notes: Do not exceed 4gm/day of acetaminophen. (Same as: [place] 325/10) No Longer Active 04/01/2014 [facility] Miralax 17 gm, 1 pkt, Route: PO, Drug form: PWDR, Daily, Dosing Weight 81.818, kg, PRN Constipation, Start date: 04/01/14 17:04:00, Stop date: 05/01/14 17:03:00Notes: Dissolve in 8 oz of water or juice. (Same as: Miralax) No Longer Active 04/01/2014 [facility] Lorazepam 0.5 mg, 1 tab, Route: PO, Drug form: TAB, Q6H, Dosing Weight 81.818, kg, PRN as needed for anxiety, Start date: 04/01/14 17:04:00, Stop date: 05/01/14 17:03:00Notes: (Same as: Ativan) No Longer Active 04/01/2014 [facility] Docusate Sodium 100 MG Oral Capsule [Colace] 100 mg, 1 cap, Route: PO, Drug form: CAP, BID, Dosing Weight 81.818, kg, PRN as needed for constipation, Start date: 04/01/14 17:03:00, Stop date: 05/01/14 17:02:00Notes: (Same as: Colace) (Do Not Crush) No Longer Active 04/01/2014 [facility] cyclobenzaprine 5 mg, 0.5 tab, Route: PO, Drug form: TAB, TID, Dosing Weight 81.818, kg, PRN as needed for muscle spasm, Start date: 04/01/14 17:03:00, Stop date: 05/01/14 17:02:00Notes: (Same As: Flexeril) No Longer Active 04/01/2014 [facility] Aspirin 81 MG Enteric Coated Tablet 81 mg=1 tab, PO, Daily On Hold 04/01/2014 [facility] omeprazole 20 mg oral delayed release capsule 20 mg=1 cap, PO, Daily On Hold 04/01/2014 [facility] Hydrochlorothiazide 12.5 MG Oral Capsule 12.5 mg=1 cap, PO, Daily On Hold 04/01/2014 [facility] cyclobenzaprine 5 mg oral tablet 5 mg=1 tab, PO, TID, as needed for muscle spasm On Hold 04/01/2014 [facility] Acetaminophen 325 MG / Oxycodone Hydrochloride 10 MG Oral Tablet [Percocet 10/325] 1 tab, PO, Q4H, as needed for pain No Longer Active 04/01/2014 [facility] 24 HR Nicotine 0.583 MG/HR Transdermal Patch =1 patch, TOP, Daily No Longer Active 04/01/2014 [facility] POLYETHYLENE GLYCOL 3350 142 MG/ML Oral Solution [Miralax] 17 gm, PO, Daily, Constipation On Hold 04/01/2014 [facility] predniSONE 20 mg oral tablet 40 mg=2 tab, PO, Daily No Longer Active 04/01/2014 [facility] gabapentin 300 MG Oral Capsule 600 mg=2 cap, PO, TID On Hold 04/01/2014 [facility] fentaNYL 25 mcg/hr transdermal film, extended release 1 patch, TOP, Q72H No Longer Active 04/01/2014 [facility] Ciprofloxacin 500 mg, Route: PO, ONCE, Dosing Weight 81.818, kg, Priority: STAT, Start date: 04/01/14 15:51:00, Stop date: 04/01/14 15:51:00 Inactive 04/01/2014 [facility] aspirin 325 mg, Route: PO, Drug form: TAB, ONCE, Dosing Weight 81.818, kg, Priority: STAT, Start date: 04/01/14 13:59:00, Stop date: 04/01/14 13:59:00 Inactive 04/01/2014 [facility] Ondansetron 4 mg, Route: IVP, ONCE, Dosing Weight 81.818, kg, Priority: STAT, Start date: 04/01/14 11:45:00, Stop date: 04/01/14 11:45:00 Inactive 04/01/2014 [facility] Saline Flush 0.9% 10 mL, Route: IVP, Drug Form: INJ, Dosing Weight 81.818, kg, PRN, PRN Line Flush, Start date: 04/01/14 11:45:00, Duration: 30 day, Stop date: 05/01/14 11:44:00Notes: Same as: BD Posiflush Sterile Inactive 04/01/2014 [facility] Sodium Chloride 0.154 MEQ/ML Injectable Solution 1,000 mL, Rate: 150 ml/hr, Infuse over: 6.7 hr, Route: IV, Dosing Weight 81.818 kg, Total Volume: 1,000, Start date: 04/01/14 11:45:00, Duration: 30 day, Stop date: 05/01/14 11:44:00 Inactive 04/01/2014 [facility] fentaNYL 25 mcg/hr transdermal film, extended release 1 patch, TOP, Q72H, # 10 patch, 0 Refill(s), given to patient Active 03/03/2014 [facility] Acetaminophen 325 MG / Oxycodone Hydrochloride 10 MG Oral Tablet [Percocet 10/325] 1 tab, PO, Q4H, for pain, # 90 tab, 0 Refill(s), given to patient Active 03/03/2014 [facility] 72 HR Fentanyl 0.025 MG/HR Transdermal Patch 1 patch, Route: TOP, Drug Form: ERFILM, Dosing Weight 88.636, kg, Q72H, Start date: 03/02/14 12:00:00, Duration: 30 day, Stop date: 03/29/14 12:00:00Notes: (Same as: Duragesic) Check for product integrity. Apply to intact skin "Remove old patch before application of new patch" No Longer Active 03/02/2014 [facility] Acetaminophen 325 MG / Oxycodone Hydrochloride 10 MG Oral Tablet [Percocet 10/325] 1 tab, Route: PO, Drug Form: TAB, Dosing Weight 88.636, kg, Q4H, PRN Pain Score 4-6, Start date: 03/01/14 16:39:00, Duration: 30 day, Stop date: 03/31/14 16:38:00Notes: Do not exceed 4gm/day of acetaminophen. (Same as: Percocet-) No Longer Active 03/01/2014 [facility] Zoloft 75 mg, 1.5 tab, Route: PO, Drug form: TAB, Daily, Dosing Weight 88.636, kg, Start date: 02/27/14 9:00:00, Duration: 30 day, Stop date: 03/28/14 9:00:00Notes: (Same as: Zoloft) No Longer Active 02/27/2014 [facility] Protonix 40 mg, 1 tab, Route: PO, Drug form: ECTAB, Before Dinner, Dosing Weight 88.636, kg, Start date: 02/26/14 16:30:00, Duration: 30 day, Stop date: 03/27/14 16:30:00Notes: Tablet should not be chewed or crushed. (Same as: Protonix) No Longer Active 02/26/2014 [facility] Sertraline 50 MG Oral Tablet [Zoloft] 75 mg, PO, Daily, # 100 tab, 0 Refill(s) Active 02/26/2014 [facility] Docusate Sodium 100 MG Oral Capsule [Colace] 100 mg, 1 cap, Route: PO, Drug form: CAP, BID, Dosing Weight 88.636, kg, Start date: 02/26/14 9:00:00, Duration: 30 day, Stop date: 03/27/14 17:00:00Notes: (Same as: Colace) (Do Not Crush) No Longer Active 02/26/2014 [facility] gabapentin 300 MG Oral Capsule 300 mg, 1 cap, Route: PO, Drug form: CAP, TID, Dosing Weight 88.636, kg, Start date: 02/26/14 9:00:00, Duration: 30 day, Stop date: 03/27/14 17:00:00Notes: (Same as: Neurontin) No Longer Active 02/26/2014 [facility] Miralax 17 gm, 1 pkt, Route: PO, Drug form: PWDR, BID, Dosing Weight 88.636, kg, Start date: 02/26/14 9:00:00, Duration: 30 day, Stop date: 03/27/14 17:00:00Notes: Dissolve in 8 oz of water or juice. (Same as: Miralax) No Longer Active 02/26/2014 [facility] Docusate Sodium 100 MG Oral Capsule [Colace] 100 mg=1 cap, PO, BID, 0 Refill(s) Active 02/26/2014 [facility] LORazepam 0.5 mg oral tablet 0.5 mg=1 tab, PO, TID, as needed for anxiety, 0 Refill(s) Active 02/26/2014 [facility] Nicotine 14 mg=1 patch, TOP, Daily, 0 Refill(s) Active 02/26/2014 [facility] Lidocaine Hydrochloride 0.05 MG/MG Transdermal Patch 1 patch, TOP, Daily, 0 Refill(s) Active 02/26/2014 [facility] Protonix 40 mg, 1 tab, Route: PO, Drug form: ECTAB, ONCE, Dosing Weight 88.636, kg, Start date: 02/25/14 19:45:00, Stop date: 02/25/14 19:45:00Notes: Tablet should not be chewed or crushed. (Same as: Protonix) Inactive 02/26/2014 [facility] Pneumovax 23 0.5 ml, Route: IM, Drug Form: INJ, Daily, Start date: 02/24/14 9:00:00, Duration: 1 doses or times, Stop date: 02/24/14 9:00:00Notes: (Same as: Pneumovax 23) Refrigerate Inactive 02/24/2014 [facility] Fluzone Quadrivalent [id number] 0.5 ml, Route: IM, Drug Form: SUSP, Daily, Start date: 02/24/14 9:00:00, Duration: 1 doses or times, Stop date: 02/24/14 9:00:00Notes: (Same as: Fluzone Quadrivalent) Inactive 02/24/2014 [facility] Metoprolol 1 mg, 1 mL, Route: IV, Drug form: INJ, Q5Min, Dosing Weight 88.636, kg, PRN Tachycardia, Start date: 02/23/14 16:42:00, Duration: 30 day, Stop date: 03/25/14 15:41:00Notes: (Same as: Lopressor) Push over 2 minutes No Longer Active 02/23/2014 [facility] Ofirmev 1,000 mg, 100 mL, Route: IV, Drug form: INJ, ONCE, Dosing Weight 88.636, kg, PRN Pain, for > or=50 kg, Start date: 02/23/14 15:53:00Notes: Infuse over 15 minutes Do not exceed 4gm/day of acetaminophen No Longer Active 02/23/2014 [facility] Acetaminophen 325 MG / Hydrocodone Bitartrate 10 MG Oral Tablet [[place] 10/325] 1 tab, Route: PO, Drug Form: TAB, Dosing Weight 88.636, kg, Q6H, PRN Pain, Start date: 02/23/14 15:53:00, Duration: 30 day, Stop date: 03/25/14 15:52:00Notes: Do not exceed 4gm/day of acetaminophen. (Same as: [place] 325/10) No Longer Active 02/23/2014 [facility] Naloxone 0.04 mg, 0.1 mL, Route: IVP, Drug form: INJ, Q2MIN, Dosing Weight 88.636, kg, PRN Narcotic Reversal, Start date: 02/23/14 15:53:00, Duration: 8 doses or times, Stop date: Limited # of timesNotes: Same as Narcan No Longer Active 02/23/2014 [facility] Flumazenil 0.2 mg, 2 mL, Route: IVP, Drug form: INJ, PRN, Dosing Weight 88.636, kg, PRN Benzodiazepine Reversal, Initial dose, Start date: 02/23/14 15:53:00, Duration: 30 day, Stop date: 03/25/14 14:52:00Notes: (Same as: Romazicon) No Longer Active 02/23/2014 [facility] Ketorolac 30 mg, Route: IVP, ONCE, Dosing Weight 88.636, kg, Start date: 02/23/14 15:53:00, Duration: 1 doses or times, Stop date: 02/23/14 15:53:00 Inactive 02/23/2014 [facility] Morphine 2 mg, 1 mL, Route: IVP, Drug form: INJ, Q5Min, Dosing Weight 88.636, kg, PRN Pain Score 4-6, Start date: 02/23/14 15:53:00, Duration: 5 doses or times, Stop date: Limited # of timesNotes: (Same as:MO RPhine Sulfate) No Longer Active 02/23/2014 [facility] Hydromorphone 0.5 mg, 0.5 mL, Route: IVP, Drug form: INJ, Q5Min, Dosing Weight 88.636, kg, PRN Pain Score 7-10, Start date: 02/23/14 15:53:00, Duration: 4 doses or times, Stop date: Limited # of times No Longer Active 02/23/2014 [facility] Fentanyl 50 microgram, 1 mL, Route: IVP, Drug form: INJ, Q5Min, Dosing Weight 88.636, kg, PRN Pain Score 7-10, Start date: 02/23/14 15:53:00, Duration: 2 doses or times, Stop date: Limited # of timesNotes: (Same as: Sublimaze) Preservative free. No Longer Active 02/23/2014 [facility] Ondansetron 4 mg, 2 mL, Route: IVP, Drug form: INJ, ONCE, Dosing Weight 88.636, kg, PRN Nausea & Vomiting, Start date: 02/23/14 15:53:00Notes: (Same as: Zofran) No Longer Active 02/23/2014 [facility] Clindamycin 600 mg, 4 mL, Route: IVPB, ONCE, Dosing Weight 88.636, kg, Start date: 02/23/14 11:45:00, Stop date: 02/23/14 11:45:00Notes: (clindamycin 150 mg/1 ml (600 mg/4 ml VL) INJ) (Same As: Cleocin) Inactive 02/23/2014 [facility] Calcium Chloride 0.0014 MEQ/ML / Potassium Chloride 0.004 MEQ/ML / Sodium Chloride 0.103 MEQ/ML / Sodium Lactate 0.028 MEQ/ML Injectable Solution 1,000 mL, Rate: 25 ml/hr, Infuse over: 40 hr, Route: IV, Dosing Weight 88.636 kg, Total Volume: 1,000, Start date: 02/23/14 10:38:00, Duration: 30 day, Stop date: 03/25/14 10:37:00 No Longer Active 02/23/2014 [facility] remove patch 1 patch, Route: TOP, Drug form: ERFILM, Daily, Start date: 02/23/14 9:00:00, Duration: 30 day, Stop date: 03/23/14 21:00:00Notes: Remove old patch before application of new patch. No Longer Active 02/23/2014 [facility] remove patch 1 patch, Route: TOP, Bedtime, Drug form: ERFILM, Start date: 02/22/14 21:00:00, Duration: 30 day, Stop date: 03/23/14 21:00:00Notes: Remove patch 12 hours after application each day. No Longer Active 02/23/2014 [facility] Isosorbide Dinitrate 10 mg, 1 tab, Route: PO, Drug form: TAB, TID, Dosing Weight 88.636, kg, Start date: 02/22/14 20:00:00, Duration: 30 day, Stop date: 03/24/14 17:00:00Notes: (Same as:Isordil) Take on empty stomach/ full glass of water No Longer Active 02/23/2014 [facility] Ativan 0.5 mg, 1 tab, Route: PO, Drug form: TAB, TID, Dosing Weight 88.636, kg, PRN as needed for anxiety, Start date: 02/22/14 15:03:00, Duration: 30 day, Stop date: 03/24/14 15:02:00Notes: (Same as: Ativan) No Longer Active 02/22/2014 [facility] Nicotine 14 mg, 1 patch, Route: TOP, Drug form: ERFILM, Daily, Dosing Weight 88.636, kg, Start date: 02/22/14 15:00:00, Duration: 30 day, Stop date: 03/24/14 9:00:00Notes: (Same as: Habitrol) "Remove old patch before application of new patch" No Longer Active 02/22/2014 [facility] meloxicam 15 mg, 2 tab, Route: PO, Drug form: TAB, Daily, Dosing Weight 88.636, kg, Start date: 02/22/14 9:00:00, Duration: 30 day, Stop date: 03/23/14 9:00:00Notes: (Same as: Mobic) No Longer Active 02/22/2014 [facility] Prednisone 40 mg, 2 tab, Route: PO, Drug form: TAB, Daily, Dosing Weight 88.636, kg, Start date: 02/22/14 9:00:00, Duration: 30 day, Stop date: 03/23/14 9:00:00Notes: Take with food. No Longer Active 02/22/2014 [facility] Lidocaine Hydrochloride 0.05 MG/MG Transdermal Patch 1 patch, Route: TOP, Daily, Drug form: FILM, Start date: 02/22/14 9:00:00, Duration: 30 day, Stop date: 03/23/14 9:00:00Notes: Apply only once for up to 12 hours in a 24-hour period (12 hours on and 12 hours off). (Same as: Lidoderm) "Remove old patch before application of new patch" No Longer Active 02/22/2014 [facility] pneumococcal capsular polysaccharide type 1 vaccine / pneumococcal capsular polysaccharide type 10A vaccine / pneumococcal capsular polysaccharide type 11A vaccine / pneumococcal capsular polysaccharide type 12F vaccine / pneumococcal capsular polysacchar 0.5 ml, Route: IM, Drug Form: INJ, Daily, Start date: 02/22/14 9:00:00, Duration: 1 doses or times, Stop date: 02/22/14 9:00:00Notes: (Same as: Pneumovax 23) Refrigerate Inactive 02/22/2014 [facility] Influenza Virus Vaccine, Inactivated W-Aijtsgio-60 (H3N2)-like virus ([id number] [facility] [place] X-175C) strain / Influenza Virus Vaccine, Inactivated P-[id number], IVR-148 (H1N1) strain / Influenza Virus Vaccine, Inactivated, D-Wessgbs-4-lik 0.5 ml, Route: IM, Drug Form: SUSP, Daily, Start date: 02/22/14 9:00:00, Duration: 1 doses or times, Stop date: 02/22/14 9:00:00Notes: (Same as: Fluzone Quadrivalent) Inactive 02/22/2014 [facility] Lovenox 40 mg, 0.4 mL, Route: SUB-Q, Drug form: INJ, [id number], Dosing Weight 88.636, kg, Start date: 02/21/14 19:00:00, Duration: 30 day, Stop date: 03/22/14 19:00:00Notes: (Same as: Lovenox) No Longer Active 02/22/2014 [facility] Enoxaparin 40 mg, Route: SUB-Q, Drug form: INJ, [id number], Dosing Weight 88.636, kg, Start date: 02/21/14 19:00:00, Duration: 30 day, Stop date: 03/22/14 19:00:00 Inactive 02/22/2014 [facility] Diltiazem 60mg tab===pt own med Diltiazem 60mg tab===pt own med, 2 tab, Drug form: MISC, Route: PO, BID, Priority: Routine, 02/21/14 18:00:00, Duration: 30 day, Stop date: 03/23/14 17:00:00 No Longer Active 02/21/2014 [facility] Diltiazem 120 mg, 1 tab, Route: PO, Drug form: TAB, BID, Dosing Weight 88.636, kg, Start date: 02/21/14 17:00:00, Duration: 30 day, Stop date: 03/23/14 9:00:00Notes: (Same as: Cardizem) Before meals No Longer Active 02/21/2014 [facility] gabapentin 300 MG Oral Capsule 300 mg, 1 cap, Route: PO, Drug form: CAP, BID, Dosing Weight 88.636, kg, Start date: 02/21/14 17:00:00, Duration: 30 day, Stop date: 03/23/14 9:00:00Notes: (Same as: Neurontin) No Longer Active 02/21/2014 [facility] Dilaudid 0.5 mg, 0.5 mL, Route: IV, Drug form: INJ, Q3H, Dosing Weight 88.636, kg, PRN Pain Score 7-10, Start date: 02/21/14 16:34:00, Stop date: 03/23/14 16:33:00 No Longer Active 02/21/2014 [facility] Aspirin 81 MG Chewable Tablet 81 mg, 1 tab, Route: PO, Drug form: CHE[place]AB, Daily, Dosing Weight 88.636, kg, Start date: 02/21/14 15:00:00, Duration: 30 day, Stop date: 03/23/14 9:00:00Notes: Take with food. Inactive 02/21/2014 [facility] Albuterol 0.833 MG/ML / Ipratropium [place] 0.167 MG/ML Inhalant Solution [DuoNeb] 3 mL, Route: INHALATION, Drug Form: SOLN, Dosing Weight 88.636, kg, RQ4H, Start date: 02/21/14 15:00:00, Duration: 30 day, Stop date: 03/23/14 11:00:00Notes: (Same as: Duoneb) No Longer Active 02/21/2014 [facility] Acetaminophen 325 MG / Hydrocodone Bitartrate 10 MG Oral Tablet [[place] 10/325] 1 tab, Route: PO, Drug Form: TAB, Dosing Weight 88.636, kg, Q4H, PRN Pain Score 1-3, Start date: 02/21/14 14:02:00, Duration: 30 day, Stop date: 03/23/14 14:01:00Notes: Do not exceed 4gm/day of acetaminophen. (Same as: [place] 325/10) No Longer Active 02/21/2014 [facility] Flexeril 5 mg, 0.5 tab, Route: PO, Drug form: TAB, BID, Dosing Weight 88.636, kg, PRN as needed for muscle spasm, Start date: 02/21/14 14:01:00, Stop date: 03/23/14 16:59:00Notes: (Same As: Flexeril) No Longer Active 02/21/2014 [facility] Albuterol 0.833 MG/ML / Ipratropium [place] 0.167 MG/ML Inhalant Solution 3 mL, Route: NEB, Drug Form: SOLN, Dosing Weight 88.636, kg, RQ6H, Start date: 02/21/14 14:00:00, Duration: 30 day, Stop date: 03/23/14 8:00:00Notes: (Same as: Duoneb) Inactive 02/21/2014 [facility] Prilosec 20 mg, PO, Daily, 0 Refill(s) Active 02/21/2014 [facility] diltiazem 120 mg oral tablet 120 mg=1 tab, PO, BID, 0 Refill(s) Active 02/21/2014 [facility] Aspirin 81 MG Chewable Tablet 81 mg=1 tab, PO, Daily, tab, 0 Refill(s) Active 02/21/2014 [facility] Hydrochlorothiazide 0 Refill(s) No Longer Active 02/21/2014 [facility] Cyclobenzaprine hydrochloride 5 MG Oral Tablet [Flexeril] 5 mg=1 tab, PO, TID, 0 Refill(s) Active 02/21/2014 [facility] Acetaminophen 300 MG / Hydrocodone Bitartrate 5 MG Oral Tablet [Vicodin 5/300] 0 Refill(s) No Longer Active 02/21/2014 [facility] meloxicam 15 mg oral tablet 30 mg=2 tab, PO, Daily, 0 Refill(s) Active 02/21/2014 [facility] nitroglycerin 0.4 mg sublingual tablet 0.4 mg, 1 tab, Route: SL, Drug form: TAB, Q5Min, PRN Chest Pain, Start date: 02/21/14 10:03:00, Duration: 30 day, Stop date: 03/23/14 9:02:00Notes: (Same as:Nitroquick, Nitrostat) "Do Not Crush" Sublingual tablet No Longer Active 02/21/2014 [facility] atropine 0.5 mg, 5 mL, Route: IVP, Drug form: INJ, PRN, PRN Bradycardia, Start date: 02/21/14 10:03:00, Duration: 30 day, Stop date: 03/23/14 9:02:00 No Longer Active 02/21/2014 [facility] NS 1,000 mL 1,000 mL, Rate: 100 ml/hr, Infuse over: 10 hr, Route: IV, Dosing Weight 88.636 kg, Total Volume: 1,000, Start date: 02/21/14 9:23:00, Duration: 30 day, Stop date: 03/23/14 9:22:00 No Longer Active 02/21/2014 [facility] Zofran 4 mg, 2 mL, Route: IVP, Drug form: INJ, ONCE, Dosing Weight 88.636, kg, PRN as needed for nausea/vomiting, Priority: STAT, Start date: 02/21/14 9:23:00Notes: (Same as: Zofran) No Longer Active 02/21/2014 [facility] Acetaminophen 325 MG / Hydrocodone Bitartrate 5 MG Oral Tablet [[place] 5/325] 1 tab, Route: PO, Drug Form: TAB, Dosing Weight 88.636, kg, Q6H, PRN Pain Score 1-3, STAT, Start date: 02/21/14 9:23:00, Duration: 30 day, Stop date: 03/23/14 9:22:00Notes: (Same as: [place] 325/5) Do not exceed 4gm/day of acetaminophen. No Longer Active 02/21/2014 [facility] Albuterol 0.83 MG/ML Inhalant Solution 2.49 mg, 3 mL, Route: NEB, Drug form: SOLN, RQ2H, Dosing Weight 88.636, kg, PRN Wheezing, Priority: Routine, Start date: 02/21/14 9:23:00, Duration: 30 day, Stop date: 03/23/14 9:22:00Notes: SEE RT DOCUMENTATION (Same as: Proventil) No Longer Active 02/21/2014 [facility] Morphine 2 mg, 1 mL, Route: IVP, Drug form: INJ, Q4H, Dosing Weight 88.636, kg, PRN Pain Score 4-6, Priority: STAT, Start date: 02/21/14 9:00:00, Duration: 30 day, Stop date: 03/23/14 8:59:00Notes: (Same as:MORPhine Sulfate) No Longer Active 02/21/2014 [facility] Solu-Medrol 125 mg, 2 mL, Route: IVP, Drug form: INJ, ONCE, Dosing Weight 88.636, kg, Priority: STAT, Start date: 02/21/14 8:38:00, Stop date: 02/21/14 8:38:00Notes: (Same as:Solu-MEDROL, A-Methapred) Inactive 02/21/2014 [facility] Albuterol 0.833 MG/ML / Ipratropium [place] 0.167 MG/ML Inhalant Solution 3 mL, Route: NEB, Drug Form: SOLN, Dosing Weight 88.636, kg, ONCE, STAT, Start date: 02/21/14 7:54:00, Stop date: 02/21/14 7:54:00Notes: (Same as: Duoneb) Inactive 02/21/2014 [facility] NS 1,000 mL 1,000 mL, Rate: 150 ml/hr, Infuse over: 6.7 hr, Route: IV, Dosing Weight 88.636 kg, Total Volume: 1,000, Start date: 02/21/14 7:54:00, Duration: 30 day, Stop date: 03/23/14 7:53:00 No Longer Active 02/21/2014 [facility] Levaquin 750 mg, 150 mL, Route: IVPB, Drug form: SOLN, ONCE, Dosing Weight 88.636, kg, Start date: 02/21/14 7:52:00, Stop date: 02/21/14 7:52:00Notes: (Same as:Levaquin) Inactive 02/21/2014 [facility] Albuterol 0.833 MG/ML / Ipratropium [place] 0.167 MG/ML Inhalant Solution 3 mL, Route: NEB, Dosing Weight 88.636, kg, ONCE, STAT, Start date: 02/21/14 5:46:00, Stop date: 02/21/14 5:46:00 Inactive 02/21/2014 [facility] Sodium Chloride 0.154 MEQ/ML Injectable Solution 1,000 mL, 1,000 ml/hr, Infuse Over: 1 hr, Route: IV, 1,000, Drug form: INJ, ONCE, Priority: STAT, Dosing Weight 88.636 kg, Start date: 02/21/14 4:56:00, Duration: 1 doses or times, Stop date: 02/21/14 4:56:00 Inactive 02/21/2014 [facility] Sodium Chloride 0.154 MEQ/ML Injectable Solution 1,000 mL, 1,000 ml/hr, Infuse Over: 1 hr, Route: IV, ONCE, Priority: STAT, Dosing Weight 88.636 kg, Start date: 02/21/14 4:41:00, Duration: 1 doses or times, Stop date: 02/21/14 4:41:00 Inactive 02/21/2014 [facility] Zofran 4 mg, Route: IVP, Drug form: INJ, ONCE, Dosing Weight 88.636, kg, Priority: STAT, Start date: 02/21/14 0:27:00, Stop date: 02/21/14 0:27:00 Inactive 02/21/2014 [facility] Valium 5 mg, Route: IVP, Drug form: INJ, ONCE, Dosing Weight 88.636, kg, Priority: STAT, Start date: 02/21/14 0:20:00, Stop date: 02/21/14 0:20:00 Inactive 02/21/2014 [facility] Dilaudid 2 mg, Route: IV, ONCE, Dosing Weight 88.636, kg, Start date: 02/21/14 0:20:00, Stop date: 02/21/14 0:20:00 Inactive 02/21/2014 [facility] Diazepam 5 MG Oral Tablet [Valium] 5 mg=1 tab, PO, QID, Muscle Spasms, # 12 tab, 0 Refill(s) No Longer Active 02/21/2014 [facility] {21 (Methylprednisolone 4 MG Oral Tablet [Medrol]) } Pack [Medrol Dosepak] As directed on package instructions, PO, Daily, Take with or without food, # 1 Pack, 0 Refill(s)Special Instructions: Take with or without food Active 02/21/2014 [facility] Acetaminophen 325 MG / Hydrocodone Bitartrate 10 MG Oral Tablet [[place] 10/325] 1-2 tab, PO, Q4-6H, Pain, # 15 tab, 0 Refill(s) No Longer Active 02/21/2014 [facility] Dilaudid 2 mg, 2 mL, Route: IM, Drug form: INJ, ONCE, Dosing Weight 88.636, kg, Priority: STAT, Start date: 02/20/14 21:53:00, Stop date: 02/20/14 21:53:00 Inactive 02/21/2014 [facility] Hydromorphone 2 mg, Route: IM, ONCE, Dosing Weight 88.636, kg, Start date: 02/20/14 20:00:00, Stop date: 02/20/14 20:00:00 Inactive 02/21/2014 [facility] Dexamethasone 10 mg, Route: IM, ONCE, Dosing Weight 89.091, kg, Priority: STAT, Start date: 02/19/14 7:59:00, Stop date: 02/19/14 7:59:00 Inactive 02/19/2014 [facility] Valium 10 mg, Route: PO, ONCE, Dosing Weight 89.091, kg, Priority: STAT, Start date: 02/19/14 7:59:00, Stop date: 02/19/14 7:59:00 Inactive 02/19/2014 [facility] Amitriptyline Hcl 50 Mg Tablet Daily [facility] Amlodipine Besylate 5 Mg Tablet Daily Active [facility] Aspirin 81 Mg Tab.chew Daily [facility] Atenolol 50 Mg Tablet Daily [facility] Duloxetine Hcl (Cymbalta) 30 Mg Capsule. Daily Active [facility] Escitalopram Oxalate 20 Mg Tablet Daily [facility] Esomeprazole Magnesium (Nexium) 40 Mg Capsule. Daily Active [facility]OTONIX [facility]APE[facility] FOR NEXIUM [facility] Hydrocodone Bit/Acetaminophen ([place] 10-325 Tablet) 1 Each Tablet Twice A Day as needed for Pain Active [facility] Meloxicam 7.5 Mg Tablet Daily as needed for Prn Active [facility] Morphine Sulfate (Morphine Sulfate Er) 30 Mg Tablet.er Every 12 Hours [facility] Tamsulosin Hcl (Flomax*) 0.4 Mg Cap Daily [facility] Tizanidine Hcl 4 Mg Tablet Three Times A Day as needed for Muscle Spasms Active [facility] Allergies, Adverse Reactions, Alerts Substance Category Reaction Severity Reaction type Status Date Reported Comments Source PENICILLIN Unknown Allergy to Substance Active 01/08/2018 [facility] STATINS Unknown Allergy to Substance Active 01/08/2018 [facility] Z-PAC Unknown Allergy to Substance Active 01/08/2018 [facility] azithromycin Assertion Drug allergy Active [facility] statins Assertion Drug allergy Active [facility] Keflex Assertion Drug allergy Active [facility] penicillins Assertion Drug allergy Active [facility] ashley Assertion Drug allergy Active [facility] Levaquin Assertion Drug allergy Active [facility] Immunizations Immunization Date Given Site Status Last Updated Comments Source influenza virus vaccine, inactivated 02/19/2015 Left Deltoid completed [facility] influenza virus vaccine, inactivated 02/24/2014 Left deltoid completed [place] Results Order Name Results Value Reference Range Date Interpretation Comments Source Shoulder series DX Shoulder series DX Patient Name: CAMILO AVENDANO : 1960; Age: 57 years y/o Female MR: [id number] * LEFT SHOULDER, 3 views History: Left shoulder pain. Technique: The left shoulder was evaluated in frontal projection in internal and external rotation. A transthoracic view was also obtained. FINDINGS: There is no evidence of fracture, dislocation, or acute change. There are no degenerative changes or other significant osseous abnormalities. There are no destructive lesions. IMPRESSION: 1. Negative left shoulder. SL: PABLO 04/01/2018 - - Read by: Tam Negron MD Dictated Date/time: 04/01/18 14:42 Electronically Signed by: Tam Negron MD 04/01/18 14:42 FINAL REPORT [facility] Spine thoracic 3 views DX Spine thoracic 3 views DX Patient Name: CAMILO AVENDANO : 1960; Age: 57 years y/o Female MR: [id number] * THORACIC SPINE, 2 views HISTORY: M54.6 Pain in thoracic spine TECHNIQUE: Frontal and lateral radiographs of the thoracic spine were obtained. FINDINGS: There is slight thoracic scoliosis, convexity to the left, centered at T8. This could even be positional. There is otherwise normal alignment and kyphosis of the thoracic spine. The vertebral bodies are normal in height. There are no compression deformities or destructive lesions. There is no evidence of fracture or acute change. The disc spaces are well-maintained. There are no significant degenerative changes. IMPRESSION: 1. Very mild thoracic scoliosis which could even be positional. Otherwise, negative thoracic spine. SL: PABLO 04/01/2018 - - Read by: Tam Negron MD Dictated Date/time: 04/01/18 18:21 Electronically Signed by: Tam Negron MD 04/01/18 18:23 FINAL REPORT [facility] Spine cervical series DX Spine cervical series DX Exam: Spine cervical series DX Clinical Indication: - M54.6 Pain in thoracic spine, M25.512 Pain in left shoulder, M54.2 Cervicalgia Comparison: None FINDINGS: 3 views of the cervical spine are performed. Cervical spine alignment is within normal limits. No significant spondylolisthesis. Vertebral body heights are maintained. No acute fracture identified. The atlantoaxial articulations are maintained. Disc spaces are well-preserved. No significant bony neural foraminal narrowing appreciated on the oblique views. Prevertebral soft tissues are within normal limits. The visualized lung apices are clear. If there is further concern or neurological abnormalities on clinical exam, recommend MRI or CT of the cervical spine for complete assessment. IMPRESSION: Unremarkable radiographs of the cervical spine. SL: [id number] 04/01/2018 - - Read by: Roosevelt Belle MD Dictated Date/time: 04/01/18 17:45 Electronically Signed by: Roosevelt Belle MD 04/01/18 17:46 FINAL REPORT [facility] Abdomen/Pelvis CTA Abdomen/Pelvis CTA Patient Name: CAMILO AVENDANO : 1960; Age: 57 years y/o Female MR: [id number] * CT ANGIOGRAPHY OF THE ABDOMEN \\T\\ PELVIS, (CT aortography of the abdominal aorta and pelvic vessels) HISTORY: Abdominal aortic aneurysm. Comparison is made to a CT angiogram study of 11/14/2016. A renal stone protocol computed tomography scan of the abdomen and pelvis of 11/28/2017 was also reviewed. Technique: High resolution (2.0 mm) helical CT images were obtained from the domes of the diaphragm through the pelvis to the pubic symphysis during the dynamic administration of nonionic iodinated contrast for maximal arterial opacification (CT angiography technique). 3-dimensional (obtained by postprocessing on an independent workstation), sagittal and coronal maximal intensity projection reconstructions (obtained by postprocessing on an independent workstation) were also provided. CT imaging performed at this location utilizes radiation dose optimization techniques which include one or more of the following: -Automated exposure control. -Adjustment of the mA and/or kV according to patient size. -Use of iterative reconstruction technique. CT radiation dose DLP: 975 mGy-cm FINDINGS: (Vascular) * Abdominal aorta and iliac arteries: 1. Stable 3.3 cm fusiform infrarenal abdominal aortic aneurysm. There is been no significant change from 11/14/2016. 2. There are extensive underlying atherosclerotic change involving the abdominal aorta and iliac arteries. There are multiple plaques and areas of luminal thrombus within the abdominal aorta. There is relatively mild luminal thrombus in the region of the aneurysm. There is mild (approximately 25-30%) stenosis of the proximal infrarenal abdominal aorta due to luminal thrombus and plaquing, best seen on images 82 through 84 series 5. 3. The following aortic measurements were obtained: Distal descending thoracic aorta: 2.25 cm Proximal abdominal aorta: 2.4 cm Abdominal aorta at the level of the renal arteries: 1.8 cm Upper infrarenal abdominal aorta: 1.9 cm in Mid infrarenal abdominal aorta at its maximal aneurysmal dilatation: 3.3 cm. Lower abdominal aorta near bifurcation: 1.35 cm Left common iliac artery: 0.9 cm Right common iliac artery: 0.95 cm Left external iliac artery: 0.65 cm Right external iliac artery: 0.65 cm Left common femoral artery: 0.65 cm Right common femoral artery: 0.65 cm 4. There are single renal arteries bilaterally which are widely patent. 5. The celiac axis, superior mesenteric artery, inferior mesenteric artery are patent. 6. Extensive atherosclerotic calcifications involving the common iliac arteries. There is probable mild (less than 20%) stenosis bilaterally. There is no evidence of a hemodynamically significant stenosis. The external iliac arteries are also patent. Therefore, there appears to be good inflow via the aortoiliac system bilaterally. 7. The hypogastric arteries are patent with moderate diffuse disease. FINDINGS: (Nonvascular) 1. The visualized lung bases are clear. There are no pleural effusions. 2. Mild cardiomegaly. There is no pericardial effusion. 3. No mass, adenopathy, ascites, or other fluid collection. 4. There are postcholecystectomy changes. Surgical clips are noted in the right upper quadrant. There is mild dilatation of the common bile duct which measures approximately 7 mm in maximal diameter. This is presumably related to postcholecystectomy change. There is no significant intrahepatic ductal dilatation. Please correlate with clinical and laboratory information. 5. Mild diffuse fatty change involving the liver. The liver is otherwise unremarkable. No focal lesions are seen. 6. The spleen, pancreas, and adrenal glands are normal in appearance. 7. The kidneys are normal in size and show symmetrical enhancement and excretion without hydronephrosis. There is mild left renal cortical scarring. No focal lesions are seen. It is noted an approximately 8 x 5 mm calculus in the lower pole the left kidney was demonstrated on the renal stone protocol computed tomography scan of 11/28/2017. This is obscured by contrast material within the left pyelocalyceal system. 8. The gastrointestinal structures are unremarkable. There is no evidence of obstruction or ileus. A normal appendix is visualized. Evaluation of the gastrointestinal structures is limited due to lack of oral contrast. 9. The uterus is not visualized. Presumably, the patient has had a prior hysterectomy. 10. Moderate degenerative facet disease in the lower lumbosacral region at L5-S1. There is no significant degenerative disc disease. There are no other significant osseous abnormalities. No blastic or destructive lesions are seen. SL: PABLO 04/01/2018 - - Read by: Tam Negron MD Dictated Date/time: 04/01/18 16:56 Electronically Signed by: Tam Negron MD 04/01/18 17:18 FINAL REPORT [facility] Automated blood basophil count (count/volume) Automated blood basophil count (count/volume) 0.0 0.0 - 0.1 01/21/2018 [facility] Automated blood basophil count as percentage of total leukocytes Automated blood basophil count as percentage of total leukocytes 0.5 0.0 - 1.0 01/21/2018 [facility] Automated blood eosinophil count Automated blood eosinophil count 0.2 0.0 - 0.4 01/21/2018 [facility] Automated blood eosinophil count as percentage of total leukocytes Automated blood eosinophil count as percentage of total leukocytes 3.0 0.0 - 6.0 01/21/2018 [facility] Automated blood hematocrit (volume fraction) Automated blood hematocrit (volume fraction) 45.9 34.2 - 44.1 01/21/2018 [facility] Automated blood lymphocyte count as percentage ot total leukocytes Automated blood lymphocyte count as percentage ot total leukocytes 21.0 18.0 - 39.1 01/21/2018 [facility] Automated blood monocyte count as percentage of total leukocytes Automated blood monocyte count as percentage of total leukocytes 6.6 4.4 - 11.3 01/21/2018 [facility] Automated blood neutrophil count Automated blood neutrophil count 5.3 2.1 - 6.9 01/21/2018 [facility] Automated blood platelet count (count/volume) Automated blood platelet count (count/volume) 236 140 - 360 01/21/2018 [facility] Automated blood segmented neutrophil count as percentage of total leukocytes Automated blood segmented neutrophil count as percentage of total leukocytes 68.8 38.7 - 80.0 01/21/2018 [facility] Automated erythrocyte mean corpuscular hemoglobin (mass per erythrocyte) Automated erythrocyte mean corpuscular hemoglobin (mass per erythrocyte) 30.6 28 - 32 01/21/2018 [facility] Automated erythrocyte mean corpuscular hemoglobin concentration measurement (mass/volume) Automated erythrocyte mean corpuscular hemoglobin concentration measurement (mass/volume) 33.1 31 - 35 01/21/2018 [facility] Automated erythrocyte mean corpuscular volume Automated erythrocyte mean corpuscular volume 92.4 81 - 99 01/21/2018 [facility] Blood erythrocytes automated count (number/volume) Blood erythrocytes automated count (number/volume) 4.97 3.6 - 5.1 01/21/2018 [facility] Blood hemoglobin measurement (moles/volume) Blood hemoglobin measurement (moles/volume) 15.2 12.0 - 16.0 01/21/2018 [facility] Blood leukocytes automated count (number/volume) Blood leukocytes automated count (number/volume) 7.70 4.8 - 10.8 01/21/2018 [facility] Blood lymphocytes count (number/volume) Blood lymphocytes count (number/volume) 1.6 1.0 - 3.2 01/21/2018 [facility] Blood monocytes automated count (number/volume) Blood monocytes automated count (number/volume) 0.5 0.2 - 0.8 01/21/2018 [facility] Estimated glomerular filtration rate (GFR) determination Estimated glomerular filtration rate (GFR) determination null 60 01/21/2018 [facility] Glucose measurement Glucose measurement 106 74 - 118 01/21/2018 [facility] Serum or plasma anion gap Serum or plasma anion gap 12.4 8 - 16 01/21/2018 [facility] Serum or plasma calcium measurement (mass/volume) Serum or plasma calcium measurement (mass/volume) 8.4 8.4 - 10.2 01/21/2018 [facility] Serum or plasma carbon dioxide, total measurement (moles/volume) Serum or plasma carbon dioxide, total measurement (moles/volume) 26 22 - 29 01/21/2018 [facility] Serum or plasma chloride measurement (moles/volume) Serum or plasma chloride measurement (moles/volume) 106 98 - 107 01/21/2018 [facility] Serum or plasma creatinine measurement (mass/volume) Serum or plasma creatinine measurement (mass/volume) 0.70 0.57 - 1.11 01/21/2018 [facility] Serum or plasma potassium measurement (moles/volume) Serum or plasma potassium measurement (moles/volume) 4.4 3.5 - 5.1 01/21/2018 [facility] Serum or plasma sodium measurement (moles/volume) Serum or plasma sodium measurement (moles/volume) 140 136 - 145 01/21/2018 [facility] Serum or plasma urea nitrogen measurement (mass/volume) Serum or plasma urea nitrogen measurement (mass/volume) 8 7 - 26 01/21/2018 [facility] Serum or plasma urea nitrogen/creatinine mass ratio Serum or plasma urea nitrogen/creatinine mass ratio 11 6 - 25 01/21/2018 [facility] Red Cell Distribution Width 14.3 11.7 - 14.4 01/21/2018 [facility] IM GRANULOCYTES % 0.1 0.0 - 1.0 01/21/2018 [facility] Absolute Immature Granulocyte (auto 0.01 0 - 0.1 01/21/2018 [facility] Plasma globulin measurement (mass/volume) Plasma globulin measurement (mass/volume) 3.9 2.3 - 3.5 01/20/2018 [facility] Serum or plasma alanine aminotransferase measurement (enzymatic activity/volume) Serum or plasma alanine aminotransferase measurement (enzymatic activity/volume) 13 0 - 55 01/20/2018 [facility] Serum or plasma albumin measurement (mass/volume) Serum or plasma albumin measurement (mass/volume) 3.6 3.5 - 5.0 01/20/2018 [facility] Serum or plasma albumin/globulin mass ratio Serum or plasma albumin/globulin mass ratio 0.9 0.8 - 2.0 01/20/2018 [facility] Serum or plasma alkaline phosphatase measurement (enzymatic activity/volume) Serum or plasma alkaline phosphatase measurement (enzymatic activity/volume) 86 40 - 150 01/20/2018 [facility] Serum or plasma protein measurement (mass/volume) Serum or plasma protein measurement (mass/volume) 7.5 6.5 - 8.1 01/20/2018 [facility] Serum or plasma total bilirubin measurement (mass/volume) Serum or plasma total bilirubin measurement (mass/volume) 0.7 0.2 - 1.2 01/20/2018 [facility] Aspartate Amino Transf (AST/SGOT) 15 5 - 34 01/20/2018 [facility] Automated urine sediment leukocyte count by microscopy (number/high power field) Automated urine sediment leukocyte count by microscopy (number/high power field) NONE 0 - 5 01/20/2018 [facility] Bacteria detection in urine sediment by light microscopy Bacteria detection in urine sediment by light microscopy FEW NONE 01/20/2018 [facility] Epithelial cells detection in urine sediment by light microscopy Epithelial cells detection in urine sediment by light microscopy FEW NONE 01/20/2018 [facility] Erythrocytes detection in urine sediment by light microscopy Erythrocytes detection in urine sediment by light microscopy null 0 - 5 01/20/2018 [facility] Specific gravity of Urine by Test strip Specific gravity of Urine by Test strip 1.030 1.010 - 1.025 01/20/2018 [facility] Urine clarity Urine clarity SL CLOUDY CLEAR 01/20/2018 [facility] Urine color determination Urine color determination YELLOW YELLOW 01/20/2018 [facility] Urine erythrocytes detection Urine erythrocytes detection 3+ NEGATIVE 01/20/2018 [facility] Urine glucose detection Urine glucose detection NEGATIVE NEGATIVE 01/20/2018 [facility] Urine ketones detection by automated test strip Urine ketones detection by automated test strip NEGATIVE NEGATIVE 01/20/2018 [facility] Urine leukocyte esterase detection by dipstick Urine leukocyte esterase detection by dipstick NEGATIVE NEGATIVE 01/20/2018 [facility] Urine nitrite detection Urine nitrite detection NEGATIVE NEGATIVE 01/20/2018 [facility] Urine pH measurement by automated test strip Urine pH measurement by automated test strip 5 5 - 7 01/20/2018 [facility] Urine protein measurement by test strip (mass/volume) Urine protein measurement by test strip (mass/volume) TRACE NEGATIVE 01/20/2018 [facility] Urine total bilirubin measurement (mass/volume) Urine total bilirubin measurement (mass/volume) NEGATIVE NEGATIVE 01/20/2018 [facility] Urine urobilinogen measurement by test strip (mass/volume) Urine urobilinogen measurement by test strip (mass/volume) 0.2 0.2 - 1 01/20/2018 [facility] Hand 3 views DX Hand 3 views DX Left hand 3 views: There is no fracture or dislocation. There are no other significant osseous, articular or soft tissue abnormalities. IMPRESSION: No acute radiographic abnormality of the left hand. [id number] 12/06/2017 - - Read by: Alexander Nolasco MD Dictated Date/time: 12/06/17 15:19 Electronically Signed by: Alexander Nolasco MD 12/06/17 15:20 FINAL REPORT [facility] CARDIAC ENZYMES Troponin-I null 0.00 - 0.40 11/29/2017 [facility] CARDIAC ENZYMES Total CK 87 unit/L 12 - 191 11/29/2017 [facility] CARDIAC ENZYMES CK MB null 0.5 - 3.6 11/29/2017 [facility] CARDIAC ENZYMES BNP 13 pg/mL <=100 pg/mL 11/29/2017 [facility] CARDIAC ENZYMES CK MB Index null 0.0 - 2.5 11/29/2017 [facility] CHEM PANEL eGFR 82 mL/min/1.73m2 11/29/2017 Result Comment: The eGFR is calculated using [...] from the National Kidney Disease Education Program (NKDEP) which additionally recommends that when the eGFR is used in patients with extremes of body mass index for purposes of drug dosing, the eGFR should be multiplied by the estimated BMI. [facility] CHEM PANEL Creatinine Lvl 0.80 mg/dL 0.50 - 1.40 11/29/2017 [facility] CHEM PANEL AGAP 8.6 meq/L 10.0 - 20.0 11/29/2017 [facility] CHEM PANEL Chloride Lvl 102 meq/L 95 - 109 11/29/2017 [facility] CHEM PANEL CO2 30 meq/L 24 - 32 11/29/2017 [facility] CHEM PANEL Potassium Lvl 3.6 meq/L 3.5 - 5.1 11/29/2017 [facility] CHEM PANEL Sodium Lvl 137 meq/L 135 - 145 11/29/2017 [facility] CHEM PANEL Calcium Lvl 8.7 mg/dL 8.5 - 10.5 11/29/2017 [facility] CHEM PANEL BUN 15 mg/dL 7 - 22 11/29/2017 [facility] CHEM PANEL Glucose Lvl 102 mg/dL 70 - 99 11/29/2017 [facility] MPV 7.5 fL 7.4 - 10.4 11/29/2017 [facility] RDW 14.4 % 11.5 - 14.5 11/29/2017 [facility] Platelet 252 K/CMM 133 - 450 11/29/[address] [facility] Hct 47.4 % 36.0 - 48.0 11/29/[address] [facility] Hgb 16.1 g/dL 12.0 - 16.0 11/29/[address] [facility] RBC 5.18 M/CMM 4.20 - 5.40 11/29/[address] [facility] MCHC 33.9 g/dL 32.0 - 36.0 11/29/2017 [facility] MCH 31.0 pg 27.0 - 31.0 11/29/2017 [facility] HEMATOLOGY MCV 91.4 fL 80.0 - 98.0 11/29/2017 [facility] HEMATOLOGY WBC 11.4 K/CMM 3.7 - 10.4 11/29/2017 [facility] HEMATOLOGY PTT 29.2 s 22.9 - 35.8 11/29/2017 [facility] HEMATOLOGY PT 13.8 s 12.0 - 14.7 11/29/2017 [facility] HEMATOLOGY INR 1.06 0.85 - 1.17 11/29/2017 [facility] HEMATOLOGY Lymphocytes # 2.8 K/CMM 1.0 - 5.5 11/29/2017 [facility] HEMATOLOGY Monocytes # 0.8 K/CMM 0.0 - 0.8 11/29/2017 [facility] HEMATOLOGY Lymphocytes 24.3 % 20.0 - 40.0 11/29/2017 [facility] HEMATOLOGY Segs 65.5 % 45.0 - 75.0 11/29/2017 [facility] HEMATOLOGY Basophils # 0.1 K/CMM 0.0 - 0.2 11/29/2017 [facility] HEMATOLOGY Eosinophils # 0.3 K/CMM 0.0 - 0.5 11/29/2017 [facility] HEMATOLOGY Basophils 0.6 % 0.0 - 1.0 11/29/2017 [facility] HEMATOLOGY Neutrophils # 7.5 K/CMM 1.5 - 8.1 11/29/2017 [facility] HEMATOLOGY Eosinophils 2.4 % 0.0 - 4.0 11/29/2017 [facility] Monocytes 7.2 % 2.0 - 12.0 11/29/2017 [facility] URINE AND STOOL UA Urobilinogen <=1.0 mg/dL 0.1 - 1.0 11/29/2017 [facility] URINE AND STOOL UA WBC null 0 - 5 11/29/2017 [facility] URINE AND STOOL UA RBC 1 /HPF 0 - 2 11/29/2017 [facility] URINE AND STOOL UA Nitrite Negative (11/29/17 2:28 PM) Negative 11/29/2017 [facility] URINE AND STOOL UA Leuk Est Negative (11/29/17 2:28 PM) Negative 11/29/2017 [facility] URINE AND STOOL UA Sq Epi Occasional /LPF Few /LPF 11/29/2017 [facility] URINE AND STOOL UA Spec Grav 1.025 <=1.030 11/29/2017 [facility] URINE AND STOOL UA Protein Negative mg/dL Negative mg/dL 11/29/2017 [facility] URINE AND STOOL UA pH 5.0 5.0 - 8.0 11/29/2017 [facility] URINE AND STOOL UA Glucose Negative mg/dL Negative mg/dL 11/29/2017 [facility] URINE AND STOOL UA Ketones Negative mg/dL Negative mg/dL 11/29/2017 [facility] URINE AND STOOL UA Bili Negative *NA* (11/29/17 2:28 PM) Negative 11/29/2017 [facility] URINE AND STOOL UA Blood Negative (11/29/17 2:28 PM) Negative 11/29/2017 [facility] URINE AND STOOL UA Color Yellow *NA* (11/29/17 2:28 PM) Yellow 11/29/2017 [facility] URINE AND STOOL UA Turbidity Clear (11/29/17 2:28 PM) Clear 11/29/2017 [facility] Chest 1view DX Chest 1view DX Clinical Indication: - sob Comparison: None FINDINGS: Single AP view of the chest is submitted for interpretation. There is mild pulmonary vascular congestion. The lungs are otherwise clear and there are no effusions. There is no visible pneumothorax. Cardiomediastinal contours are stable. No gross bony normalities are identified. IMPRESSION: 1. Mild pulmonary vascular congestion. SL: [id number] 11/29/2017 - - Read by: Ganga Samano MD Dictated Date/time: 11/29/17 15:29 Electronically Signed by: Ganga Samano MD 11/29/17 15:29 FINAL REPORT [facility] URINE AND STOOL UA Color Yellow (11/28/17 10:27 PM) Yellow 11/29/2017 [facility] URINE AND STOOL UA RBC 1 /HPF 0 - 2 11/29/2017 [facility] URINE AND STOOL UA WBC 2 /HPF 0 - 5 11/29/2017 [facility] URINE AND STOOL UA Bacteria Occasional /HPF None Seen /HPF 11/29/2017 [facility] URINE AND STOOL UA Mucus Few /LPF None Seen /LPF 11/29/2017 [facility] URINE AND STOOL UA Glucose Negative mg/dL Negative mg/dL 11/29/2017 [facility] URINE AND STOOL UA pH 5.0 5.0 - 8.0 11/29/2017 [facility] URINE AND STOOL UA Ketones Trace mg/dL Negative mg/dL 11/29/2017 [facility] URINE AND STOOL UA Protein 30 mg/dL Negative mg/dL 11/29/2017 [facility] URINE AND STOOL UA Bili Negative *NA* (11/28/17 10:27 PM) Negative 11/29/2017 [facility] URINE AND STOOL UA Blood Negative (11/28/17 10:27 PM) Negative 11/29/2017 [facility] URINE AND STOOL UA Leuk Est Negative (11/28/17 10:27 PM) Negative 11/29/2017 [facility] URINE AND STOOL UA Urobilinogen 2.0 mg/dL 0.1 - 1.0 11/29/2017 [facility] URINE AND STOOL UA Sq Epi Few /LPF Few /LPF 11/29/2017 [facility] URINE AND STOOL UA Nitrite Negative (11/28/17 10:27 PM) Negative 11/29/2017 [facility] URINE AND STOOL UA Spec Grav 1.031 <=1.030 11/29/2017 [facility] URINE AND STOOL UA Turbidity Slight *ABN* (11/28/17 10:27 PM) Clear 11/29/2017 [facility] CHEM PANEL Lipase Lvl 139 unit/L 73 - 393 11/29/2017 [facility] CHEM PANEL Globulin 4.9 g/dL 2.7 - 4.2 11/29/2017 [facility] CHEM PANEL A/G Ratio 0.7 0.7 - 1.6 11/29/2017 [facility] CHEM PANEL AGAP 13.1 meq/L 10.0 - 20.0 11/29/2017 [facility] CHEM PANEL B/C Ratio 15 6 - 25 11/29/2017 [facility] CHEM PANEL eGFR 50 mL/min/1.73m2 11/29/2017 Result Comment: The eGFR is calculated using [...] from the National Kidney Disease Education Program (NKDEP) which additionally recommends that when the eGFR is used in patients with extremes of body mass index for purposes of drug dosing, the eGFR should be multiplied by the estimated BMI. [facility] CHEM PANEL Bili Total 0.3 mg/dL 0.2 - 1.3 11/29/2017 [facility] CHEM PANEL AST 17 unit/L 0 - 37 11/29/2017 [facility] CHEM PANEL Alk Phos 92 unit/L 39 - 136 11/29/2017 [facility] CHEM PANEL Albumin Lvl 3.5 g/dL 3.5 - 5.0 11/29/2017 [facility] CHEM PANEL ALT 21 unit/L 0 - 65 11/29/2017 [facility] CHEM PANEL Total Protein 8.4 g/dL 6.4 - 8.4 11/29/2017 [facility] CHEM PANEL Calcium Lvl 9.2 mg/dL 8.5 - 10.5 11/29/2017 [facility] CHEM PANEL Chloride Lvl 105 meq/L 95 - 109 11/29/2017 [facility] CHEM PANEL CO2 27 meq/L 24 - 32 11/29/2017 [facility] CHEM PANEL Potassium Lvl 4.1 meq/L 3.5 - 5.1 11/29/2017 [facility] CHEM PANEL Creatinine Lvl 1.21 mg/dL 0.50 - 1.40 11/29/2017 [facility] CHEM PANEL Sodium Lvl 141 meq/L 135 - 145 11/29/2017 [facility] CHEM PANEL BUN 18 mg/dL 7 - 22 11/29/2017 [facility] CHEM PANEL Glucose Lvl 98 mg/dL 70 - 99 11/29/2017 [facility] HEMATOLOGY Monocytes 7.2 % 2.0 - 12.0 11/29/2017 [facility] HEMATOLOGY Eosinophils 2.4 % 0.0 - 4.0 11/29/2017 [facility] HEMATOLOGY Lymphocytes 31.8 % 20.0 - 40.0 11/29/2017 [facility] HEMATOLOGY Basophils # 0.1 K/CMM 0.0 - 0.2 11/29/2017 [facility] HEMATOLOGY Lymphocytes # 3.3 K/CMM 1.0 - 5.5 11/29/2017 [facility] HEMATOLOGY Eosinophils # 0.2 K/CMM 0.0 - 0.5 11/29/2017 [facility] HEMATOLOGY Monocytes # 0.8 K/CMM 0.0 - 0.8 11/29/2017 [facility] HEMATOLOGY Segs 58.1 % 45.0 - 75.0 11/29/2017 [facility] HEMATOLOGY Neutrophils # 6.1 K/CMM 1.5 - 8.1 11/29/2017 [facility] HEMATOLOGY Basophils 0.5 % 0.0 - 1.0 11/29/2017 [facility] MCHC 33.6 g/dL 32.0 - 36.0 11/29/[address] [facility] Hct 50.6 % 36.0 - 48.0 11/29/2017 [facility] MCV 91.4 fL 80.0 - 98.0 11/29/[address] [facility] Hgb 17.0 g/dL 12.0 - 16.0 11/29/2017 [facility] MCH 30.7 pg 27.0 - 31.0 11/29/2017 [facility] RBC 5.53 M/CMM 4.20 - 5.40 11/29/[address] [facility] WBC 10.5 K/CMM 3.7 - 10.4 11/29/2017 [facility] RDW 14.5 % 11.5 - 14.5 11/29/2017 [facility] Platelet 285 K/CMM 133 - 450 11/29/[address] [facility] MPV 7.7 fL 7.4 - 10.4 11/29/2017 [facility] Renal Stone CT Renal Stone CT [...] of iterative reconstruction technique CT radiation dose: XJW=8089 mGy-cm FINDINGS: This examination is limited for [...] Electronically Signed by: Manish Gilliam MD 11/28/17 20:07 FINAL REPORT [facility] Spine lumbar wo contrast MRI Spine lumbar wo contrast MRI Patient Name: CAMILO AVENDANO : 1960; Age: 56 years y/o Female MR: [id number] Study: Spine lumbar wo contrast MRI 07/05/2017 9:01 AM PERFORATOR Ordering Physician: Watson Noyola MD Clinical Indication: [...] aneurysm. 07/05/2017 - - Read by: Tracee Johnson Dictated Date/time: 07/05/17 11:26 Electronically Signed by: Tracee Johnson 07/05/17 11:30 FINAL REPORT [facility] Breast Mammo Scrn [place] w louann incl CAD MA Breast Mammo Scrn [place] w louann incl CAD MA BILATERAL DIGITAL SCREENING MAMMOGRAM 3D/2D WITH CAD: 06/12/2017 CLINICAL: /Screen. Current study was evaluated with a Computer Aided Detection (CAD) system. COMPARISON:Comparison is made to exam dated: 11/29/2015 mammogram - [facility]. TECHNIQUE: Digital Breast Tomosynthesis was performed and utilized for Interpretation. MaPS Version 1.3 was utilized for computer aided [...] is recommended.(06/13/2018) This exam was interpreted at [id number] for [facility] [place]. Yoon Kern M.D. ap/penrad:06/13/2017 12:02:43 Spud Grader(s): Latanya Collins, [facility] letter sent: BI-RADS 1/2 Mammogram BI-RADS: 2 Benign 06/12/2017 - - Read by: Yoon Kern MD Dictated Date/time: 06/13/17 12:02 Electronically Signed by: Yoon Kern MD 06/13/17 12:02 FINAL REPORT [facility] Spine lumbar wo contrast CT Spine lumbar wo contrast CT Patient Name: CAMILO AVENDANO : 1960; Age: 56 years y/o Female MR: [id number] Study: Spine lumbar wo contrast CT 06/12/2017 1:16 PM PERFORATOR Ordering Physician: Watson Noyola MD Clinical Indication: [...] canal or lateral recess stenosis. There is [id number] bilateral foraminal stenosis due to facet arthrosis. [...] SUNSHINE 06/12/2017 - - Read by: Tracee Johnsonap Dictated Date/time: 06/13/17 07:53 Electronically Signed by: Tracee Johnson 06/13/17 07:59 FINAL REPORT [facility] CHEM PANEL POC Creatinine 0.7 mg/dL 0.5 - 1.4 11/14/2016 [facility] CHEM PANEL eGFR 98 mL/min/1.73m2 11/14/2016 Result Comment: The eGFR is calculated [...] from the National Kidney Disease Education Program (NKDEP) which additionally recommends that when the eGFR is used in patients with extremes of body mass index for purposes of drug dosing, the eGFR should be multiplied by the estimated BMI. [facility] Abdomen/Pelvis CTA Abdomen/Pelvis CTA Patient Name: CAMILO AVENDANO : 1960; Age: 56 years y/o Female MR: [id number] Study: Abdomen/Pelvis CTA 11/14/2016 9:26 AM CDT Ordering Physician: Jonathan Bobo MD Clinical Indication: CJ - CT DLP - 2190; 100 cc omni \\T\\ 100 cc saline IV - AAA; patient states she had an aneurysm that [...] extensive eccentric atherosclerotic plaque, without significant aortic stenosis, however. The celiac artery, SMA, and ARVIND [...] 8 mm nonobstructive left renal calculus. SL: [id number] 11/14/2016 - - Read by: Rober Martínez MD Dictated Date/time: 11/14/16 11:04 Electronically Signed by: Rober Martínez MD 11/14/16 11:19 FINAL REPORT [facility] Digital Mammo Screening [place] Digital Mammo Screening [place] - DIGITAL MAMMO SCREENING [place] MA BILATERAL DIGITAL SCREENING MAMMOGRAM WITH CAD: 11/29/2015 CLINICAL: Routine. Current study was evaluated with a Computer Aided Detection (CAD) system. Comparison is made to exams dated: 07/07/2003 mammogram, 01/21/2002 mammogram, 08/22/2011 mammogram and 06/16/2013 mammogram - [facility]. Current study contains 6 films. [...] mammogram is recommended. Errol Paris sns/penrad:11/30/2015 14:02:29 Spud Grader: Sofi Varghese, [facility] This exam was dictated and interpreted by [id number] for [facility] [place]. letter sent: Bilateral Benign Mammogram BI-RADS: 2 Benign 11/29/2015 - - Read by: Errol Paris MD Dictated Date/time: 11/30/15 14:02 Electronically Signed by: Errol Paris MD 11/30/15 14:02 FINAL REPORT [facility] Hip 2 views DX Hip 2 [...] Electronically Signed by: Jose Dowling MD 02/28/15 14:11 FINAL REPORT [facility] CHEM PANEL eGFR 64 mL/min/1.73m2 02/19/2015 Result Comment: The eGFR is calculated [...] from the National Kidney Disease Education Program (NKDEP) which additionally recommends that when the eGFR is used in patients with extremes of body mass index for purposes of drug dosing, the eGFR should be multiplied by the estimated BMI. [facility] CHEM PANEL Potassium Lvl 4.1 meq/L 3.5 - 5.1 02/19/2015 [facility] CHEM PANEL CO2 25 meq/L 24 - 32 02/19/2015 [facility] CHEM PANEL Chloride Lvl 102 meq/L 95 - 109 02/19/2015 [facility] CHEM PANEL Sodium Lvl 137 meq/L 135 - 145 02/19/2015 [facility] CHEM PANEL Creatinine Lvl 1.0 mg/dL 0.5 - 1.4 02/19/2015 [facility] CHEM PANEL Calcium Lvl 8.8 mg/dL 8.5 - 10.5 02/19/2015 [facility] CHEM PANEL AGAP 14.1 meq/L 10.0 - 20.0 02/19/2015 [facility] CHEM PANEL BUN 12 mg/dL 7 - 22 02/19/2015 [facility] CHEM PANEL Glucose Lvl 210 mg/dL 70 - 99 02/19/2015 [facility] HEMATOLOGY Monocytes # 0.2 K/CMM 0.0 - 0.8 02/19/2015 [facility] HEMATOLOGY Lymphocytes # 1.1 K/CMM 1.0 - 5.5 02/19/2015 [facility] HEMATOLOGY Basophils 0.3 % 0.0 - 1.0 02/19/2015 [facility] HEMATOLOGY Segs-Bands # 12.1 K/CMM 1.5 - 8.1 02/19/2015 [facility] HEMATOLOGY Monocytes 1.2 % 2.0 - 12.0 02/19/2015 [facility] HEMATOLOGY Eosinophils 0.1 % 0.0 - 4.0 02/19/2015 [facility] HEMATOLOGY Lymphocytes 7.9 % 20.0 - 40.0 02/19/2015 [facility] HEMATOLOGY Segs 90.5 % 45.0 - 75.0 02/19/2015 [facility] HEMATOLOGY MPV 7.6 fL 7.4 - 10.4 02/19/2015 [facility] HEMATOLOGY RDW 14.4 % 11.5 - 14.5 02/19/2015 [facility] HEMATOLOGY Platelet 228 K/CMM 133 - 450 02/19/2015 [facility] HEMATOLOGY MCHC 32.4 g/dL 32.0 - 36.0 02/19/2015 [facility] HEMATOLOGY WBC 13.4 K/CMM 3.7 - 10.4 02/19/2015 [facility] HEMATOLOGY Hgb 15.8 g/dL 12.0 - 16.0 02/19/2015 [facility] HEMATOLOGY MCH 31.2 pg 27.0 - 31.0 02/19/2015 [facility] HEMATOLOGY MCV 96.4 fL 80.0 - 98.0 02/19/2015 [facility] HEMATOLOGY Hct 48.7 % 36.0 - 48.0 02/19/2015 [facility] HEMATOLOGY RBC 5.05 M/CMM 4.20 - 5.40 02/19/2015 [facility] HEMATOLOGY PTT 24.3 s 22.9 - 35.8 02/18/2015 [facility] CHEM PANEL A/G Ratio 0.9 0.7 - 1.6 02/18/2015 [facility] CHEM PANEL Globulin 3.5 g/dL 2.0 - 4.0 02/18/2015 [facility] CHEM PANEL B/C Ratio 10 6 - 25 02/18/2015 [facility] CHEM PANEL AGAP 14.0 meq/L 10.0 - 20.0 02/18/2015 [facility] CHEM PANEL Chloride Lvl 104 meq/L 95 - 109 02/18/2015 [facility] CHEM PANEL Potassium Lvl 4.0 meq/L 3.5 - 5.1 02/18/2015 [facility] CHEM PANEL Sodium Lvl 142 meq/L 135 - 145 02/18/2015 [facility] CHEM PANEL eGFR 57 mL/min/1.73m2 02/18/2015 Result Comment: The eGFR is calculated [...] from the National Kidney Disease Education Program (NKDEP) which additionally recommends that when the eGFR is used in patients with extremes of body mass index for purposes of drug dosing, the eGFR should be multiplied by the estimated BMI. [facility] CHEM PANEL AST 15 unit/L 0 - 37 02/18/2015 [facility] CHEM PANEL Alk Phos 77 unit/L 39 - 136 02/18/2015 [facility] CHEM PANEL ALT 34 unit/L 0 - 65 02/18/2015 [facility] CHEM PANEL Bili Total 0.5 mg/dL 0.2 - 1.3 02/18/2015 [facility] CHEM PANEL Calcium Lvl 8.3 mg/dL 8.5 - 10.5 02/18/2015 [facility] CHEM PANEL Total Protein 6.7 g/dL 6.4 - 8.4 02/18/2015 [facility] CHEM PANEL Albumin Lvl 3.2 g/dL 3.5 - 5.0 02/18/2015 [facility] CHEM PANEL Glucose Lvl 124 mg/dL 70 - 99 02/18/2015 [facility] CHEM PANEL BUN 11 mg/dL 7 - 22 02/18/2015 [facility] CHEM PANEL CO2 28 meq/L 24 - 32 02/18/2015 [facility] CHEM PANEL Creatinine Lvl 1.1 mg/dL 0.5 - 1.4 02/18/2015 [facility] HEMATOLOGY MCH 31.9 pg 27.0 - 31.0 02/18/2015 [facility] HEMATOLOGY MCHC 33.6 g/dL 32.0 - 36.0 02/18/2015 [facility] HEMATOLOGY Hct 48.7 % 36.0 - 48.0 02/18/2015 [facility] Hgb 16.4 g/dL 12.0 - 16.0 02/18/2015 [facility] HEMATOLOGY MCV 94.9 fL 80.0 - 98.0 02/18/2015 [facility] HEMATOLOGY Platelet 234 K/CMM 133 - 450 02/18/2015 [facility] RDW 14.4 % 11.5 - 14.5 02/18/2015 [facility] MPV 7.6 fL 7.4 - 10.4 02/18/2015 [facility] WBC 13.1 K/CMM 3.7 - 10.4 02/18/2015 [facility] RBC 5.13 M/CMM 4.20 - 5.40 02/18/2015 [facility] HEMATOLOGY Basophils # 0.1 K/CMM 0.0 - 0.2 02/18/2015 [facility] HEMATOLOGY Eosinophils # 0.2 K/CMM 0.0 - 0.5 02/18/2015 [facility] Lymphocytes # 3.9 K/CMM 1.0 - 5.5 02/18/2015 [facility] Basophils 0.4 % 0.0 - 1.0 02/18/2015 [facility] Monocytes # 1.0 K/CMM 0.0 - 0.8 02/18/2015 [facility] HEMATOLOGY Segs-Bands # 8.0 K/CMM 1.5 - 8.1 02/18/2015 [facility] Lymphocytes 30.0 % 20.0 - 40.0 02/18/2015 [facility] Monocytes 7.3 % 2.0 - 12.0 02/18/2015 [facility] HEMATOLOGY Segs 61.1 % 45.0 - 75.0 02/18/2015 [facility] Eosinophils 1.2 % 0.0 - 4.0 02/18/2015 [facility] Chest 2 views DX Chest 2 [...] Electronically Signed by: Colin Sutherland MD 02/18/15 13:11 FINAL REPORT [facility] URINE AND STOOL UA Sq Epi None Seen 04/17/2014 [facility] URINE AND STOOL UA Color Red 04/17/2014 [facility] URINE AND STOOL UA Urobilinogen <=1.0 mg/dL 0.1 - 1.0 04/17/2014 [facility] URINE AND STOOL UA Spec Grav 1.029 <=1.030 04/17/2014 [facility] URINE AND STOOL UA Turbidity Marked *ABN* (04/17/14 2:41 AM) Clear 04/17/2014 [facility] URINE AND STOOL UA [place] Yeast Many /HPF None Seen /HPF 04/17/2014 [facility] URINE AND STOOL UA Mucus Few /LPF None Seen /LPF 04/17/2014 [facility] URINE AND STOOL UA RBC null 0 - 2 04/17/2014 [facility] URINE AND STOOL UA Nitrite Negative (04/17/14 2:41 AM) Negative 04/17/2014 [facility] URINE AND STOOL UA Blood Large *ABN* (04/17/14 2:41 AM) Negative 04/17/2014 [facility] URINE AND STOOL UA WBC 20 /HPF 0 - 5 04/17/2014 [facility] URINE AND STOOL UA Leuk Est Negative (04/17/14 2:41 AM) Negative 04/17/2014 [facility] URINE AND STOOL UA pH 5.0 5.0 - 8.0 04/17/2014 [facility] URINE AND STOOL UA Glucose Negative mg/dL Negative mg/dL 04/17/2014 [facility] URINE AND STOOL UA Protein 100 mg/dL Negative mg/dL 04/17/2014 [facility] URINE AND STOOL UA Bili Negative *NA* (04/17/14 2:41 AM) Negative 04/17/2014 [facility] URINE AND STOOL UA Ketones Trace mg/dL Negative mg/dL 04/17/2014 [facility] URINE CHEM U Preg Negative (04/17/14 2:41 AM) Negative 04/17/2014 [facility] Abdomen AP view Abdomen AP view [...] Electronically Signed by: Kevin Causey MD 04/17/14 05:42 FINAL REPORT [facility] Platelet 279 K/CMM 133 - 450 04/12/2014 [facility] MPV 7.4 fL 7.4 - 10.4 04/12/2014 [facility] MCHC 34.6 g/dL 32.0 - 36.0 04/12/2014 [facility] RDW 13.4 % 11.5 - 14.5 04/12/2014 [facility] Hct 41.1 % 36.0 - 48.0 04/12/2014 [facility] Hgb 14.2 g/dL 12.0 - 16.0 04/12/2014 [facility] MCV 93.4 fL 80.0 - 98.0 04/12/2014 [facility] MCH 32.3 pg 27.0 - 31.0 04/12/2014 [facility] RBC 4.40 M/CMM 4.20 - 5.40 04/12/2014 [facility] WBC 7.8 K/CMM 3.7 - 10.4 04/12/2014 [facility] Eosinophils # 0.1 K/CMM 0.0 - 0.5 04/12/2014 [facility] HEMATOLOGY Lymphocytes 25.4 % 20.0 - 40.0 04/12/2014 [facility] HEMATOLOGY Segs 62.4 % 45.0 - 75.0 04/12/2014 [facility] Lymphocytes # 2.0 K/CMM 1.0 - 5.5 04/12/2014 [facility] Monocytes # 0.8 K/CMM 0.0 - 0.8 04/12/2014 [facility] Monocytes 10.3 % 2.0 - 12.0 04/12/2014 [facility] HEMATOLOGY Eosinophils 1.5 % 0.0 - 4.0 04/12/2014 [facility] HEMATOLOGY Basophils 0.4 % 0.0 - 1.0 04/12/2014 [facility] Segs-Bands # 4.8 K/CMM 1.5 - 8.1 04/12/2014 [facility] URINE AND STOOL UA Urobilinogen <=1.0 mg/dL 0.1 - 1.0 04/09/2014 [facility] URINE AND STOOL UA Sq Epi Moderate /LPF Few /LPF 04/09/2014 [facility] URINE AND STOOL UA WBC 3 /HPF 0 - 5 04/09/2014 [facility] URINE AND STOOL UA Mucus Few /LPF None Seen /LPF 04/09/2014 [facility] URINE AND STOOL UA RBC null 0 - 2 04/09/2014 [facility] URINE AND STOOL UA Ketones Negative mg/dL Negative mg/dL 04/09/2014 [facility] URINE AND STOOL UA Bili Negative *NA* (04/09/14 12:50 PM) Negative 04/09/2014 [facility] URINE AND STOOL UA Glucose Negative mg/dL Negative mg/dL 04/09/2014 [facility] URINE AND STOOL UA Blood Large *ABN* (04/09/14 12:50 PM) Negative 04/09/2014 [facility] URINE AND STOOL UA Nitrite Negative (04/09/14 12:50 PM) Negative 04/09/2014 [facility] URINE AND STOOL UA Leuk Est Negative (04/09/14 12:50 PM) Negative 04/09/2014 [facility] URINE AND STOOL UA Spec Grav 1.018 <=1.030 04/09/2014 [facility] URINE AND STOOL UA Color Yellow *NA* (04/09/14 12:50 PM) Yellow 04/09/2014 [facility] URINE AND STOOL UA Turbidity Marked *ABN* (04/09/14 12:50 PM) Clear 04/09/2014 [facility] URINE AND STOOL UA pH 6.0 5.0 - 8.0 04/09/2014 [facility] URINE AND STOOL UA Protein Negative mg/dL Negative mg/dL 04/09/2014 [facility] Retroperitoneal limited US Retroperitoneal limited US [...] Electronically Signed by: Rober Martínez MD 04/09/14 07:49 FINAL REPORT [facility] Abdomen AP view Abdomen AP view [...] Electronically Signed by: Alexander Nolasco MD 04/09/14 07:54 FINAL REPORT [facility] CHEM PANEL eGFR 74 mL/min/1.73m2 04/07/2014 1Result Comment: The eGFR is calculated [...] from the National Kidney Disease Education Program (NKDEP) which additionally recommends that when the eGFR is used in patients with extremes of body mass index for purposes of drug dosing, the eGFR should be multiplied by the estimated BMI. [facility] CHEM PANEL BUN 20 mg/dL 7 - 22 04/07/2014 [facility] CHEM PANEL Creatinine Lvl 0.9 mg/dL 0.5 - 1.4 04/07/2014 [facility] CHEM PANEL Glucose Lvl 97 mg/dL 70 - 99 04/07/2014 3Interpretive Data: Adult reference range values reflect the clinical guidelines of the [employer]. [facility] CHEM PANEL Sodium Lvl 139 meq/L 135 - 145 04/07/2014 [facility] CHEM PANEL Chloride Lvl 101 meq/L 95 - 109 04/07/2014 [facility] CHEM PANEL Potassium Lvl 3.6 meq/L 3.5 - 5.1 04/07/2014 [facility] CHEM PANEL CO2 31 meq/L 24 - 32 04/07/2014 [facility] CHEM PANEL Calcium Lvl 8.9 mg/dL 8.5 - 10.5 04/07/2014 [facility] CHEM PANEL AGAP 10.6 meq/L 10.0 - 20.0 04/07/2014 [facility] HEMATOLOGY Eosinophils # 0.1 K/CMM 0.0 - 0.5 04/07/2014 [facility] HEMATOLOGY Monocytes # 0.8 K/CMM 0.0 - 0.8 04/07/2014 [facility] HEMATOLOGY Segs 62.4 % 45.0 - 75.0 04/07/2014 [facility] HEMATOLOGY Lymphocytes 25.1 % 20.0 - 40.0 04/07/2014 [facility] HEMATOLOGY Monocytes 10.5 % 2.0 - 12.0 04/07/2014 [facility] HEMATOLOGY Basophils 0.4 % 0.0 - 1.0 04/07/2014 [facility] HEMATOLOGY Segs-Bands # 4.6 K/CMM 1.5 - 8.1 04/07/2014 [facility] HEMATOLOGY Eosinophils 1.6 % 0.0 - 4.0 04/07/2014 [facility] HEMATOLOGY Lymphocytes # 1.9 K/CMM 1.0 - 5.5 04/07/2014 [facility] HEMATOLOGY MCV 94.2 fL 80.0 - 98.0 04/07/2014 [facility] HEMATOLOGY Hct 41.0 % 36.0 - 48.0 04/07/2014 [facility] HEMATOLOGY RDW 13.9 % 11.5 - 14.5 04/07/2014 [facility] HEMATOLOGY WBC 7.4 K/CMM 3.7 - 10.4 04/07/2014 [facility] HEMATOLOGY Hgb 14.3 g/dL 12.0 - 16.0 04/07/2014 [facility] HEMATOLOGY RBC 4.36 M/CMM 4.20 - 5.40 04/07/2014 [facility] HEMATOLOGY MCH 32.8 pg 27.0 - 31.0 04/07/2014 [facility] HEMATOLOGY MCHC 34.8 g/dL 32.0 - 36.0 04/07/2014 [facility] HEMATOLOGY MPV 7.5 fL 7.4 - 10.4 04/07/2014 [facility] HEMATOLOGY Platelet 216 K/CMM 133 - 450 04/07/2014 [facility] HEMATOLOGY MCH 32.7 pg 27.0 - 31.0 04/06/2014 [facility] HEMATOLOGY MCHC 34.7 g/dL 32.0 - 36.0 04/06/2014 [facility] HEMATOLOGY RDW 13.8 % 11.5 - 14.5 04/06/2014 [facility] HEMATOLOGY WBC 6.4 K/CMM 3.7 - 10.4 04/06/2014 [facility] HEMATOLOGY Hgb 14.4 g/dL 12.0 - 16.0 04/06/2014 [facility] HEMATOLOGY RBC 4.42 M/CMM 4.20 - 5.40 04/06/2014 [facility] HEMATOLOGY MPV 7.2 fL 7.4 - 10.4 04/06/2014 [facility] HEMATOLOGY Platelet 240 K/CMM 133 - 450 04/06/2014 [facility] HEMATOLOGY MCV 94.0 fL 80.0 - 98.0 04/06/2014 [facility] HEMATOLOGY Hct 41.5 % 36.0 - 48.0 04/06/2014 [facility] HEMATOLOGY Monocytes # 0.6 K/CMM 0.0 - 0.8 04/06/2014 [facility] HEMATOLOGY Lymphocytes # 1.5 K/CMM 1.0 - 5.5 04/06/2014 [facility] HEMATOLOGY Eosinophils # 0.1 K/CMM 0.0 - 0.5 04/06/2014 [facility] HEMATOLOGY Segs-Bands # 4.1 K/CMM 1.5 - 8.1 04/06/2014 [facility] HEMATOLOGY Basophils 0.8 % 0.0 - 1.0 04/06/2014 [facility] Basophils # 0.1 K/CMM 0.0 - 0.2 04/06/2014 [facility] Lymphocytes 24.2 % 20.0 - 40.0 04/06/2014 [facility] HEMATOLOGY Eosinophils 1.4 % 0.0 - 4.0 04/06/2014 [facility] HEMATOLOGY Segs 64.0 % 45.0 - 75.0 04/06/2014 [facility] HEMATOLOGY Monocytes 9.6 % 2.0 - 12.0 04/06/2014 [facility] URINE AND STOOL UA Urobilinogen <=1.0 mg/dL 0.1 - 1.0 04/06/2014 [facility] URINE AND STOOL UA Turbidity Marked *ABN* (04/06/14 11:20 AM) Clear 04/06/2014 [facility] URINE AND STOOL UA Protein 100 mg/dL Negative mg/dL 04/06/2014 [facility] URINE AND STOOL UA pH 6.0 5.0 - 8.0 04/06/2014 [facility] URINE AND STOOL UA Nitrite Negative (04/06/14 11:20 AM) Negative 04/06/2014 [facility] URINE AND STOOL UA Blood Large *ABN* (04/06/14 11:20 AM) Negative 04/06/2014 [facility] URINE AND STOOL UA Color Yellow *NA* (04/06/14 11:20 AM) Yellow 04/06/2014 [facility] URINE AND STOOL UA Spec Grav 1.026 <=1.030 04/06/2014 [facility] URINE AND STOOL UA Glucose Negative mg/dL Negative mg/dL 04/06/2014 [facility] URINE AND STOOL UA Bili Negative *NA* (04/06/14 11:20 AM) Negative 04/06/2014 [facility] URINE AND STOOL UA Ketones Negative mg/dL Negative mg/dL 04/06/2014 [facility] URINE AND STOOL UA Sq Epi Many /LPF Few /LPF 04/06/2014 [facility] URINE AND STOOL UA Leuk Est Negative (04/06/14 11:20 AM) Negative 04/06/2014 [facility] URINE AND STOOL UA Mucus Many /LPF None Seen /LPF 04/06/2014 [facility] URINE AND STOOL UA RBC 116 /HPF 0 - 2 04/06/2014 [facility] URINE AND STOOL UA Amorph Kika Few /HPF None Seen /HPF 04/06/2014 [facility] Cardiac SPECT multi studies NM Cardiac SPECT multi studies PR PROCEDURE: Stress MYOCARDIAL PERFUSION SCAN with Lexiscan [...] study. Normal resting LV function. [place] [facility] [place] - - Read by: Ynes Back MD Dictated Date/time: 04/06/14 13:54 Electronically Signed by: Ynes Back MD 04/06/14 13:55 FINAL REPORT [facility] CARDIAC ENZYMES Total CK 24 unit/L 12 - 04/04/2014 [facility] CARDIAC ENZYMES Troponin-I null 0.00 - 0.40 04/04/2014 [facility] THYROID PANEL TSH 2.660 uIU/mL 0.360 - 3.740 04/04/2014 [facility] CARDIAC ENZYMES Troponin-I null 0.00 - 0.40 04/04/2014 [facility] CARDIAC ENZYMES Total CK 24 unit/L - 04/04/2014 [facility] CARDIAC ENZYMES Troponin-I null 0.00 - 0.40 04/03/2014 [facility] CARDIAC ENZYMES CK MB Index null 0.0 - 2.5 04/03/2014 [facility] CARDIAC ENZYMES CK MB null 0.5 - 3.6 04/03/2014 [facility] CARDIAC ENZYMES Total CK 37 unit/L - 04/03/2014 [facility] ELECTROLYTES Chloride Lvl 103 meq/L 95 - 109 04/03/2014 [facility] ELECTROLYTES Calcium Lvl 9.8 mg/dL 8.5 - 10.5 04/03/2014 [facility] ELECTROLYTES Sodium Lvl 139 meq/L 135 - 145 04/03/2014 [facility] ELECTROLYTES Potassium Lvl 4.1 meq/L 3.5 - 5.1 04/03/2014 [facility] ELECTROLYTES eGFR 65 mL/min/1.73m2 04/03/2014 2Result Comment: The eGFR is calculated [...] from the National Kidney Disease Education Program (NKDEP) which additionally recommends that when the eGFR is used in patients with extremes of body mass index for purposes of drug dosing, the eGFR should be multiplied by the estimated BMI. [facility] ELECTROLYTES Bili Total 1.0 mg/dL 0.2 - 1.3 04/03/2014 [facility] ELECTROLYTES Alk Phos 64 unit/L 39 - 136 04/03/2014 [facility] ELECTROLYTES AST 15 unit/L 0 - 37 04/03/2014 [facility] ELECTROLYTES B/C Ratio 21 6 - 25 04/03/2014 [facility] ELECTROLYTES AGAP 11.1 meq/L 10.0 - 20.0 04/03/2014 [facility] ELECTROLYTES A/G Ratio 1.0 0.7 - 1.6 04/03/2014 [facility] ELECTROLYTES Globulin 3.8 g/dL 2.0 - 4.0 04/03/2014 [facility] ELECTROLYTES BUN 21 mg/dL 7 - 22 04/03/2014 [facility] ELECTROLYTES Glucose Lvl 106 mg/dL 70 - 99 04/03/2014 4Interpretive Data: Adult reference range values reflect the clinical guidelines of the [employer]. [facility] ELECTROLYTES Creatinine Lvl 1.0 mg/dL 0.5 - 1.4 04/03/2014 [facility] ELECTROLYTES ALT 39 unit/L 0 - 65 04/03/2014 [facility] ELECTROLYTES Albumin Lvl 3.9 g/dL 3.5 - 5.0 04/03/2014 [facility] ELECTROLYTES Total Protein 7.7 g/dL 6.4 - 8.4 04/03/2014 [facility] ELECTROLYTES CO2 29 meq/L 24 - 32 04/03/2014 [facility] HEMATOLOGY PTT 25.8 s 22.9 - 35.8 04/03/2014 5Interpretive Data: Heparin Therapeutic Range: 57 - 92 Seconds [facility] Chest 1view Chest 1view PORTABLE CHEST [...] Electronically Signed by: Raman Bailey MD 04/03/14 17:51 FINAL REPORT [facility] CHEM PANEL Ammonia 22.0 umol/L <=45.0 uMol/L 04/02/2014 [facility] THYROID PANEL T4 Free 1.32 ng/dL 0.76 - 1.46 04/02/2014 [facility] THYROID PANEL TSH 0.351 uIU/mL 0.360 - 3.740 04/02/2014 [facility] CHEM PANEL Magnesium Lvl 2.2 mg/dL 1.8 - 2.4 04/02/2014 [facility] CHEM PANEL Phosphorus 3.8 mg/dL 2.5 - 4.5 04/02/2014 [facility] ELECTROLYTES AGAP 12.9 meq/L 10.0 - 20.0 04/02/2014 [facility] ELECTROLYTES eGFR 74 mL/min/1.73m2 04/02/2014 1Result Comment: The eGFR is calculated [...] from the National Kidney Disease Education Program (NKDEP) which additionally recommends that when the eGFR is used in patients with extremes of body mass index for purposes of drug dosing, the eGFR should be multiplied by the estimated BMI. [facility] ELECTROLYTES Creatinine Lvl 0.9 mg/dL 0.5 - 1.4 04/02/2014 [facility] ELECTROLYTES BUN 14 mg/dL 7 - 22 04/02/2014 [facility] ELECTROLYTES Calcium Lvl 8.5 mg/dL 8.5 - 10.5 04/02/2014 [facility] ELECTROLYTES CO2 28 meq/L 24 - 32 04/02/2014 [facility] ELECTROLYTES Glucose Lvl 110 mg/dL 70 - 99 04/02/2014 3Interpretive Data: Adult reference range values reflect the clinical guidelines of the [employer]. [facility] ELECTROLYTES Potassium Lvl 3.9 meq/L 3.5 - 5.1 04/02/2014 [facility] ELECTROLYTES Sodium Lvl 141 meq/L 135 - 145 04/02/2014 [facility] ELECTROLYTES Chloride Lvl 104 meq/L 95 - 109 04/02/2014 [facility] HEMATOLOGY MPV 7.0 fL 7.4 - 10.4 04/02/2014 [facility] HEMATOLOGY Hct 45.9 % 36.0 - 48.0 04/02/2014 [facility] HEMATOLOGY Hgb 15.7 g/dL 12.0 - 16.0 04/02/2014 [facility] HEMATOLOGY RBC 4.87 M/CMM 4.20 - 5.40 04/02/2014 [facility] WBC 9.3 K/CMM 3.7 - 10.4 04/02/2014 [facility] MCV 94.1 fL 80.0 - 98.0 04/02/2014 [facility] MCH 32.2 pg 27.0 - 31.0 04/02/2014 [facility] Platelet 248 K/CMM 133 - 450 04/02/2014 [facility] RDW 14.3 % 11.5 - 14.5 04/02/2014 [facility] MCHC 34.2 g/dL 32.0 - 36.0 04/02/2014 [facility] Monocytes # 0.8 K/CMM 0.0 - 0.8 04/02/2014 [facility] Lymphocytes # 1.5 K/CMM 1.0 - 5.5 04/02/2014 [facility] Segs-Bands # 6.9 K/CMM 1.5 - 8.1 04/02/2014 [facility] Eosinophils 1.0 % 0.0 - 4.0 04/02/2014 [facility] Basophils 0.4 % 0.0 - 1.0 04/02/2014 [facility] Monocytes 8.7 % 2.0 - 12.0 04/02/2014 [facility] Eosinophils # 0.1 K/CMM 0.0 - 0.5 04/02/2014 [facility] Segs 74.2 % 45.0 - 75.0 04/02/2014 [facility] Lymphocytes 15.7 % 20.0 - 40.0 04/02/2014 [facility] Brain w/wo contrast MRI Brain w/wo [...] Electronically Signed by: Effie Nolan MD 04/02/14 05:01 FINAL REPORT [facility] CARDIAC ENZYMES CK MB Index null 0.0 - 2.5 04/01/2014 [facility] CARDIAC ENZYMES Total CK 35 unit/L 12 - 191 04/01/2014 [facility] CARDIAC ENZYMES Troponin-I null 0.00 - 0.40 04/01/2014 [facility] CARDIAC ENZYMES CK MB null 0.5 - 3.6 04/01/2014 [facility] CHEM PANEL eGFR 74 mL/min/1.73m2 04/01/2014 2Result Comment: The eGFR is calculated [...] from the National Kidney Disease Education Program (NKDEP) which additionally recommends that when the eGFR is used in patients with extremes of body mass index for purposes of drug dosing, the eGFR should be multiplied by the estimated BMI. [facility] CHEM PANEL CO2 29 meq/L 24 - 32 04/01/2014 [facility] CHEM PANEL Creatinine Lvl 0.9 mg/dL 0.5 - 1.4 04/01/2014 [facility] CHEM PANEL Glucose Lvl 107 mg/dL 70 - 99 04/01/2014 4Interpretive Data: Adult reference range values reflect the clinical guidelines of the [employer]. [facility] CHEM PANEL BUN 14 mg/dL 7 - 22 04/01/2014 [facility] CHEM PANEL ALT 39 unit/L 0 - 65 04/01/2014 [facility] CHEM PANEL AST 14 unit/L 0 - 37 04/01/2014 [facility] CHEM PANEL Total Protein 7.1 g/dL 6.4 - 8.4 04/01/2014 [facility] CHEM PANEL Albumin Lvl 3.8 g/dL 3.5 - 5.0 04/01/2014 [facility] CHEM PANEL Alk Phos 66 unit/L 39 - 136 04/01/2014 [facility] CHEM PANEL Bili Total 0.9 mg/dL 0.2 - 1.3 04/01/2014 [facility] CHEM PANEL Globulin 3.3 g/dL 2.0 - 4.0 04/01/2014 [facility] CHEM PANEL B/C Ratio 16 6 - 25 04/01/2014 [facility] CHEM PANEL AGAP 12.9 meq/L 10.0 - 20.0 04/01/2014 [facility] CHEM PANEL A/G Ratio 1.2 0.7 - 1.6 04/01/2014 [facility] CHEM PANEL Calcium Lvl 9.2 mg/dL 8.5 - 10.5 04/01/2014 [facility] CHEM PANEL Potassium Lvl 3.9 meq/L 3.5 - 5.1 04/01/2014 [facility] CHEM PANEL Chloride Lvl 100 meq/L 95 - 109 04/01/2014 [facility] CHEM PANEL Sodium Lvl 138 meq/L 135 - 145 04/01/2014 [facility] CHEM PANEL Ammonia 16.0 umol/L <=45.0 uMol/L 04/01/2014 [facility] HEMATOLOGY Segs 73.5 % 45.0 - 75.0 04/01/2014 [facility] HEMATOLOGY Lymphocytes 16.4 % 20.0 - 40.0 04/01/2014 [facility] HEMATOLOGY Eosinophils 0.6 % 0.0 - 4.0 04/01/2014 [facility] HEMATOLOGY Basophils 0.6 % 0.0 - 1.0 04/01/2014 [facility] HEMATOLOGY Segs-Bands # 6.4 K/CMM 1.5 - 8.1 04/01/2014 [facility] HEMATOLOGY Lymphocytes # 1.4 K/CMM 1.0 - 5.5 04/01/2014 [facility] HEMATOLOGY Monocytes 8.9 % 2.0 - 12.0 04/01/2014 [facility] HEMATOLOGY Monocytes # 0.8 K/CMM 0.0 - 0.8 04/01/2014 [facility] HEMATOLOGY Eosinophils # 0.1 K/CMM 0.0 - 0.5 04/01/2014 [facility] HEMATOLOGY MPV 7.0 fL 7.4 - 10.4 04/01/2014 [facility] HEMATOLOGY Platelet 248 K/CMM 133 - 450 04/01/2014 [facility] HEMATOLOGY MCHC 33.7 g/dL 32.0 - 36.0 04/01/2014 [facility] HEMATOLOGY RDW 14.2 % 11.5 - 14.5 04/01/2014 [facility] HEMATOLOGY WBC 8.8 K/CMM 3.7 - 10.4 04/01/2014 [facility] HEMATOLOGY RBC 4.88 M/CMM 4.20 - 5.40 04/01/2014 [facility] HEMATOLOGY Hgb 15.5 g/dL 12.0 - 16.0 04/01/2014 [facility] Hct 46.0 % 36.0 - 48.0 04/01/2014 [facility] MCV 94.3 fL 80.0 - 98.0 04/01/2014 [facility] MCH 31.8 pg 27.0 - 31.0 04/01/2014 [facility] TOXICOLOGY Acetaminoph Lvl <2
(04/01/14 1:40 PM) 10 - 20 04/01/2014 [facility] DRUG SCREEN U Cocaine Scr Negative *NA* (04/01/14 1:20 PM) Negative 04/01/2014 [facility] DRUG SCREEN U Benzodia Scr Negative *NA* (04/01/14 1:20 PM) Negative 04/01/2014 [facility] DRUG SCREEN U Samara Scr Negative *NA* (04/01/14 1:20 PM) Negative 04/01/2014 [facility] DRUG SCREEN U Amph Scr Negative *NA* (04/01/14 1:20 PM) Negative 04/01/2014 [facility] DRUG SCREEN U Opiate Scr Positive *ABN* (04/01/14 1:20 PM) Negative 04/01/2014 [facility] DRUG SCREEN U Cannab Scr Negative *NA* (04/01/14 1:20 PM) Negative 04/01/2014 [facility] DRUG SCREEN UDS Note See Note 5 (04/01/14 1:20 PM) 04/01/2014 5Interpretive Data: Drugs reported as positive have [...] Methadone 300 ng/mL Urine alcohol 20 mg/dL [facility] DRUG SCREEN U Phencyc Scr Negative *NA* (04/01/14 1:20 PM) Negative 04/01/2014 [facility] URINE AND STOOL UA Urobilinogen <=1.0 mg/dL 0.1 - 1.0 04/01/2014 [facility] URINE AND STOOL UA Leuk Est Negative (04/01/14 1:20 PM) Negative 04/01/2014 [facility] URINE AND STOOL UA Nitrite Negative (04/01/14 1:20 PM) Negative 04/01/2014 [facility] URINE AND STOOL UA WBC 17 /HPF 0 - 5 04/01/2014 [facility] URINE AND STOOL UA Glucose Negative mg/dL Negative mg/dL 04/01/2014 [facility] URINE AND STOOL UA Blood Large *ABN* (04/01/14 1:20 PM) Negative 04/01/2014 [facility] URINE AND STOOL UA Bili Negative *NA* (04/01/14 1:20 PM) Negative 04/01/2014 [facility] URINE AND STOOL UA Protein 30 mg/dL Negative mg/dL 04/01/2014 [facility] URINE AND STOOL UA pH 7.0 5.0 - 8.0 04/01/2014 [facility] URINE AND STOOL UA Ketones Negative mg/dL Negative mg/dL 04/01/2014 [facility] URINE AND STOOL UA Sq Epi Moderate /LPF Few /LPF 04/01/2014 [facility] URINE AND STOOL UA RBC null 0 - 2 04/01/2014 [facility] URINE AND STOOL UA Mucus Few /LPF None Seen /LPF 04/01/2014 [facility] URINE AND STOOL UA Turbidity Marked *ABN* (04/01/14 1:20 PM) Clear 04/01/2014 [facility] URINE AND STOOL UA Color Yellow *NA* (04/01/14 1:20 PM) Yellow 04/01/2014 [facility] URINE AND STOOL UA Spec Grav 1.023 <=1.030 04/01/2014 [facility] Abdomen/Pelvis wo IV contrast CT Abdomen/Pelvis [...] Electronically Signed by: Ron Ware MD 04/01/14 16:25 FINAL REPORT [facility] Brain wo contrast CT Brain wo [...] available, and if felt to be clinically indicated, a nonemergent outpatient MRI of the brain [...] Coding: Brain wo contrast CT CPT Code: 10773 SL: 13 Tam Negron M.D. 04/01/2014 - - Read by: Tam Negron MD Dictated Date/time: 04/01/14 12:57 Electronically Signed by: Tam Negron MD 04/01/14 13:02 FINAL REPORT [facility] Chest 1view PORTABLE CHEST (chest 1 view) HISTORY: Chest pain Comparison is made to 02/21/2014. FINDINGS: The lungs are clear. There is mild cardiomegaly. There is no overt failure. There are no pleural effusions. The regional skeleton is unremarkable. CONCLUSION: 1. No active disease. 2. Mild cardiomegaly. Coding: Chest 1view CPT code: 11988 SL: 13 Tam Negron M.D. 04/01/2014 - - Read by: Tam Negron MD Dictated Date/time: 04/01/14 12:56 Electronically Signed by: Tam Negron MD 04/01/14 12:57 FINAL REPORT [facility] HEMATOLOGY MCV 95.0 fL 80.0 - 98.0 02/28/2014 [facility] Hct 40.4 % 36.0 - 48.0 02/28/2014 [facility] RBC 4.25 M/CMM 4.20 - 5.40 02/28/2014 [facility] Hgb 13.7 g/dL 12.0 - 16.0 02/28/2014 [facility] WBC 11.0 K/CMM 3.7 - 10.4 02/28/2014 [facility] MPV 7.3 fL 7.4 - 10.4 02/28/2014 [facility] Platelet 267 K/CMM 133 - 450 02/28/2014 [facility] RDW 13.2 % 11.5 - 14.5 02/28/2014 [facility] MCHC 33.9 g/dL 32.0 - 36.0 02/28/2014 [facility] MCH 32.2 pg 27.0 - 31.0 02/28/2014 [facility] Basophils # 0.1 K/CMM 0.0 - 0.2 02/28/[address] [facility] Monocytes # 0.9 K/CMM 0.0 - 0.8 02/28/[address] [facility] Eosinophils # 0.1 K/CMM 0.0 - 0.5 02/28/2014 [facility] Lymphocytes # 3.0 K/CMM 1.0 - 5.5 02/28/[address] [facility] Segs 63.7 % 45.0 - 75.0 02/28/2014 [facility] Monocytes 8.3 % 2.0 - 12.0 02/28/2014 [facility] Segs-Bands # 7.0 K/CMM 1.5 - 8.1 02/28/[address] [facility] Lymphocytes 26.9 % 20.0 - 40.0 02/28/[address] [facility] Basophils 0.5 % 0.0 - 1.0 02/28/[address] [facility] Eosinophils 0.6 % 0.0 - 4.0 02/28/2014 [facility] CHEM PANEL eGFR 100 mL/min/1.73m2 02/26/2014 1Result Comment: The eGFR is calculated [...] from the National Kidney Disease Education Program (NKDEP) which additionally recommends that when the eGFR is used in patients with extremes of body mass index for purposes of drug dosing, the eGFR should be multiplied by the estimated BMI. [facility] CHEM PANEL Glucose Lvl 94 mg/dL 70 - 99 02/26/2014 4Interpretive Data: Adult reference range values reflect the clinical guidelines of the [place] [employer]. [facility] CHEM PANEL Creatinine Lvl 0.7 mg/dL 0.5 - 1.4 02/26/2014 [facility] CHEM PANEL BUN 11 mg/dL 7 - 22 02/26/2014 [facility] CHEM PANEL Sodium Lvl 139 meq/L 135 - 145 02/26/2014 [facility] CHEM PANEL Potassium Lvl 4.0 meq/L 3.5 - 5.1 02/26/2014 [facility] CHEM PANEL Chloride Lvl 104 meq/L 95 - 109 02/26/2014 [facility] CHEM PANEL CO2 29 meq/L 24 - 32 02/26/2014 [facility] CHEM PANEL Calcium Lvl 8.6 mg/dL 8.5 - 10.5 02/26/2014 [facility] CHEM PANEL AGAP 10.0 meq/L 10.0 - 20.0 02/26/2014 [facility] HEMATOLOGY Monocytes # 0.9 K/CMM 0.0 - 0.8 02/26/2014 [facility] HEMATOLOGY Lymphocytes # 1.7 K/CMM 1.0 - 5.5 02/26/2014 [facility] HEMATOLOGY Eosinophils # 0.1 K/CMM 0.0 - 0.5 02/26/2014 [facility] HEMATOLOGY Eosinophils 0.7 % 0.0 - 4.0 02/26/2014 [facility] HEMATOLOGY Monocytes 8.8 % 2.0 - 12.0 02/26/2014 [facility] HEMATOLOGY Basophils 0.3 % 0.0 - 1.0 02/26/2014 [facility] HEMATOLOGY Segs-Bands # 8.0 K/CMM 1.5 - 8.1 02/26/2014 [facility] HEMATOLOGY Segs 74.6 % 45.0 - 75.0 02/26/2014 [facility] HEMATOLOGY Lymphocytes 15.6 % 20.0 - 40.0 02/26/2014 [facility] RDW 13.2 % 11.5 - 14.5 02/26/2014 [facility] MPV 7.9 fL 7.4 - 10.4 02/26/2014 [facility] Platelet 226 K/CMM 133 - 450 02/26/2014 [facility] MCH 31.8 pg 27.0 - 31.0 02/26/[address] [facility] Hct 38.0 % 36.0 - 48.0 02/26/2014 [facility] MCHC 33.3 g/dL 32.0 - 36.0 02/26/[address] [facility] MCV 95.4 fL 80.0 - 98.0 02/26/[address] [facility] Hgb 12.7 g/dL 12.0 - 16.0 02/26/[address] [facility] WBC 10.8 K/CMM 3.7 - 10.4 02/26/2014 [facility] RBC 3.98 M/CMM 4.20 - 5.40 02/26/2014 [facility] CHEM PANEL eGFR 100 mL/min/1.73m2 02/22/2014 2Result Comment: The eGFR is calculated [...] from the National Kidney Disease Education Program (NKDEP) which additionally recommends that when the eGFR is used in patients with extremes of body mass index for purposes of drug dosing, the eGFR should be multiplied by the estimated BMI. [facility] CHEM PANEL Creatinine Lvl 0.7 mg/dL 0.5 - 1.4 02/22/2014 [facility] PTT 29.9 s 22.9 - 35.8 02/22/2014 7Interpretive Data: Heparin Therapeutic Range: 57 - 92 [facility] Platelet 274 K/CMM 133 - 450 02/22/2014 [facility] Spine lumbar wo contrast MRI Spine lumbar wo contrast MRI PROCEDURE: Spine lumbar wo contrast MRI REASON FOR EXAM: See Clinic Indication CLINICAL INDICATION: Pain with radiculopathy COMPARISON: CT thorax/abdomen/pelvis dated 02/21/2014 FINDINGS: Vertebral body heights are maintained. No fracture is seen. Bone marrow signal is normal. No spondylolisthesis. There is moderate degenerative disc desiccation and mild disc space narrowing L5/S1 with relatively large right foraminal disc extrusion. [...] Electronically Signed by: Moisés Martini MD 02/22/14 08:17 FINAL REPORT [facility] CHEM PANEL Lactic Acid Lvl 0.8 mMol/L 0.5 - 2.2 02/21/2014 [facility] URINE AND STOOL UA Spec Grav >=1.050 *ABN* (02/21/14 8:07 AM) <=1.030 02/21/2014 [facility] URINE AND STOOL UA Urobilinogen <=1.0 mg/dL 0.1 - 1.0 02/21/2014 [facility] URINE AND STOOL UA WBC 1 /HPF 0 - 5 02/21/2014 [facility] URINE AND STOOL UA RBC 15 /HPF 0 - 2 02/21/2014 [facility] URINE AND STOOL UA Mucus Few /LPF None Seen /LPF 02/21/2014 [facility] URINE AND STOOL UA Sq Epi Few /LPF Few /LPF 02/21/2014 [facility] URINE AND STOOL UA Nitrite Negative (02/21/14 8:07 AM) Negative 02/21/2014 [facility] URINE AND STOOL UA Leuk Est Negative (02/21/14 8:07 AM) Negative 02/21/2014 [facility] URINE AND STOOL UA Blood Small *ABN* (02/21/14 8:07 AM) Negative 02/21/2014 [facility] URINE AND STOOL UA Ketones Negative mg/dL Negative mg/dL 02/21/2014 [facility] URINE AND STOOL UA Bili Negative *NA* (02/21/14 8:07 AM) Negative 02/21/2014 [facility] URINE AND STOOL UA Glucose Negative mg/dL Negative mg/dL 02/21/2014 [facility] URINE AND STOOL UA Protein Negative mg/dL Negative mg/dL 02/21/2014 [facility] URINE AND STOOL UA pH 5.0 5.0 - 8.0 02/21/2014 [facility] URINE AND STOOL UA Turbidity Clear (02/21/14 8:07 AM) Clear 02/21/2014 [facility] URINE AND STOOL UA Color Yellow *NA* (02/21/14 8:07 AM) Yellow 02/21/2014 [facility] Chest/Abdomen/Pelvis w IV contrast CT Chest/Abdomen/Pelvis w IV contrast CT CT SCAN OF [...] mildly enlarged. No abnormalities identified in the spleen, biliary system, pancreas, or adrenal glands. No [...] Electronically Signed by: Colin Epps MD 02/21/14 08:17 FINAL REPORT [facility] CARDIAC ENZYMES BNP 25 pg/mL <=100 pg/mL 02/21/2014 6Interpretive Data: Elevated results are in line with increasing severity of congestive heart failure. Minor elevations between 100 and 300 may be seen with Myocardial Ischemia, Sodium retaining drugs, and compensated/treated heart failure. [facility] CARDIAC ENZYMES Troponin-I null 0.00 - 0.40 02/21/2014 [facility] CARDIAC ENZYMES CK MB 0.7 ng/mL 0.5 - 3.6 02/21/2014 [facility] CARDIAC ENZYMES Total CK 92 unit/L 12 - 191 02/21/2014 [facility] CARDIAC ENZYMES CK MB Index 0.8 0.0 - 2.5 02/21/2014 [facility] CHEM PANEL Lipase Lvl 67 unit/L 73 - 393 02/21/2014 [facility] CHEM PANEL B/C Ratio 22 6 - 25 02/21/2014 [facility] CHEM PANEL AGAP 12.9 meq/L 10.0 - 20.0 02/21/2014 [facility] CHEM PANEL Globulin 4.1 g/dL 2.0 - 4.0 02/21/2014 [facility] CHEM PANEL A/G Ratio 1.0 0.7 - 1.6 02/21/2014 [facility] CHEM PANEL eGFR 74 mL/min/1.73m2 02/21/2014 3Result Comment: The eGFR is calculated [...] from the National Kidney Disease Education Program (NKDEP) which additionally recommends that when the eGFR is used in patients with extremes of body mass index for purposes of drug dosing, the eGFR should be multiplied by the estimated BMI. [facility] CHEM PANEL Calcium Lvl 9.1 mg/dL 8.5 - 10.5 02/21/2014 [facility] CHEM PANEL Albumin Lvl 3.9 g/dL 3.5 - 5.0 02/21/2014 [facility] CHEM PANEL CO2 27 meq/L 24 - 32 02/21/2014 [facility] CHEM PANEL Chloride Lvl 104 meq/L 95 - 109 02/21/2014 [facility] CHEM PANEL Potassium Lvl 3.9 meq/L 3.5 - 5.1 02/21/2014 [facility] CHEM PANEL Creatinine Lvl 0.9 mg/dL 0.5 - 1.4 02/21/2014 [facility] CHEM PANEL BUN 20 mg/dL 7 - 22 02/21/2014 [facility] CHEM PANEL Glucose Lvl 97 mg/dL 70 - 99 02/21/2014 5Interpretive Data: Adult reference range values reflect the clinical guidelines of the [place] [employer]. [facility] CHEM PANEL Sodium Lvl 140 meq/L 135 - 145 02/21/2014 [facility] CHEM PANEL AST 52 unit/L 0 - 37 02/21/2014 [facility] CHEM PANEL Total Protein 8.0 g/dL 6.4 - 8.4 02/21/2014 [facility] CHEM PANEL Alk Phos 94 unit/L 39 - 136 02/21/2014 [facility] CHEM PANEL ALT 54 unit/L 0 - 65 02/21/2014 [facility] CHEM PANEL Bili Total 0.7 mg/dL 0.2 - 1.3 02/21/2014 [facility] HEMATOLOGY Eosinophils # 0.1 K/CMM 0.0 - 0.5 02/21/2014 [facility] HEMATOLOGY Monocytes # 1.3 K/CMM 0.0 - 0.8 02/21/2014 [facility] HEMATOLOGY Lymphocytes # 3.3 K/CMM 1.0 - 5.5 02/21/2014 [facility] HEMATOLOGY Monocytes 9.6 % 2.0 - 12.0 02/21/2014 [facility] Lymphocytes 24.4 % 20.0 - 40.0 02/21/2014 [facility] HEMATOLOGY Segs 65.4 % 45.0 - 75.0 02/21/2014 [facility] Segs-Bands # 8.9 K/CMM 1.5 - 8.1 02/21/2014 [facility] Basophils 0.2 % 0.0 - 1.0 02/21/[address] [facility] Eosinophils 0.4 % 0.0 - 4.0 02/21/[address] [facility] MCV 94.0 fL 80.0 - 98.0 02/21/2014 [facility] MCH 31.4 pg 27.0 - 31.0 02/21/[address] [facility] Hct 49.6 % 36.0 - 48.0 02/21/2014 [facility] RBC 5.27 M/CMM 4.20 - 5.40 02/21/[address] [facility] Hgb 16.5 g/dL 12.0 - 16.0 02/21/2014 [facility] WBC 13.7 K/CMM 3.7 - 10.4 02/21/[address] [facility] MPV 7.6 fL 7.4 - 10.4 02/21/2014 [facility] MCHC 33.4 g/dL 32.0 - 36.0 02/21/[address] [facility] RDW 13.9 % 11.5 - 14.5 02/21/2014 [facility] Chest 2 views Chest 2 views [...] Electronically Signed by: Mario Black MD 02/21/14 05:07 FINAL REPORT [facility] Digital Mammo Screening [place] Digital Mammo Screening [place] - DIGITAL MAMMO SCREENING [place] BILATERAL DIGITAL SCREENING MAMMOGRAM WITH CAD: 06/16/2013 CLINICAL: Routine. Current study was evaluated with a Computer Aided Detection (CAD) system. Comparison is made to exams dated: 08/22/2011 mammogram - [facility], 07/07/2003 and 01/21/2002 mammogram. The tissue of both breasts is almost entirely fat. There are benign calcifications in both breasts. No significant masses, calcifications, or other findings are seen in either breast. There has been no significant interval change. IMPRESSION: BENIGN There is no mammographic evidence of malignancy. A screening mammogram in one year is recommended. Elva kidd/crista:06/17/2013 11:34:13 Spud Grader: Breanna Dias, [facility] This exam was dictated and interpreted by [id number] at [facility], 13. letter sent: Normal exam Mammogram BI-RADS: 2 Benign 06/16/2013 - - Read by: Elva Mazariegos Dictated Date/time: 06/17/13 11:34 Electronically Signed by: Elva Mazariegos MD 06/17/13 11:34 FINAL REPORT [facility] Vital Signs Vital Sign Value Date Comments Source Temperature Oral (F) 98 F 11/30/2017 [facility] Heart Rate 77 11/30/2017 [facility] Systolic (mm Hg) 146 11/30/2017 [facility] Diastolic (mm Hg) 79 11/30/2017 [facility] Respitory Rate 18 11/30/2017 [facility] Temperature Oral (F) 98 F 11/29/2017 [facility] Heart Rate 80 11/29/2017 [facility] Respitory Rate 17 11/29/2017 [facility] Systolic (mm Hg) 125 11/29/2017 [facility] Diastolic (mm Hg) 89 11/29/2017 [facility] Heart Rate 76 11/29/2017 [facility] Respitory Rate 20 11/29/2017 [facility] Systolic (mm Hg) 138 11/29/2017 [facility] Diastolic (mm Hg) 90 11/29/2017 [facility] Temperature Oral (F) 98.5 F 11/29/2017 [facility] Systolic (mm Hg) 122 11/29/2017 [facility] Diastolic (mm Hg) 60 11/29/2017 [facility] Respitory Rate 17 11/29/2017 [facility] Respitory Rate 18 11/29/2017 [facility] Respitory Rate 25 11/29/2017 [facility] Systolic (mm Hg) 121 11/29/2017 [facility] Diastolic (mm Hg) 55 11/29/2017 [facility] Weight 98.636 11/28/2017 [facility] BMI Calculated 41.09 11/28/2017 [facility] Temperature Oral (F) 98 F 11/28/2017 [facility] Heart Rate 90 11/28/2017 [facility] Systolic (mm Hg) 140 11/28/2017 [facility] Diastolic (mm Hg) 78 11/28/2017 [facility] Height 154.94 cm 11/28/2017 [facility] Systolic (mm Hg) 137 08/20/2017 [facility] Diastolic (mm Hg) 82 08/20/2017 [facility] Height 154.94 cm 08/20/2017 [facility] Heart Rate 83 08/20/2017 [facility] Weight 103.182 08/20/2017 [facility] BMI Calculated 42.98 08/20/2017 [facility] Systolic (mm Hg) 145 07/05/2017 [facility] Diastolic (mm Hg) 71 07/05/2017 [facility] Systolic (mm Hg) 142 07/05/2017 [facility] Diastolic (mm Hg) 72 07/05/2017 [facility] Respitory Rate 20 07/05/2017 [facility] Systolic (mm Hg) 128 07/05/2017 [facility] Diastolic (mm Hg) 78 07/05/2017 [facility] Respitory Rate 16 07/05/2017 [facility] Respitory Rate 16 07/05/2017 [facility] Heart Rate 75 07/05/2017 [facility] Temperature Oral (F) 98.0 F 07/05/2017 [facility] Height 154.94 cm 07/05/2017 [facility] Weight 100.909 07/05/2017 [facility] BMI Calculated 42.03 07/05/2017 [facility] Systolic (mm Hg) 154 02/21/2015 [facility] Diastolic (mm Hg) 95 02/21/2015 [facility] Respitory Rate 18 02/21/2015 [facility] Temperature Oral (F) 98.7 F 02/21/2015 [facility] Heart Rate 91 02/21/2015 [facility] Temperature Oral (F) 98.5 F 02/21/2015 [facility] Systolic (mm Hg) 147 02/21/2015 [facility] Diastolic (mm Hg) 82 02/21/2015 [facility] Heart Rate 76 02/21/2015 [facility] Respitory Rate 18 02/21/2015 [facility] Respitory Rate 14 02/21/2015 [facility] Temperature Oral (F) 98.3 F 02/21/2015 [facility] Systolic (mm Hg) 131 02/21/2015 [facility] Diastolic (mm Hg) 75 02/21/2015 [facility] Heart Rate 85 02/21/2015 [facility] BMI Calculated 42.13 02/18/2015 [facility] Weight 101.136 02/18/2015 [facility] Height 154.94 cm 02/18/2015 [facility] Temperature Oral (F) 99.0 F 04/17/2014 [facility] Heart Rate 90 04/17/2014 [facility] Respitory Rate 20 04/17/2014 [facility] Diastolic (mm Hg) 75 04/17/2014 [facility] Systolic (mm Hg) 136 04/17/2014 [facility] Respitory Rate 20 04/17/2014 [facility] Heart Rate 101 04/17/2014 [facility] Diastolic (mm Hg) 80 04/17/2014 [facility] Systolic (mm Hg) 137 04/17/2014 [facility] Respitory Rate 20 04/17/2014 [facility] Diastolic (mm Hg) 84 04/17/2014 [facility] Heart Rate 122 04/17/2014 [facility] Systolic (mm Hg) 135 04/17/2014 [facility] Temperature Oral (F) 99.1 F 04/17/2014 [facility] Weight 85.909 04/17/2014 [facility] Systolic (mm Hg) 126 04/14/2014 [facility] Temperature Oral (F) 98.4 F 04/14/2014 [facility] Heart Rate 76 04/14/2014 [facility] Respitory Rate 18 04/14/2014 [facility] Diastolic (mm Hg) 82 04/14/2014 [facility] Diastolic (mm Hg) 79 04/14/2014 [facility] Systolic (mm Hg) 131 04/14/2014 [facility] Temperature Oral (F) 98.3 F 04/14/2014 [facility] Respitory Rate 18 04/14/2014 [facility] Heart Rate 88 04/14/2014 [facility] Heart Rate 83 04/14/2014 [facility] Diastolic (mm Hg) 66 04/14/2014 [facility] Temperature Oral (F) 98.2 F 04/14/2014 [facility] Systolic (mm Hg) 117 04/14/2014 [facility] Respitory Rate 18 04/14/2014 [facility] Height 154.94 cm 04/04/2014 [facility] Weight 86.875 04/04/2014 [facility] BMI Calculated 36.19 04/04/2014 [facility] Height 154.94 cm 04/04/2014 [facility] Weight 89.545 04/03/2014 [facility] BMI Calculated 37.3 04/03/2014 [facility] Height 154.94 cm 04/03/2014 [facility] Diastolic (mm Hg) 72 04/02/2014 [facility] Systolic (mm Hg) 128 04/02/2014 [facility] Respitory Rate 18 04/02/2014 [facility] Heart Rate 109 04/02/2014 [facility] Temperature Oral (F) 98.3 F 04/02/2014 [facility] Diastolic (mm Hg) 81 04/02/2014 [facility] Systolic (mm Hg) 122 04/02/2014 [facility] Respitory Rate 18 04/02/2014 [facility] Heart Rate 110 04/02/2014 [facility] Temperature Oral (F) 99.2 F 04/02/2014 [facility] Height 154.94 cm 04/02/2014 [facility] Weight 89.545 04/02/2014 [facility] BMI Calculated 37.3 04/02/2014 [facility] Diastolic (mm Hg) 88 04/02/2014 [facility] Systolic (mm Hg) 132 04/02/2014 [facility] Respitory Rate 100 04/02/2014 [facility] Heart Rate 122 04/02/2014 [facility] Temperature Oral (F) 98.4 F 04/02/2014 [facility] Weight 81.818 04/01/2014 [facility] BMI Calculated 30.02 04/01/2014 [facility] Height 165.1 cm 04/01/2014 [facility] Heart Rate 94 03/03/2014 [facility] Temperature Oral (F) 98.3 F 03/03/2014 [facility] Diastolic (mm Hg) 84 03/03/2014 [facility] Respitory Rate 16 03/03/2014 [facility] Systolic (mm Hg) 144 03/03/2014 [facility] Respitory Rate 18 03/03/2014 [facility] Diastolic (mm Hg) 100 03/03/2014 [facility] Systolic (mm Hg) 150 03/03/2014 [facility] Heart Rate 96 03/03/2014 [facility] Respitory Rate 18 03/03/2014 [facility] Temperature Oral (F) 98.1 F 03/03/2014 [facility] Systolic (mm Hg) 164 03/03/2014 [facility] Diastolic (mm Hg) 90 03/03/2014 [facility] Heart Rate 100 03/03/2014 [facility] Temperature Oral (F) 98.7 F 03/03/2014 [facility] Height 154.94 cm 02/20/2014 [facility] BMI Calculated 36.92 02/20/2014 [facility] Weight 88.636 02/20/2014 [facility] Diastolic (mm Hg) 83 02/19/2014 [facility] Systolic (mm Hg) 154 02/19/2014 [facility] Heart Rate 87 02/19/2014 [facility] Temperature Oral (F) 97.5 F 02/19/2014 [facility] Weight 89.091 02/19/2014 [facility] Height 154.94 cm 02/19/2014 [facility] BMI Calculated 37.11 02/19/2014 [facility] Temperature Oral (F) 97.8 F 02/19/2014 [facility] Diastolic (mm Hg) 108 02/19/2014 [facility] Systolic (mm Hg) 172 02/19/2014 [facility] Respitory Rate 18 02/19/2014 [facility] Heart Rate 100 02/19/2014 [facility] Encounters Location Location Details Encounter Type Encounter Number Reason For Visit Attending Provider ADM Date DC Date Status Source [facility] Outpatient [id number] SCREENING MAMMO SANCHEZ RODRÍGUEZ 06/16/[address] [facility] Outpatient [id number] Sanchez Rodríguez 06/16/2013 06/17/2013 [facility] [id number] Jaxon Ingram 02/19/2014 02/19/2014 [facility] Inpatient [id number] Mynor Miguel 02/20/2014 03/03/2014 [facility] OBS Observation Patient [id number] Adnan Miguel 04/01/2014 04/02/2014 [facility] Inpatient [id number] Harvinder Aleman 04/03/2014 04/14/2014 [facility] [id number] Alphonso Elkins 04/17/2014 04/17/2014 [facility] Inpatient [id number] Adnan Miguel 02/18/2015 02/21/2015 [facility] Outpatient [id number] Heber Carcamo 02/28/2015 03/01/2015 [facility] Outpatient [id number] Wendy Fiore 11/29/2015 11/30/2015 [facility] Outpatient [id number] Jonathan Jeramie 11/14/2016 11/15/2016 [facility] Message [id number] 03/26/2017 03/28/2017 [facility] Outpatient [id number] [facility] 04/16/2017 [facility] Outpatient [id number] [facility] 04/16/2017 04/17/2017 [facility] Outpatient [id number] Adnan Miguel 06/12/2017 06/13/2017 [facility] Outpatient [id number] [facility] 07/05/2017 07/05/2017 [facility] Phone Message [id number] 07/23/2017 07/25/2017 [facility] Phone Message [id number] 07/25/2017 07/27/2017 [facility] Outpatient [id number] [facility] 08/20/2017 [facility] Outpatient [id number] [facility] 08/20/2017 08/21/2017 [facility] Emergency [id number] Sujey Zavalaooqi 11/28/2017 11/29/2017 [facility] Emergency [id number] Karon Adolphaddisdariuszho 11/29/2017 11/30/2017 [facility] Outpatient [id number] Adnan Miguel 12/06/2017 12/07/2017 [facility] Phone Message [id number] 01/06/2018 01/08/2018 [facility] [id number] SCARLETT GU MD 01/10/2018 [facility] Discharged Inpatient [id number] DICK [facility] MD 01/22/2018 01/23/2018 [facility] Procedures Procedure Code Date Perfomer Comments Source CT of abdomen and pelvis without contrast [id number] 01/20/2018 [facility] Extracorporeal shock wave lithotripsy (ESWL) [id number] 01/10/[address] [facility] Cystoscopy with retrograde pyelography [id number] 01/10/[address] [facility] X-ray of chest, two views [id number] 01/10/2018 [facility] Hysterectomy [id number] [facility] Cholecystectomy [id number] [facility] Excision of disc for intervertebral herniated disc, nucleus pulposus [id number] [facility] Cholecystectomy [id number] [facility] Excision of disc for intervertebral herniated disc, nucleus pulposus [id number] [facility] Hysterectomy [id number] [facility]
--- OUTSIDE RECORDS SUMMARY | 2018-07-04 10:36 | XMS REPORT | Summary of Care ---
Author Author [facility] Organization [facility] Address Unknown Phone Unavailable Encounter BOY Mercado(LUPE) [id number] Date(s): 07/05/17 - 07/05/17 [facility] [address] [place] [address]- [phone] Encounter Diagnosis Other spondylosis with radiculopathy, lumbar [...] Status penicillins Active azithromycin Active Keflex Active Levaquin Active ashley Active statins Active Medications amitriptyline [...] use: quit 20 yeas ago. Smoking Status Former smoker; Exposure to Tobacco Smoke None; Cigarette Smoking Last 365 Days No; Reg Smoking Cessation Counseling No entered on: 11/29/17 Assessment and Plan No data available for this section
--- OUTSIDE RECORDS SUMMARY | 2018-07-04 10:36 | XMS REPORT | Summary of Care ---
Author Author [facility] Organization [facility] Neurosurgery [facility] Address Unknown Phone Unavailable Encounter BOY Mercado(FIN) [id number] Date(s): 01/06/18 - 01/07/18 [facility] Neurosurgery [facility] [address] [facility], [address] [place] [address] [phone] Vital Signs No data available for this [...] Levaquin Active ashley Active statins Active Medications No [...]
--- OUTSIDE RECORDS SUMMARY | 2018-07-04 10:36 | XMS REPORT | Summary of Care ---
Author Author [facility] Organization [facility] Address Unknown Phone Unavailable Encounter BOY Mercado(LUPE) [id number] Date(s): 11/29/17 - 11/29/17 [facility] [address] [place] [address]- [phone] Encounter Diagnosis COPD exacerbation (Discharge Diagnosis) - 11/29/17 Retention of urine (Discharge Diagnosis) - 11/29/17 Retention of urine, unspecified (Final) - 12/04/17 Chronic obstructive pulmonary disease with (acute) exacerbation (Final) - Hypoxemia (Final) - Chronic pulmonary edema (Final) - Essential (primary) hypertension (Final) - Morbid (severe) obesity due to excess calories (Final) - Personal history of nicotine dependence (Final) - Discharge Disposition: Home or Self Care Attending Physician: Karon Valerio MD Vital Signs 1 2 3 Most recent to oldest [Reference Range]: 98 DegF (11/29/17 7:31 PM) 98 DegF (11/29/17 6:30 PM) 98.5 DegF (11/29/17 1:28 PM) Temperature Oral [96.4-99.1 DegF] 146/79 mmHg *HI* (11/29/17 7:31 PM) 125/89 mmHg (11/29/17 6:30 PM) 138/90 mmHg (11/29/17 4:00 PM) Blood Pressure [90-140/60-90 mmHg] 18 BRMIN (11/29/17 7:31 PM) 17 BRMIN (11/29/17 6:30 PM) 20 BRMIN (11/29/17 4:00 PM) Respiratory Rate [14-20 BRMIN] 77 bpm (11/29/17 7:31 PM) 80 bpm (11/29/17 6:30 PM) 76 bpm (11/29/17 4:00 PM) Peripheral Pulse Rate [60-100 bpm] Problem List Condition Effective Dates Status Health [...] Levaquin Active ashley Active statins Active Medications albuterol-ipratropium 2.5-0.5 mg inhalation solution 3 mL, Route: NEB, Dosing Weight 98.636, kg, ONCE, STAT, Start date: 11/29/17 14: 14:00 CDT, Stop date: 11/29/17 14:14:00 CDT Start Date: 11/29/17 Stop Date: 11/29/17 Status: Completed fentaNYL 25 microgram, 0.5 mL, Route: IVP, Drug form: INJ, ONCE, Dosing Weight 98.636, kg , Priority: STAT, Start date: 11/29/17 17:09:00 CDT, Stop date: 11/29/17 17:09:0 0 CDT Notes: (Same as: Sublimaze) Preservative free. Start Date: 11/29/17 Stop Date: 11/29/17 Status: Completed Lasix 40 mg, 4 mL, Route: IVP, Drug form: INJ, ONCE, Dosing Weight 98.636, kg, Priorit y: STAT, Start date: 11/29/17 15:53:00 CDT, Stop date: 11/29/17 15:53:00 CDT Notes: (Same as: Lasix) MEDICATION WASTE Product Size: 40 mgProduct Was radha: ___ mg Start Date: 11/29/17 Stop Date: 11/29/17 Status: Completed predniSONE 50 mg oral tablet 50 mg=1 tab, PO, Daily, X 7 day, # 7 tab, 0 Refill(s) Start Date: 11/29/17 Stop Date: 12/06/17 Status: Completed Saline Flush 0.9% 10 mL, Route: IVP, Drug Form: INJ, Dosing Weight 98.636, kg, PRN, PRN Line Flush , Start date: 11/29/17 14:13:00 CDT, Duration: 30 day, Stop date: 12/29/17 14:12 :00 CDT Notes: (Same as: BD Posiflush) Start Date: 11/29/17 Stop Date: 11/29/17 Status: Discontinued Solu-MEDROL 125 mg, 2 mL, Route: IVP, Drug form: INJ, ONCE, Dosing Weight 98.636, kg, Priori ty: STAT, Start date: 11/29/17 15:27:00 CDT, Stop date: 11/29/17 15:27:00 CDT Notes: (Same as:Solu-MEDROL, A-Methapred) Start Date: 11/29/17 Stop Date: 11/29/17 Status: Completed Results ELECTROLYTES Most recent to 1 oldest [Reference Range]: Sodium Lvl [135-145 137 mEq/L mEq/L] (11/29/17 2:28 PM) Potassium Lvl 3.6 mEq/L [3.5-5.1 mEq/L] (11/29/17 2:28 PM) Chloride Lvl [95-109 102 mEq/L mEq/L] (11/29/17 2:28 PM) CO2 [24-32 mEq/L] 30 mEq/L (11/29/17 2:28 PM) AGAP [10.0-20.0 8.6 mEq/L mEq/L] *LOW* (11/29/17 2:28 PM) CHEM PANEL Most recent to 1 oldest [Reference Range]: Creatinine Lvl 0.80 mg/dL [0.50-1.40 mg/dL] (11/29/17 2:28 PM) eGFR 82 mL/min/1.73m2 1 *NA* (11/29/17 2:28 PM) BUN [7-22 mg/dL] 15 mg/dL (11/29/17 2:28 PM) Glucose Lvl [70-99 102 mg/dL mg/dL] *HI* (11/29/17 2:28 PM) Calcium Lvl 8.7 mg/dL [8.5-10.5 mg/dL] (11/29/17 2:28 PM) 1Result Comment: The eGFR is calculated [...] of drug dosing, the eGFR should be mul tiplied by the estimated BMI. CARDIAC ENZYMES Most recent to 1 oldest [Reference Range]: Total CK [12-191 87 unit/L unit/L] (11/29/17 2:28 PM) CK MB [0.5-3.6 <1.0 ng/mL ng/mL] (11/29/17 2:28 PM) CK MB Index <1.1 [0.0-2.5] (11/29/17 2:28 PM) Troponin-I <0.02 ng/mL [0.00-0.40 ng/mL] (11/29/17 2:28 PM) BNP [<=100 pg/mL] 13 pg/mL (11/29/17 2:28 PM) URINE AND STOOL Most recent to 1 oldest [Reference Range]: UA Turbidity [Clear] Clear (11/29/17 2:28 PM) UA Color [Yellow] Yellow *NA* (11/29/17 2:28 PM) UA pH [5.0-8.0] 5.0 (11/29/17 2:28 PM) UA Spec Grav 1.025 [<=1.030] (11/29/17 2:28 PM) UA Glucose [Negative Negative mg/dL mg/dL] *NA* (11/29/17 2:28 PM) UA Blood [Negative] Negative (11/29/17 2:28 PM) UA Ketones [Negative Negative mg/dL mg/dL] *NA* (11/29/17 2:28 PM) UA Protein [Negative Negative mg/dL mg/dL] (11/29/17 2:28 PM) UA Urobilinogen <=1.0 mg/dL [0.1-1.0 mg/dL] *NA* (11/29/17 2:28 PM) UA Bili [Negative] Negative *NA* (11/29/17 2:28 PM) UA Leuk Est Negative [Negative] (11/29/17 2:28 PM) UA Nitrite Negative [Negative] (11/29/17 2:28 PM) UA WBC [0-5 /HPF] <1 /HPF (11/29/17 2:28 PM) UA RBC [0-2 /HPF] 1 /HPF (11/29/17 2:28 PM) UA Sq Epi [Few /LPF] Occasional /LPF *NA* (11/29/17 2:28 PM) HEMATOLOGY Most recent to 1 oldest [Reference Range]: WBC [3.7-10.4 K/CMM] 11.4 K/CMM *HI* (11/29/17 2:28 PM) RBC [4.20-5.40 5.18 M/CMM M/CMM] (11/29/17 2:28 PM) Hgb [12.0-16.0 g/dL] 16.1 g/dL *HI* (11/29/17 2:28 PM) Hct [36.0-48.0 %] 47.4 % (11/29/17 2:28 PM) MCV [80.0-98.0 fL] 91.4 fL (11/29/17 2:28 PM) MCH [27.0-31.0 pg] 31.0 pg (11/29/17 2:28 PM) MCHC [32.0-36.0 33.9 g/dL g/dL] (11/29/17 2:28 PM) RDW [11.5-14.5 %] 14.4 % (11/29/17 2:28 PM) MPV [7.4-10.4 fL] 7.5 fL (11/29/17 2:28 PM) Platelet [133-450 252 K/CMM K/CMM] (11/29/17 2:28 PM) Segs [45.0-75.0 %] 65.5 % (11/29/17 2:28 PM) Lymphocytes 24.3 % [20.0-40.0 %] (11/29/17 2:28 PM) Monocytes [2.0-12.0 7.2 % %] (11/29/17 2:28 PM) Eosinophils [0.0-4.0 2.4 % %] (11/29/17 2:28 PM) Basophils [0.0-1.0 0.6 % %] (11/29/17 2:28 PM) Neutrophils # 7.5 K/CMM [1.5-8.1 K/CMM] (11/29/17 2:28 PM) Lymphocytes # 2.8 K/CMM [1.0-5.5 K/CMM] (11/29/17 2:28 PM) Monocytes # [0.0-0.8 0.8 K/CMM K/CMM] (11/29/17 2:28 PM) Eosinophils # 0.3 K/CMM [0.0-0.5 K/CMM] (11/29/17 2:28 PM) Basophils # [0.0-0.2 0.1 K/CMM K/CMM] (11/29/17 2:28 PM) PT [12.0-14.7 13.8 seconds seconds] (11/29/17 2:28 PM) INR [0.85-1.17] 1.06 (11/29/17 2:28 PM) PTT [22.9-35.8 29.2 seconds seconds] (11/29/17 2:28 PM) Immunizations Given and Recorded Vaccine Date Status [...]
--- OUTSIDE RECORDS SUMMARY | 2018-07-04 10:36 | XMS REPORT | Summary of Care ---
Author Author [facility] Organization [facility] Address Unknown Phone Unavailable Encounter BOY Mercado(LUPE) [id number] Date(s): 11/28/17 - 11/29/17 [facility] [address] [place] [address]- Encounter Diagnosis Acute urinary retention (Discharge Diagnosis) - 11/28/17 Retention of urine, unspecified (Final) - 12/05/17 Gross hematuria (Final) - Calculus of kidney (Final) - Unspecified urinary incontinence (Final) - Essential (primary) hypertension (Final) - Chronic obstructive pulmonary disease, unspecified (Final) - Nicotine dependence, cigarettes, uncomplicated (Final) - Abdominal aortic aneurysm, without rupture (Final) - Hereditary and idiopathic neuropathy, unspecified (Final) - Morbid (severe) obesity due to excess calories (Final) - Body mass index (BMI) 40.0-44.9, adult (Final) - [facility] (current) use of aspirin (Final) - [facility] (current) use of inhaled steroids (Final) - Other laboratory tester (current) drug therapy (Final) - [facility] (current) use of opiate analgesic (Final) - Discharge Disposition: Home or Self Care Attending Physician: Sujey Anne DO Vital Signs 1 2 3 Most recent to oldest [Reference Range]: 154.94 cm (11/28/17 6:23 PM) Height 98 DegF (11/28/17 6:23 PM) Temperature Oral [96.4-99.1 DegF] 122/60 mmHg (11/28/17 11:59 PM) 121/55 mmHg (11/28/17 10:00 PM) 140/78 mmHg (11/28/17 6:23 PM) Blood Pressure [90-140/60-90 mmHg] 17 BRMIN (11/28/17 11:59 PM) 18 BRMIN (11/28/17 10:51 PM) 25 BRMIN *HI* (11/28/17 10:00 PM) Respiratory Rate [14-20 BRMIN] 90 bpm (11/28/17 6:23 PM) Peripheral Pulse Rate [60-100 bpm] 98.636 kg (11/28/17 6:23 PM) Weight 41.09 m2 (11/28/17 6:23 PM) Body Mass Index Problem List Condition [...] Levaquin Active ashley Active statins Active Medications DuoNeb inhalation solution 3 ml, Route: NEB, Drug Form: SOLN, Dosing Weight 98.636, kg, ONCE, PRN Respirato ry Pathway, Start date: 11/28/17 23:09:00 CDT Start Date: 11/28/17 Stop Date: 11/29/17 Status: Discontinued Saline Flush 0.9% 10 mL, Route: IVP, Drug Form: INJ, Dosing Weight 103.182, kg, PRN, PRN Line Flus h, Start date: 11/28/17 18:25:00 CDT, Duration: 30 day, Stop date: 12/28/17 18:2 4:00 CDT Notes: (Same as: BD Posiflush) Start Date: 11/28/17 Stop Date: 11/29/17 Status: Discontinued Sodium Chloride 0.9% (Bolus) IV 1,000 mL, 1,000 ml/hr, Infuse Over: 1 hr, Route: IV, 1,000, Drug form: INJ, ONCE , Priority: STAT, Dosing Weight 98.636 kg, Start date: 11/28/17 22:15:00 CDT, St op date: 11/28/17 22:15:00 CDT Start Date: 11/28/17 Stop Date: 11/28/17 Status: Completed Results ELECTROLYTES Most recent to 1 oldest [Reference Range]: Sodium Lvl [135-145 141 mEq/L mEq/L] (11/28/17 7:39 PM) Potassium Lvl 4.1 mEq/L [3.5-5.1 mEq/L] (11/28/17 7:39 PM) Chloride Lvl [95-109 105 mEq/L mEq/L] (11/28/17 7:39 PM) CO2 [24-32 mEq/L] 27 mEq/L (11/28/17 7:39 PM) AGAP [10.0-20.0 13.1 mEq/L mEq/L] (11/28/17 7:39 PM) CHEM PANEL Most recent to 1 oldest [Reference Range]: Creatinine Lvl 1.21 mg/dL [0.50-1.40 mg/dL] (11/28/17 7:39 PM) eGFR 50 mL/min/1.73m2 1 *NA* (11/28/17 7:39 PM) BUN [7-22 mg/dL] 18 mg/dL (11/28/17 7:39 PM) B/C Ratio [6-25] 15 (11/28/17 7:39 PM) Glucose Lvl [70-99 98 mg/dL mg/dL] (11/28/17 7:39 PM) Total Protein 8.4 g/dL [6.4-8.4 g/dL] (11/28/17 7:39 PM) Albumin Lvl [3.5-5.0 3.5 g/dL g/dL] (11/28/17 7:39 PM) Globulin [2.7-4.2 4.9 g/dL g/dL] *HI* (11/28/17 7:39 PM) A/G Ratio [0.7-1.6] 0.7 (11/28/17 7:39 PM) Calcium Lvl 9.2 mg/dL [8.5-10.5 mg/dL] (11/28/17 7:39 PM) ALT [0-65 unit/L] 21 unit/L (11/28/17 7:39 PM) AST [0-37 unit/L] 17 unit/L (11/28/17 7:39 PM) Alk Phos [39-136 92 unit/L unit/L] (11/28/17 7:39 PM) Bili Total [0.2-1.3 0.3 mg/dL mg/dL] (11/28/17 7:39 PM) Lipase Lvl [73-393 139 unit/L unit/L] (11/28/17 7:39 PM) 1Result Comment: The eGFR is calculated [...] be mul tiplied by the estimated BMI. URINE AND STOOL Most recent to 1 oldest [Reference Range]: UA Turbidity [Clear] Slight *ABN* (11/28/17 10:27 PM) UA Color [Yellow] Yellow (11/28/17 10:27 PM) UA pH [5.0-8.0] 5.0 (11/28/17 10:27 PM) UA Spec Grav 1.031 [<=1.030] *HI* (11/28/17 10:27 PM) UA Glucose [Negative Negative mg/dL mg/dL] *NA* (11/28/17 10:27 PM) UA Blood [Negative] Negative (11/28/17 10:27 PM) UA Ketones [Negative Trace mg/dL mg/dL] *ABN* (11/28/17 10:27 PM) UA Protein [Negative 30 mg/dL mg/dL] *ABN* (11/28/17 10:27 PM) UA Urobilinogen 2.0 mg/dL [0.1-1.0 mg/dL] *HI* (11/28/17 10:27 PM) UA Bili [Negative] Negative *NA* (11/28/17 10:27 PM) UA Leuk Est Negative [Negative] (11/28/17 10:27 PM) UA Nitrite Negative [Negative] (11/28/17 10:27 PM) UA WBC [0-5 /HPF] 2 /HPF (11/28/17 10:27 PM) UA RBC [0-2 /HPF] 1 /HPF (11/28/17 10:27 PM) UA Bacteria [None Occasional /HPF Seen /HPF] *NA* (11/28/17 10:27 PM) UA Sq Epi [Few /LPF] Few /LPF *NA* (11/28/17 10:27 PM) UA Mucus [None Seen Few /LPF /LPF] *NA* (11/28/17 10:27 PM) HEMATOLOGY Most recent to 1 oldest [Reference Range]: WBC [3.7-10.4 K/CMM] 10.5 K/CMM *HI* (11/28/17 7:39 PM) RBC [4.20-5.40 5.53 M/CMM M/CMM] *HI* (11/28/17 7:39 PM) Hgb [12.0-16.0 g/dL] 17.0 g/dL *HI* (11/28/17 7:39 PM) Hct [36.0-48.0 %] 50.6 % *HI* (11/28/17 7:39 PM) MCV [80.0-98.0 fL] 91.4 fL (11/28/17 7:39 PM) MCH [27.0-31.0 pg] 30.7 pg (11/28/17 7:39 PM) MCHC [32.0-36.0 33.6 g/dL g/dL] (11/28/17 7:39 PM) RDW [11.5-14.5 %] 14.5 % (11/28/17 7:39 PM) MPV [7.4-10.4 fL] 7.7 fL (11/28/17 7:39 PM) Platelet [133-450 285 K/CMM K/CMM] (11/28/17 7:39 PM) Segs [45.0-75.0 %] 58.1 % (11/28/17 7:39 PM) Lymphocytes 31.8 % [20.0-40.0 %] (11/28/17 7:39 PM) Monocytes [2.0-12.0 7.2 % %] (11/28/17 7:39 PM) Eosinophils [0.0-4.0 2.4 % %] (11/28/17 7:39 PM) Basophils [0.0-1.0 0.5 % %] (11/28/17 7:39 PM) Neutrophils # 6.1 K/CMM [1.5-8.1 K/CMM] (11/28/17 7:39 PM) Lymphocytes # 3.3 K/CMM [1.0-5.5 K/CMM] (11/28/17 7:39 PM) Monocytes # [0.0-0.8 0.8 K/CMM K/CMM] (11/28/17 7:39 PM) Eosinophils # 0.2 K/CMM [0.0-0.5 K/CMM] (11/28/17 7:39 PM) Basophils # [0.0-0.2 0.1 K/CMM K/CMM] (11/28/17 7:39 PM) Immunizations Given and Recorded Vaccine Date [...]
--- OUTSIDE RECORDS SUMMARY | 2018-07-04 10:36 | XMS REPORT | Summary of Care ---
Author Author [facility] Organization [facility] Address Unknown Phone Unavailable Encounter HQ Rogelio(FIN) [id number] Date(s): 12/06/17 - 12/06/17 [facility] [address] [place] [address] [phone] Encounter Diagnosis Pain in left finger(s) (Final) - 12/13/17 Discharge Disposition: Home or Self Care Attending Physician: Mynor Rivera MD Admitting Physician: Mynor Rivera MD Vital Signs No [...]
[2018-07-04 14:39] VITALS: BP 120/74
--- NOTE | 2018-08-27 06:32 | Operative Report ---
DATE OF PROCEDURE: 07/04/2018 SURGEON: Darius Chin MD PREOPERATIVE DIAGNOSIS: Refractory urge incontinence. POSTOPERATIVE DIAGNOSIS: Refractory urge incontinence. OPERATIONS PERFORMED: 1. Complete InterStim system implantation with incision and implantation of tined quadripolar lead electrodes into the left foramen S3. 2. Fluoroscopic guidance for needle placement. 3. Subcutaneous implantation of sacral nerve neurostimulator. 4. Electronic analysis and complex programming. ANESTHESIA: General. COMPLICATIONS: None. CLINICAL SUMMARY: Alannah Horner is a 57-year-old woman with refractory urge incontinence. She has failed medical therapy as well as behavioral therapy. She had undergone percutaneous InterStim testing via the office with 90% improvement of her symptomatology of frequency, urgency, and urge incontinence. She elected to proceed with InterStim implant as planned. She is aware of the risks of bleeding, infection, injury to adjacent structures, persistent incontinence, need for additional procedures and elected to proceed. PROCEDURE IN DETAIL: Informed consent was verified. Alannah Horner was properly identified, taken to the operating room where anesthesia was uneventfully begun. She was then carefully gently repositioned in a prone position with all pressure points carefully well padded. The patient's back and buttocks were prepared and draped in usual sterile fashion. Fluoroscopy was utilized. The needle was introduced into the left foramen S3. Depth of needle was confirmed and adjusted fluoroscopically. Proper needle position was confirmed by plantar flexion of the great toe and direct observation of lifting of the perineum or "bellowing." The needle stylet was removed and directional guidewire was then placed and confirmed fluoroscopically. The foraminal needle was then removed. An incision was then made peripherally to the directional guide and dilator-introducer sheath was then placed over the directional guide until the opaque marker of the dilator was seen at the midpoint of the sacrum. The dilator obturator was then unlocked and removed. The lead was then placed through the introducer sheath to the first white line. Position was checked fluoroscopically. The lead was then further introduced until three electrodes were visible anterior to the sacrum. Each electrode was then tested for same findings above, findings were noted at low amplitude. After satisfactory condition, position was confirmed under continuous fluoroscopy, the introducer sheath was retracted, thus deploying the lead tines into the parasacral tissue. Further incision was then made into subcutaneous tissue posterior to the iliac crest and dissection was carried out to create a pocket. The tunneling tool was then utilized to bring the lead to the pocket site. The lead was then cleansed of bodily fluids with sterile water and dried thoroughly. The lead was then placed into the pulse generator header with the metal bands aligned and the blue tip clearly visible at the distal portion of the pulse generator header. The single set screw was tightened with a hex wrench. After copiously irrigating all incisions, the pulse generator was then placed in subcutaneous pocket and the programming head was then placed over the implanted neurostimulator. Impedance was verified to ensure lead placement and parameters were within normal limits. We then approximated both incisions in 2 layers utilizing absorbable suture. The skin layer was subcuticular. Mastisol, Steri-Strips, and Bioclusive dressings were applied. The patient was uneventfully reversed from anesthesia and taken to recovery room in stable condition. There were no complications of the procedure. The patient tolerated the procedure well. Sponge, needle, and instrument counts were of course correct x2 at the end of the case. ESTIMATED BLOOD LOSS: Minimal. Utilizing the clinician erp programmer, the patient was then programmed to the lead of optimum sensation and given explicit instructions on utilizing the erp programmer. Explicit instructions were given for the patient in the office. Darius Chin MD [place]/MODL /[id number] cc: Mynor Rivera MD
== END | disposition home or self-care (01) ==
LOC: OR 10:30
PROVIDERS: ATTEND Urology
DX: N39.41 Urge incontinence (principal); J44.9 Chronic obstructive pulmonary disease, unspecified; G47.33 Obstructive sleep apnea (adult) (pediatric); I71.4 Abdominal aortic aneurysm, without rupture; M54.9 Dorsalgia, unspecified; K21.9 Gastro-esophageal reflux disease without esophagitis; K58.9 Irritable bowel syndrome, unspecified; G62.9 Polyneuropathy, unspecified; F32.9 Major depressive disorder, single episode, unspecified; F41.9 Anxiety disorder, unspecified; F17.200 Nicotine dependence, unspecified, uncomplicated; Z88.1 Allergy status to other antibiotic agents; Z88.0 Allergy status to penicillin; Z88.8 Allergy status to other drugs, medicaments and biological substances; Z01.810 Encounter for preprocedural cardiovascular examination; Z79.82 Long term (current) use of aspirin; Z87.442 Personal history of urinary calculi; Z86.73 Personal history of transient ischemic attack (TIA), and cerebral infarction without residual deficits
CPT/HCPCS: 36415; 64581; 64590; 76000; 85025; 93005; 95972; C1778; C1787; C1894; J1100; J1580; J2001 ×2; J2250; J2405; J2704; L8679